=== PATIENT | male | born 1950 | race Caucasian/White ===

== ENCOUNTER 2016-09-13 14:26 | Inpatient (IN) ==
--- NOTE | 2016-09-13 18:18 | Emergency Department Note ---
Disposition Clinical Impression: Bowel obstruction, Cancer of liver, Nausea and vomiting, Abdominal pain Disposition: Admitted As Inpatient Condition: Fair [facility] - Forms: Work/School Release, ED Satisfaction Letter Time of Disposition: 21:03 Abdominal Pain HPI - General Chief Complaint: ED Abdominal Pain Stated Complaint: "flu like sx" decreased intake, abd pain Time Seen by Provider: 09/13/16 18:15 Source: patient Mode of arrival: ambulatory Limitations: physical limitation (weakness to his R side) Nursing Notes Reviewed: Yes Vital Signs Reviewed: Yes - History of Present Illness HPI Narrative: This is a 66-year-old male who presents with lower abdominal pain for several days. Patient states he did vomit once on Tuesday but no other vomiting. Patient states he was initially having diarrhea but that has also resolved. Patient denies any black or bloody stools. Patient is not having any difficulty urinating. Patient is not running a fever. Patient has no chest pain or shortness of breath. Patient has poor speech due to having speech loss and right sided weakness from her previous CVA. Patient states he has had decreased appetite. Pt Subjective Complaint: abdominal pain Onset (ago): day(s) Pain Scale: 4 - Related Data Home Medications Medication Instructions Recorded Confirmed Acetaminophen w/Cod 300-30 mg 1 tab PO TID PRN 08/04/16 08/16/16 [Tylenol w/Codeine #3] Albuterol Sulfate [Proair Hfa] 2 puff IH Q6H PRN 08/04/16 08/16/16 Amitriptyline [Elavil] 25 mg PO HS 08/04/16 08/16/16 Bupropion HCl [Zyban] 150 mg PO BID 08/04/16 08/16/16 Capsaicin 0.025% [Trixaicin] 1 appl TP QID 08/04/16 08/16/16 Fluticasone Propionate Nasal 50 mcg NS DAILY 08/04/16 08/16/16 [Flonase] Guaifenesin [Mucus Relief] 200 mg PO BID 08/04/16 08/16/16 Multivitamin [Multivitamins] 1 cap PO DAILY 08/04/16 08/16/16 Omeprazole [PriLOSEC] 40 mg PO BID 08/04/16 08/16/16 Pregabalin [Lyrica] 200 mg PO TID 08/04/16 08/16/16 Sildenafil Citrate [Viagra] 100 mg PO AD PRN 08/04/16 08/16/16 TraZODone 25 mg PO HS 08/04/16 08/16/16 Previous Rx's Medication Instructions Recorded Amoxicillin/Clavulanate [Augmentin] 1 tab PO BID #10 tablet 08/16/16 PredniSONE [Deltasone] 1 tab PO DAILY #3 tablet 08/16/16 Loperamide [Imodium] 4 mg PO QAM #10 capsule 08/24/16 Allergies Allergy/AdvReac Type Severity Reaction Status Date / Time No Known Allergies Allergy Verified 08/03/16 12:25 All systems ED: reviewed and negative except as stated. Constitutional: Reports: weakness, other (decreased appetite). Denies: fever, chills, weight change Eyes: Denies: eye pain, eye discharge, vision change ENT ED: Denies: ear pain, throat pain, dental pain, hearing loss, epistaxis, congestion, dysphagia Cardiovascular: Denies: chest pain, palpitations, dyspnea on exertion, edema, syncope Respiratory: Denies: cough, dyspnea, wheezes, hemoptysis, stridor Gastrointestinal: Reports: abdominal pain, nausea. Denies: vomiting, diarrhea, constipation, hematemesis, melena, hematochezia Genitourinary: Denies: urgency, dysuria, frequency, hematuria Musculoskeletal: Denies: back pain, neck pain, arthralgia, myalgia Integumentary: Denies: rash, abrasion, lesions Neurological: Denies: headache, numbness, paresthesias, confusion, abnormal gait , vertigo Psychiatric: Denies: anxiety, depression, suicidal thoughts, homicidal thoughts , auditory hallucinations, visual hallucinations Endocrine: Denies: fatigue Hematological/Lymphatic: Denies: easy bleeding, easy bruising Allergic/Immunologic: Denies: facial swelling, urticaria Abdominal Pain PMH - Past Medical History Medical history: Reports: cancer, CVA, hypertension Male Surgical History: Reports: orthopedic, other Psychiatric history: Reports: no psych history - Social History Smoking status: Current every day smoker Alcohol use: Reports: none Drug use: Reports: none Physical Exam - General Limitations: physical limitation (weakness chronic to R side) General appearance: alert, in no apparent distress, cachectic - Head Head exam: atraumatic, normocephalic, normal inspection - Eye Eye exam: Present: normal appearance, PERRL, EOMI - ENT ENT exam: normal exam, normal oropharynx, mucous membranes moist - Expanded ENT Exam External ear exam: Present: normal external inspection Mouth exam: Present: normal external inspection Teeth exam: Present: normal inspection Throat exam: Present: normal inspection - Neck Neck exam: Present: normal inspection, full ROM, trachea midline - Chest Chest inspection: Present: normal inspection, symmetric chest wall rise - Respiratory Respiratory exam: Present: normal lung sounds bilaterally - Cardiovascular Cardiovascular exam: Present: regular rate, normal rhythm, normal heart sounds - Abdominal Exam Abdominal exam: Present: soft, tenderness. Absent: distention, guarding, rebound, rigidity Abdominal tenderness: Present: diffuse (lower abdomen), mild - Extremities Exam Extremities exam: Present: normal inspection, full ROM. Absent: tenderness, pedal edema - Expanded Upper Extremity Exam Shoulder exam: Present: normal inspection, full ROM Arm exam: Present: normal inspection, full ROM Elbow exam: Present: normal inspection, full ROM Forearm/Wrist exam: Present: normal inspection, full ROM Hand exam: Present: normal inspection, full ROM Vascular exam: Normal: capillary refill, radial pulse - Expanded Lower Extremity Exam Hip/Pelvis exam: Present: normal inspection, full ROM Upper leg exam: Present: normal inspection, full ROM Knee exam: Present: normal inspection, full ROM Lower leg exam: Present: normal inspection, full ROM Ankle exam: Present: normal inspection, full ROM Foot/toe exam: Present: normal inspection, full ROM Neurovascular/Tendon exam: Present: motor deficit (weakness chronic to R side from previous CVA). Absent: sensory deficit, tendon deficit - Back Exam Back exam: Present: normal inspection, full ROM. Absent: tenderness - Neurological Exam Neurological exam: Present: alert, oriented X3 - Expanded Neurological Exam Patient oriented to: Present: person, place, time Speech: Absent: fluid speech (pt has speech difficulties due to previous CVA) Coma Scale Eye Opening: Spontaneous Coma Scale Motor Response: Obeys Commands Coma Scale Verbal Response: Oriented Coma Scale Total: 15 - Psychiatric Psychiatric exam: Present: normal affect, normal mood - Skin Skin exam: Present: warm, dry, intact, normal color Course - Consultations Consultation #1: I spoke with Dr. De La Cruz he is going to talk to the radiologist and call me back. Time: 20:46 Consultation #2: I spoke with Dr. Dorothy lora to admit to Hospitalist and he will consult. Wants an NG placed. Time: 21:02 Consultation #3: I spoke with Dr. Ryan lora to admit. Time: 21:24 Vital Signs Temperature 97.9 F 09/13/16 15:22 Pulse Rate 82 09/13/16 15:22 Respiratory Rate 18 09/13/16 15:22 Blood Pressure 117/82 09/13/16 15:22 O2 Sat by Pulse Oximetry 96 09/13/16 15:22 Temperature 97.9 F 09/13/16 15:22 Pulse Rate 82 09/13/16 15:22 Respiratory Rate 18 09/13/16 15:22 Blood Pressure 117/82 09/13/16 15:22 O2 Sat by Pulse Oximetry 96 09/13/16 15:22 Oxygen Delivery Oxygen Delivery Room Air Abdominal Pain - Medical Records Medical records reviewed: Yes I reviewed the patient's medical records. - Lab Data Lab results reviewed: Yes I reviewed the patient's lab results. Result diagrams: 09/13/16 18:59 09/13/16 18:59 Lab Results 09/13/16 09/13/16 09/13/16 Range/Units 18:59 18:59 18:59 WBC 10.3 (4.3-11.1) K/mcL RBC 5.27 (4.19-5.50) M/mcL Hgb 15.5 (12.9-16.9) g/dL Hct 46.3 (37.5-50.1) % MCV 87.9 (83.0-100.0) fL MCH 29.4 (28.0-33.3) pg MCHC 33.5 (31.6-35.5) g/dL RDW 14.4 (11.5-14.5) % Plt Count 226 (140-400) K/mcL MPV 9.4 (9.4-12.4) fL Immature Gran % 0.7 (0-4) % Seg Neutrophils % 63.8 % Lymphocytes % 22.6 % Monocytes % 10.8 % Eosinophils % 1.4 % Basophils % 0.7 % Neutrophils # 6.6 (1.6-8.9) K/mcL Lymphocytes # 2.3 (0.6-4.6) K/mcL Monocytes # 1.1 (0.0-1.3) K/mcL Eosinophils # 0.1 (0.0-0.6) K/mcL Basophils # 0.1 (0.0-0.2) K/mcL Sodium 134 L (136-145) mEq/L Potassium 3.4 L (3.5-4.5) mEq/L Chloride 99 (98-109) mEq/L Carbon Dioxide 25 (19-29) mEq/L BUN 9 (8-26) mg/dL Creatinine 0.87 (0.72-1.25) mg/dL Est GFR ( Amer) > 60 (> 60) Est GFR (Non-Af Amer) > 60 (> 60) BUN/Creatinine Ratio 10 (6-26) Glucose 121 H (70-99) mg/dL Calculated Osmolality 278 L (280-300) Calcium 9.2 (8.6-10.8) mg/dL Total Bilirubin 0.5 (0.2-1.2) mg/dL Direct Bilirubin 0.2 (0.0-0.5) mg/dL Indirect Bilirubin 0.3 (0.0-1.2) mg/dL AST 12 (5-34) Units/L ALT 9 (0-55) Units/L Alkaline Phosphatase 88 (38-126) Units/L Troponin I 0.00 (0-0.03) ng/mL Serum Total Protein 7.0 (6.0-8.3) g/dL Albumin 3.6 (3.5-5.0) g/dL Globulin 3.4 (2.4-3.5) g/dL Albumin/Globulin Ratio 1.1 (1.1-2.2) Amylase 62 (25-125) Units/L Lipase 12 (8-78) Units/L Urine Color (Yellow) Urine Clarity (Clear) Urine pH (5.0-8.0) pH Units Ur Specific [place] (1.010-1.025) Urine Protein (Neg-Trace) mg/dL Urine Glucose (UA) (Normal) mg/dL Urine Ketones (Negative) mg/dL Urine Blood (Negative) Urine Nitrite (Negative) Urine Bilirubin (Negative) Urine Urobilinogen (Normal) mg/dL Ur Leukocyte Esterase (Negative) Urine Microscopic RBC (0-3) per hpf Urine Microscopic WBC (0-3) per hpf Ur Squamous Epith Cells (None-Few) per lpf Urine Bacteria (None-Few) per hpf Hyaline Casts (None-Few) per lpf Urine Mucus (Few) Urine Yeast Ur Culture Indicated? (NO) 09/13/16 Range/Units 20:27 WBC (4.3-11.1) K/mcL RBC (4.19-5.50) M/mcL Hgb (12.9-16.9) g/dL Hct (37.5-50.1) % MCV (83.0-100.0) fL MCH (28.0-33.3) pg MCHC (31.6-35.5) g/dL RDW (11.5-14.5) % Plt Count (140-400) K/mcL MPV (9.4-12.4) fL Immature Gran % (0-4) % Seg Neutrophils % % Lymphocytes % % Monocytes % % Eosinophils % % Basophils % % Neutrophils # (1.6-8.9) K/mcL Lymphocytes # (0.6-4.6) K/mcL Monocytes # (0.0-1.3) K/mcL Eosinophils # (0.0-0.6) K/mcL Basophils # (0.0-0.2) K/mcL Sodium (136-145) mEq/L Potassium (3.5-4.5) mEq/L Chloride (98-109) mEq/L Carbon Dioxide (19-29) mEq/L BUN (8-26) mg/dL Creatinine (0.72-1.25) mg/dL Est GFR ( Amer) (> 60) Est GFR (Non-Af Amer) (> 60) BUN/Creatinine Ratio (6-26) Glucose (70-99) mg/dL Calculated Osmolality (280-300) Calcium (8.6-10.8) mg/dL Total Bilirubin (0.2-1.2) mg/dL Direct Bilirubin (0.0-0.5) mg/dL Indirect Bilirubin (0.0-1.2) mg/dL AST (5-34) Units/L ALT (0-55) Units/L Alkaline Phosphatase (38-126) Units/L Troponin I (0-0.03) ng/mL Serum Total Protein (6.0-8.3) g/dL Albumin (3.5-5.0) g/dL Globulin (2.4-3.5) g/dL Albumin/Globulin Ratio (1.1-2.2) Amylase (25-125) Units/L Lipase (8-78) Units/L Urine Color Dark Yellow (Yellow) Urine Clarity Turbid A (Clear) Urine pH 6.0 (5.0-8.0) pH Units Ur Specific [place] 1.029 H (1.010-1.025) Urine Protein 30 H (Neg-Trace) mg/dL Urine Glucose (UA) Normal (Normal) mg/dL Urine Ketones Trace H (Negative) mg/dL Urine Blood Negative (Negative) Urine Nitrite Negative (Negative) Urine Bilirubin Moderate H (Negative) Urine Urobilinogen Normal (Normal) mg/dL Ur Leukocyte Esterase Trace H (Negative) Urine Microscopic RBC 0-3 (0-3) per hpf Urine Microscopic WBC 5-15 H (0-3) per hpf Ur Squamous Epith Cells Many H (None-Few) per lpf Urine Bacteria Few (None-Few) per hpf Hyaline Casts Moderate H (None-Few) per lpf Urine Mucus Many H (Few) Urine Yeast Test Not Performed Ur Culture Indicated? YES A (NO) - Radiology Data Radiology results reviewed: Yes I reviewed the patient's radiology results. - EKG Data EKG attestation: Yes I reviewed and interpreted this EKG. EKG shows normal: sinus rhythm Rate: normal Rhythm: NSR [place]/QRS: normal Interpretation: no acute changes, normal EKG
[2016-09-13 19:27] LABS: Basophils # 0.1 K/mcL (0.0-0.2); Basophils % 0.7 %; Eosinophils # 0.1 K/mcL (0.0-0.6); Eosinophils % 1.4 %; Hematocrit 46.3 % (37.5-50.1); Hemoglobin 15.5 g/dL (12.9-16.9); Immature Granulocytes % 0.7 % (0-4); Lymphocytes # 2.3 K/mcL (0.6-4.6); Lymphocytes % 22.6 %; Mean Corpuscular HGB Conc 33.5 g/dL (31.6-35.5); Mean Corpuscular Hemoglobin 29.4 pg (28.0-33.3); Mean Corpuscular Volume 87.9 fL (83.0-100.0); Mean Platelet Volume 9.4 fL (9.4-12.4); Monocytes # 1.1 K/mcL (0.0-1.3); Monocytes % 10.8 %; Neutrophils # 6.6 K/mcL (1.6-8.9); Platelet Count 226 K/mcL (140-400); Red Blood Count 5.27 M/mcL (4.19-5.50); Red Cell Distribution Width 14.4 % (11.5-14.5); Segmented Neutrophils % 63.8 %
[2016-09-13 19:45] LABS: Alanine Aminotransferase 9 Units/L (0-55); Albumin 3.6 g/dL (3.5-5.0); Albumin/Globulin Ratio 1.1 (1.1-2.2); Alkaline Phosphatase 88 Units/L (38-126); Amylase 62 Units/L (25-125); Aspartate Amino Transferase 12 Units/L (5-34); BUN/Creatinine Ratio 10 (6-26); Bilirubin,Direct 0.2 mg/dL (0.0-0.5); Bilirubin,Indirect 0.3 mg/dL (0.0-1.2); Bilirubin,Total 0.5 mg/dL (0.2-1.2); Blood Urea Nitrogen 9 mg/dL (8-26); Calcium 9.2 mg/dL (8.6-10.8); Carbon Dioxide 25 mEq/L (19-29); Chloride 99 mEq/L (98-109); Globulin 3.4 g/dL (2.4-3.5); Glucose 121 mg/dL (70-99); Lipase 12 Units/L (8-78); Osmolality,Calculated 278 (280-300); Potassium 3.4 mEq/L (3.5-4.5); Sodium 134 mEq/L (136-145); eGFR For African Americans > 60 (> 60); eGFR For Non-African Americans > 60 (> 60)
[2016-09-13 20:33] LABS: Bilirubin,Urine Moderate (Negative); Blood,Urine Negative (Negative); Clarity,Urine Turbid (Clear); Color,Urine Dark Yellow (Yellow); Glucose,Urine (UA) Normal (Normal); Ketones,Urine Trace mg/dL (Negative); Leukocyte Esterase,Urine Trace (Negative); Nitrite,Urine Negative (Negative); Protein,Urine 30 mg/dL (Neg-Trace); Specific Gravity,Urine 1.029 (1.010-1.025); Urobilinogen,Urine Normal (Normal)
[2016-09-13 20:34] LABS: Hyaline Casts,Urine Moderate per lpf (None-Few); RBC,Urine 0-3 per hpf (0-3); Squamous Epithelial Cell,Urine Many per lpf (None-Few)
[2016-09-13 20:54] LABS: Mucus,Urine Many (Few)
[2016-09-13 20:55] LABS: Bacteria,Urine Few per hpf (None-Few)
[2016-09-13] MEDS ORDERED: Ondansetron 4 MG/2 ML VIAL IV ONE (21:03)
[2016-09-13] MEDS ORDERED: *HR* Morphine 2 MG/ML SYRINGE IV ONE (21:03)
[2016-09-13] MEDS ORDERED: *HR* LORazepam 2 MG/ML VIAL IVP ONE (21:57)
[2016-09-13] MEDS ORDERED: *HR* LORazepam 2 MG/ML VIAL ONE (22:00)
[2016-09-14] MEDS ORDERED: Naloxone 0.4 MG/ML INJ IVP PRN (02:40)
[2016-09-14] MEDS ORDERED: *HR* Morphine 2 MG/ML SYRINGE IVP PRN (02:40)
[2016-09-14] MEDS ORDERED: Ondansetron 4 MG/2 ML VIAL IVP PRN (02:40)
[2016-09-14] MEDS: 0.9 % Sodium Chloride 1,000 ML IVC SCH ×3 (03:08→21:56)
[2016-09-14] MEDS: Pantoprazole 40 MG VIAL IVP SCH ×2 (03:08→08:16)
[2016-09-14 05:46] LABS: Basophils # 0.1 K/mcL (0.0-0.2); Basophils % 0.6 %; Eosinophils # 0.2 K/mcL (0.0-0.6); Eosinophils % 1.5 %; Hematocrit 41.9 % (37.5-50.1); Hemoglobin 14.1 g/dL (12.9-16.9); Immature Granulocytes % 0.6 % (0-4); Lymphocytes # 2.3 K/mcL (0.6-4.6); Lymphocytes % 17.6 %; Mean Corpuscular HGB Conc 33.7 g/dL (31.6-35.5); Mean Corpuscular Hemoglobin 29.8 pg (28.0-33.3); Mean Corpuscular Volume 88.6 fL (83.0-100.0); Mean Platelet Volume 9.3 fL (9.4-12.4); Monocytes # 1.5 K/mcL (0.0-1.3); Monocytes % 11.3 %; Platelet Count 208 K/mcL (140-400); Red Blood Count 4.73 M/mcL (4.19-5.50); Red Cell Distribution Width 14.3 % (11.5-14.5); Segmented Neutrophils % 68.4 %
[2016-09-14 06:00] LABS: Alanine Aminotransferase 8 Units/L (0-55); Alkaline Phosphatase 74 Units/L (38-126); Aspartate Amino Transferase 12 Units/L (5-34); BUN/Creatinine Ratio 11 (6-26); Bilirubin,Total 0.5 mg/dL (0.2-1.2); Blood Urea Nitrogen 10 mg/dL (8-26); Calcium 8.6 mg/dL (8.6-10.8); Carbon Dioxide 28 mEq/L (19-29); Chloride 101 mEq/L (98-109); Glucose 93 mg/dL (70-99); Magnesium 1.9 mg/dL (1.6-2.6); Osmolality,Calculated 281 (280-300); Potassium 3.2 mEq/L (3.5-4.5); Sodium 136 mEq/L (136-145); eGFR For African Americans > 60 (> 60); eGFR For Non-African Americans > 60 (> 60)
--- NOTE | 2016-09-14 08:06 | Internal Med History&Physical ---
Date of Encounter: 09/14/16 Time of Encounter: 01:00 Assessment and Plan (1) Bowel obstruction Current visit: Yes Status: Acute Nothing by mouth. NG tube. General surgical consult. IV fluids. Replete electrolytes. Repeat x-ray in the morning. History he is at high risk due to IV control substances for pain control. Qualifiers: Intestinal obstruction type: volvulus Qualified Code(s): K56.2 - Volvulus (2) Nausea and vomiting Current visit: Yes Status: Acute We will treat this with IV Zofran and NG tube. Qualifiers: Vomiting type: unspecified Vomiting Intractability: intractable Qualified Code(s): R11.2 - Nausea with vomiting, unspecified (3) DVT prophylaxis Current visit: No Status: Acute We will provide prophylaxis with heparin subcutaneous. (4) Metastatic carcinoma involving liver with unknown primary site Current visit: No Status: Acute Oncology consult. Palliative care consult. (5) History of CVA with residual deficit Current visit: No Status: Chronic Internal Medicine - H&P: HPI Chief complaint: Abdominal pain Admitted From: Emergency Dept Plans for Post Hospital Care: Hospice - Home History of present illness: Mr. Jewell is a 66 year old male with history of CVA with residual deficit and aphasia, and recently diagnosed metastatic disease to the liver and bone who presented to the hospital for abdominal pain. History is limited by aphasia. He reports severe abdominal pain in epigastric area and right side, worse for the last 2 days associated with nausea vomiting and decreased appetite. He had imaging studies in the emergency department which showed signs concerning for bowel obstruction. He was referred for admission. Review of systems positive for aphasia positive for right hemiparesis otherwise negative. Family history reviewed and found to be noncontributory. Past Med Surg Social Fam HX - Past Medical History Medical history: cancer, CVA, hypertension, other Psychiatric history: no psych history - Past Surgical History Surgical History: no surgical history - Social History Smoking Status: Current every day smoker Packs per day: 1 Smokeless Tobacco Status: No Alcohol use: none Drug use: none - Family History Brother Family Member Ethnicity: Non- Living Status: Still Living Hx Family Cardiac Disorders: Yes (hypertension) Internal Medicine - H&P: Meds Acetaminophen w/Cod 300-30 mg [Tylenol w/Codeine #3] 1 tab PO TID PRN 08/04/16 [ History] Albuterol Sulfate [Proair Hfa] 2 puff IH Q6H PRN 08/04/16 [History] Amitriptyline [Elavil] 25 mg PO HS 08/04/16 [History] Bupropion HCl [Zyban] 150 mg PO BID 08/04/16 [History] Capsaicin 0.025% [Trixaicin] 1 appl TP QID 08/04/16 [History] Fluticasone Propionate Nasal [Flonase] 50 mcg NS DAILY 08/04/16 [History] Guaifenesin [Mucus Relief] 200 mg PO BID 08/04/16 [History] Multivitamin [Multivitamins] 1 cap PO DAILY 08/04/16 [History] Omeprazole [PriLOSEC] 40 mg PO BID 08/04/16 [History] Pregabalin [Lyrica] 200 mg PO TID 08/04/16 [History] Sildenafil Citrate [Viagra] 100 mg PO AD PRN 08/04/16 [History] TraZODone 25 mg PO HS 08/04/16 [History] Amoxicillin/Clavulanate [Augmentin] 1 tab PO BID #10 tablet 08/16/16 [Rx] PredniSONE [Deltasone] 1 tab PO DAILY #3 tablet 08/16/16 [Rx] Loperamide [Imodium] 4 mg PO QAM #10 capsule 08/24/16 [Rx] Allergies No Known Allergies Allergy (Verified 08/03/16 12:25) All Systems PM: A 10-system review of systems was performed and is negative for pertinent findings except as documented above in the HPI. - Constitutional Vitals: Temp Pulse Resp BP Pulse Ox 97.8 F 64 18 109/69 94 L 09/13/16 23:19 09/13/16 23:19 09/13/16 23:19 09/13/16 23:19 09/13/16 23:19 - Neck Neck exam general surgery: Present: supple, trachea midline. Absent: lymphadenopathy - Respiratory Respiratory exam: Present: CTAB. Absent: accessory muscle use, rales, rhonchi, wheezes - Cardiovascular Cardiovascular exam: Present: RRR, +S1, +S2. Absent: diastolic murmur, gallop, rubs, systolic murmur - GI/Abdominal GI/Abdominal exam: Present: hyperactive bowel sounds, normal bowel sounds, soft , tenderness, no peritoneal signs. Absent: distended - Extremities Exam Extremities exam: Present: warm, radial pulses palpable and symetrical. Absent : calf tenderness, cyanotic, pedal edema - Neurological Exam Additional comments: Aphasia and right hemiparesis. Internal Med - H&P Results - Labs CBC & Chem 7: 09/14/16 05:27 09/14/16 05:27 Labs: Short CBC 09/14/16 Range/Units 05:27 WBC 13.1 H (4.3-11.1) K/mcL Hgb 14.1 (12.9-16.9) g/dL Hct 41.9 (37.5-50.1) % Plt Count 208 (140-400) K/mcL Neutrophils # 9.0 H (1.6-8.9) K/mcL BMP 09/14/16 05:27 Sodium 136 Potassium 3.2 L Chloride 101 Carbon Dioxide 28 BUN 10 Creatinine 0.89 Glucose 93 Calcium 8.6 Liver Function 09/14/16 Range/Units 05:27 Total Bilirubin 0.5 (0.2-1.2) mg/dL AST 12 (5-34) Units/L ALT 8 (0-55) Units/L Alkaline Phosphatase 74 (38-126) Units/L Albumin 3.0 L (3.5-5.0) g/dL - Impressions CT of the abdomen and pelvis shows grossly dilated colon with large bowel obstruction with a transition point in the descending colon. Liver metastatic disease
[2016-09-14] MEDS: *HR* Heparin 5,000 UNIT/ML VIAL SQ SCH ×3 (08:16→23:57)
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
--- NOTE | 2016-09-14 13:46 | General Surgery Consult Note ---
Date of Encounter: 09/14/16 Time of Encounter: 13:29 Assessment and Plan (1) Bowel obstruction Current Visit: Yes Status: Acute NG tube, bowel rest IVF pain control barium enema Qualifiers: Intestinal obstruction type: volvulus Qualified Code(s): K56.2 - Volvulus (2) Metastatic carcinoma involving liver with unknown primary site Current Visit: No Status: Acute liver biopsy to be ordered by hospitalist management by hospitalist, oncology, palliative care teams (3) History of CVA with residual deficit Current Visit: No Status: Chronic History of Present Illness Consult date: 09/14/16 Reason for consult: other (bowel obstruction) Requesting physician: Alistair Kim History of present illness: 66 yo male with history of CVA with residual deficit and aphasia, and recently diagnosed mestatic disease to the liver and bone presented to the ER with progressive abdominal pain for 2 days with nausea, vomiting, and anorexia. His pain is severe, epigastric and right sided abdominal. CT done in the ER shows severe dilation of the transverse colon with a transition point in the descending colon that may represent a large bowel obstruction. On admission last night, an NG tube was placed to suction. Patient states that he feels better this morning with less abdominal pain. From recent admission 08/05/2016: CEA: 159.8 CA 19-9: 180 EGD - nonbleeding duodenal ulcer Patient refused colonoscopy and liver biopsy. Past Med Surg Social Fam HX - Past Medical History Medical history: cancer, CVA, hypertension, other Psychiatric history: no psych history - Past Surgical History Surgical History: no surgical history - Social History Smoking Status: Current every day smoker Packs per day: 1 Smokeless Tobacco Status: No Alcohol use: none Drug use: none - Family History Brother Family Member Ethnicity: Non- Living Status: Still Living Hx Family Cardiac Disorders: Yes (hypertension) Medications and Allergies Alendronate Sodium [Fosamax] 70 mg PO QWEEK 09/14/16 [History] Amlodipine [Norvasc] 10 mg PO DAILY 09/14/16 [History] Aspirin/Calcium Carbonate/Mag [Aspirin Buffered 325 mg Tab] 325 mg PO DAILY [History] Calcium Carbonate [Tums] 650 mg PO DAILY 09/14/16 [History] Carvedilol 1.562 mg PO BID 09/14/16 [History] Cholecalciferol (D-3) [Vitamin D] 2,000 unit PO DAILY 09/14/16 [History] Folic Acid 1 mg PO DAILY 09/14/16 [History] Lisinopril [Zestril] 10 mg PO DAILY 09/14/16 [History] Lovastatin [Altoprev] 60 mg PO DAILY 09/14/16 [History] Potassium Chloride [Klor-Con Sprinkle] 10 meq PO DAILY 09/14/16 [History] Terazosin [Hytrin] 5 mg PO DAILY 09/14/16 [History] Allergies simvastatin Adverse Reaction (Verified 09/14/16 09:58) See Comments UNABLE TO CONFIRM REACTION- [facility] AN ADVERSE REACTION WITH NO REACTION INDICATED Review of Systems All systems PM: A 10-system review of systems was performed and is negative for pertinent findings except as documented above in the HPI. - Constitutional other (aphasia) - Gastrointestinal abdominal pain, nausea, vomiting, other (anorexia) - Musculoskeletal other (right hemiparesis) General Surgery Exam Initial Vital Signs Temp Pulse Resp BP Pulse Ox 97.9 F 82 18 117/82 96 09/13/16 15:22 09/13/16 15:22 09/13/16 15:22 09/13/16 15:22 09/13/16 15:22 Exam Initial Vital Signs Temp Pulse Resp BP Pulse Ox 97.9 F 82 18 117/82 96 09/13/16 15:22 09/13/16 15:22 09/13/16 15:22 09/13/16 15:22 09/13/16 15:22 - General physical appearance well developed, well nourished, no distress - Eyes PERRL - ENT normal nares, normal mucosa - Neck trachea midline - Respiratory normal expansion, clear to auscultation - Abdomen Abdomen: soft, tender (mild, diffuse), bowel sounds Results - Labs 09/14/16 05:27 09/14/16 05:27 Abnormal lab results WBC 13.1 K/mcL (4.3-11.1) H 09/14/16 05:27 MPV 9.3 fL (9.4-12.4) L 09/14/16 05:27 Neutrophils # 9.0 K/mcL (1.6-8.9) H 09/14/16 05:27 Monocytes # 1.5 K/mcL (0.0-1.3) H 09/14/16 05:27 Potassium 3.2 mEq/L (3.5-4.5) L 09/14/16 05:27 POC Glucose 92 (58-89) H 09/14/16 11:50 Albumin 3.0 g/dL (3.5-5.0) L 09/14/16 05:27 Albumin/Globulin Ratio 1.0 (1.1-2.2) L 09/14/16 05:27 Urine Clarity Turbid (Clear) A 09/13/16 20:27 Ur Specific [place] 1.029 (1.010-1.025) H 09/13/16 20:27 Urine Protein 30 mg/dL (Neg-Trace) H 09/13/16 20:27 Urine Ketones Trace mg/dL (Negative) H 09/13/16 20:27 Urine Bilirubin Moderate (Negative) H 09/13/16 20:27 Ur Leukocyte Esterase Trace (Negative) H 09/13/16 20:27 Urine Microscopic WBC 5-15 per hpf (0-3) H 09/13/16 20:27 Ur Squamous Epith Cells Many per lpf (None-Few) H 09/13/16 20:27 Hyaline Casts Moderate per lpf (None-Few) H 09/13/16 20:27 Urine Mucus Many (Few) H 09/13/16 20:27 Ur Culture Indicated? YES (NO) A 09/13/16 20:27 All other labs normal. Consult Discharge Plan - Plan Referrals: [facility] [Outside]
--- NOTE | 2016-09-14 15:52 | Electrocardiograph Report ---
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
--- NOTE | 2016-09-14 17:15 | Internal Med Progress Note ---
Date of Encounter: 09/14/16 Time of Encounter: 12:00 - Assessment and plan (1) Bowel obstruction Current Visit: Yes Status: Acute Assessment and plan: Patient has a bowel obstruction, most likely due to malignancy. Surgical consult is on case and appreciated. 1. Keep patient nothing by mouth, NG tube with intermittent suction. 2. IV fluids, follow-up with BMP to correct electrolyte abnormality. Qualifiers: Intestinal obstruction type: volvulus Qualified Code(s): K56.2 - Volvulus (2) Nausea and vomiting Current Visit: Yes Status: Acute Assessment and plan: Due to bowel obstruction. Keep nothing by mouth and NG tube suction. Qualifiers: Vomiting type: unspecified Vomiting Intractability: non-intractable Qualified Code(s): R11.2 - Nausea with vomiting, unspecified (3) DVT prophylaxis Current Visit: No Status: Acute Assessment and plan: Heparin subcutaneously (4) Metastatic carcinoma involving liver with unknown primary site Current Visit: No Status: Acute Assessment and plan: Etiology is undetermine. Highly suspect colon cancer because patient has a high CEA. Plan for liver biopsy. Patient has seen oncologist as outpatient. (5) History of CVA with residual deficit Current Visit: No Status: Chronic Assessment and plan: with residual weakness and dysarthria. - Time Spent With Patient 25 - 35 minutes - Subjective Interval history: Patient is a 66-year-old male admitted for abdominal pain, diagnosis is bowel obstruction, possible malignancy with liver metastasis. Past medical history is significant for cancer, CVA, hypertension. Patient is seen and examined. He is on nothing by mouth with NG tube intermittent suction. His vitals are stable. 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 General surgery consult and palliative consult appreciated. Patient would like to know the diagnosis of liver lesion. Will ask interventional radiology consult and possibly liver biopsy. - Constitutional Vitals: Temp Pulse Resp BP Pulse Ox 98.1 F 64 16 112/66 93 L 09/14/16 11:46 09/14/16 11:46 09/14/16 11:46 09/14/16 11:46 09/14/16 11:46 General appearance: Present: A&O X 3, no acute distress - Head Head exam: Present: atraumatic, normocephalic - Eye Eye exam: Present: PERRL, conjuntiva pink, sclera anicteric Pupils: Present: PERRL - Neck Neck exam general surgery: Present: supple, trachea midline. Absent: lymphadenopathy - Respiratory Respiratory exam: Present: CTAB. Absent: accessory muscle use, rales, rhonchi, wheezes - Cardiovascular Cardiovascular exam: Present: RRR, +S1, +S2. Absent: diastolic murmur, gallop, rubs, systolic murmur - GI/Abdominal GI/Abdominal exam: Present: hyperactive bowel sounds, soft, no peritoneal signs. Absent: distended, tenderness - Extremities Exam Extremities exam: Present: warm, radial pulses palpable and symetrical. Absent : calf tenderness, cyanotic, pedal edema - Neurological Exam Neurological exam: Present: CN II-XII intact, oriented X3, no focal deficits. Absent: pronater drift, facial droop, speech deficit - Skin Skin exam: Present: dry, intact Internal Medicine: Result - Labs CBC & Chem 7: 09/14/16 05:27 09/14/16 05:27 Consult Discharge Plan - Plan Referrals: [facility] [Outside]
[2016-09-14] MEDS ORDERED: Potassium Chloride 40 MEQ, Lidocaine 1% 2 ML in D5% in Water 500 ML IVPB ONE (17:16)
[2016-09-15 04:54] LABS: Basophils # 0.1 K/mcL (0.0-0.2); Basophils % 0.6 %; Eosinophils # 0.2 K/mcL (0.0-0.6); Hematocrit 44.5 % (37.5-50.1); Immature Granulocytes % 0.6 % (0-4); Lymphocytes # 2.3 K/mcL (0.6-4.6); Lymphocytes % 21.4 %; Mean Corpuscular HGB Conc 33.7 g/dL (31.6-35.5); Mean Corpuscular Hemoglobin 30.1 pg (28.0-33.3); Mean Corpuscular Volume 89.2 fL (83.0-100.0); Mean Platelet Volume 9.3 fL (9.4-12.4); Monocytes # 1.2 K/mcL (0.0-1.3); Monocytes % 10.6 %; Platelet Count 238 K/mcL (140-400); Red Blood Count 4.99 M/mcL (4.19-5.50); Red Cell Distribution Width 14.5 % (11.5-14.5); Segmented Neutrophils % 64.8 %
[2016-09-15 05:04] LABS: INR 1.1; Prothrombin Time 11.5 Seconds (9.4-12.1)
[2016-09-15 05:05] LABS: BUN/Creatinine Ratio 11 (6-26); Blood Urea Nitrogen 9 mg/dL (8-26); Calcium 8.5 mg/dL (8.6-10.8); Carbon Dioxide 22 mEq/L (19-29); Chloride 106 mEq/L (98-109); Glucose 86 mg/dL (70-99); Osmolality,Calculated 280 (280-300); Potassium 3.8 mEq/L (3.5-4.5); Sodium 136 mEq/L (136-145); eGFR For African Americans > 60 (> 60); eGFR For Non-African Americans > 60 (> 60)
[2016-09-15] MEDS: 0.9 % Sodium Chloride 1,000 ML IVC SCH ×2 (06:06→21:33)
[2016-09-15] MEDS: *HR* Heparin 5,000 UNIT/ML VIAL SQ SCH ×3 (08:14→21:33)
[2016-09-15] MEDS: Pantoprazole 40 MG VIAL IVP SCH (08:14)
--- NOTE | 2016-09-15 09:22 | Palliative Progress Note ---
<Miguel Jiang - Last Filed: 09/15/16 10:19> Date of Encounter: 09/15/16 Time of Encounter: 09:19 - Assessment and plan (1) Bowel obstruction Current Visit: Yes Status: Acute Assessment and plan: -NG tube present. Patient is tolerating well. Continue to monitor -No BM, gas, denies abdominal pain, nausea, vomiting. -Scheduled for colostomy and liver biopsy today. Two separate procedures. Patient informed. Qualifiers: Intestinal obstruction type: volvulus Qualified Code(s): K56.2 - Volvulus (2) Metastatic carcinoma involving liver with unknown primary site Current Visit: Yes Status: Acute Assessment and plan: -Patient scheduled for liver biopsy today. -Denies nausea or pain. No medication changes needed at this time. Continue therapy. -Awaiting results. Will continue to follow on the case. Consider hospice care if metastatic carcinoma detected and not amendable to treatment. - Time Spent With Patient Total time spent is greater than 50% in coordination of care (as documented) at patient's floor/unit and/or counseling patient: 25 - 35 minutes - Subjective Interval history: Patient feels about the same today as yesterday. Answers questions appropriately. No family present in room. No complaints or concerns. Denies SOB , CP, BM, passing gas, N/V/abdominal pain. Unaware of surgery scheduled for today, is aware of liver biopsy. Reiterated that he wants to remain DNR-CCA. - Constitutional Vitals: Abnormal lab results MPV 9.3 fL (9.4-12.4) L 09/15/16 04:35 Calcium 8.5 mg/dL (8.6-10.8) L 09/15/16 04:35 Albumin 3.0 g/dL (3.5-5.0) L 09/14/16 05:27 Albumin/Globulin Ratio 1.0 (1.1-2.2) L 09/14/16 05:27 Urine Clarity Turbid (Clear) A 09/13/16 20:27 Ur Specific [place] 1.029 (1.010-1.025) H 09/13/16 20:27 Urine Protein 30 mg/dL (Neg-Trace) H 09/13/16 20:27 Urine Ketones Trace mg/dL (Negative) H 09/13/16 20:27 Urine Bilirubin Moderate (Negative) H 09/13/16 20:27 Ur Leukocyte Esterase Trace (Negative) H 09/13/16 20:27 Urine Microscopic WBC 5-15 per hpf (0-3) H 09/13/16 20:27 Ur Squamous Epith Cells Many per lpf (None-Few) H 09/13/16 20:27 Hyaline Casts Moderate per lpf (None-Few) H 09/13/16 20:27 Urine Mucus Many (Few) H 09/13/16 20:27 Ur Culture Indicated? YES (NO) A 09/13/16 20:27 General appearance: Present: no acute distress - Head Head exam: Present: normal inspection - Respiratory Respiratory exam: Present: CTAB - Cardiovascular Cardiovascular exam: Present: RRR - GI/Abdominal GI/Abdominal exam: Present: hyperactive bowel sounds, soft. Absent: rebound, rigid, tenderness Additional comments: NG tube present and draining. - Extremities Exam Extremities exam: Present: normal capillary refill. Absent: pedal edema, tenderness Additional comments: R side flaccid. Stroke 25 years ago. - Expanded Neurological Exam Patient oriented to: Present: person, place, time - Psychiatric Psychiatric exam: Present: normal affect, normal mood Palliative Quality Palliative Quality: Screen for Code Status: Yes, Screen for Goals of Care: Yes, Screen for Pain: Yes, If Pain Regimen Started, Initiate Bowel Regimen: NA, Screen for Nausea/Vomitting: Yes Code Status: 09/14/16 02:40 Resuscitation Status: Active [RES] Routine Comment: Resuscitation Status: DNR-Comfort Care-Arrest - Labs CBC & Chem 7: 09/15/16 04:35 09/15/16 04:35 Labs: Laboratory Results - last 24 hr 09/14/16 09/14/16 09/15/16 11:50 23:12 04:35 WBC RBC Hgb Hct MCV MCH MCHC RDW Plt Count MPV Immature Gran % Seg Neutrophils % Lymphocytes % Monocytes % Eosinophils % Basophils % Neutrophils # Lymphocytes # Monocytes # Eosinophils # Basophils # PT 11.5 INR 1.1 Sodium Potassium Chloride Carbon Dioxide BUN Creatinine Est GFR ( Amer) Est GFR (Non-Af Amer) BUN/Creatinine Ratio Glucose POC Glucose 92 H 96 H Calculated Osmolality Calcium 09/15/16 09/15/16 09/15/16 04:35 04:35 05:37 WBC 10.9 RBC 4.99 Hgb 15.0 Hct 44.5 MCV 89.2 MCH 30.1 MCHC 33.7 RDW 14.5 Plt Count 238 MPV 9.3 L Immature Gran % 0.6 Seg Neutrophils % 64.8 Lymphocytes % 21.4 Monocytes % 10.6 Eosinophils % 2.0 Basophils % 0.6 Neutrophils # 7.0 Lymphocytes # 2.3 Monocytes # 1.2 Eosinophils # 0.2 Basophils # 0.1 PT INR Sodium 136 Potassium 3.8 Chloride 106 Carbon Dioxide 22 BUN 9 Creatinine 0.79 Est GFR ( Amer) > 60 Est GFR (Non-Af Amer) > 60 BUN/Creatinine Ratio 11 Glucose 86 POC Glucose 88 Calculated Osmolality 280 Calcium 8.5 L - ABG Interpretation ABG results: PT/INR, D-dimer PT 11.5 Seconds (9.4-12.1) 09/15/16 04:35 Consult Discharge Plan - Plan Referrals: [facility] [Outside] <Arvind Crain - Last Filed: 09/15/16 11:25> Date of Encounter: 09/15/16 - Assessment and plan (1) Nausea and vomiting Current Visit: Yes Status: Acute Qualifiers: Vomiting type: unspecified Vomiting Intractability: non-intractable Qualified Code(s): R11.2 - Nausea with vomiting, unspecified (2) Abdominal pain Current Visit: Yes Status: Acute Qualifiers: Abdominal location: epigastric Qualified Code(s): R10.13 - Epigastric pain (3) Goals of care, counseling/discussion Current Visit: Yes Status: Acute (4) Bowel obstruction Current Visit: Yes Status: Acute Qualifiers: Intestinal obstruction type: volvulus Qualified Code(s): K56.2 - Volvulus (5) Metastatic carcinoma involving liver with unknown primary site Current Visit: Yes Status: Acute - Time Spent With Patient Total time spent is greater than 50% in coordination of care (as documented) at patient's floor/unit and/or counseling patient: - Constitutional Vitals: Abnormal lab results MPV 9.3 fL (9.4-12.4) L 09/15/16 04:35 Calcium 8.5 mg/dL (8.6-10.8) L 09/15/16 04:35 Albumin 3.0 g/dL (3.5-5.0) L 09/14/16 05:27 Albumin/Globulin Ratio 1.0 (1.1-2.2) L 09/14/16 05:27 Urine Clarity Turbid (Clear) A 09/13/16 20:27 Ur Specific [place] 1.029 (1.010-1.025) H 09/13/16 20:27 Urine Protein 30 mg/dL (Neg-Trace) H 09/13/16 20:27 Urine Ketones Trace mg/dL (Negative) H 09/13/16 20:27 Urine Bilirubin Moderate (Negative) H 09/13/16 20:27 Ur Leukocyte Esterase Trace (Negative) H 09/13/16 20:27 Urine Microscopic WBC 5-15 per hpf (0-3) H 09/13/16 20:27 Ur Squamous Epith Cells Many per lpf (None-Few) H 09/13/16 20:27 Hyaline Casts Moderate per lpf (None-Few) H 09/13/16 20:27 Urine Mucus Many (Few) H 09/13/16 20:27 Ur Culture Indicated? YES (NO) A 09/13/16 20:27 - Attending Attestation I examined this patient and my medical decision-making was reviewed with the FLOAT OPERATOR/PA/Advanced Practice Nurse/Resident Physician. I agree with the documented findings, disposition and treatment plan as described except to the extent set forth below. Palliative Quality Code Status: 09/14/16 02:40 Resuscitation Status: Active [RES] Routine Comment: Resuscitation Status: DNR-Comfort Care-Arrest - Labs CBC & Chem 7: 09/15/16 04:35 09/15/16 04:35 Labs: Laboratory Results - last 24 hr 09/14/16 09/14/16 09/15/16 11:50 23:12 04:35 WBC RBC Hgb Hct MCV MCH MCHC RDW Plt Count MPV Immature Gran % Seg Neutrophils % Lymphocytes % Monocytes % Eosinophils % Basophils % Neutrophils # Lymphocytes # Monocytes # Eosinophils # Basophils # PT 11.5 INR 1.1 Sodium Potassium Chloride Carbon Dioxide BUN Creatinine Est GFR ( Amer) Est GFR (Non-Af Amer) BUN/Creatinine Ratio Glucose POC Glucose 92 H 96 H Calculated Osmolality Calcium 09/15/16 09/15/16 09/15/16 04:35 04:35 05:37 WBC 10.9 RBC 4.99 Hgb 15.0 Hct 44.5 MCV 89.2 MCH 30.1 MCHC 33.7 RDW 14.5 Plt Count 238 MPV 9.3 L Immature Gran % 0.6 Seg Neutrophils % 64.8 Lymphocytes % 21.4 Monocytes % 10.6 Eosinophils % 2.0 Basophils % 0.6 Neutrophils # 7.0 Lymphocytes # 2.3 Monocytes # 1.2 Eosinophils # 0.2 Basophils # 0.1 PT INR Sodium 136 Potassium 3.8 Chloride 106 Carbon Dioxide 22 BUN 9 Creatinine 0.79 Est GFR ( Amer) > 60 Est GFR (Non-Af Amer) > 60 BUN/Creatinine Ratio 11 Glucose 86 POC Glucose 88 Calculated Osmolality 280 Calcium 8.5 L 09/15/16 10:51 WBC RBC Hgb Hct MCV MCH MCHC RDW Plt Count MPV Immature Gran % Seg Neutrophils % Lymphocytes % Monocytes % Eosinophils % Basophils % Neutrophils # Lymphocytes # Monocytes # Eosinophils # Basophils # PT INR Sodium Potassium Chloride Carbon Dioxide BUN Creatinine Est GFR ( Amer) Est GFR (Non-Af Amer) BUN/Creatinine Ratio Glucose POC Glucose 77 Calculated Osmolality Calcium - ABG Interpretation ABG results: PT/INR, D-dimer PT 11.5 Seconds (9.4-12.1) 09/15/16 04:35
[2016-09-15] MEDS ORDERED: 0.9 % Sodium Chloride 1,000 ML IVC SCH (10:37)
[2016-09-15] MEDS ORDERED: D10% in Water 500 ML IV PRN ×2 (12:00→20:52)
[2016-09-15] MEDS ORDERED: cefOXitin 2,000 MG in D5% in Water (Mini-Bag+) 100 ML IVPB ONE (12:28)
--- NOTE | 2016-09-15 12:41 | Event Note ---
Date of Encounter: 09/15/16 Time of Encounter: 10:20 Reviewed the findings from CT scan and barium enema with the patient and his Brother Fidel. Discussed the risks, benefits, alternatives and expected outcomes of procedures including: Diverting loop colostomy and liver biopsy with the patient and his brother. They are both in agreement to proceed to the operating room today for these procedures. Plan to place a PICC line and start TPN today. Mefoxin 2Gm ordered for pre-operative antibiotic. Dr. De La Cruz also at bedside and reviewed the plan of care with the patient and his brother.
[2016-09-15] MEDS ORDERED: Lidocaine -MPF 1% 5 ML AMPUL INFILT ONE (15:24)
--- NOTE | 2016-09-15 15:48 | Internal Med Progress Note ---
Date of Encounter: 09/15/16 Time of Encounter: 10:00 - Assessment and plan (1) Bowel obstruction Current Visit: Yes Status: Acute Assessment and plan: Patient has a bowel obstruction, most likely due to malignancy. Surgical consult is on case and appreciated. 1. Keep patient nothing by mouth, NG tube with intermittent suction. 2. IV fluids, follow-up with BMP to correct electrolyte abnormality. 3. Plan for surgery today per surgical consult. Qualifiers: Intestinal obstruction type: volvulus Qualified Code(s): K56.2 - Volvulus (2) Nausea and vomiting Current Visit: Yes Status: Acute Assessment and plan: Due to bowel obstruction. Keep nothing by mouth and NG tube suction. Qualifiers: Vomiting type: unspecified Vomiting Intractability: non-intractable Qualified Code(s): R11.2 - Nausea with vomiting, unspecified (3) DVT prophylaxis Current Visit: No Status: Acute Assessment and plan: Heparin subcutaneously (4) Metastatic carcinoma involving liver with unknown primary site Current Visit: Yes Status: Acute Assessment and plan: Etiology is undetermine. Highly suspect colon cancer because patient has a high CEA. Plan for liver biopsy. Patient has seen oncologist. (5) History of CVA with residual deficit Current Visit: No Status: Chronic Assessment and plan: with residual right side weakness and dysarthria. - Time Spent With Patient 25 - 35 minutes - Subjective Interval history: Patient is a 66-year-old male admitted for abdominal pain, diagnosis is bowel obstruction, possible malignancy with liver metastasis. Past medical history is significant for cancer, CVA, hypertension. Patient is seen and examined. He is on nothing by mouth with NG tube intermittent suction. Patient has no abdominal pain. His vitals are stable. General surgery consult on case and plan to bring patient to OR for surgery. Liver biopsy will perform during surgery. - Constitutional Vitals: Temp Pulse Resp BP Pulse Ox 97.4 F L 65 14 117/66 92 L 09/15/16 10:52 09/15/16 10:52 09/15/16 10:52 09/15/16 10:52 09/15/16 10:52 General appearance: Present: A&O X 3, no acute distress - Head Head exam: Present: atraumatic, normocephalic - Eye Eye exam: Present: PERRL, conjuntiva pink, sclera anicteric Pupils: Present: PERRL - Neck Neck exam general surgery: Present: supple, trachea midline. Absent: lymphadenopathy - Respiratory Respiratory exam: Present: CTAB. Absent: accessory muscle use, rales, rhonchi, wheezes - Cardiovascular Cardiovascular exam: Present: RRR, +S1, +S2. Absent: diastolic murmur, gallop, rubs, systolic murmur - GI/Abdominal GI/Abdominal exam: Present: normal bowel sounds, soft, no peritoneal signs. Absent: distended, tenderness - Extremities Exam Extremities exam: Present: warm, radial pulses palpable and symetrical. Absent : calf tenderness, cyanotic, pedal edema - Neurological Exam Neurological exam: Present: CN II-XII intact, oriented X3, speech deficit (With residual right side weakness.). Absent: pronater drift, facial droop - Skin Skin exam: Present: dry, intact Internal Medicine: Result - Labs CBC & Chem 7: 09/15/16 04:35 09/15/16 04:35 Labs: Short CBC 09/15/16 Range/Units 04:35 WBC 10.9 (4.3-11.1) K/mcL Hgb 15.0 (12.9-16.9) g/dL Hct 44.5 (37.5-50.1) % Plt Count 238 (140-400) K/mcL Neutrophils # 7.0 (1.6-8.9) K/mcL BMP 09/15/16 04:35 Sodium 136 Potassium 3.8 Chloride 106 Carbon Dioxide 22 BUN 9 Creatinine 0.79 Glucose 86 Calcium 8.5 L - ABG Interpretation ABG results: PT/INR, D-dimer PT 11.5 Seconds (9.4-12.1) 09/15/16 04:35 Consult Discharge Plan - Plan Referrals: [facility] [Outside]
[2016-09-15] MEDS ORDERED: Clinimix E 5%-20% SOLUTION 2,000 ML with MVI, adult with vitamin K 10 ML IV SCH ×2 (17:00→20:52)
--- NOTE | 2016-09-15 17:21 | Anesthesia Evaluation PreOp ---
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 History: CVA (w/residual deficits-R hemiparesis) Other Medical History: Hepatic (Liver & bone mets w/ unknown primary Ca) Anesthesia History: No Prior Anesthetic Complications, Past Anesthesia Alcohol Use: none Drug use: none Medications and Allergies Alendronate Sodium [Fosamax] 70 mg PO QWEEK 09/14/16 [History] Amlodipine [Norvasc] 10 mg PO DAILY 09/14/16 [History] Aspirin/Calcium Carbonate/Mag [Aspirin Buffered 325 mg Tab] 325 mg PO DAILY [History] Calcium Carbonate [Tums] 650 mg PO DAILY 09/14/16 [History] Carvedilol 1.562 mg PO BID 09/14/16 [History] Cholecalciferol (D-3) [Vitamin D] 2,000 unit PO DAILY 09/14/16 [History] Folic Acid 1 mg PO DAILY 09/14/16 [History] Lisinopril [Zestril] 10 mg PO DAILY 09/14/16 [History] Lovastatin [Altoprev] 60 mg PO DAILY 09/14/16 [History] Potassium Chloride [Klor-Con Sprinkle] 10 meq PO DAILY 09/14/16 [History] Terazosin [Hytrin] 5 mg PO DAILY 09/14/16 [History] Allergies simvastatin Adverse Reaction (Verified 09/14/16 09:58) See Comments UNABLE TO CONFIRM REACTION- LISTED [facility] AN ADVERSE REACTION WITH NO REACTION INDICATED - Meds/Allergy Pre-op Review Medications Reviewed: Yes Allergies Reviewed: Yes Beta Blockers on Current Med List: No Anesthesia Results - Labs 09/15/16 04:35 09/15/16 04:35 - Imaging EKG: report reviewed, image reviewed (60bpm SR) Anesthesia Exam Vital Signs Temp Pulse Resp BP Pulse Ox 09/15/16 10:52 97.4 F L 65 14 117/66 92 L 09/15/16 07:32 97.7 F 67 14 105/65 93 L 09/15/16 03:51 97.7 F 62 16 104/65 94 L 09/14/16 23:29 98.1 F 73 16 95/59 95 09/14/16 21:47 95 09/14/16 20:10 97.7 F 67 16 112/61 95 Intake and Output 09/15/16 09/15/16 09/15/16 07:59 15:59 23:59 Intake Total 1000 / 1000 Output Total 1050 / 1050 0 / 0 725 / 725 Balance -50 / -50 0 / 0 -725 / -725 Intake: IV Fluids 1000 / 1000 0.9 % Sodium Chloride 1, 1000 / 1000 000 ML @ 125 mls/hr IVC . Q8H ALEX[facility]ER Rx#:[id number] Oral 0 / 0 Output: Urine 0 / 0 0 / 0 275 / 275 Urine/Stool Mix 300 / 300 Gastric Tube Lavage 350 / 350 0 / 0 Amount Left Nare 350 / 350 0 / 0 Gastric Drainage 400 / 400 450 / 450 Other: Meal NPO Stool Color Brown Blood Glucose* 88 77 NPO (# of Hours): MNoc - HEENT Pupil (Motor): Pupils equal, EOMI Mallampati: III Teeth: Poor dentition Oral Opening: Greater than 3 - EXTRACORPOREAL CIRCULATION SPECIALIST LOC: Oriented, Confused EXTRACORPOREAL CIRCULATION SPECIALIST Motor: Normal LUE, Normal LLE, Normal Face, Deficit RUE, Deficit RLE EXTRACORPOREAL CIRCULATION SPECIALIST Sensory: Normal: LUE, LLE, Face, Deficit: RUE, RLE - Cardiac Rhythm: Regular Murmur: None - Pulmonary Breath Sounds: bilateral Clear Respiratory Effort: Symmetrical Anesthesia Assess/Plan ASA Score: 4 (Cancer, Liver/Bone Mets, smoker) Modified [place] Scale for Level of Consciousness: Cooperative, oriented, and tranquil Anesthetic Plan: General Monitoring Plan: Standard Monitors Recovery Plan: PACU Anes Supervising Prov Stmt: Pt seen/evaluated, R&B discussed, questions answered and consent obtained. Katherin Patrick MD
[2016-09-15] MEDS ORDERED: Water for inj. (sterile) 0 ML IV ONE (18:09)
[2016-09-15] MEDS ORDERED: CefOXitin 1,000 MG VIAL ONE (18:09)
[2016-09-15] MEDS ORDERED: *HR* Succinylcholine 200 MG/10 ML VIAL IVP ONE (18:11)
[2016-09-15] MEDS ORDERED: *HR* Rocuronium Bromide 50 MG/5 ML VIAL ONE (18:11)
[2016-09-15] MEDS ORDERED: *HR* Propofol 200 MG/20 ML VIAL IVP ONE (18:11)
[2016-09-15] MEDS ORDERED: *HR* FentaNYL (PF) 100 MCG/2 ML VIAL ONE (18:18)
[2016-09-15] MEDS ORDERED: CefOXitin 2,000 MG VIAL IVPB ONE (18:36)
[2016-09-15] MEDS ORDERED: Ondansetron 4 MG/2 ML VIAL ONE (19:17)
[2016-09-15] MEDS ORDERED: Dexamethasone 4 MG/ML VIAL ONE (19:17)
[2016-09-15] MEDS ORDERED: Neostigmine Methylsulfate 3 MG/3 ML SYRINGE ONE ×2 (19:20→19:32)
[2016-09-15] MEDS ORDERED: *HR* HYDROmorphone 2 MG/ML SYRINGE ONE ×2 (19:36→19:57)
--- NOTE | 2016-09-15 19:47 | Oncology Inp Consult Note ---
Date of Encounter: 09/15/16 Time of Encounter: 19:43 - Data of Consult Patient: known to practice within the last 3 years Consult date: 09/15/16 Requesting Physician: Michelle Davis MD Primary Care Provider[facility] - Consult Narrative Reason for consult: Suspected metastatic cancer unknown primary site. History of present illness: Mr. Jewell is a 66 year old male patient of the cancer Center who has established oncologic care for suspected liver metastasis from an unknown primary site. He is followed by my partner Dr. Jeannie Ragsdale and was last seen in the office 08/16/16. I have summarized patient's heme/onc background below based on Dr. Ragsdale's most recent office report: Initially presented with right lower quadrant abdominal pain. 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 Poor historian CT abdomen and pelvis without contrast 08/03/2016 showed inhomogenous liver with multiple hypodensities. Largest 2.2 cm in the dome. Lack of contrast limits the evaluation Bone showed multiple sclerosis prominent 1 L5 pedicle. Small lesions in T12 and L1. Significance not known Gastroenterology Dr. Joe was consulted an EGD on 08/05/2016 showed nonbleeding duodenal ulcer. Grade B reflux and mild hilar hernia. No specimens collected. He declined colonoscopy because of his stroke and inability to go through bowel prep He also refused CT-guided biopsy of the liver lesion CEA elevated at 160 and CA-[id number] 180 on 08/06/2016 He does have Medicare type plan and he is going to [place] [facility] tomorrow 2015. Gave my cell phone number so I can discuss with the [place] doctor about CT- guided liver biopsy. He understands its important to get the diagnosis of week and offered treatment. 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 He has limited mobility because of right upper and lower extremity weakness and requires a motorized wheelchair. Also speech slurred. He is able to answer questions but thought processes slightly slow. CVA, hypertension - Past Surgical History Surgical History: no surgical history - Social History Smoking Status: Current every day smoker Packs per day: 1 Per day for 38 years Smokeless Tobacco Status: No Alcohol use: none Drug use: none - Family History Brother Race: Living Status: Still Living Hx Family Cardiac Disorders: Yes (hypertension) Mother History Unknown: Yes Father History Unknown: Yes At his last visit with Dr. Ragsdale, he agreed for a CT-guided liver biopsy which was ordered with plan for 2 week follow-up for further recommendation based on results. He ultimately canceled follow-up appointment for 08/30/16. Patient is currently hospitalized with acute bowel obstruction after presenting with progressive, epigastric, right-sided abdominal pain associated with nausea vomiting and anorexia. Abdomen CT done in the emergency room showed severe dilatation of the transverse colon with a transition point in the descending colon cells to be compatible with large bowel obstruction. He was seen by Dr. De La Cruz last evening who taken to the OR for exploratory laparotomy with palliative end colostomy and creation of mucus fistula. He also kindly for biopsy for definitive diagnosis. Palliative care care team is helping with goals of care discussion. Patient is contemplating his options in the event that we're unable to confirm malignancy including antineoplastic therapy versus less aggressive management such as palliative care/hospice. Oncology is consulted re: suspected metastatic cancer with liver involvement, presenting with what appears to be malignant bowel obstruction. Patient seen and examined at bedside. Chart reviewed for details of ongoing care by Hospital team which is much appreciated. He is making good recovery from last evening surgery. He is not in any obvious painful distress. He somewhat lethargic and has difficulty following our conversation likely due to residual from anesthesia. In spite of above, he to understanding details of ongoing diagnostic evaluation and considerations. Rest of past medical, surgical, family, social history detailed below and verified with patient today. Review of systems: 12 point review of systems performed with patient and positive findings noted in history of present illness. All other systems are negative: Physical exam: Vital Signs Temp 97.4 F L 09/15/16 10:52 Pulse 65 09/15/16 10:52 Resp 14 09/15/16 10:52 BP 117/66 09/15/16 10:52 Pulse Ox 92 L 09/15/16 10:52 GENERAL: * Alert and oriented, lethargic appearing. * Mental Status: Affect appropriate for circumstances HEENT: * Sclerae anicteric. No mucositis or thrush. * No other oral or pharyngeal lesions or erythema. Skin: * No rashes or petechiae. * No evidence of skin malignancy Lymph nodes: * No cervical, supraclavicular, axillary, or inguinal adenopathy. Lungs: * Clear to auscultation bilaterally. * Clear to percussion bilaterally. Cardiovascular: * Regular rate and rhythm. * No gallops, murmurs, or rubs. Abdomen: * Postoperative changes of anterior abdominal wall. * Surgical dressing and colostomy intact Extremities: * No edema. No calf swelling or tenderness. * No joint deformity. Neurologic: * Alert, * Residual focal neurologic deficit with right-sided hemiplegia from previous stroke Results: Laboratory Last Values WBC 10.9 K/mcL (4.3-11.1) 09/15/16 04:35 RBC 4.99 M/mcL (4.19-5.50) 09/15/16 04:35 Hgb 15.0 g/dL (12.9-16.9) 09/15/16 04:35 Hct 44.5 % (37.5-50.1) 09/15/16 04:35 MCV 89.2 fL (83.0-100.0) 09/15/16 04:35 MCH 30.1 pg (28.0-33.3) 09/15/16 04:35 MCHC 33.7 g/dL (31.6-35.5) 09/15/16 04:35 RDW 14.5 % (11.5-14.5) 09/15/16 04:35 Plt Count 238 K/mcL (140-400) 09/15/16 04:35 MPV 9.3 fL (9.4-12.4) L 09/15/16 04:35 Immature Gran % 0.6 % (0-4) 09/15/16 04:35 Seg Neutrophils % 64.8 % 09/15/16 04:35 Lymphocytes % 21.4 % 09/15/16 04:35 Monocytes % 10.6 % 09/15/16 04:35 Eosinophils % 2.0 % 09/15/16 04:35 Basophils % 0.6 % 09/15/16 04:35 Neutrophils # 7.0 K/mcL (1.6-8.9) 09/15/16 04:35 Lymphocytes # 2.3 K/mcL (0.6-4.6) 09/15/16 04:35 Monocytes # 1.2 K/mcL (0.0-1.3) 09/15/16 04:35 Eosinophils # 0.2 K/mcL (0.0-0.6) 09/15/16 04:35 Basophils # 0.1 K/mcL (0.0-0.2) 09/15/16 04:35 PT 11.5 Seconds (9.4-12.1) 09/15/16 04:35 INR 1.1 09/15/16 04:35 Sodium 136 mEq/L (136-145) 09/15/16 04:35 Potassium 3.8 mEq/L (3.5-4.5) 09/15/16 04:35 Chloride 106 mEq/L (98-109) 09/15/16 04:35 Carbon Dioxide 22 mEq/L (19-29) 09/15/16 04:35 BUN 9 mg/dL (8-26) 09/15/16 04:35 Creatinine 0.79 mg/dL (0.72-1.25) 09/15/16 04:35 Est GFR ( Amer) > 60 (> 60) 09/15/16 04:35 Est GFR (Non-Af Amer) > 60 (> 60) 09/15/16 04:35 BUN/Creatinine Ratio 11 (6-26) 09/15/16 04:35 Glucose 86 mg/dL (70-99) 09/15/16 04:35 POC Glucose 77 (58-89) 09/15/16 10:51 Calculated Osmolality 280 (280-300) 09/15/16 04:35 Calcium 8.5 mg/dL (8.6-10.8) L 09/15/16 04:35 Phosphorus 2.7 mg/dL (2.3-4.7) 09/15/16 11:27 Magnesium 2.0 mg/dL (1.6-2.6) 09/15/16 11:27 Total Bilirubin 0.5 mg/dL (0.2-1.2) 09/14/16 05:27 Direct Bilirubin 0.2 mg/dL (0.0-0.5) 09/13/16 18:59 Indirect Bilirubin 0.3 mg/dL (0.0-1.2) 09/13/16 18:59 AST 12 Units/L (5-34) 09/14/16 05:27 ALT 8 Units/L (0-55) 09/14/16 05:27 Alkaline Phosphatase 74 Units/L (38-126) 09/14/16 05:27 Troponin I 0.00 ng/mL (0-0.03) 09/13/16 18:59 Serum Total Protein 6.0 g/dL (6.0-8.3) 09/14/16 05:27 Albumin 3.0 g/dL (3.5-5.0) L 09/14/16 05:27 Globulin 3.0 g/dL (2.4-3.5) 09/14/16 05:27 Albumin/Globulin Ratio 1.0 (1.1-2.2) L 09/14/16 05:27 Prealbumin 11.0 mg/dL (18.0-45.0) L 09/15/16 11:27 Triglycerides 106 mg/dL (< 150) 09/15/16 11:27 Amylase 62 Units/L (25-125) 09/13/16 18:59 Lipase 12 Units/L (8-78) 09/13/16 18:59 Urine Color Dark Yellow (Yellow) 09/13/16 20: Urine Clarity Turbid (Clear) A 09/13/16 20: Urine pH 6.0 pH Units (5.0-8.0) 09/13/16 20: Ur Specific [place] 1.029 (1.010-1.025) H 09/13/16 20: Urine Protein 30 mg/dL (Neg-Trace) H 09/13/16 20:27 Urine Glucose (UA) Normal mg/dL (Normal) 09/13/16 20: Urine Ketones Trace mg/dL (Negative) H 09/13/16 20: Urine Blood Negative (Negative) 09/13/16 20: Urine Nitrite Negative (Negative) 09/13/16 20: Urine Bilirubin Moderate (Negative) H 09/13/16 20: Urine Urobilinogen Normal mg/dL (Normal) 09/13/16 20: Ur Leukocyte Esterase Trace (Negative) H 09/13/16 20:27 Urine Microscopic RBC 0-3 per hpf (0-3) 09/13/16 20:27 Urine Microscopic WBC 5-15 per hpf (0-3) H 09/13/16 20:27 Ur Squamous Epith Cells Many per lpf (None-Few) H 09/13/16 20:27 Urine Bacteria Few per hpf (None-Few) 09/13/16 20:27 Hyaline Casts Moderate per lpf (None-Few) H 09/13/16 20:27 Urine Mucus Many (Few) H 09/13/16 20:27 Urine Yeast Test Not Performed 09/13/16 20:27 Ur Culture Indicated? YES (NO) A 09/13/16 20:27 Radiographic studies: I personally reviewed and interpreted patient's most recent imaging studies dated 08/13-09/13/16. I discussed the findings with the patient today. Abdomen/Pelvis CT 09/13/16 18:15 IMPRESSION: 1. Significant worsening of metastatic liver disease. 2. Stable osseous metastases. 3. Severe dilation of the transverse colon which measures up to 9.7 cm. A transition point can be seen in the descending colon which appears twisted and this may represent large bowel obstruction at the level of the transverse colon due to a form of volvulus. 4. Cholelithiasis but no acute cholecystitis. D/ / 09/13/2016 19:03:19 Stephanie Hi MD / vale Interpreting Provider: Stephanie Hi MD Barium Enema 09/14/16 00:00 IMPRESSION: Findings suspicious for colonic mass in the mid descending colon with transition point to dilated proximal large bowel. Findings were discussed with Kimberly Moran on 09/14/2016 at 3 p.m. D/ / Arvind Dejesus MD / Arvind Dejesus MD Interpreting Provider: Arvind Dejesus MD X-Ray 09/14/16 02:43 IMPRESSION: Increased gaseous distension of the transverse colon. Transition point described in prior imaging cannot be identified on the current exam. No significant proximal small bowel dilatation. D/ / Bay Baum MD / Bay Baum MD Interpreting Provider: Bay Baum MD Impression/recommendations: Suspected metastatic cancer unknown primary site. I reviewed with the patient diagnostic considerations for his presentation including the basis for concern about bowel malignancy with liver metastases. Recommend that we await pathology from recent lymph node biopsies to guide recommendations regarding options for management. Confirmation of metastatic liver malignancy would indicate that he has an incurable malignancy and treatment intent becomes palliative. In spite of above, he may be an appropriate candidate for lower intensity, palliative systemic therapy with possibility of good disease control and possible survival prolongation. Carcinoid tumor is in the differential and will send chromogranin level further evaluation. If carcinoid tumors confirmed, he will benefit from a low intensity therapy with monthly Sandostatin injections with the expectation of good disease control. Malignant bowel obstruction: Status post palliative diverting colostomy. I appreciate ongoing management by Dr. De La Cruz. We'll follow the patient along side you during this hospitalization but please do not hesitate to call regarding interval oncologic questions that may arise. Thank you for your excellent ongoing care for allowing us to see him while in- house. This report was created using voice recognition software and may contain errors. It was signed but not edited to expedite communication. Past Med Surg Social Fam HX - Past Medical History Medical history: cancer, CVA, hypertension, other Psychiatric history: no psych history - Past Surgical History Surgical History: no surgical history - Social History Smoking Status: Current every day smoker Packs per day: 1 Smokeless Tobacco Status: No Alcohol use: none Drug use: none - Family History Brother Family Member Ethnicity: Non- Living Status: Still Living Hx Family Cardiac Disorders: Yes (hypertension) Medications and Allergies Alendronate Sodium [Fosamax] 70 mg PO QWEEK 09/14/16 [History] Amlodipine [Norvasc] 10 mg PO DAILY 09/14/16 [History] Aspirin/Calcium Carbonate/Mag [Aspirin Buffered 325 mg Tab] 325 mg PO DAILY [History] Calcium Carbonate [Tums] 650 mg PO DAILY 09/14/16 [History] Carvedilol 1.562 mg PO BID 09/14/16 [History] Cholecalciferol (D-3) [Vitamin D] 2,000 unit PO DAILY 09/14/16 [History] Folic Acid 1 mg PO DAILY 09/14/16 [History] Lisinopril [Zestril] 10 mg PO DAILY 09/14/16 [History] Lovastatin [Altoprev] 60 mg PO DAILY 09/14/16 [History] Potassium Chloride [Klor-Con Sprinkle] 10 meq PO DAILY 09/14/16 [History] Terazosin [Hytrin] 5 mg PO DAILY 09/14/16 [History] Allergies simvastatin Adverse Reaction (Verified 09/14/16 09:58) See Comments UNABLE TO CONFIRM REACTION- LISTED ON [place] MED LIST AN ADVERSE REACTION WITH NO REACTION INDICATED Oncology - Exam - Constitutional Vitals: Temp Pulse Resp BP Pulse Ox 97.4 F L 65 14 117/66 92 L 09/15/16 10:52 09/15/16 10:52 09/15/16 10:52 09/15/16 10:52 09/15/16 10:52 Oncology - Results - Labs Labs: Short CBC 09/15/16 Range/Units 04:35 WBC 10.9 (4.3-11.1) K/mcL Hgb 15.0 (12.9-16.9) g/dL Hct 44.5 (37.5-50.1) % Plt Count 238 (140-400) K/mcL Neutrophils # 7.0 (1.6-8.9) K/mcL BMP 09/15/16 04:35 Sodium 136 Potassium 3.8 Chloride 106 Carbon Dioxide 22 BUN 9 Creatinine 0.79 Glucose 86 Calcium 8.5 L Consult Discharge Plan - Plan Referrals: [facility] [Outside]
--- NOTE | 2016-09-15 19:49 | Operative Note ---
Date of procedure: 09/15/16 Pre-op diagnosis: Descending colon obstruction with metastatic liver disease Post-op diagnosis: same Procedure: Exploratory laparotomy with end colostomy and creation of mucous fistula Liver biopsy Anesthesia: MALLY Surgeon: Jag De La Cruz Estimated blood loss (cc): 50 Condition: stable Disposition: floor Procedure in Detail: After informed consent, the patient was taken to the operating room placed in the supine position. After adequate sedation anesthesia the abdomen was prepped and draped. Midline incision was made and dissection was carried down through subcutaneous tissues to the linea alba. Midline was opened. Transverse mesocolon was identified as well as the greater omentum. The transverse colon was brought up through the midline incision. He was transected with the TEO 75 mm stapler. The liver was identified and found to have a superficial metastatic deposit. His was biopsied with core needle biopsy 3. Next an opening was created on the right upper quadrant as well as a left upper quadrant with electrocautery. The fascia was incised to the anterior rectus sheath and an opening was created in the rectus muscle. A [place] was used to grasp the staple line in the proximal colon. One situated was left in place same was performed for the mucous fistula in the left upper quadrant. The midline was then closed with a looped PDS suture in running fashion. Ramos were placed in the skin. The proximal and distal colon was matured with an end colostomy and mucous fistula. When drainage bags were placed. Patient tolerated the procedure well.
[2016-09-15] MEDS ORDERED: *HR* HYDROmorphone (PF) 1 MG/ML SYRINGE IVP PRN (19:57)
[2016-09-15] MEDS ORDERED: *HR* Promethazine 25 MG/ML VIAL IVP PRN (19:57)
[2016-09-15] MEDS ORDERED: Ringers Solution, Lactated 1,000 ML IVC SCH (20:00)
--- NOTE | 2016-09-15 20:45 | Anesthesia Evaluation Post Op ---
Date of Encounter: 09/15/16 Time of Encounter: 20:45 - Vital Signs Vital Signs: Last Vital Signs Temp 99.1 F 09/15/16 20:21 Pulse 63 09/15/16 20:41 Resp 16 09/15/16 20:41 BP 116/76 09/15/16 20:41 Pulse Ox 96 09/15/16 20:41 - Lungs Lungs: Clear Ascult./Percussion - Airway Airway: Non-obstructed - Cardiovascular Regular Rate - Mental Status Mental Status: Alert & Oriented, Answers Appropriately - Pain Pain Scale: 3 - Nausea Vomiting Nausea Vomiting: Not Present - Hydration Hydration: NPO - Discharge PostOp Status: Transfer Patient to floor
[2016-09-15] MEDS ORDERED: Naloxone 0.4 MG/ML INJ IVP PRN (20:52)
[2016-09-15] MEDS ORDERED: Lidocaine 1% 20 ML MDV INFILT ONE (20:52)
[2016-09-15] MEDS ORDERED: Ondansetron 4 MG/2 ML VIAL IVP PRN (20:52)
[2016-09-16 00:13] LABS: ABG Base Excess 0.6 mEq/L (-2.0 to 3.0); ABG HCO3 26.6 mEQ/L (21-27); ABG Oxygen Saturation 96 % (95-98); ABG PCO2 47 mmHg (35-45); ABG PH 7.36 pH Units (7.32-7.45); ABG PO2 89 mmHg (85-104)
[2016-09-16 00:14] LABS: Blood Gas FiO2 28 %
[2016-09-16 03:37] LABS: Basophils % 0.2 %; Hematocrit 40.2 % (37.5-50.1); Hemoglobin 13.5 g/dL (12.9-16.9); Immature Granulocytes % 0.6 % (0-4); Lymphocytes # 0.6 K/mcL (0.6-4.6); Lymphocytes % 3.4 %; Mean Corpuscular HGB Conc 33.6 g/dL (31.6-35.5); Mean Corpuscular Hemoglobin 30.2 pg (28.0-33.3); Mean Corpuscular Volume 89.9 fL (83.0-100.0); Mean Platelet Volume 9.2 fL (9.4-12.4); Monocytes # 1.1 K/mcL (0.0-1.3); Monocytes % 5.8 %; Neutrophils # 16.7 K/mcL (1.6-8.9); Platelet Count 188 K/mcL (140-400); Red Blood Count 4.47 M/mcL (4.19-5.50); Red Cell Distribution Width 14.6 % (11.5-14.5)
[2016-09-16 03:52] LABS: BUN/Creatinine Ratio 14 (6-26); Blood Urea Nitrogen 11 mg/dL (8-26); Calcium 8.2 mg/dL (8.6-10.8); Carbon Dioxide 29 mEq/L (19-29); Chloride 104 mEq/L (98-109); Glucose 188 mg/dL (70-99); Magnesium 1.8 mg/dL (1.6-2.6); Osmolality,Calculated 284 (280-300); Phosphorous 3.1 mg/dL (2.3-4.7); Potassium 4.3 mEq/L (3.5-4.5); Sodium 135 mEq/L (136-145); eGFR For African Americans > 60 (> 60); eGFR For Non-African Americans > 60 (> 60)
[2016-09-16] MEDS: *HR* Morphine 2 MG/ML SYRINGE IVP PRN ×5 (05:53→21:19)
[2016-09-16] MEDS: *HR* Heparin 5,000 UNIT/ML VIAL SQ SCH ×3 (05:53→21:20)
[2016-09-16] MEDS: Pantoprazole 40 MG VIAL IVP SCH (08:00)
--- NOTE | 2016-09-16 09:01 | Palliative Progress Note ---
<ApolinarMiguel - Last Filed: 09/16/16 08:57> Date of Encounter: 09/16/16 Time of Encounter: 08:58 - Assessment and plan (1) Bowel obstruction Current Visit: Yes Status: Acute Assessment and plan: -NG tube present. Patient is tolerating well. Continue to monitor -Double colostomy on 09/15/16. Pain controlled with pain medicine. No nausea or vomiting. Qualifiers: Intestinal obstruction type: other intestinal obstruction Qualified Code(s) : K56.69 - Other intestinal obstruction (2) Metastatic carcinoma involving liver with unknown primary site Current Visit: Yes Status: Acute Assessment and plan: -Patient had liver biopsy during bowel surgery. -Awaiting pathology results to see if patient is candidate for treatment. -Denies nausea or pain. No medication changes needed at this time. Continue therapy. -Awaiting results. Will continue to follow on the case. Consider hospice care if metastatic carcinoma detected and not amendable to treatment. - Time Spent With Patient Total time spent is greater than 50% in coordination of care (as documented) at patient's floor/unit and/or counseling patient: less than 15 minutes - Subjective Interval history: POD 0, double colostomy. Patient feels a worse today compared to yesterday. Increase abdominal pain. Pain medicine ordered helps relieve symptoms. No nausea or vomiting Answers questions appropriately. No family present in room. Does not know when brother will be back. No other questions or concerns. - Constitutional Vitals: Abnormal lab results WBC 18.5 K/mcL (4.3-11.1) H D 09/16/16 03:20 RDW 14.6 % (11.5-14.5) H 09/16/16 03:20 MPV 9.2 fL (9.4-12.4) L 09/16/16 03:20 Neutrophils # 16.7 K/mcL (1.6-8.9) H 09/16/16 03:20 ABG pCO2 47 mmHg (35-45) H 09/16/16 00:01 ABG Total CO2 28.0 mEq/L (20-26) H 09/16/16 00:01 Sodium 135 mEq/L (136-145) L 09/16/16 03:20 Glucose 188 mg/dL (70-99) H 09/16/16 03:20 POC Glucose 193 (58-89) H 09/16/16 07:39 Calcium 8.2 mg/dL (8.6-10.8) L 09/16/16 03:20 Albumin 3.0 g/dL (3.5-5.0) L 09/14/16 05:27 Albumin/Globulin Ratio 1.0 (1.1-2.2) L 09/14/16 05:27 Prealbumin 11.0 mg/dL (18.0-45.0) L 09/15/16 11:27 Urine Clarity Turbid (Clear) A 09/13/16 20:27 Ur Specific Shields 1.029 (1.010-1.025) H 09/13/16 20:27 Urine Protein 30 mg/dL (Neg-Trace) H 09/13/16 20:27 Urine Ketones Trace mg/dL (Negative) H 09/13/16 20:27 Urine Bilirubin Moderate (Negative) H 09/13/16 20:27 Ur Leukocyte Esterase Trace (Negative) H 09/13/16 20:27 Urine Microscopic WBC 5-15 per hpf (0-3) H 09/13/16 20:27 Ur Squamous Epith Cells Many per lpf (None-Few) H 09/13/16 20:27 Hyaline Casts Moderate per lpf (None-Few) H 09/13/16 20:27 Urine Mucus Many (Few) H 09/13/16 20:27 Ur Culture Indicated? YES (NO) A 09/13/16 20:27 General appearance: Present: mild distress (Uncomfortable from surgery. Request pain medicine. Nurse made aware) - Additional findings Additional findings: -Heart RRR, no murmurs -lungs CTA bl -Double colosotomy. very mild amount of blood in bag. Secure. Tender throughout abdomen. Absent bowel sounds. No pus, or erythema noted. -Neuro: R sided weakness, stroke. Mental status intact. A&O x 3 Palliative Quality Palliative Quality: Screen for Code Status: Yes, Screen for Goals of Care: Yes, Screen for Pain: Yes, If Pain Regimen Started, Initiate Bowel Regimen: NA, Screen for Nausea/Vomitting: Yes Code Status: 09/14/16 02:40 Resuscitation Status: Active [RES] Routine Comment: Resuscitation Status: DNR-Comfort Care-Arrest - Labs CBC & Chem 7: 09/16/16 03:20 09/16/16 03:20 Labs: Laboratory Results - last 24 hr 09/15/16 09/15/16 09/15/16 10:51 11:27 11:27 WBC RBC Hgb Hct MCV MCH MCHC RDW Plt Count MPV Immature Gran % Seg Neutrophils % Lymphocytes % Monocytes % Eosinophils % Basophils % Neutrophils # Lymphocytes # Monocytes # Eosinophils # Basophils # ABG pH ABG pCO2 ABG pO2 ABG HCO3 ABG Total CO2 ABG O2 Saturation ABG Base Excess Blood Gas Modality Inspired O2 Sodium Potassium Chloride Carbon Dioxide BUN Creatinine Est GFR ( Amer) Est GFR (Non-Af Amer) BUN/Creatinine Ratio Glucose POC Glucose 77 Calculated Osmolality Calcium Phosphorus 2.7 Magnesium 2.0 Prealbumin Triglycerides 09/15/16 09/15/16 09/16/16 11:27 11:27 00:01 WBC RBC Hgb Hct MCV MCH MCHC RDW Plt Count MPV Immature Gran % Seg Neutrophils % Lymphocytes % Monocytes % Eosinophils % Basophils % Neutrophils # Lymphocytes # Monocytes # Eosinophils # Basophils # ABG pH 7.36 ABG pCO2 47 H ABG pO2 89 ABG HCO3 26.6 ABG Total CO2 28.0 H ABG O2 Saturation 96 ABG Base Excess 0.6 Blood Gas Modality nc Inspired O2 28 Sodium Potassium Chloride Carbon Dioxide BUN Creatinine Est GFR ( Amer) Est GFR (Non-Af Amer) BUN/Creatinine Ratio Glucose POC Glucose Calculated Osmolality Calcium Phosphorus Magnesium Prealbumin 11.0 L Triglycerides 106 09/16/16 09/16/16 09/16/16 00:06 03:20 03:20 WBC 18.5 H D RBC 4.47 Hgb 13.5 D Hct 40.2 MCV 89.9 MCH 30.2 MCHC 33.6 RDW 14.6 H Plt Count 188 MPV 9.2 L Immature Gran % 0.6 Seg Neutrophils % 90.0 Lymphocytes % 3.4 Monocytes % 5.8 Eosinophils % 0.0 Basophils % 0.2 Neutrophils # 16.7 H Lymphocytes # 0.6 Monocytes # 1.1 Eosinophils # 0.0 Basophils # 0.0 ABG pH ABG pCO2 ABG pO2 ABG HCO3 ABG Total CO2 ABG O2 Saturation ABG Base Excess Blood Gas Modality Inspired O2 Sodium 135 L Potassium 4.3 Chloride 104 Carbon Dioxide 29 BUN 11 Creatinine 0.80 Est GFR ( Amer) > 60 Est GFR (Non-Af Amer) > 60 BUN/Creatinine Ratio 14 Glucose 188 H POC Glucose 132 H Calculated Osmolality 284 Calcium 8.2 L Phosphorus 3.1 Magnesium 1.8 Prealbumin Triglycerides 09/16/16 07:39 WBC RBC Hgb Hct MCV MCH MCHC RDW Plt Count MPV Immature Gran % Seg Neutrophils % Lymphocytes % Monocytes % Eosinophils % Basophils % Neutrophils # Lymphocytes # Monocytes # Eosinophils # Basophils # ABG pH ABG pCO2 ABG pO2 ABG HCO3 ABG Total CO2 ABG O2 Saturation ABG Base Excess Blood Gas Modality Inspired O2 Sodium Potassium Chloride Carbon Dioxide BUN Creatinine Est GFR ( Amer) Est GFR (Non-Af Amer) BUN/Creatinine Ratio Glucose POC Glucose 193 H Calculated Osmolality Calcium Phosphorus Magnesium Prealbumin Triglycerides - ABG Interpretation ABG results: ABG ABG pH 7.36 pH Units (7.32-7.45) 09/16/16 00:01 ABG pCO2 47 mmHg (35-45) H 09/16/16 00:01 ABG pO2 89 mmHg (85-104) 09/16/16 00:01 ABG O2 Saturation 96 % (95-98) 09/16/16 00:01 PT/INR, D-dimer PT 11.5 Seconds (9.4-12.1) 09/15/16 04:35 Consult Discharge Plan - Plan Referrals: [facility] [Outside] <Arvind Crain - Last Filed: 09/16/16 10:46> - Assessment and plan (1) Nausea and vomiting Current Visit: Yes Status: Acute Qualifiers: Vomiting type: unspecified Vomiting Intractability: non-intractable Qualified Code(s): R11.2 - Nausea with vomiting, unspecified (2) Abdominal pain Current Visit: Yes Status: Acute Qualifiers: Abdominal location: epigastric Qualified Code(s): R10.13 - Epigastric pain (3) Goals of care, counseling/discussion Current Visit: Yes Status: Acute (4) Bowel obstruction Current Visit: Yes Status: Acute Qualifiers: Intestinal obstruction type: other intestinal obstruction Qualified Code(s) : K56.69 - Other intestinal obstruction (5) Metastatic carcinoma involving liver with unknown primary site Current Visit: Yes Status: Acute - Time Spent With Patient Total time spent is greater than 50% in coordination of care (as documented) at patient's floor/unit and/or counseling patient: - Constitutional Vitals: Abnormal lab results WBC 18.5 K/mcL (4.3-11.1) H D 09/16/16 03:20 RDW 14.6 % (11.5-14.5) H 09/16/16 03:20 MPV 9.2 fL (9.4-12.4) L 09/16/16 03:20 Neutrophils # 16.7 K/mcL (1.6-8.9) H 09/16/16 03:20 ABG pCO2 47 mmHg (35-45) H 09/16/16 00:01 ABG Total CO2 28.0 mEq/L (20-26) H 09/16/16 00:01 Sodium 135 mEq/L (136-145) L 09/16/16 03:20 Glucose 188 mg/dL (70-99) H 09/16/16 03:20 POC Glucose 193 (58-89) H 09/16/16 07:39 Calcium 8.2 mg/dL (8.6-10.8) L 09/16/16 03:20 Albumin 3.0 g/dL (3.5-5.0) L 09/14/16 05:27 Albumin/Globulin Ratio 1.0 (1.1-2.2) L 09/14/16 05:27 Prealbumin 11.0 mg/dL (18.0-45.0) L 09/15/16 11:27 Urine Clarity Turbid (Clear) A 09/13/16 20:27 Ur Specific Shields 1.029 (1.010-1.025) H 09/13/16 20:27 Urine Protein 30 mg/dL (Neg-Trace) H 09/13/16 20:27 Urine Ketones Trace mg/dL (Negative) H 09/13/16 20:27 Urine Bilirubin Moderate (Negative) H 09/13/16 20:27 Ur Leukocyte Esterase Trace (Negative) H 09/13/16 20:27 Urine Microscopic WBC 5-15 per hpf (0-3) H 09/13/16 20:27 Ur Squamous Epith Cells Many per lpf (None-Few) H 09/13/16 20:27 Hyaline Casts Moderate per lpf (None-Few) H 09/13/16 20:27 Urine Mucus Many (Few) H 09/13/16 20:27 Ur Culture Indicated? YES (NO) A 09/13/16 20:27 - Attending Attestation I examined this patient and my medical decision-making was reviewed with the CONTRACT NEGOTIATION MANAGER/PA/Advanced Practice Nurse/Resident Physician. I agree with the documented findings, disposition and treatment plan as described except to the extent set forth below. Palliative Quality Code Status: 09/14/16 02:40 Resuscitation Status: Active [RES] Routine Comment: Resuscitation Status: DNR-Comfort Care-Arrest - Labs CBC & Chem 7: 09/16/16 03:20 09/16/16 03:20 Labs: Laboratory Results - last 24 hr 09/15/16 09/15/16 09/15/16 10:51 11:27 11:27 WBC RBC Hgb Hct MCV MCH MCHC RDW Plt Count MPV Immature Gran % Seg Neutrophils % Lymphocytes % Monocytes % Eosinophils % Basophils % Neutrophils # Lymphocytes # Monocytes # Eosinophils # Basophils # ABG pH ABG pCO2 ABG pO2 ABG HCO3 ABG Total CO2 ABG O2 Saturation ABG Base Excess Blood Gas Modality Inspired O2 Sodium Potassium Chloride Carbon Dioxide BUN Creatinine Est GFR ( Amer) Est GFR (Non-Af Amer) BUN/Creatinine Ratio Glucose POC Glucose 77 Calculated Osmolality Calcium Phosphorus 2.7 Magnesium 2.0 Prealbumin Triglycerides 09/15/16 09/15/16 09/16/16 11:27 11:27 00:01 WBC RBC Hgb Hct MCV MCH MCHC RDW Plt Count MPV Immature Gran % Seg Neutrophils % Lymphocytes % Monocytes % Eosinophils % Basophils % Neutrophils # Lymphocytes # Monocytes # Eosinophils # Basophils # ABG pH 7.36 ABG pCO2 47 H ABG pO2 89 ABG HCO3 26.6 ABG Total CO2 28.0 H ABG O2 Saturation 96 ABG Base Excess 0.6 Blood Gas Modality nc Inspired O2 28 Sodium Potassium Chloride Carbon Dioxide BUN Creatinine Est GFR ( Amer) Est GFR (Non-Af Amer) BUN/Creatinine Ratio Glucose POC Glucose Calculated Osmolality Calcium Phosphorus Magnesium Prealbumin 11.0 L Triglycerides 106 09/16/16 09/16/16 09/16/16 00:06 03:20 03:20 WBC 18.5 H D RBC 4.47 Hgb 13.5 D Hct 40.2 MCV 89.9 MCH 30.2 MCHC 33.6 RDW 14.6 H Plt Count 188 MPV 9.2 L Immature Gran % 0.6 Seg Neutrophils % 90.0 Lymphocytes % 3.4 Monocytes % 5.8 Eosinophils % 0.0 Basophils % 0.2 Neutrophils # 16.7 H Lymphocytes # 0.6 Monocytes # 1.1 Eosinophils # 0.0 Basophils # 0.0 ABG pH ABG pCO2 ABG pO2 ABG HCO3 ABG Total CO2 ABG O2 Saturation ABG Base Excess Blood Gas Modality Inspired O2 Sodium 135 L Potassium 4.3 Chloride 104 Carbon Dioxide 29 BUN 11 Creatinine 0.80 Est GFR ( Amer) > 60 Est GFR (Non-Af Amer) > 60 BUN/Creatinine Ratio 14 Glucose 188 H POC Glucose 132 H Calculated Osmolality 284 Calcium 8.2 L Phosphorus 3.1 Magnesium 1.8 Prealbumin Triglycerides 09/16/16 07:39 WBC RBC Hgb Hct MCV MCH MCHC RDW Plt Count MPV Immature Gran % Seg Neutrophils % Lymphocytes % Monocytes % Eosinophils % Basophils % Neutrophils # Lymphocytes # Monocytes # Eosinophils # Basophils # ABG pH ABG pCO2 ABG pO2 ABG HCO3 ABG Total CO2 ABG O2 Saturation ABG Base Excess Blood Gas Modality Inspired O2 Sodium Potassium Chloride Carbon Dioxide BUN Creatinine Est GFR ( Amer) Est GFR (Non-Af Amer) BUN/Creatinine Ratio Glucose POC Glucose 193 H Calculated Osmolality Calcium Phosphorus Magnesium Prealbumin Triglycerides - ABG Interpretation ABG results: ABG ABG pH 7.36 pH Units (7.32-7.45) 09/16/16 00:01 ABG pCO2 47 mmHg (35-45) H 09/16/16 00:01 ABG pO2 89 mmHg (85-104) 09/16/16 00:01 ABG O2 Saturation 96 % (95-98) 09/16/16 00:01 PT/INR, D-dimer PT 11.5 Seconds (9.4-12.1) 09/15/16 04:35
[2016-09-16] MEDS ORDERED: *HR* Dextrose 50 % in Water (Syg) 50 ML SYRINGE IVP PRN (10:17)
[2016-09-16] MEDS ORDERED: D5% in Water 1,000 ML IV PRN (10:17)
[2016-09-16] MEDS ORDERED: Dextrose Gel 15 GM PO PRN ×2 (10:17)
[2016-09-16] MEDS: Insulin LISPRO 300 UNITS/3 ML VIAL SQ SCH ×2 (11:56→17:40)
--- NOTE | 2016-09-16 12:41 | General Surgery Progress Note ---
Date of Encounter: 09/16/16 Time of Encounter: 12:40 - Assessment and Plan (1) Metastatic carcinoma involving liver with unknown primary site Current Visit: Yes Status: Acute The patient is now diverted proximally with a mucous fistula to avoid a closed loop obstruction. A liver biopsy is pending for the known pathology. This is likely a colon cancer. His NG is been removed and we will start him on ice chips. If he tolerates ice chips only may advance his diet in the next 24 hours . Subjective Patient reports: feels better, still having pain Objective Vital Signs - Last 8 Hours Temp Pulse Resp BP Pulse Ox 09/16/16 11:54 97.6 F 80 15 143/83 94 L 09/16/16 07:43 97.5 F L 56 15 137/83 99 Intake and Output 09/15/16 09/16/16 09/16/16 23:59 07:59 15:59 Intake Total 500 / 500 1005 / 1005 379 / 379 Output Total 775 / 775 0 / 0 200 / 200 Balance -275 / -275 1005 / 1005 179 / 179 Intake: IV Fluids 500 / 500 1005 / 1005 379 / 379 Clinimix E 5%-20% 391 / 391 152 / 152 SOLUTION 2,000 ML @ 40 mls/hr IV .Q24H ALEXSANDER with M.v.i. Adult 10 ml Rx#: [id number] 0.9 % Sodium Chloride 1, 0 / 0 614 / 614 227 / 227 000 ML @ 100 mls/hr IVC . Q10H ALEX[facility]ER Rx#:[id number] Lactated Ringers 1,000 ML 500 / 500 @ 25 mls/hr IVC .Q24H A[facility]ER Rx#:[id number] Oral 0 / 0 0 / 0 Output: Urine 275 / 275 0 / 0 Gastric Tube Lavage 0 / 0 0 / 0 0 / 0 Amount Left Nare 0 / 0 0 / 0 0 / 0 Estimated Blood Loss 50 / 50 Gastric Drainage 450 / 450 200 / 200 Other: Meal npo Stool Color Brown Blood Glucose* 193 159 - General physical appearance chronically ill - Eyes PERRL, normal ocular movement - Respiratory normal respiratory effort - Abdomen Abdomen: Present: soft Additional Comments: End ostomy and mucous fistula appears viable. No current flatus and either bag - Labs 09/16/16 03:20 09/16/16 03:20 Diabetes panel 09/16/16 Range/Units 03:20 Sodium 135 L (136-145) mEq/L Potassium 4.3 (3.5-4.5) mEq/L Chloride 104 (98-109) mEq/L Carbon Dioxide 29 (19-29) mEq/L BUN 11 (8-26) mg/dL Creatinine 0.80 (0.72-1.25) mg/dL Glucose 188 H (70-99) mg/dL Calcium 8.2 L (8.6-10.8) mg/dL Calcium panel 09/16/16 Range/Units 03:20 Calcium 8.2 L (8.6-10.8) mg/dL Phosphorus 3.1 (2.3-4.7) mg/dL Pituitary panel 09/16/16 Range/Units 03:20 Sodium 135 L (136-145) mEq/L Potassium 4.3 (3.5-4.5) mEq/L Chloride 104 (98-109) mEq/L Carbon Dioxide 29 (19-29) mEq/L BUN 11 (8-26) mg/dL Creatinine 0.80 (0.72-1.25) mg/dL Glucose 188 H (70-99) mg/dL Calcium 8.2 L (8.6-10.8) mg/dL Adrenal panel 09/16/16 Range/Units 03:20 Sodium 135 L (136-145) mEq/L Potassium 4.3 (3.5-4.5) mEq/L Chloride 104 (98-109) mEq/L Carbon Dioxide 29 (19-29) mEq/L BUN 11 (8-26) mg/dL Creatinine 0.80 (0.72-1.25) mg/dL Glucose 188 H (70-99) mg/dL Calcium 8.2 L (8.6-10.8) mg/dL - VTE Documentation of Mechanical Device: Intermittent pneumatic compression device Consult Discharge Plan - Plan Referrals: [facility] [Outside]
[2016-09-16] MEDS: 0.9 % Sodium Chloride 1,000 ML IVC SCH ×2 (13:15→21:22)
--- NOTE | 2016-09-16 16:55 | Internal Med Progress Note ---
Date of Encounter: 09/16/16 Time of Encounter: 10:00 - Assessment and plan (1) Bowel obstruction Current Visit: Yes Status: Acute Assessment and plan: Patient has a bowel obstruction, most likely due to malignancy. Surgical consult is on case and appreciated. 1. Pt had surgery. Will advance diet as tolerate.. 2. IV fluids, follow-up with BMP to correct electrolyte abnormality. Patient is at high risk because he has a bowel obstruction need a surgical intervention. Qualifiers: Intestinal obstruction type: other intestinal obstruction Qualified Code(s) : K56.69 - Other intestinal obstruction (2) Nausea and vomiting Current Visit: Yes Status: Acute Assessment and plan: Due to bowel obstruction. Had surgery now. No N/V now. Qualifiers: Vomiting type: unspecified Vomiting Intractability: non-intractable Qualified Code(s): R11.2 - Nausea with vomiting, unspecified (3) DVT prophylaxis Current Visit: No Status: Acute Assessment and plan: Heparin subcutaneously (4) Metastatic carcinoma involving liver with unknown primary site Current Visit: Yes Status: Acute Assessment and plan: Etiology is undetermine. Highly suspect colon cancer because patient has a high CEA. Liver biopsy done during surgery. Patient has seen oncologist. (5) History of CVA with residual deficit Current Visit: No Status: Chronic Assessment and plan: with residual right side weakness and dysarthria. - Time Spent With Patient Greater than 35 minutes - Subjective Interval history: Patient is a 66-year-old male admitted for abdominal pain, diagnosis is bowel obstruction, possible malignancy with liver metastasis. Past medical history is significant for cancer, CVA, hypertension. Patient is seen and examined. He had surgery yesterday. Patient has no abdominal pain. His vitals are stable. General surgery consult on case and plan to advance diet as tolerate. Liver biopsy done during surgery. - Constitutional Vitals: Temp Pulse Resp BP Pulse Ox 98.3 F 66 14 132/66 96 09/16/16 15:51 09/16/16 15:51 09/16/16 15:51 09/16/16 15:51 09/16/16 15:51 General appearance: Present: A&O X 3, no acute distress - Head Head exam: Present: atraumatic, normocephalic - Eye Eye exam: Present: PERRL, conjuntiva pink, sclera anicteric Pupils: Present: PERRL - Neck Neck exam general surgery: Present: supple, trachea midline. Absent: lymphadenopathy - Respiratory Respiratory exam: Present: CTAB. Absent: accessory muscle use, rales, rhonchi, wheezes - Cardiovascular Cardiovascular exam: Present: RRR, +S1, +S2. Absent: diastolic murmur, gallop, rubs, systolic murmur - GI/Abdominal GI/Abdominal exam: Present: normal bowel sounds, soft, no peritoneal signs. Absent: distended, tenderness Additional comments: Colostomy bags in place. - Extremities Exam Extremities exam: Present: warm, radial pulses palpable and symetrical. Absent : calf tenderness, cyanotic, pedal edema - Neurological Exam Neurological exam: Present: CN II-XII intact, oriented X3, no focal deficits. Absent: pronater drift, facial droop, speech deficit - Skin Skin exam: Present: dry, intact Internal Medicine: Result - Labs CBC & Chem 7: 09/16/16 03:20 09/16/16 03:20 Labs: Short CBC 09/16/16 Range/Units 03:20 WBC 18.5 H D (4.3-11.1) K/mcL Hgb 13.5 D (12.9-16.9) g/dL Hct 40.2 (37.5-50.1) % Plt Count 188 (140-400) K/mcL Neutrophils # 16.7 H (1.6-8.9) K/mcL BMP 09/16/16 03:20 Sodium 135 L Potassium 4.3 Chloride 104 Carbon Dioxide 29 BUN 11 Creatinine 0.80 Glucose 188 H Calcium 8.2 L - ABG Interpretation ABG results: ABG ABG pH 7.36 pH Units (7.32-7.45) 09/16/16 00:01 ABG pCO2 47 mmHg (35-45) H 09/16/16 00:01 ABG pO2 89 mmHg (85-104) 09/16/16 00:01 ABG O2 Saturation 96 % (95-98) 09/16/16 00:01 PT/INR, D-dimer PT 11.5 Seconds (9.4-12.1) 09/15/16 04:35 - VTE Documentation of Mechanical Device: Intermittent pneumatic compression device Consult Discharge Plan - Plan Referrals: [facility] [Outside]
[2016-09-16] MEDS ORDERED: Clinimix E 5%-20% SOLUTION 2,000 ML with MVI, adult with vitamin K 10 ML IV SCH (17:00)
[2016-09-16] MEDS ORDERED: Clinimix E 5%-15% SOLUTION 2,000 ML with MVI, adult with vitamin K 10 ML IV SCH (17:00)
[2016-09-17] MEDS: Insulin LISPRO 300 UNITS/3 ML VIAL SQ SCH ×5 (00:23→20:27)
[2016-09-17 03:24] LABS: Basophils % 0.3 %; Eosinophils # 0.2 K/mcL (0.0-0.6); Eosinophils % 1.6 %; Hematocrit 37.1 % (37.5-50.1); Hemoglobin 12.4 g/dL (12.9-16.9); Immature Granulocytes % 0.8 % (0-4); Lymphocytes # 1.9 K/mcL (0.6-4.6); Lymphocytes % 16.3 %; Mean Corpuscular HGB Conc 33.4 g/dL (31.6-35.5); Mean Corpuscular Hemoglobin 30.1 pg (28.0-33.3); Mean Platelet Volume 9.4 fL (9.4-12.4); Monocytes # 1.4 K/mcL (0.0-1.3); Monocytes % 11.8 %; Neutrophils # 7.9 K/mcL (1.6-8.9); Platelet Count 184 K/mcL (140-400); Red Blood Count 4.12 M/mcL (4.19-5.50); Red Cell Distribution Width 14.8 % (11.5-14.5); Segmented Neutrophils % 69.2 %
[2016-09-17] MEDS: 0.9 % Sodium Chloride 1,000 ML IVC SCH ×2 (03:24→15:56)
[2016-09-17 03:29] LABS: BUN/Creatinine Ratio 20 (6-26); Blood Urea Nitrogen 13 mg/dL (8-26); Calcium 7.9 mg/dL (8.6-10.8); Carbon Dioxide 29 mEq/L (19-29); Chloride 104 mEq/L (98-109); Glucose 111 mg/dL (70-99); Magnesium 1.8 mg/dL (1.6-2.6); Osmolality,Calculated 285 (280-300); Phosphorous 2.8 mg/dL (2.3-4.7); Potassium 3.7 mEq/L (3.5-4.5); Sodium 137 mEq/L (136-145); eGFR For African Americans > 60 (> 60); eGFR For Non-African Americans > 60 (> 60)
[2016-09-17] MEDS: *HR* Morphine 2 MG/ML SYRINGE IVP PRN ×3 (05:27→20:24)
[2016-09-17] MEDS: *HR* Heparin 5,000 UNIT/ML VIAL SQ SCH ×3 (05:28→21:21)
--- NOTE | 2016-09-17 08:50 | Palliative Progress Note ---
Date of Encounter: 09/17/16 Time of Encounter: 08:40 - Assessment and plan (1) Nausea and vomiting Current Visit: Yes Status: Acute Assessment and plan: None at this time I believe this problem has resolved now that surgery has been accomplished. Qualifiers: Vomiting type: unspecified Vomiting Intractability: non-intractable Qualified Code(s): R11.2 - Nausea with vomiting, unspecified (2) Abdominal pain Current Visit: Yes Status: Acute Assessment and plan: Well-controlled on current pain regimen no changes anticipated Qualifiers: Abdominal location: epigastric Qualified Code(s): R10.13 - Epigastric pain (3) Goals of care, counseling/discussion Current Visit: Yes Status: Acute Assessment and plan: DNRCCA, patient and oncology are awaiting results of pathology to decide on what the further treatment plan is going to be. At this time patient is again waiting for the pathology to come back so that oncology can recommend treatment plan. It is DNRCCA and is recovering well from surgery. Palliative care will follow at a distance pathology results come back in all likelihood the patient will probably make his decisions as an outpatient. Patient does understand that hospice is available to him if the treatment plan does not work for him for whatever reason. (4) Bowel obstruction Current Visit: Yes Status: Acute Assessment and plan: Issues now resolved secondary to surgery Qualifiers: Intestinal obstruction type: other intestinal obstruction Qualified Code(s) : K56.69 - Other intestinal obstruction (5) Metastatic carcinoma involving liver with unknown primary site Current Visit: Yes Status: Acute Assessment and plan: Waiting pathology to decide on further treatment. - Time Spent With Patient Total time spent is greater than 50% in coordination of care (as documented) at patient's floor/unit and/or counseling patient: - Subjective Interval history: Technically postop day 2 of the surgery was not done until late Tuesday afternoon. He reports that he is feeling gargles in his belly, no nausea medications are effective for the pain. Patient is looking forward to eating when he can. - Constitutional Vitals: Abnormal lab results WBC 11.5 K/mcL (4.3-11.1) H 09/17/16 03:02 RBC 4.12 M/mcL (4.19-5.50) L 09/17/16 03:02 Hgb 12.4 g/dL (12.9-16.9) L 09/17/16 03:02 Hct 37.1 % (37.5-50.1) L 09/17/16 03:02 RDW 14.8 % (11.5-14.5) H 09/17/16 03:02 Monocytes # 1.4 K/mcL (0.0-1.3) H 09/17/16 03:02 ABG pCO2 47 mmHg (35-45) H 09/16/16 00:01 ABG Total CO2 28.0 mEq/L (20-26) H 09/16/16 00:01 Creatinine 0.65 mg/dL (0.72-1.25) L 09/17/16 03:02 Glucose 111 mg/dL (70-99) H 09/17/16 03:02 POC Glucose 97 (58-89) H 09/17/16 05:44 Calcium 7.9 mg/dL (8.6-10.8) L 09/17/16 03:02 Albumin 3.0 g/dL (3.5-5.0) L 09/14/16 05:27 Albumin/Globulin Ratio 1.0 (1.1-2.2) L 09/14/16 05:27 Prealbumin 11.0 mg/dL (18.0-45.0) L 09/15/16 11:27 Urine Clarity Turbid (Clear) A 09/13/16 20:27 Ur Specific Pioneer 1.029 (1.010-1.025) H 09/13/16 20:27 Urine Protein 30 mg/dL (Neg-Trace) H 09/13/16 20:27 Urine Ketones Trace mg/dL (Negative) H 09/13/16 20:27 Urine Bilirubin Moderate (Negative) H 09/13/16 20:27 Ur Leukocyte Esterase Trace (Negative) H 09/13/16 20:27 Urine Microscopic WBC 5-15 per hpf (0-3) H 09/13/16 20:27 Ur Squamous Epith Cells Many per lpf (None-Few) H 09/13/16 20:27 Hyaline Casts Moderate per lpf (None-Few) H 09/13/16 20:27 Urine Mucus Many (Few) H 09/13/16 20:27 Ur Culture Indicated? YES (NO) A 09/13/16 20:27 General appearance: Present: no acute distress - Head Head exam: Present: atraumatic, normal inspection - Eye Eye exam: Present: normal appearance - ENT ENT exam: Present: mucous membranes moist - Respiratory Respiratory exam: Present: CTAB - Cardiovascular Cardiovascular exam: Present: RRR - GI/Abdominal GI/Abdominal exam: Present: hypoactive bowel sounds (But they are present), soft , tenderness - Extremities Exam Extremities exam: Present: normal inspection. Absent: pedal edema, tenderness - Neurological Exam Neurological exam: Present: alert - Psychiatric Psychiatric exam: Absent: agitated, anxious - Skin Skin exam: Present: dry, warm Palliative Quality Palliative Quality: Screen for Code Status: Yes, Screen for Goals of Care: Yes, Screen for Pain: Yes, If Pain Regimen Started, Initiate Bowel Regimen: NA, Screen for Nausea/Vomitting: Yes Code Status: 09/14/16 02:40 Resuscitation Status: Active [RES] Routine Comment: Resuscitation Status: DNR-Comfort Care-Arrest - Labs CBC & Chem 7: 09/17/16 03:02 09/17/16 03:02 Labs: Laboratory Results - last 24 hr 09/16/16 09/16/16 09/16/16 11:53 16:53 20:57 WBC RBC Hgb Hct MCV MCH MCHC RDW Plt Count MPV Immature Gran % Seg Neutrophils % Lymphocytes % Monocytes % Eosinophils % Basophils % Neutrophils # Lymphocytes # Monocytes # Eosinophils # Basophils # Sodium Potassium Chloride Carbon Dioxide BUN Creatinine Est GFR ( Amer) Est GFR (Non-Af Amer) BUN/Creatinine Ratio Glucose POC Glucose 159 H 116 H 114 H Calculated Osmolality Calcium Phosphorus Magnesium 09/17/16 09/17/16 09/17/16 00:02 03:02 03:02 WBC 11.5 H RBC 4.12 L Hgb 12.4 L Hct 37.1 L MCV 90.0 MCH 30.1 MCHC 33.4 RDW 14.8 H Plt Count 184 MPV 9.4 Immature Gran % 0.8 Seg Neutrophils % 69.2 Lymphocytes % 16.3 Monocytes % 11.8 Eosinophils % 1.6 Basophils % 0.3 Neutrophils # 7.9 Lymphocytes # 1.9 Monocytes # 1.4 H Eosinophils # 0.2 Basophils # 0.0 Sodium 137 Potassium 3.7 Chloride 104 Carbon Dioxide 29 BUN 13 Creatinine 0.65 L Est GFR ( Amer) > 60 Est GFR (Non-Af Amer) > 60 BUN/Creatinine Ratio 20 Glucose 111 H POC Glucose 108 H Calculated Osmolality 285 Calcium 7.9 L Phosphorus 2.8 Magnesium 1.8 09/17/16 05:44 WBC RBC Hgb Hct MCV MCH MCHC RDW Plt Count MPV Immature Gran % Seg Neutrophils % Lymphocytes % Monocytes % Eosinophils % Basophils % Neutrophils # Lymphocytes # Monocytes # Eosinophils # Basophils # Sodium Potassium Chloride Carbon Dioxide BUN Creatinine Est GFR ( Amer) Est GFR (Non-Af Amer) BUN/Creatinine Ratio Glucose POC Glucose 97 H Calculated Osmolality Calcium Phosphorus Magnesium - ABG Interpretation ABG results: ABG ABG pH 7.36 pH Units (7.32-7.45) 09/16/16 00:01 ABG pCO2 47 mmHg (35-45) H 09/16/16 00:01 ABG pO2 89 mmHg (85-104) 09/16/16 00:01 ABG O2 Saturation 96 % (95-98) 09/16/16 00:01 PT/INR, D-dimer PT 11.5 Seconds (9.4-12.1) 09/15/16 04:35 Consult Discharge Plan - Plan [facility]errals: [facility] [Primary Care Provider] -
[2016-09-17] MEDS: Pantoprazole 40 MG VIAL IVP SCH (09:13)
--- NOTE | 2016-09-17 13:05 | General Surgery Progress Note ---
Date of Encounter: 09/17/16 Time of Encounter: 13:02 - Assessment and Plan (1) Metastatic carcinoma involving liver with unknown primary site Current Visit: Yes Status: Acute POD #2 from Exploratory laparotomy with end colostomy and creation of mucous fistula Liver biopsy with Dr. De La Cruz Pathology pending Continue bowel rest while awaiting return of bowel function- may have ice chips Continue TPN therapy Appliances changed today to ostomy and mucous fistula Supportive care and pain control Repeat labs in the am (2) Urinary retention Current Visit: Yes Status: Acute Junior catheter to SD inserted 09/16/16 (3) History of CVA with residual deficit Current Visit: No Status: Chronic (4) DVT prophylaxis Current Visit: No Status: Acute Continue heparin 5,000 units SQ twice daily for DVT prophylaxis Subjective Patient reports: still having pain (surgical), no flatus, no bowel movement, afebrile, other (Patient unable to void yesterday and junior catheter was placed) Objective Vital Signs - Last 8 Hours Temp Pulse Resp BP Pulse Ox 09/17/16 11:46 98 F 55 14 125/75 96 09/17/16 07:46 97.9 F 60 14 127/73 94 L 09/17/16 05:46 97.6 F 61 18 114/67 90 L Intake and Output 09/16/16 09/17/16 09/17/16 23:59 07:59 15:59 Intake Total 447 / 447 936 / 936 0 / 0 Output Total 1925 / 1925 750 / 750 300 / 300 Balance -1478 / -1478 186 / 186 -300 / -300 Intake: IV Fluids 447 / 447 936 / 936 Clinimix E 5%-15% 611 / 611 SOLUTION 2,000 ML @ 65 mls/hr IV .Q24H [facility] with M.v.i. Adult 10 ml Rx#: [id number] Clinimix E 5%-20% 215 / 215 SOLUTION 2,000 ML @ 40 mls/hr IV .Q24H [facility] with M.v.i. Adult 10 ml Rx#: [id number] 0.9 % Sodium Chloride 1, 232 / 232 325 / 325 000 ML @ 100 mls/hr IVC . Q10H [facility] Rx#:[id number] Oral 0 / 0 0 / 0 0 / 0 Output: Urine 925 / 925 450 / 450 250 / 250 Urethral (Junior) 900 / 900 Stool 100 / 100 0 / 0 50 / 50 Catheter 900 / 900 300 / 300 Other: Stool Consistency liquid Stool Color Dark Red Blood # Bowel Movements 1 Weight 67.5 kg Blood Glucose* 114 97 116 Patient Weight 09/17/16 23:59 Weight 67.5 kg - General physical appearance well developed, no distress, moderate pain, chronically ill - Eyes normal ocular movement - ENT normal mucosa, atraumatic, normocephalic - Neck Neck exam: trachea midline - Respiratory normal respiratory effort, clear to auscultation, other (moist, productive cough ; diminished bibasilar bases) - Cardiovascular Cardiovascular exam: Present: RRR - Abdomen Abdomen: Present: soft, tender (expected post-operative tenderness), wound ( Colostomy pink and moist with minimal amount of serousang. drainage noted; Mucous fistula pink and moist with small amount of serousang. drainage noted ( bleeding noted around MF with old clot)) - Incision Incision: Present: clean and dry (midline) - Genitourinary other (junior catheter to SD with clear, yellow urin) - Integumentary no rash, no growths - Musculoskeletal other (moderate deconditioning) - Psychiatric oriented to person, oriented to place, speech is normal (at baseline for patient ), memory intact - Labs 09/17/16 03:02 09/17/16 03:02 Diabetes panel 09/17/16 Range/Units 03:02 Sodium 137 (136-145) mEq/L Potassium 3.7 (3.5-4.5) mEq/L Chloride 104 (98-109) mEq/L Carbon Dioxide 29 (19-29) mEq/L BUN 13 (8-26) mg/dL Creatinine 0.65 L (0.72-1.25) mg/dL Glucose 111 H (70-99) mg/dL Calcium 7.9 L (8.6-10.8) mg/dL Calcium panel 09/17/16 Range/Units 03:02 Calcium 7.9 L (8.6-10.8) mg/dL Phosphorus 2.8 (2.3-4.7) mg/dL Pituitary panel 09/17/16 Range/Units 03:02 Sodium 137 (136-145) mEq/L Potassium 3.7 (3.5-4.5) mEq/L Chloride 104 (98-109) mEq/L Carbon Dioxide 29 (19-29) mEq/L BUN 13 (8-26) mg/dL Creatinine 0.65 L (0.72-1.25) mg/dL Glucose 111 H (70-99) mg/dL Calcium 7.9 L (8.6-10.8) mg/dL Adrenal panel 09/17/16 Range/Units 03:02 Sodium 137 (136-145) mEq/L Potassium 3.7 (3.5-4.5) mEq/L Chloride 104 (98-109) mEq/L Carbon Dioxide 29 (19-29) mEq/L BUN 13 (8-26) mg/dL Creatinine 0.65 L (0.72-1.25) mg/dL Glucose 111 H (70-99) mg/dL Calcium 7.9 L (8.6-10.8) mg/dL - VTE Documentation of Mechanical Device: Intermittent pneumatic compression device Consult Discharge Plan - Plan Referrals: [facility] [Primary Care Provider] - - Attending Attestation I examined this patient and my medical decision-making was reviewed with the [facility]ER/PA/Advanced Practice Nurse/Resident Physician. I agree with the documented findings, disposition and treatment plan as described except to the extent set forth below.
[2016-09-17] MEDS: Clinimix E 5%-15% SOLUTION 2,000 ML with MVI, adult with vitamin K 10 ML IV SCH (15:54)
--- NOTE | 2016-09-17 15:58 | Internal Med Progress Note ---
Date of Encounter: 09/17/16 Time of Encounter: 10:00 - Assessment and plan (1) Bowel obstruction Current Visit: Yes Status: Acute Assessment and plan: Patient has a bowel obstruction, most likely due to malignancy. Surgical consult is on case and appreciated. 1. Pt had surgery. Will advance diet as tolerate per surgical recommendation.. 2. IV fluids, follow-up with BMP to correct electrolyte abnormality. Patient is at high risk because he has a bowel obstruction need a surgical intervention. Qualifiers: Intestinal obstruction type: other intestinal obstruction Qualified Code(s) : K56.69 - Other intestinal obstruction (2) Nausea and vomiting Current Visit: Yes Status: Acute Assessment and plan: Due to bowel obstruction. Had surgery now. No N/V now. Qualifiers: Vomiting type: unspecified Vomiting Intractability: non-intractable Qualified Code(s): R11.2 - Nausea with vomiting, unspecified (3) DVT prophylaxis Current Visit: No Status: Acute Assessment and plan: Heparin subcutaneously (4) Metastatic carcinoma involving liver with unknown primary site Current Visit: Yes Status: Acute Assessment and plan: Etiology is undetermine. Highly suspect colon cancer because patient has a high CEA. Liver biopsy done during surgery. Patient has seen oncologist. (5) History of CVA with residual deficit Current Visit: No Status: Chronic Assessment and plan: with residual right side weakness and dysarthria. - Time Spent With Patient Greater than 35 minutes - Subjective Interval history: Patient is a 66-year-old male admitted for abdominal pain, diagnosis is bowel obstruction, possible malignancy with liver metastasis. Past medical history is significant for cancer, CVA, hypertension. Patient is seen and examined. He had surgery. Post surgery day 2. Patient has mild abdominal pain, on pain med. His vitals are stable. General surgery consult on case and diet will follow surgical recommendation. Right now pt is still on TPN. Liver biopsy done during surgery, result pending. - Constitutional Vitals: Temp Pulse Resp BP Pulse Ox 98 F 55 14 125/75 96 09/17/16 11:46 09/17/16 11:46 09/17/16 11:46 09/17/16 11:46 09/17/16 11:46 General appearance: Present: A&O X 3, no acute distress - Head Head exam: Present: atraumatic, normocephalic - Eye Eye exam: Present: PERRL, conjuntiva pink, sclera anicteric Pupils: Present: PERRL - Neck Neck exam general surgery: Present: supple, trachea midline. Absent: lymphadenopathy - Respiratory Respiratory exam: Present: CTAB. Absent: accessory muscle use, rales, rhonchi, wheezes - Cardiovascular Cardiovascular exam: Present: RRR, +S1, +S2. Absent: diastolic murmur, gallop, rubs, systolic murmur - GI/Abdominal GI/Abdominal exam: Present: normal bowel sounds, soft, no peritoneal signs. Absent: distended, tenderness Additional comments: Colostomy bags in place with small amount of bloody content - Extremities Exam Extremities exam: Present: warm, radial pulses palpable and symetrical. Absent : calf tenderness, cyanotic, pedal edema - Neurological Exam Neurological exam: Present: CN II-XII intact, oriented X3, no focal deficits. Absent: pronater drift, facial droop, speech deficit - Skin Skin exam: Present: dry, intact Internal Medicine: Result - Labs CBC & Chem 7: 09/17/16 03:02 09/17/16 03:02 Labs: Short CBC 09/17/16 Range/Units 03:02 WBC 11.5 H (4.3-11.1) K/mcL Hgb 12.4 L (12.9-16.9) g/dL Hct 37.1 L (37.5-50.1) % Plt Count 184 (140-400) K/mcL Neutrophils # 7.9 (1.6-8.9) K/mcL BMP 09/17/16 03:02 Sodium 137 Potassium 3.7 Chloride 104 Carbon Dioxide 29 BUN 13 Creatinine 0.65 L Glucose 111 H Calcium 7.9 L - ABG Interpretation ABG results: ABG ABG pH 7.36 pH Units (7.32-7.45) 09/16/16 00:01 ABG pCO2 47 mmHg (35-45) H 09/16/16 00:01 ABG pO2 89 mmHg (85-104) 09/16/16 00:01 ABG O2 Saturation 96 % (95-98) 09/16/16 00:01 PT/INR, D-dimer PT 11.5 Seconds (9.4-12.1) 09/15/16 04:35 - VTE Documentation of Mechanical Device: Intermittent pneumatic compression device Consult Discharge Plan - Plan Referrals: [facility] [Primary Care Provider] -
[2016-09-18] MEDS: *HR* Morphine 2 MG/ML SYRINGE IVP PRN ×3 (00:24→13:07)
[2016-09-18] MEDS: Insulin LISPRO 300 UNITS/3 ML VIAL SQ SCH ×6 (00:26→20:44)
[2016-09-18 03:24] LABS: Basophils # 0.1 K/mcL (0.0-0.2); Basophils % 0.3 %; Eosinophils # 0.6 K/mcL (0.0-0.6); Eosinophils % 3.3 %; Hematocrit 35.1 % (37.5-50.1); Hemoglobin 11.9 g/dL (12.9-16.9); Immature Granulocytes % 0.7 % (0-4); Lymphocytes # 1.7 K/mcL (0.6-4.6); Lymphocytes % 10.3 %; Mean Corpuscular HGB Conc 33.9 g/dL (31.6-35.5); Mean Corpuscular Hemoglobin 30.4 pg (28.0-33.3); Mean Corpuscular Volume 89.8 fL (83.0-100.0); Mean Platelet Volume 9.6 fL (9.4-12.4); Monocytes # 1.1 K/mcL (0.0-1.3); Monocytes % 6.5 %; Neutrophils # 13.3 K/mcL (1.6-8.9); Platelet Count 158 K/mcL (140-400); Red Blood Count 3.91 M/mcL (4.19-5.50); Red Cell Distribution Width 14.8 % (11.5-14.5); Segmented Neutrophils % 78.9 %
[2016-09-18 03:37] LABS: BUN/Creatinine Ratio 21 (6-26); Blood Urea Nitrogen 13 mg/dL (8-26); Carbon Dioxide 26 mEq/L (19-29); Chloride 102 mEq/L (98-109); Glucose 100 mg/dL (70-99); Magnesium 1.7 mg/dL (1.6-2.6); Osmolality,Calculated 276 (280-300); Phosphorous 3.5 mg/dL (2.3-4.7); Potassium 3.8 mEq/L (3.5-4.5); Sodium 133 mEq/L (136-145); eGFR For African Americans > 60 (> 60); eGFR For Non-African Americans > 60 (> 60)
[2016-09-18] MEDS: *HR* Heparin 5,000 UNIT/ML VIAL SQ SCH ×3 (05:10→21:28)
[2016-09-18] MEDS: Pantoprazole 40 MG VIAL IVP SCH (08:29)
[2016-09-18] MEDS ORDERED: Vancomycin 1,000 MG in D5% in Water 250 ML IVPB SCH (10:00)
--- NOTE | 2016-09-18 10:56 | General Surgery Progress Note ---
<Mercedez Carroll - Last Filed: 09/18/16 10:54> Date of Encounter: 09/18/16 Time of Encounter: 10:54 - Assessment and Plan (1) Metastatic carcinoma involving liver with unknown primary site Current Visit: Yes Status: Acute POD #3 from Exploratory laparotomy with end colostomy and creation of mucous fistula Liver biopsy with Dr. De La Cruz Pathology pending Continue bowel rest while awaiting return of bowel function- may have ice chips Continue TPN therapy Appliances changed 09/16 to ostomy and mucous fistula Supportive care and pain control Repeat labs in the am (2) Urinary retention Current Visit: Yes Status: Acute Junior catheter to SD inserted 09/16/16 (3) History of CVA with residual deficit Current Visit: No Status: Chronic (4) DVT prophylaxis Current Visit: No Status: Acute Continue heparin 5,000 units SQ twice daily for DVT prophylaxis Subjective Patient reports: still having pain (surgical), flatus, no bowel movement, afebrile Objective Vital Signs - Last 8 Hours Temp Pulse Resp BP Pulse Ox 09/18/16 07:01 98.6 F 60 16 119/72 95 09/18/16 04:30 98.2 F 61 18 125/70 95 Intake and Output 09/17/16 09/18/16 09/18/16 23:59 07:59 15:59 Intake Total 441 / 441 1953 / 1953 Output Total 675 / 675 1100 / 1100 Balance -234 / -234 854 / 854 Intake: IV Fluids 441 / 441 1953 / 1953 Clinimix E 5%-15% 1704 / 1704 SOLUTION 2,000 ML @ 83.3 mls/hr IV .Q24H [facility] with M.v.i. Adult 10 ml Rx#: [id number] 0.9 % Sodium Chloride 1, 441 / 441 000 ML @ 100 mls/hr IVC . Q10H [facility] Rx#:[id number] Intralipid 20% 250 ML @ 250 / 250 21 mls/hr IVPB MoWeFr@ 1700 [facility] Rx#:[id number] Oral 0 / 0 0 / 0 Output: Stool 0 / 0 Catheter 675 / 675 1100 / 1100 Other: Meal NPO # Bowel Movements 0 Weight 67.5 kg 70.7 kg Blood Glucose* 104 128 Patient Weight 09/18/16 23:59 Weight 70.7 kg - General physical appearance well developed, no distress, moderate pain, chronically ill - Eyes PERRL, normal ocular movement - ENT normal mucosa, atraumatic, normocephalic - Neck Neck exam: trachea midline - Respiratory normal respiratory effort, clear to auscultation, other (moist, productive cough ; diminished bibasilar bases) - Cardiovascular Cardiovascular exam: Present: RRR - Abdomen Abdomen: Present: soft, tender, wound (Colostomy pink and moist with minimal amount of serousang. drainage noted; Mucous fistula pink and moist with small amount of serousang. drainage noted (bleeding noted around MF with old clot)). Absent: bowel sounds present - Incision Incision: Present: clean and dry (midline) - Genitourinary other (junior catheter to SD with clear, yellow urine) - Integumentary no rash - Musculoskeletal other (moderate deconditioning) - Psychiatric oriented to person, oriented to place, speech is normal (at baseline for patient ) - Labs 09/18/16 03:05 09/18/16 03:05 Diabetes panel 09/18/16 Range/Units 03:05 Sodium 133 L (136-145) mEq/L Potassium 3.8 (3.5-4.5) mEq/L Chloride 102 (98-109) mEq/L Carbon Dioxide 26 (19-29) mEq/L BUN 13 (8-26) mg/dL Creatinine 0.62 L (0.72-1.25) mg/dL Glucose 100 H (70-99) mg/dL Calcium 8.0 L (8.6-10.8) mg/dL Calcium panel 09/18/16 Range/Units 03:05 Calcium 8.0 L (8.6-10.8) mg/dL Phosphorus 3.5 (2.3-4.7) mg/dL Pituitary panel 09/18/16 Range/Units 03:05 Sodium 133 L (136-145) mEq/L Potassium 3.8 (3.5-4.5) mEq/L Chloride 102 (98-109) mEq/L Carbon Dioxide 26 (19-29) mEq/L BUN 13 (8-26) mg/dL Creatinine 0.62 L (0.72-1.25) mg/dL Glucose 100 H (70-99) mg/dL Calcium 8.0 L (8.6-10.8) mg/dL Adrenal panel 09/18/16 Range/Units 03:05 Sodium 133 L (136-145) mEq/L Potassium 3.8 (3.5-4.5) mEq/L Chloride 102 (98-109) mEq/L Carbon Dioxide 26 (19-29) mEq/L BUN 13 (8-26) mg/dL Creatinine 0.62 L (0.72-1.25) mg/dL Glucose 100 H (70-99) mg/dL Calcium 8.0 L (8.6-10.8) mg/dL - VTE Documentation of Mechanical Device: Intermittent pneumatic compression device Consult Discharge Plan - Plan [facility]errals: [facility]Primary Care Provider[facility] - <Wandy Johnston - Last Filed: 09/18/16 14:04> - Assessment and Plan (1) Colostomy care Current Visit: Yes Status: Acute conitnue ostomy care (2) Surgically created abdominal mucous fistula Current Visit: Yes Status: Acute continue ostomy care (3) Pneumonia Current Visit: Yes Status: Acute cxr this am shows LLL infiltrate abx per hospitalists scheduled aerosols aggressive pulmonary toilet monitor wbc Qualifiers: Pneumonia type: due to unspecified organism Laterality: left Lung location: lower lobe of lung Qualified Code(s): J18.9 - Pneumonia, unspecified organism (4) Metastatic colon cancer to liver Current Visit: Yes Status: Acute pathology pending (5) Leukocytosis Current Visit: Yes Status: Acute likely due to surgery and LLL pneumonia, follow Qualifiers: Leukocytosis type: unspecified Qualified Code(s): D72.829 - Elevated white blood cell count, unspecified Subjective Narrative: complaining of abdominal pain some nausea and distention with ice chips denies flatus in ostomy appliance complains that left ostomy appliance is leaking Objective Vital Signs - Last 8 Hours Temp Pulse Resp BP Pulse Ox 09/18/16 11:23 97.5 F L 64 16 121/69 94 L 09/18/16 07:01 98.6 F 60 16 119/72 95 Intake and Output 09/17/16 09/18/16 09/18/16 23:59 07:59 15:59 Intake Total 441 / 441 1954 / 1954 Output Total 675 / 675 1100 / 1100 200 / 200 Balance -234 / -234 854 / 854 -200 / -200 Intake: IV Fluids 441 / 441 1953 / 1953 Clinimix E 5%-15% 1703 / 1703 SOLUTION 2,000 ML @ 83.3 mls/hr IV .Q24H [facility] with M.v.i. Adult 10 ml Rx#: [id number] 0.9 % Sodium Chloride 1, 441 / 441 000 ML @ 100 mls/hr IVC . Q10H [facility] Rx#:[id number] Intralipid 20% 250 ML @ 250 / 250 21 mls/hr IVPB MoWeFr@ 1700 [facility] Rx#:[id number] Oral 0 / 0 0 / 0 Output: Stool 0 / 0 Catheter 675 / 675 1100 / 1100 200 / 200 Other: Meal NPO # Bowel Movements 0 Weight 67.5 kg 70.7 kg Blood Glucose* 104 128 118 Patient Weight 09/18/16 23:59 Weight 70.7 kg - General physical appearance no distress, moderate pain - Eyes PERRL, normal ocular movement - ENT dry mucosa, atraumatic, normocephalic - Neck Neck exam: trachea midline - Respiratory normal expansion, clear to auscultation - Cardiovascular Cardiovascular exam: Present: RRR - Abdomen Abdomen: Present: soft, tender (expected postop tenderness). Absent: bowel sounds present - Incision Incision: Present: clean and dry - Genitourinary other - Integumentary no rash - Neurologic CN 2-12 grossly intact - Musculoskeletal normal posture - Psychiatric oriented to time, oriented to person - Additional Exam colostomy and mucus fistula both beefy red with minute necrotic areas which would be expected to slough small amount of drainage from left abdomen mucus fistula - Labs 09/18/16 03:05 09/18/16 03:05 All Lab Results (24 Hours) 09/17/16 09/17/16 09/18/16 Range/Units 16:26 20:28 00:01 WBC (4.3-11.1) K/mcL RBC (4.19-5.50) M/mcL Hgb (12.9-16.9) g/dL Hct (37.5-50.1) % MCV (83.0-100.0) fL MCH (28.0-33.3) pg MCHC (31.6-35.5) g/dL RDW (11.5-14.5) % Plt Count (140-400) K/mcL MPV (9.4-12.4) fL Immature Gran % (0-4) % Seg Neutrophils % % Lymphocytes % % Monocytes % % Eosinophils % % Basophils % % Neutrophils # (1.6-8.9) K/mcL Lymphocytes # (0.6-4.6) K/mcL Monocytes # (0.0-1.3) K/mcL Eosinophils # (0.0-0.6) K/mcL Basophils # (0.0-0.2) K/mcL Sodium (136-145) mEq/L Potassium (3.5-4.5) mEq/L Chloride (98-109) mEq/L Carbon Dioxide (19-29) mEq/L BUN (8-26) mg/dL Creatinine (0.72-1.25) mg/dL Est GFR ( Amer) (> 60) Est GFR (Non-Af Amer) (> 60) BUN/Creatinine Ratio (6-26) Glucose (70-99) mg/dL POC Glucose 108 H 104 H 110 H (58-89) Calculated Osmolality (280-300) Calcium (8.6-10.8) mg/dL Phosphorus (2.3-4.7) mg/dL Magnesium (1.6-2.6) mg/dL 09/18/16 09/18/16 09/18/16 Range/Units 03:05 03:05 04:13 WBC 16.8 H (4.3-11.1) K/mcL RBC 3.91 L (4.19-5.50) M/mcL Hgb 11.9 L (12.9-16.9) g/dL Hct 35.1 L (37.5-50.1) % MCV 89.8 (83.0-100.0) fL MCH 30.4 (28.0-33.3) pg MCHC 33.9 (31.6-35.5) g/dL RDW 14.8 H (11.5-14.5) % Plt Count 158 (140-400) K/mcL MPV 9.6 (9.4-12.4) fL Immature Gran % 0.7 (0-4) % Seg Neutrophils % 78.9 % Lymphocytes % 10.3 % Monocytes % 6.5 % Eosinophils % 3.3 % Basophils % 0.3 % Neutrophils # 13.3 H (1.6-8.9) K/mcL Lymphocytes # 1.7 (0.6-4.6) K/mcL Monocytes # 1.1 (0.0-1.3) K/mcL Eosinophils # 0.6 (0.0-0.6) K/mcL Basophils # 0.1 (0.0-0.2) K/mcL Sodium 133 L (136-145) mEq/L Potassium 3.8 (3.5-4.5) mEq/L Chloride 102 (98-109) mEq/L Carbon Dioxide 26 (19-29) mEq/L BUN 13 (8-26) mg/dL Creatinine 0.62 L (0.72-1.25) mg/dL Est GFR ( Amer) > 60 (> 60) Est GFR (Non-Af Amer) > 60 (> 60) BUN/Creatinine Ratio 21 (6-26) Glucose 100 H (70-99) mg/dL POC Glucose 124 H (58-89) Calculated Osmolality 276 L (280-300) Calcium 8.0 L (8.6-10.8) mg/dL Phosphorus 3.5 (2.3-4.7) mg/dL Magnesium 1.7 (1.6-2.6) mg/dL 09/18/16 09/18/16 Range/Units 07:05 11:20 WBC (4.3-11.1) K/mcL RBC (4.19-5.50) M/mcL Hgb (12.9-16.9) g/dL Hct (37.5-50.1) % MCV (83.0-100.0) fL MCH (28.0-33.3) pg MCHC (31.6-35.5) g/dL RDW (11.5-14.5) % Plt Count (140-400) K/mcL MPV (9.4-12.4) fL Immature Gran % (0-4) % Seg Neutrophils % % Lymphocytes % % Monocytes % % Eosinophils % % Basophils % % Neutrophils # (1.6-8.9) K/mcL Lymphocytes # (0.6-4.6) K/mcL Monocytes # (0.0-1.3) K/mcL Eosinophils # (0.0-0.6) K/mcL Basophils # (0.0-0.2) K/mcL Sodium (136-145) mEq/L Potassium (3.5-4.5) mEq/L Chloride (98-109) mEq/L Carbon Dioxide (19-29) mEq/L BUN (8-26) mg/dL Creatinine (0.72-1.25) mg/dL Est GFR ( Amer) (> 60) Est GFR (Non-Af Amer) (> 60) BUN/Creatinine Ratio (6-26) Glucose (70-99) mg/dL POC Glucose 125 H 118 H (58-89) Calculated Osmolality (280-300) Calcium (8.6-10.8) mg/dL Phosphorus (2.3-4.7) mg/dL Magnesium (1.6-2.6) mg/dL Vital Signs Temp Pulse Resp BP Pulse Ox 09/18/16 11:23 97.5 F L 64 16 121/69 94 L 09/18/16 07:01 98.6 F 60 16 119/72 95 09/18/16 04:30 98.2 F 61 18 125/70 95 09/18/16 00:57 98.3 F 70 18 125/67 92 L 09/17/16 20:31 97.9 F 81 18 132/72 97 09/17/16 16:33 97.4 F L 65 14 136/70 95 Intake and Output 09/17/16 09/18/16 09/18/16 23:59 07:59 15:59 Intake Total 441 / 441 1953 Output Total 675 / 675 1100 / 1100 200 / 200 Balance -234 / -234 854 / 854 -200 / -200 Intake: IV Fluids 441 / 441 1953 Clinimix E 5%-15% 1703 SOLUTION 2,000 ML @ 83.3 mls/hr IV .Q24H [facility] with M.v.i. Adult 10 ml Rx#: [id number] 0.9 % Sodium Chloride 1, 441 / 441 000 ML @ 100 mls/hr IVC . Q10H [facility] Rx#:[id number] Intralipid 20% 250 ML @ 250 / 250 21 mls/hr IVPB MoWeFr@ 1700 [facility] Rx#:[id number] Oral 0 / 0 0 / 0 Output: Stool 0 / 0 Catheter 675 / 675 1100 / 1100 200 / 200 Other: Meal NPO # Bowel Movements 0 Weight 67.5 kg 70.7 kg Blood Glucose* 104 128 118 Patient Weight 09/18/16 23:59 Weight 70.7 kg - Imaging Chest x-ray: report reviewed, image reviewed - Attending Attestation I examined this patient and my medical decision-making was reviewed with the [employer]ACHINE/PA/Advanced Practice Nurse/Resident Physician. I agree with the documented findings, disposition and treatment plan as described except to the extent set forth below.
[2016-09-18] MEDS: Vancomycin 1,000 MG in D5% in Water 250 ML IVPB SCH (13:07)
--- NOTE | 2016-09-18 15:53 | Internal Med Progress Note ---
Date of Encounter: 09/18/16 Time of Encounter: 10:00 - Assessment and plan (1) Bowel obstruction Current Visit: Yes Status: Acute Assessment and plan: Patient has a bowel obstruction, most likely due to malignancy. Surgical consult is on case and appreciated. 1. Pt had surgery. Still NPO and on TPN, diet advance per surgical recommendation.. 2. IV fluids, follow-up with BMP to correct electrolyte abnormality. Patient is at high risk because he has a bowel obstruction need a surgical intervention. Qualifiers: Intestinal obstruction type: other intestinal obstruction Qualified Code(s) : K56.69 - Other intestinal obstruction (2) Nausea and vomiting Current Visit: Yes Status: Acute Assessment and plan: Due to bowel obstruction. Had surgery now. No N/V now. Qualifiers: Vomiting type: unspecified Vomiting Intractability: non-intractable Qualified Code(s): R11.2 - Nausea with vomiting, unspecified (3) DVT prophylaxis Current Visit: No Status: Acute Assessment and plan: Heparin subcutaneously (4) Metastatic carcinoma involving liver with unknown primary site Current Visit: Yes Status: Acute Assessment and plan: Etiology is undetermine. Highly suspect colon cancer because patient has a high CEA. Liver biopsy done during surgery. Patient has seen oncologist. (5) History of CVA with residual deficit Current Visit: No Status: Chronic Assessment and plan: with residual right side weakness and dysarthria. (6) Hospital acquired PNA Current Visit: Yes Status: Acute Assessment and plan: patient has an elevated white count. No cough, no SOB. CXR shows LLL infiltrate. consider hospital-acquired pneumonia. We will treat patient with Vanco and zosyn. - Time Spent With Patient Greater than 35 minutes - Subjective Interval history: Patient is a 66-year-old male admitted for abdominal pain, diagnosis is bowel obstruction, possible malignancy with liver metastasis. Past medical history is significant for cancer, CVA, hypertension. Patient is seen and examined. He had surgery. Post surgery day 3. Patient has abdominal pain, on pain med. His vitals are stable. General surgery consult on case and diet will follow surgical recommendation. Right now pt is still on TPN. Liver biopsy done during surgery, result pending. patient denies cough or shortness of breath. He has an elevated white count. Chest x-ray done shows there is a new infiltrate. Treat patient as a hospital-acquired pneumonia with vancomycin and Zosyn. - Constitutional Vitals: Temp Pulse Resp BP Pulse Ox 97.5 F L 64 16 121/69 94 L 09/18/16 11:23 09/18/16 11:23 09/18/16 11:23 09/18/16 11:23 09/18/16 11:23 General appearance: Present: A&O X 3, no acute distress - Head Head exam: Present: atraumatic, normocephalic - Eye Eye exam: Present: PERRL, conjuntiva pink, sclera anicteric Pupils: Present: PERRL - Neck Neck exam general surgery: Present: supple, trachea midline. Absent: lymphadenopathy - Respiratory Respiratory exam: Present: CTAB. Absent: accessory muscle use, rales, rhonchi, wheezes - Cardiovascular Cardiovascular exam: Present: RRR, +S1, +S2. Absent: diastolic murmur, gallop, rubs, systolic murmur - GI/Abdominal GI/Abdominal exam: Present: normal bowel sounds, soft, tenderness, no peritoneal signs. Absent: distended Additional comments: colostomy bag in place with left side one leakage - Extremities Exam Extremities exam: Present: warm, radial pulses palpable and symetrical. Absent : calf tenderness, cyanotic, pedal edema - Neurological Exam Neurological exam: Present: CN II-XII intact, oriented X3, no focal deficits. Absent: pronater drift, facial droop, speech deficit - Skin Skin exam: Present: dry, intact Internal Medicine: Result - Labs CBC & Chem 7: 09/18/16 03:05 09/18/16 03:05 Labs: Short CBC 09/18/16 Range/Units 03:05 WBC 16.8 H (4.3-11.1) K/mcL Hgb 11.9 L (12.9-16.9) g/dL Hct 35.1 L (37.5-50.1) % Plt Count 158 (140-400) K/mcL Neutrophils # 13.3 H (1.6-8.9) K/mcL BMP 09/18/16 03:05 Sodium 133 L Potassium 3.8 Chloride 102 Carbon Dioxide 26 BUN 13 Creatinine 0.62 L Glucose 100 H Calcium 8.0 L - ABG Interpretation ABG results: ABG ABG pH 7.36 pH Units (7.32-7.45) 09/16/16 00:01 ABG pCO2 47 mmHg (35-45) H 09/16/16 00:01 ABG pO2 89 mmHg (85-104) 09/16/16 00:01 ABG O2 Saturation 96 % (95-98) 09/16/16 00:01 PT/INR, D-dimer PT 11.5 Seconds (9.4-12.1) 09/15/16 04:35 - Impressions Impressions Chest X-Ray 09/18/16 08:19 IMPRESSION: Left lower lobe infiltrate. D/ / 09/18/2016 09:04:23 Jus Rendon MD / vale Interpreting Provider: Jus Rendon MD - VTE Documentation of Mechanical Device: Intermittent pneumatic compression device Consult Discharge Plan - Plan Referrals: [facility] [Primary Care Provider] -
[2016-09-18] MEDS ORDERED: Piperacillin/Tazobactam 3.375 GM in D5% in Water (Mini-Bag+) 100 ML IVPB SCH (16:00)
[2016-09-18 17:01] LABS: Bilirubin,Urine Negative (Negative); Blood,Urine Small (Negative); Clarity,Urine Clear (Clear); Color,Urine Yellow (Yellow); Glucose,Urine (UA) Normal (Normal); Ketones,Urine Negative (Negative); Leukocyte Esterase,Urine Negative (Negative); Nitrite,Urine Negative (Negative); Protein,Urine Negative (Neg-Trace); Urobilinogen,Urine Normal (Normal)
[2016-09-18 17:10] LABS: Bacteria,Urine Few per hpf (None-Few); RBC,Urine 0-3 per hpf (0-3); WBC,Urine 0-3 per hpf (0-3)
[2016-09-18] MEDS: Ipratropium/Albuterol Neb 3 ML IH SCH ×2 (17:43→22:25)
[2016-09-18] MEDS: Clinimix E 5%-15% SOLUTION 2,000 ML with MVI, adult with vitamin K 10 ML IV SCH (17:47)
[2016-09-18] MEDS: 0.9 % Sodium Chloride 1,000 ML IVC SCH ×3 (20:44→21:31)
[2016-09-19] MEDS: *HR* Morphine 2 MG/ML SYRINGE IVP PRN ×3 (00:37→21:00)
[2016-09-19] MEDS: Insulin LISPRO 300 UNITS/3 ML VIAL SQ SCH ×7 (00:46→23:39)
[2016-09-19] MEDS: Piperacillin/Tazobactam 3.375 GM in D5% in Water (Mini-Bag+) 100 ML IVPB SCH ×3 (01:38→18:12)
[2016-09-19 03:46] LABS: Basophils # 0.1 K/mcL (0.0-0.2); Basophils % 0.3 %; Eosinophils # 0.5 K/mcL (0.0-0.6); Eosinophils % 2.6 %; Hematocrit 35.8 % (37.5-50.1); Hemoglobin 12.2 g/dL (12.9-16.9); Immature Granulocytes % 0.6 % (0-4); Immature Platelets 3.5 % (1.1-6.1); Lymphocytes # 1.4 K/mcL (0.6-4.6); Lymphocytes % 6.7 %; Mean Corpuscular HGB Conc 34.1 g/dL (31.6-35.5); Mean Corpuscular Volume 88.2 fL (83.0-100.0); Mean Platelet Volume 9.8 fL (9.4-12.4); Monocytes # 1.5 K/mcL (0.0-1.3); Monocytes % 7.4 %; Neutrophils # 16.7 K/mcL (1.6-8.9); Platelet Count 180 K/mcL (140-400); Red Blood Count 4.06 M/mcL (4.19-5.50); Red Cell Distribution Width 14.7 % (11.5-14.5); Segmented Neutrophils % 82.4 %
[2016-09-19 04:11] LABS: BUN/Creatinine Ratio 21 (6-26); Blood Urea Nitrogen 14 mg/dL (8-26); Calcium 8.4 mg/dL (8.6-10.8); Carbon Dioxide 27 mEq/L (19-29); Chloride 101 mEq/L (98-109); Glucose 102 mg/dL (70-99); Magnesium 2.1 mg/dL (1.6-2.6); Osmolality,Calculated 277 (280-300); Sodium 133 mEq/L (136-145); eGFR For African Americans > 60 (> 60); eGFR For Non-African Americans > 60 (> 60)
[2016-09-19] MEDS: Ipratropium/Albuterol Neb 3 ML IH SCH ×4 (05:24→21:48)
[2016-09-19] MEDS: *HR* Heparin 5,000 UNIT/ML VIAL SQ SCH ×3 (05:34→21:01)
[2016-09-19] MEDS: Vancomycin 1,000 MG in D5% in Water 250 ML IVPB SCH ×2 (05:37→16:12)
[2016-09-19] MEDS: Pantoprazole 40 MG VIAL IVP SCH (08:45)
--- NOTE | 2016-09-19 10:08 | General Surgery Progress Note ---
<Mercedez Carroll - Last Filed: 09/19/16 10:06> Date of Encounter: 09/19/16 Time of Encounter: 10:06 - Assessment and Plan (1) Metastatic carcinoma involving liver with unknown primary site Current Visit: Yes Status: Acute POD #4 from exploratory laparotomy with end colostomy and creation of mucous fistula, liver biopsy with Dr. De La Cruz Pathology pending Continue bowel rest while awaiting return of bowel function- may have ice chips Continue TPN therapy Appliances changed 09/16 to mucous fistula, ostomy changed 09/17 Supportive care and pain control Repeat labs in the am (2) Hospital acquired PNA Current Visit: Yes Status: Acute suspected leukocytosis 09/18, chest x-ray showed LLB infiltrate no cough, sputum production, or shortness of breath started on Vancomycin and Zosyn 09/18 leukocytosis worse today 16.8>20.3, no bands (3) Urinary retention Current Visit: Yes Status: Acute Junior catheter to SD inserted 09/16/16 (4) History of CVA with residual deficit Current Visit: No Status: Chronic (5) DVT prophylaxis Current Visit: No Status: Acute Continue heparin 5,000 units SQ twice daily for DVT prophylaxis Subjective Patient reports: still having pain (post-surgical) Objective Vital Signs - Last 8 Hours Temp Pulse Resp BP Pulse Ox 09/19/16 07:21 99.3 F 93 18 110/66 95 09/19/16 03:41 97.7 F 62 16 106/61 94 L Intake and Output 09/18/16 09/19/16 09/19/16 23:59 07:59 15:59 Intake Total 915 / 915 100 / 100 0 / 0 Output Total 1075 / 1075 1200 / 1200 Balance -160 / -160 -1100 / -1100 0 / 0 Intake: IV Fluids 915 / 915 100 / 100 Clinimix E 5%-15% 306 / 306 SOLUTION 2,000 ML @ 83.3 mls/hr IV .Q24H [facility] with M.v.i. Adult 10 ml Rx#: [id number] 0.9 % Sodium Chloride 1, 259 / 259 000 ML @ 100 mls/hr IVC . Q10H [facility] Rx#:[id number] Zosyn 3.375 GM In 100 / 100 100 / 100 Dextrose 5% (Minibag+) 100 ML 100 ML @ 25 mls/hr IVPB Q8H [facility] Rx#: [id number] Vancocin 1,000 MG In 250 / 250 Dextrose 5% 250 ML @ 166. 667 mls/hr IVPB Q12H [facility] Rx#:[id number] Oral 0 / 0 0 / 0 0 / 0 Output: Stool 325 / 325 Catheter 1075 / 1075 875 / 875 Other: Meal npo NPO Percent of Meal Consumed 0% Stool Size Small Stool Consistency loose Stool Color Brown Blood Glucose* 121 137 - General physical appearance well developed, well nourished - Eyes normal ocular movement - ENT atraumatic, normocephalic - Neck Neck exam: trachea midline - Respiratory normal respiratory effort, clear to auscultation - Cardiovascular Cardiovascular exam: Present: RRR - Abdomen Abdomen: Present: soft, tender, wound (Colostomy pink and moist with brown output; Mucous fistula pink and moist with light brown output). Absent: bowel sounds present Abdominal Tenderness: diffusely - Incision Incision: Present: clean and dry (midline), intact - Genitourinary other (junior catheter to SD with clear, yellow urine) - Musculoskeletal other (moderate deconditioning) - Psychiatric oriented to person, oriented to place, speech is normal (at baseline for patient ) - Labs 09/19/16 03:20 09/19/16 03:20 Diabetes panel 09/19/16 Range/Units 03:20 Sodium 133 L (136-145) mEq/L Potassium 4.0 (3.5-4.5) mEq/L Chloride 101 (98-109) mEq/L Carbon Dioxide 27 (19-29) mEq/L BUN 14 (8-26) mg/dL Creatinine 0.66 L (0.72-1.25) mg/dL Glucose 102 H (70-99) mg/dL Calcium 8.4 L (8.6-10.8) mg/dL Calcium panel 09/19/16 Range/Units 03:20 Calcium 8.4 L (8.6-10.8) mg/dL Phosphorus 4.0 (2.3-4.7) mg/dL Pituitary panel 09/19/16 Range/Units 03:20 Sodium 133 L (136-145) mEq/L Potassium 4.0 (3.5-4.5) mEq/L Chloride 101 (98-109) mEq/L Carbon Dioxide 27 (19-29) mEq/L BUN 14 (8-26) mg/dL Creatinine 0.66 L (0.72-1.25) mg/dL Glucose 102 H (70-99) mg/dL Calcium 8.4 L (8.6-10.8) mg/dL Adrenal panel 09/19/16 Range/Units 03:20 Sodium 133 L (136-145) mEq/L Potassium 4.0 (3.5-4.5) mEq/L Chloride 101 (98-109) mEq/L Carbon Dioxide 27 (19-29) mEq/L BUN 14 (8-26) mg/dL Creatinine 0.66 L (0.72-1.25) mg/dL Glucose 102 H (70-99) mg/dL Calcium 8.4 L (8.6-10.8) mg/dL - VTE Documentation of Mechanical Device: Intermittent pneumatic compression device Consult Discharge Plan - Plan [facility]errals: [facility]Primary Care Provider[facility] - <Wandy Johnston - Last Filed: 09/19/16 11:37> - Assessment and Plan (1) Colostomy care Current Visit: Yes Status: Acute (2) Surgically created abdominal mucous fistula Current Visit: Yes Status: Acute mucus fistula draining liquid stool, some necrosis, will monitor ok to start sips clears/popcicles today continue colostomy care prn pain control wouldnt remove junior today with patients confusion OOB to chair BID (3) Pneumonia Current Visit: Yes Status: Acute on abx per hospitalist, scheduled aerosols, IS Qualifiers: Pneumonia type: due to unspecified organism Laterality: left Lung location: lower lobe of lung Qualified Code(s): J18.9 - Pneumonia, unspecified organism (4) Metastatic colon cancer to liver Current Visit: Yes Status: Acute pathology pending less abdominal distention today both ostomies functioning and draining (5) Leukocytosis Current Visit: Yes Status: Acute continued and increased leukocytosis. on abx - continue do not feel is abdominal source, HR wnl, abdomen soft and no signicant discomfort when rock abdomen incision C/D/I w/o erythema both ostomies beefy red, some necrosis but would expect it to slough and both functioning and patient less distended today pt is a little confused today no fevers continue to monitor Qualifiers: Leukocytosis type: unspecified Qualified Code(s): D72.829 - Elevated white blood cell count, unspecified Subjective Narrative: patient seems confused today denies any significant abdominal pain no nausea Objective Vital Signs - Last 8 Hours Temp Pulse Resp BP Pulse Ox 09/19/16 11:06 97.7 F 68 16 112/68 96 09/19/16 07:21 99.3 F 93 18 110/66 95 09/19/16 03:41 97.7 F 62 16 106/61 94 L Intake and Output 09/18/16 09/19/16 09/19/16 23:59 07:59 15:59 Intake Total 915 / 915 100 / 100 0 / 0 Output Total 1075 / 1075 950 / 950 450 / 450 Balance -160 / -160 -850 / -850 -450 / -450 Intake: IV Fluids 915 / 915 100 / 100 Clinimix E 5%-15% 306 / 306 SOLUTION 2,000 ML @ 83.3 mls/hr IV .Q24H [facility] with M.v.i. Adult 10 ml Rx#: [id number] 0.9 % Sodium Chloride 1, 259 / 259 000 ML @ 100 mls/hr IVC . Q10H [facility] Rx#:[id number] Zosyn 3.375 GM In 100 / 100 100 / 100 Dextrose 5% (Minibag+) 100 ML 100 ML @ 25 mls/hr IVPB Q8H [facility] Rx#: [id number] Vancocin 1,000 MG In 250 / 250 Dextrose 5% 250 ML @ 166. 667 mls/hr IVPB Q12H [facility] Rx#:[id number] Oral 0 / 0 0 / 0 0 / 0 Output: Stool 75 / 75 50 / 50 Catheter 1075 / 1075 875 / 875 400 / 400 Other: Meal npo NPO Percent of Meal Consumed 0% Stool Size Small Stool Consistency loose Stool Color Brown Blood Glucose* 121 137 129 - General physical appearance well developed, no distress, no pain - Eyes PERRL, normal ocular movement - ENT dry mucosa, atraumatic, normocephalic - Neck Neck exam: trachea midline - Respiratory normal expansion, clear to auscultation - Cardiovascular Cardiovascular exam: Present: RRR - Abdomen Abdomen: Present: bowel sounds present, soft, tender (minimal, less distended compared to yesterday) Additional Comments: both ostomy sites are draining liquid stool both ostomies are beefy red, the LUQ ostomy has some necrosis superiorly but the majority appears viable - Genitourinary other - Integumentary no rash, no growths, other (no diaphoresis) - Musculoskeletal normal posture - Psychiatric oriented to time, oriented to person, memory intact - Labs 09/19/16 03:20 09/19/16 03:20 Vital Signs Temp Pulse Resp BP Pulse Ox 09/19/16 11:06 97.7 F 68 16 112/68 96 09/19/16 07:21 99.3 F 93 18 110/66 95 09/19/16 03:41 97.7 F 62 16 106/61 94 L 09/19/16 00:36 97.7 F 70 16 119/70 96 09/18/16 22:23 96 09/18/16 20:04 97.8 F 65 16 104/57 95 09/18/16 16:38 98.5 F 60 16 123/77 97 Intake and Output 09/18/16 09/19/16 09/19/16 23:59 07:59 15:59 Intake Total 915 / 915 100 / 100 0 / 0 Output Total 1075 / 1075 950 / 950 450 / 450 Balance -160 / -160 -850 / -850 -450 / -450 Intake: IV Fluids 915 / 915 100 / 100 Clinimix E 5%-15% 306 / 306 SOLUTION 2,000 ML @ 83.3 mls/hr IV .Q24H [facility] with M.v.i. Adult 10 ml Rx#: [id number] 0.9 % Sodium Chloride 1, 259 / 259 000 ML @ 100 mls/hr IVC . Q10H [facility] Rx#:[id number] Zosyn 3.375 GM In 100 / 100 100 / 100 Dextrose 5% (Minibag+) 100 ML 100 ML @ 25 mls/hr IVPB Q8H [facility] Rx#: [id number] Vancocin 1,000 MG In 250 / 250 Dextrose 5% 250 ML @ 166. 667 mls/hr IVPB Q12H [facility] Rx#:[id number] Oral 0 / 0 0 / 0 0 / 0 Output: Stool 75 / 75 50 / 50 Catheter 1075 / 1075 875 / 875 400 / 400 Other: Meal npo NPO Percent of Meal Consumed 0% Stool Size Small Stool Consistency loose Stool Color Brown Blood Glucose* 121 137 129 Short CBC 09/19/16 Range/Units 03:20 WBC 20.3 H (4.3-11.1) K/mcL Hgb 12.2 L (12.9-16.9) g/dL Hct 35.8 L (37.5-50.1) % Plt Count 180 (140-400) K/mcL Neutrophils # 16.7 H (1.6-8.9) K/mcL BMP 09/19/16 Range/Units 03:20 Sodium 133 L (136-145) mEq/L Potassium 4.0 (3.5-4.5) mEq/L Chloride 101 (98-109) mEq/L Carbon Dioxide 27 (19-29) mEq/L BUN 14 (8-26) mg/dL Creatinine 0.66 L (0.72-1.25) mg/dL Glucose 102 H (70-99) mg/dL Calcium 8.4 L (8.6-10.8) mg/dL Urine 09/18/16 Range/Units 16:00 Urine Color Yellow (Yellow) Urine Clarity Clear (Clear) Urine pH 7.0 (5.0-8.0) pH Units Ur Specific [place] 1.010 (1.010-1.025) Urine Protein Negative (Neg-Trace) mg/dL Urine Glucose (UA) Normal (Normal) mg/dL
[2016-09-19] MEDS: Clinimix E 5%-15% SOLUTION 2,000 ML with MVI, adult with vitamin K 10 ML IV SCH (16:01)
--- NOTE | 2016-09-19 16:33 | Internal Med Progress Note ---
Date of Encounter: 09/19/16 Time of Encounter: 09:00 - Assessment and plan (1) Bowel obstruction Current Visit: Yes Status: Acute Assessment and plan: Patient has a bowel obstruction, most likely due to malignancy. Surgical consult is on case and appreciated. 1. Pt had surgery. Still NPO and on TPN, diet advance per surgical recommendation.. 2. IV fluids, follow-up with BMP to correct electrolyte abnormality. Patient is at high risk because he has a bowel obstruction need a surgical intervention. Qualifiers: Intestinal obstruction type: other intestinal obstruction Qualified Code(s) : K56.69 - Other intestinal obstruction (2) Nausea and vomiting Current Visit: Yes Status: Acute Assessment and plan: Due to bowel obstruction. Had surgery now. No N/V now. Qualifiers: Vomiting type: unspecified Vomiting Intractability: non-intractable Qualified Code(s): R11.2 - Nausea with vomiting, unspecified (3) DVT prophylaxis Current Visit: No Status: Acute Assessment and plan: Heparin subcutaneously (4) Metastatic carcinoma involving liver with unknown primary site Current Visit: Yes Status: Acute Assessment and plan: Etiology is undetermine. Highly suspect colon cancer because patient has a high CEA. Liver biopsy done during surgery. Patient has seen oncologist. (5) History of CVA with residual deficit Current Visit: No Status: Chronic Assessment and plan: with residual right side weakness and dysarthria. (6) Hospital acquired PNA Current Visit: Yes Status: Acute Assessment and plan: patient has an elevated white count. No cough, no SOB. CXR shows LLL infiltrate. consider hospital-acquired pneumonia. We will treat patient with Vanco, levaquin, and zosyn. - Time Spent With Patient Greater than 35 minutes - Subjective Interval history: Patient is a 66-year-old male admitted for abdominal pain, diagnosis is bowel obstruction, possible malignancy with liver metastasis. Past medical history is significant for cancer, CVA, hypertension. Patient is seen and examined. He had surgery. Post surgery day 4. Patient has abdominal pain, on pain med. His vitals are stable. General surgery consult on case and diet will follow surgical recommendation. Right now pt is still on TPN. Liver biopsy done during surgery, result pending. patient denies cough or shortness of breath. He has an elevated white count. Chest x-ray done shows there is a new infiltrate. Treat patient as a hospital-acquired pneumonia with vancomycin and Zosyn, add levaquin. - Constitutional Vitals: Temp Pulse Resp BP Pulse Ox 97.5 F L 72 18 112/69 95 09/19/16 14:27 09/19/16 14:27 09/19/16 14:27 09/19/16 14:27 09/19/16 14:27 General appearance: Present: A&O X 3, no acute distress - Head Head exam: Present: atraumatic, normocephalic - Eye Eye exam: Present: PERRL, conjuntiva pink, sclera anicteric Pupils: Present: PERRL - Neck Neck exam general surgery: Present: supple, trachea midline. Absent: lymphadenopathy - Respiratory Respiratory exam: Present: CTAB. Absent: accessory muscle use, rales, rhonchi, wheezes - Cardiovascular Cardiovascular exam: Present: RRR, +S1, +S2. Absent: diastolic murmur, gallop, rubs, systolic murmur - GI/Abdominal GI/Abdominal exam: Present: normal bowel sounds, soft, tenderness (Patient has abdominal tenderness. colostomy bags in place.), no peritoneal signs. Absent: distended - Extremities Exam Extremities exam: Present: warm, radial pulses palpable and symetrical. Absent : calf tenderness, cyanotic, pedal edema - Neurological Exam Neurological exam: Present: CN II-XII intact, oriented X3, no focal deficits. Absent: pronater drift, facial droop, speech deficit - Skin Skin exam: Present: dry, intact Internal Medicine: Result - Labs CBC & Chem 7: 09/19/16 03:20 09/19/16 03:20 Labs: Short CBC 09/19/16 Range/Units 03:20 WBC 20.3 H (4.3-11.1) K/mcL Hgb 12.2 L (12.9-16.9) g/dL Hct 35.8 L (37.5-50.1) % Plt Count 180 (140-400) K/mcL Neutrophils # 16.7 H (1.6-8.9) K/mcL BMP 09/19/16 03:20 Sodium 133 L Potassium 4.0 Chloride 101 Carbon Dioxide 27 BUN 14 Creatinine 0.66 L Glucose 102 H Calcium 8.4 L Urine 09/18/16 Range/Units 16:00 Urine Color Yellow (Yellow) Urine Clarity Clear (Clear) Urine pH 7.0 (5.0-8.0) pH Units Ur Specific [place] 1.010 (1.010-1.025) Urine Protein Negative (Neg-Trace) mg/dL Urine Glucose (UA) Normal (Normal) mg/dL - ABG Interpretation ABG results: ABG ABG pH 7.36 pH Units (7.32-7.45) 09/16/16 00:01 ABG pCO2 47 mmHg (35-45) H 09/16/16 00:01 ABG pO2 89 mmHg (85-104) 09/16/16 00:01 ABG O2 Saturation 96 % (95-98) 09/16/16 00:01 PT/INR, D-dimer PT 11.5 Seconds (9.4-12.1) 09/15/16 04:35 - VTE Documentation of Mechanical Device: Intermittent pneumatic compression device Consult Discharge Plan - Plan [facility]errals: [facility] [Primary Care Provider] -
[2016-09-19] MEDS: 0.9 % Sodium Chloride 1,000 ML IVC SCH ×2 (18:10→23:33)
[2016-09-19] MEDS: Levofloxacin 750 MG/150 ML 750 MG/150 ML BAG IVPB SCH (18:12)
[2016-09-20] MEDS: *HR* Morphine 2 MG/ML SYRINGE IVP PRN ×5 (03:52→22:00)
[2016-09-20] MEDS: Ipratropium/Albuterol Neb 3 ML IH SCH ×4 (04:16→23:00)
[2016-09-20] MEDS: Insulin LISPRO 300 UNITS/3 ML VIAL SQ SCH ×5 (04:31→21:27)
[2016-09-20 04:53] LABS: BUN/Creatinine Ratio 24 (6-26); Blood Urea Nitrogen 14 mg/dL (8-26); Carbon Dioxide 22 mEq/L (19-29); Chloride 107 mEq/L (98-109); Glucose 93 mg/dL (70-99); Magnesium 1.7 mg/dL (1.6-2.6); Osmolality,Calculated 280 (280-300); Potassium 3.7 mEq/L (3.5-4.5); Sodium 135 mEq/L (136-145); eGFR For African Americans > 60 (> 60); eGFR For Non-African Americans > 60 (> 60)
[2016-09-20 04:54] LABS: Calcium 7.5 mg/dL (8.6-10.8); Phosphorous 3.6 mg/dL (2.3-4.7)
[2016-09-20] MEDS: Vancomycin 1,000 MG in D5% in Water 250 ML IVPB SCH (05:11)
[2016-09-20 05:12] LABS: Hematocrit 35.6 % (37.5-50.1); Hemoglobin 11.9 g/dL (12.9-16.9); Red Blood Count 4.03 M/mcL (4.19-5.50)
[2016-09-20 05:13] LABS: Basophils # 0.1 K/mcL (0.0-0.2); Basophils % 0.5 %; Eosinophils # 0.8 K/mcL (0.0-0.6); Eosinophils % 4.9 %; Immature Granulocytes % 0.6 % (0-4); Lymphocytes # 1.2 K/mcL (0.6-4.6); Lymphocytes % 7.6 %; Mean Corpuscular HGB Conc 33.4 g/dL (31.6-35.5); Mean Corpuscular Hemoglobin 29.5 pg (28.0-33.3); Mean Corpuscular Volume 88.3 fL (83.0-100.0); Mean Platelet Volume 10.1 fL (9.4-12.4); Monocytes # 1.4 K/mcL (0.0-1.3); Monocytes % 8.5 %; Neutrophils # 12.6 K/mcL (1.6-8.9); Platelet Count 182 K/mcL (140-400); Red Cell Distribution Width 14.8 % (11.5-14.5); Segmented Neutrophils % 77.9 %
[2016-09-20] MEDS: Piperacillin/Tazobactam 3.375 GM in D5% in Water (Mini-Bag+) 100 ML IVPB SCH ×3 (05:14→21:58)
[2016-09-20] MEDS: *HR* Heparin 5,000 UNIT/ML VIAL SQ SCH ×3 (05:18→21:59)
--- NOTE | 2016-09-20 07:39 | Palliative Progress Note ---
Date of Encounter: 09/20/16 Time of Encounter: 07:30 - Assessment and plan (1) Nausea and vomiting Current Visit: Yes Status: Acute Assessment and plan: None at this time I believe this problem has resolved now that surgery has been accomplished. Qualifiers: Vomiting type: unspecified Vomiting Intractability: non-intractable Qualified Code(s): R11.2 - Nausea with vomiting, unspecified (2) Abdominal pain Current Visit: Yes Status: Acute Assessment and plan: Well-controlled on current pain regimen no changes anticipated Qualifiers: Abdominal location: epigastric Qualified Code(s): R10.13 - Epigastric pain (3) Goals of care, counseling/discussion Current Visit: Yes Status: Acute Assessment and plan: DNRCCA, patient and oncology are awaiting results of pathology to decide on what the further treatment plan is going to be. At this time patient is again waiting for the pathology to come back so that oncology can recommend treatment plan. He is DNRCCA and is recovering well from surgery. Palliative care will follow at a distance (4) Bowel obstruction Current Visit: Yes Status: Acute Assessment and plan: Issues now resolved secondary to surgery Qualifiers: Intestinal obstruction type: other intestinal obstruction Qualified Code(s) : K56.69 - Other intestinal obstruction (5) Metastatic carcinoma involving liver with unknown primary site Current Visit: Yes Status: Acute Assessment and plan: Waiting pathology to decide on further treatment. - Time Spent With Patient Total time spent is greater than 50% in coordination of care (as documented) at patient's floor/unit and/or counseling patient: - Subjective Interval history: pod 5 pain all post surgical under control with meds no nausea can feel some rumbling in abd - Constitutional Vitals: Abnormal lab results WBC 16.2 K/mcL (4.3-11.1) H 09/20/16 03:20 RBC 4.03 M/mcL (4.19-5.50) L 09/20/16 03:20 Hgb 11.9 g/dL (12.9-16.9) L 09/20/16 03:20 Hct 35.6 % (37.5-50.1) L 09/20/16 03:20 RDW 14.8 % (11.5-14.5) H 09/20/16 03:20 Neutrophils # 12.6 K/mcL (1.6-8.9) H 09/20/16 03:20 Monocytes # 1.4 K/mcL (0.0-1.3) H 09/20/16 03:20 Eosinophils # 0.8 K/mcL (0.0-0.6) H 09/20/16 03:20 ABG pCO2 47 mmHg (35-45) H 09/16/16 00:01 ABG Total CO2 28.0 mEq/L (20-26) H 09/16/16 00:01 Sodium 135 mEq/L (136-145) L 09/20/16 03:20 Creatinine 0.58 mg/dL (0.72-1.25) L 09/20/16 03:20 POC Glucose 96 (58-89) H 09/20/16 03:46 Calcium 7.5 mg/dL (8.6-10.8) L 09/20/16 03:20 Albumin 3.0 g/dL (3.5-5.0) L 09/14/16 05:27 Albumin/Globulin Ratio 1.0 (1.1-2.2) L 09/14/16 05:27 Prealbumin 5.0 mg/dL (18.0-45.0) L 09/20/16 03:20 Urine Blood Small (Negative) H 09/18/16 16:00 Ur Squamous Epith Cells Many per lpf (None-Few) H 09/13/16 20:27 Hyaline Casts Moderate per lpf (None-Few) H 09/13/16 20:27 Urine Mucus Many (Few) H 09/13/16 20:27 Vancomycin Trough 7.2 mcg/mL (10-20) L 09/20/16 03:20 General appearance: Present: no acute distress - Head Head exam: Present: atraumatic, normal inspection - Eye Eye exam: Present: normal appearance - ENT ENT exam: Present: mucous membranes moist - Respiratory Respiratory exam: Present: CTAB - Cardiovascular Cardiovascular exam: Present: RRR - GI/Abdominal GI/Abdominal exam: Present: hypoactive bowel sounds, soft, tenderness (only fluid noted in colostomy bags) - Extremities Exam Extremities exam: Present: normal inspection. Absent: pedal edema, tenderness - Neurological Exam Neurological exam: Present: alert - Psychiatric Psychiatric exam: Present: normal affect, normal mood. Absent: agitated, anxious - Skin Skin exam: Present: dry, warm Palliative Quality Palliative Quality: Screen for Code Status: Yes, Screen for Goals of Care: Yes, Screen for Pain: Yes, If Pain Regimen Started, Initiate Bowel Regimen: NA, Screen for Nausea/Vomitting: Yes Code Status: 09/14/16 02:40 Resuscitation Status: Active [RES] Routine Comment: Resuscitation Status: DNR-Comfort Care-Arrest - Labs CBC & Chem 7: 09/20/16 03:20 09/20/16 03:20 Labs: Laboratory Results - last 24 hr 09/19/16 09/19/16 09/19/16 07:25 11:08 16:20 WBC RBC Hgb Hct MCV MCH MCHC RDW Plt Count MPV Immature Gran % Seg Neutrophils % Lymphocytes % Monocytes % Eosinophils % Basophils % Neutrophils # Lymphocytes # Monocytes # Eosinophils # Basophils # Sodium Potassium Chloride Carbon Dioxide BUN Creatinine Est GFR ( Amer) Est GFR (Non-Af Amer) BUN/Creatinine Ratio Glucose POC Glucose 137 H 129 H 112 H Calculated Osmolality Calcium Phosphorus Magnesium Prealbumin Vancomycin Trough 09/19/16 09/19/16 09/20/16 19:52 23:38 03:20 WBC RBC Hgb Hct MCV MCH MCHC RDW Plt Count MPV Immature Gran % Seg Neutrophils % Lymphocytes % Monocytes % Eosinophils % Basophils % Neutrophils # Lymphocytes # Monocytes # Eosinophils # Basophils # Sodium 135 L Potassium 3.7 Chloride 107 Carbon Dioxide 22 BUN 14 Creatinine 0.58 L Est GFR ( Amer) > 60 Est GFR (Non-Af Amer) > 60 BUN/Creatinine Ratio 24 Glucose 93 POC Glucose 99 H 99 H Calculated Osmolality 280 Calcium 7.5 L Phosphorus 3.6 Magnesium 1.7 Prealbumin Vancomycin Trough 09/20/16 09/20/16 09/20/16 03:20 03:20 03:20 WBC 16.2 H RBC 4.03 L Hgb 11.9 L Hct 35.6 L MCV 88.3 MCH 29.5 MCHC 33.4 RDW 14.8 H Plt Count 182 MPV 10.1 Immature Gran % 0.6 Seg Neutrophils % 77.9 Lymphocytes % 7.6 Monocytes % 8.5 Eosinophils % 4.9 Basophils % 0.5 Neutrophils # 12.6 H Lymphocytes # 1.2 Monocytes # 1.4 H Eosinophils # 0.8 H Basophils # 0.1 Sodium Potassium Chloride Carbon Dioxide BUN Creatinine Est GFR ( Amer) Est GFR (Non-Af Amer) BUN/Creatinine Ratio Glucose POC Glucose Calculated Osmolality Calcium Phosphorus Magnesium Prealbumin 5.0 L Vancomycin Trough 7.2 L 09/20/16 03:46 WBC RBC Hgb Hct MCV MCH MCHC RDW Plt Count MPV Immature Gran % Seg Neutrophils % Lymphocytes % Monocytes % Eosinophils % Basophils % Neutrophils # Lymphocytes # Monocytes # Eosinophils # Basophils # Sodium Potassium Chloride Carbon Dioxide BUN Creatinine Est GFR ( Amer) Est GFR (Non-Af Amer) BUN/Creatinine Ratio Glucose POC Glucose 96 H Calculated Osmolality Calcium Phosphorus Magnesium Prealbumin Vancomycin Trough - ABG Interpretation ABG results: ABG ABG pH 7.36 pH Units (7.32-7.45) 09/16/16 00:01 ABG pCO2 47 mmHg (35-45) H 09/16/16 00:01 ABG pO2 89 mmHg (85-104) 09/16/16 00:01 ABG O2 Saturation 96 % (95-98) 09/16/16 00:01 PT/INR, D-dimer PT 11.5 Seconds (9.4-12.1) 09/15/16 04:35 Consult Discharge Plan - Plan Referrals: [facility] [Primary Care Provider] -
[2016-09-20] MEDS: Pantoprazole 40 MG VIAL IVP SCH (08:13)
[2016-09-20] MEDS: Levofloxacin 750 MG/150 ML 750 MG/150 ML BAG IVPB SCH (08:21)
--- NOTE | 2016-09-20 08:53 | General Surgery Progress Note ---
Date of Encounter: 09/20/16 Time of Encounter: 08:51 - Assessment and Plan (1) Metastatic carcinoma involving liver with unknown primary site Current Visit: Yes Status: Acute POD #5 from exploratory laparotomy with end colostomy and creation of mucous fistula, liver biopsy with Dr. De La Cruz Pathology pending sips of clear liquids and popsicles Continue TPN therapy Appliances changed 09/19/2016 Supportive care and pain control Repeat labs in the am (2) Hospital acquired PNA Current Visit: Yes Status: Acute Vancomycin ,Zosyn, and Levaquin (3) Urinary retention Current Visit: Yes Status: Acute Junior catheter to SD inserted 09/16/16 (4) History of CVA with residual deficit Current Visit: No Status: Chronic (5) DVT prophylaxis Current Visit: No Status: Acute Continue heparin 5,000 units SQ twice daily for DVT prophylaxis Subjective Patient reports: bowel movement, other (patient having coughing fit during exam , states he just wants to be left alone to sleep) Objective Vital Signs - Last 8 Hours Temp Pulse Resp BP Pulse Ox 09/20/16 05:53 97.7 F 58 16 106/66 95 Intake and Output 09/19/16 09/20/16 09/20/16 23:59 07:59 15:59 Intake Total 4420 / 4420 100 / 100 700 / 700 Output Total 2200 / 2200 350 / 350 Balance 2220 / 2220 -250 / -250 700 / 700 Intake: IV Fluids 4420 / 4420 100 / 100 700 / 700 Clinimix E 5%-15% 3670 / 3670 350 / 350 SOLUTION 2,000 ML @ 83.3 mls/hr IV .Q24H [facility] with M.v.i. Adult 10 ml Rx#: [id number] 0.9 % Sodium Chloride 1, 250 / 250 100 / 100 000 ML @ 60 mls/hr IVC . [id number] [facility] Rx#: [id number] Levaquin 750mg/150 mL 750 150 / 150 mg In 150 ml @ 100 mls/ hr IVPB DAILY [facility] Rx#: [id number] Zosyn 3.375 GM In 100 / 100 100 / 100 Dextrose 5% (Minibag+) 100 ML 100 ML @ 25 mls/hr IVPB Q8H [facility] Rx#: [id number] Vancocin 1,000 MG In 250 / 250 250 / 250 Dextrose 5% 250 ML @ 166. 667 mls/hr IVPB Q12H [facility] Rx#:[id number] Oral 0 / 0 0 / 0 Output: Urine 350 / 350 Stool 0 / 0 Other 650 / 650 Catheter 1550 / 1550 0 / 0 Other: Meal NPO Percent of Meal Consumed 0% Blood Glucose* 99 122 - General physical appearance well developed, well nourished - Eyes normal ocular movement - ENT atraumatic, normocephalic - Neck Neck exam: trachea midline - Respiratory clear to auscultation, other (coughing fit) - Cardiovascular Cardiovascular exam: Present: RRR - Abdomen Abdomen: Present: soft, tender (less than previous), wound (both ostomies beefy red and draining liquid stool) - Genitourinary other (junior catheter in place (350 uop since midnight)) - Labs 09/20/16 03:20 09/20/16 03:20 Diabetes panel 09/20/16 Range/Units 03:20 Sodium 135 L (136-145) mEq/L Potassium 3.7 (3.5-4.5) mEq/L Chloride 107 (98-109) mEq/L Carbon Dioxide 22 (19-29) mEq/L BUN 14 (8-26) mg/dL Creatinine 0.58 L (0.72-1.25) mg/dL Glucose 93 (70-99) mg/dL Calcium 7.5 L (8.6-10.8) mg/dL Calcium panel 09/20/16 Range/Units 03:20 Calcium 7.5 L (8.6-10.8) mg/dL Phosphorus 3.6 (2.3-4.7) mg/dL Pituitary panel 09/20/16 Range/Units 03:20 Sodium 135 L (136-145) mEq/L Potassium 3.7 (3.5-4.5) mEq/L Chloride 107 (98-109) mEq/L Carbon Dioxide 22 (19-29) mEq/L BUN 14 (8-26) mg/dL Creatinine 0.58 L (0.72-1.25) mg/dL Glucose 93 (70-99) mg/dL Calcium 7.5 L (8.6-10.8) mg/dL Adrenal panel 09/20/16 Range/Units 03:20 Sodium 135 L (136-145) mEq/L Potassium 3.7 (3.5-4.5) mEq/L Chloride 107 (98-109) mEq/L Carbon Dioxide 22 (19-29) mEq/L BUN 14 (8-26) mg/dL Creatinine 0.58 L (0.72-1.25) mg/dL Glucose 93 (70-99) mg/dL Calcium 7.5 L (8.6-10.8) mg/dL - VTE Documentation of Mechanical Device: Intermittent pneumatic compression device Consult Discharge Plan - Plan [facility]errals: [facility] [Primary Care Provider[facility] -
[2016-09-20] MEDS: GuaiFENesin/Codeine Oral Soln 5 ML UDC PO PRN (11:57)
[2016-09-20] MEDS: Vancomycin 1,250 MG in D5% in Water 250 ML IVPB SCH (16:14)
[2016-09-20] MEDS ORDERED: Clinimix E 5%-15% SOLUTION 2,000 ML, Amino Acids 10% 200 ML with MVI, adult with vita... IV SCH (17:00)
--- NOTE | 2016-09-20 17:46 | Internal Med Progress Note ---
Date of Encounter: 09/20/16 Time of Encounter: 10:00 - Assessment and plan (1) Bowel obstruction Current Visit: Yes Status: Acute Assessment and plan: Patient has a bowel obstruction, most likely due to malignancy. Surgical consult is on case and appreciated. 1. Pt had surgery. On clear liquid diet and on TPN, diet advance per surgical recommendation.. 2. IV fluids, follow-up with BMP to correct electrolyte abnormality. Patient is at high risk because he has a bowel obstruction need a surgical intervention. Qualifiers: Intestinal obstruction type: other intestinal obstruction Qualified Code(s) : K56.69 - Other intestinal obstruction (2) Nausea and vomiting Current Visit: Yes Status: Acute Assessment and plan: Due to bowel obstruction. Had surgery now. No N/V now. Qualifiers: Vomiting type: unspecified Vomiting Intractability: non-intractable Qualified Code(s): R11.2 - Nausea with vomiting, unspecified (3) DVT prophylaxis Current Visit: No Status: Acute Assessment and plan: Heparin subcutaneously (4) Metastatic carcinoma involving liver with unknown primary site Current Visit: Yes Status: Acute Assessment and plan: Liver biopsy done during surgery, shows metastatic carcinoma from GI origin. Patient has seen oncologist. (5) History of CVA with residual deficit Current Visit: No Status: Chronic Assessment and plan: with residual right side weakness and dysarthria. (6) Hospital acquired PNA Current Visit: Yes Status: Acute Assessment and plan: patient has an elevated white count. mild cough, no SOB. CXR shows LLL infiltrate. consider hospital-acquired pneumonia. We will treat patient with Vanco, levaquin, and zosyn. - Time Spent With Patient Greater than 35 minutes - Subjective Interval history: Patient is a 66-year-old male admitted for abdominal pain, diagnosis is bowel obstruction, possible malignancy with liver metastasis. Past medical history is significant for cancer, CVA, hypertension. Patient is seen and examined. He had surgery. Post surgery day 5. Patient has abdominal pain, on pain med. C/O cough today, nonproductive. His vitals are stable. General surgery consult on case and diet started with clear liwuid per surgical consult. Right now pt is still on TPN. Liver biopsy done during surgery, result shows metastatic carcinoma originate from GI. Pt's wbc is getting down. Continue treat patient as a hospital-acquired pneumonia with vancomycin and Zosyn, and levaquin. - Constitutional Vitals: Temp Pulse Resp BP Pulse Ox 98.7 F 80 14 100/65 96 09/20/16 15:48 09/20/16 15:48 09/20/16 15:48 09/20/16 15:48 09/20/16 15:48 General appearance: Present: A&O X 3, no acute distress - Head Head exam: Present: atraumatic, normocephalic - Eye Eye exam: Present: PERRL, conjuntiva pink, sclera anicteric Pupils: Present: PERRL - Neck Neck exam general surgery: Present: supple, trachea midline. Absent: lymphadenopathy - Respiratory Respiratory exam: Present: CTAB. Absent: accessory muscle use, rales, rhonchi, wheezes - Cardiovascular Cardiovascular exam: Present: RRR, +S1, +S2. Absent: diastolic murmur, gallop, rubs, systolic murmur - GI/Abdominal GI/Abdominal exam: Present: hypoactive bowel sounds, soft, tenderness (Abd tenderness.), no peritoneal signs. Absent: distended - Extremities Exam Extremities exam: Present: warm, radial pulses palpable and symetrical. Absent : calf tenderness, cyanotic, pedal edema - Neurological Exam Neurological exam: Present: CN II-XII intact, oriented X3, no focal deficits. Absent: pronater drift, facial droop, speech deficit - Skin Skin exam: Present: dry, intact Internal Medicine: Result - Labs CBC & Chem 7: 09/20/16 03:20 09/20/16 03:20 Labs: Short CBC 09/20/16 Range/Units 03:20 WBC 16.2 H (4.3-11.1) K/mcL Hgb 11.9 L (12.9-16.9) g/dL Hct 35.6 L (37.5-50.1) % Plt Count 182 (140-400) K/mcL Neutrophils # 12.6 H (1.6-8.9) K/mcL BMP 09/20/16 03:20 Sodium 135 L Potassium 3.7 Chloride 107 Carbon Dioxide 22 BUN 14 Creatinine 0.58 L Glucose 93 Calcium 7.5 L - ABG Interpretation ABG results: ABG ABG pH 7.36 pH Units (7.32-7.45) 09/16/16 00:01 ABG pCO2 47 mmHg (35-45) H 09/16/16 00:01 ABG pO2 89 mmHg (85-104) 09/16/16 00:01 ABG O2 Saturation 96 % (95-98) 09/16/16 00:01 PT/INR, D-dimer PT 11.5 Seconds (9.4-12.1) 09/15/16 04:35 - VTE Documentation of Mechanical Device: Intermittent pneumatic compression device Consult Discharge Plan - Plan [facility]errals: [facility] [Primary Care Provider] -
[2016-09-21] MEDS: 0.9 % Sodium Chloride 1,000 ML IVC SCH ×2 (00:09→13:24)
[2016-09-21] MEDS: Insulin LISPRO 300 UNITS/3 ML VIAL SQ SCH ×7 (02:06→23:29)
[2016-09-21] MEDS: Ipratropium/Albuterol Neb 3 ML IH SCH ×4 (03:08→21:39)
[2016-09-21] MEDS: Vancomycin 1,250 MG in D5% in Water 250 ML IVPB SCH ×2 (04:09→18:04)
[2016-09-21] MEDS: *HR* Morphine 2 MG/ML SYRINGE IVP PRN (04:17)
[2016-09-21 04:32] LABS: Basophils # 0.1 K/mcL (0.0-0.2); Basophils % 0.6 %; Eosinophils # 0.9 K/mcL (0.0-0.6); Eosinophils % 5.6 %; Hematocrit 36.4 % (37.5-50.1); Hemoglobin 12.3 g/dL (12.9-16.9); Immature Granulocytes % 0.6 % (0-4); Lymphocytes # 0.9 K/mcL (0.6-4.6); Lymphocytes % 5.6 %; Mean Corpuscular HGB Conc 33.8 g/dL (31.6-35.5); Mean Corpuscular Hemoglobin 29.7 pg (28.0-33.3); Mean Corpuscular Volume 87.9 fL (83.0-100.0); Mean Platelet Volume 9.6 fL (9.4-12.4); Monocytes # 1.7 K/mcL (0.0-1.3); Monocytes % 11.3 %; Neutrophils # 11.8 K/mcL (1.6-8.9); Platelet Count 163 K/mcL (140-400); Red Blood Count 4.14 M/mcL (4.19-5.50); Red Cell Distribution Width 14.6 % (11.5-14.5); Segmented Neutrophils % 76.3 %
[2016-09-21 04:48] LABS: BUN/Creatinine Ratio 22 (6-26); Blood Urea Nitrogen 15 mg/dL (8-26); Calcium 8.5 mg/dL (8.6-10.8); Carbon Dioxide 25 mEq/L (19-29); Chloride 99 mEq/L (98-109); Glucose 100 mg/dL (70-99); Osmolality,Calculated 273 (280-300); Potassium 4.2 mEq/L (3.5-4.5); Sodium 131 mEq/L (136-145); eGFR For African Americans > 60 (> 60); eGFR For Non-African Americans > 60 (> 60)
[2016-09-21] MEDS: Piperacillin/Tazobactam 3.375 GM in D5% in Water (Mini-Bag+) 100 ML IVPB SCH ×3 (06:27→21:01)
[2016-09-21] MEDS: *HR* Heparin 5,000 UNIT/ML VIAL SQ SCH ×3 (06:27→21:02)
[2016-09-21] MEDS: Pantoprazole 40 MG VIAL IVP SCH (08:40)
[2016-09-21] MEDS: Levofloxacin 750 MG/150 ML 750 MG/150 ML BAG IVPB SCH (08:40)
--- NOTE | 2016-09-21 14:07 | General Surgery Progress Note ---
Date of Encounter: 09/21/16 Time of Encounter: 13:00 - Assessment and Plan (1) Metastatic carcinoma involving liver with unknown primary site Current Visit: Yes Status: Acute POD #6 from Exploratory laparotomy with end colostomy and creation of mucous fistula Liver biopsy with Dr. De La Cruz Pathology reviewed Clear liquid diet- poor appetite Continue TPN therapy Colostomy and mucous fistula care daily Consult ostomy nurse Supportive care and pain control Repeat labs in the am (2) Urinary retention Current Visit: Yes Status: Acute Junior catheter to SD inserted 09/16/16 Flomax started 09/21/16 (3) History of CVA with residual deficit Current Visit: No Status: Chronic (4) DVT prophylaxis Current Visit: No Status: Acute Continue heparin 5,000 units SQ twice daily for DVT prophylaxis Subjective Patient reports: still having pain, pain is less, tolerating liquids well (poor appetite), no flatus, no bowel movement, afebrile Objective Vital Signs - Last 8 Hours Temp Pulse Resp BP Pulse Ox 09/21/16 12:00 97.8 F 86 16 118/58 98 Intake and Output 09/20/16 09/21/16 09/21/16 23:59 07:59 15:59 Intake Total 422 / 422 2105 / 2105 450 / 450 Output Total 450 / 450 625 / 625 1150 / 1150 Balance -28 / -28 1480 / 1480 -700 / -700 Intake: IV Fluids 422 / 422 2004 450 / 450 Clinimix E 5%-15% 1049 / 1049 SOLUTION 2,000 ML Trophamine 200 ML @ 91.6 mls/hr IV .Q24H [facility] with M.v.i. Adult 10 ml Rx#: [id number] 0.9 % Sodium Chloride 1, 72 / 72 356 / 356 200 / 200 000 ML @ 60 mls/hr IVC . [id number] [facility] Rx#: [id number] Intralipid 20% 250 ML @ 250 / 250 21 mls/hr IVPB DAILY@1700 [facility] Rx#:[id number] Levaquin 750mg/150 mL 750 150 / 150 mg In 150 ml @ 100 mls/ hr IVPB DAILY [facility] Rx#: [id number] Zosyn 3.375 GM In 100 / 100 100 / 100 100 / 100 Dextrose 5% (Minibag+) 100 ML 100 ML @ 25 mls/hr IVPB Q8H [facility] Rx#: [id number] Vancocin 1,250 MG In 250 / 250 250 / 250 Dextrose 5% 250 ML @ 166. 667 mls/hr IVPB Q12H [facility] Rx#:[id number] Oral 0 / 0 100 / 100 Output: Urine 200 / 200 Other 50 / 50 25 / 25 Catheter 400 / 400 400 / 400 1150 / 1150 Other: Meal Dinner Percent of Meal Consumed 0% Stool Size Moderate Moderate Stool Consistency formed soft Stool Color Brown Brown # Bowel Movements 1 Weight 82.917 kg 76.2 kg Blood Glucose* 104 116 149 Patient Weight 09/21/16 23:59 Weight 76.2 kg - General physical appearance well developed, well nourished, no distress, moderate pain - Eyes normal ocular movement - ENT normal mucosa, atraumatic, normocephalic - Neck Neck exam: trachea midline - Respiratory normal respiratory effort, clear to auscultation, other (diminished bibasilar bases) - Cardiovascular Cardiovascular exam: Present: RRR - Abdomen Abdomen: Present: bowel sounds present, soft, tender (expected post-operative tenderness), wound (Colostomy pink and moist with minimal drainage noted, no flatus; mucuous fistula pink and moist with liquid/brown stool noted) - Incision Incision: Present: clean and dry, intact - Genitourinary other (junior catheter to SD with clear, yellow urine noted) - Integumentary no rash - Neurologic CN 2-12 grossly intact - Musculoskeletal other (moderate deconditioning) - Psychiatric oriented to person, oriented to place - Labs 09/21/16 04:00 09/21/16 04:00 Diabetes panel 09/21/16 Range/Units 04:00 Sodium 131 L (136-145) mEq/L Potassium 4.2 (3.5-4.5) mEq/L Chloride 99 (98-109) mEq/L Carbon Dioxide 25 (19-29) mEq/L BUN 15 (8-26) mg/dL Creatinine 0.68 L (0.72-1.25) mg/dL Glucose 100 H (70-99) mg/dL Calcium 8.5 L (8.6-10.8) mg/dL Calcium panel 09/21/16 Range/Units 04:00 Calcium 8.5 L (8.6-10.8) mg/dL Pituitary panel 09/21/16 Range/Units 04:00 Sodium 131 L (136-145) mEq/L Potassium 4.2 (3.5-4.5) mEq/L Chloride 99 (98-109) mEq/L Carbon Dioxide 25 (19-29) mEq/L BUN 15 (8-26) mg/dL Creatinine 0.68 L (0.72-1.25) mg/dL Glucose 100 H (70-99) mg/dL Calcium 8.5 L (8.6-10.8) mg/dL Adrenal panel 09/21/16 Range/Units 04:00 Sodium 131 L (136-145) mEq/L Potassium 4.2 (3.5-4.5) mEq/L Chloride 99 (98-109) mEq/L Carbon Dioxide 25 (19-29) mEq/L BUN 15 (8-26) mg/dL Creatinine 0.68 L (0.72-1.25) mg/dL Glucose 100 H (70-99) mg/dL Calcium 8.5 L (8.6-10.8) mg/dL - VTE Documentation of Mechanical Device: Intermittent pneumatic compression device Consult Discharge Plan - Plan Referrals: Jeannie Ragsdale MD [Partnered Physician] - 10/01/16 8:10 am [facility]Primary Care Provider[facility] -
[2016-09-21] MEDS ORDERED: Clinimix E 5%-15% SOLUTION 2,000 ML, Amino Acids 10% 200 ML with MVI, adult with vita... IV SCH (17:00)
--- NOTE | 2016-09-21 17:11 | Internal Med Progress Note ---
Date of Encounter: 09/21/16 Time of Encounter: 13:15 - Assessment and plan (1) Hospital acquired PNA Current Visit: Yes Status: Acute Assessment and plan: Continue IV antibiotics. We will de-escalate antibiotics as patient's condition continues to improve tomorrow. (2) Metastatic carcinoma involving liver with unknown primary site Current Visit: Yes Status: Acute Assessment and plan: Pathology pending. Follow up outpatient with surgery and oncology. (3) Bowel obstruction Current Visit: Yes Status: Resolved Assessment and plan: Status post exploratory laparotomy, colostomy. On TPN. Poor nutrition. On clear liquid diet. Qualifiers: Intestinal obstruction type: other intestinal obstruction Qualified Code(s) : K56.69 - Other intestinal obstruction (4) History of CVA with residual deficit Current Visit: No Status: Chronic Assessment and plan: With residual right-sided weakness. Also has dysarthria. (5) DVT prophylaxis Current Visit: No Status: Acute Assessment and plan: On subcutaneous heparin - Subjective Interval history: Continues to have abdominal pain. Pain controlled with intravenous narcotic medications. Poor appetite. Receiving TPN. Tolerating clears. - Constitutional Vitals: Temp Pulse Resp BP Pulse Ox 98.4 F 85 18 122/73 98 09/21/16 15:00 09/21/16 15:00 09/21/16 15:00 09/21/16 15:00 09/21/16 15:00 General appearance: Present: cooperative, A&O X 3, no acute distress, underweight - Respiratory Respiratory exam: Present: CTAB. Absent: accessory muscle use, rales, rhonchi, wheezes - Cardiovascular Cardiovascular exam: Present: RRR, +S1, +S2. Absent: diastolic murmur, gallop, rubs, systolic murmur - GI/Abdominal GI/Abdominal exam: Present: normal bowel sounds, soft, tenderness (At surgical site), no peritoneal signs - Extremities Exam Extremities exam: Present: warm, radial pulses palpable and symetrical. Absent : calf tenderness, cyanotic, pedal edema - Neurological Exam Neurological exam: Present: speech deficit. Absent: facial droop Additional comments: Decreased strength in right upper and lower extremities. - Psychiatric Psychiatric exam: Present: flat affect - Skin Skin exam: Present: dry, intact Internal Medicine: Result - Labs CBC & Chem 7: 09/21/16 04:00 09/21/16 04:00 Labs: Short CBC 09/21/16 Range/Units 04:00 WBC 15.4 H (4.3-11.1) K/mcL Hgb 12.3 L (12.9-16.9) g/dL Hct 36.4 L (37.5-50.1) % Plt Count 163 (140-400) K/mcL Neutrophils # 11.8 H (1.6-8.9) K/mcL BMP 09/21/16 04:00 Sodium 131 L Potassium 4.2 Chloride 99 Carbon Dioxide 25 BUN 15 Creatinine 0.68 L Glucose 100 H Calcium 8.5 L - ABG Interpretation ABG results: ABG ABG pH 7.36 pH Units (7.32-7.45) 09/16/16 00:01 ABG pCO2 47 mmHg (35-45) H 09/16/16 00:01 ABG pO2 89 mmHg (85-104) 09/16/16 00:01 ABG O2 Saturation 96 % (95-98) 09/16/16 00:01 PT/INR, D-dimer PT 11.5 Seconds (9.4-12.1) 09/15/16 04:35 - VTE Documentation of Mechanical Device: Intermittent pneumatic compression device Consult Discharge Plan - Plan Referrals: Jeannie Ragsdale MD [Partnered Physician] - 10/01/16 8:10 am [place],PCP [Primary Care Provider] - - Attending Attestation This document has been at least partially created by [employer] recognition technology by Dr. Mak. Errors in grammar, wording or other phrases may exist. If errors are found after the documentation is signed, they will be addressed individually in the addendum section of this document when appropriate. Medical Decision Making - MDM Narrative Medical decision making narrative: High risk for complication - Lab Data Lab results reviewed: Yes I reviewed the patient's lab results. Result diagrams: 09/21/16 04:00 09/21/16 04:00 Lab Results 09/14/16 09/14/16 09/15/16 Range/Units 11:50 23:12 04:35 WBC (4.3-11.1) K/mcL RBC (4.19-5.50) M/mcL Hgb (12.9-16.9) g/dL Hct (37.5-50.1) % MCV (83.0-100.0) fL MCH (28.0-33.3) pg MCHC (31.6-35.5) g/dL RDW (11.5-14.5) % Plt Count (140-400) K/mcL MPV (9.4-12.4) fL Immature Gran % (0-4) % Seg Neutrophils % % Lymphocytes % % Monocytes % % Eosinophils % % Basophils % % Neutrophils # (1.6-8.9) K/mcL Lymphocytes # (0.6-4.6) K/mcL Monocytes # (0.0-1.3) K/mcL Eosinophils # (0.0-0.6) K/mcL Basophils # (0.0-0.2) K/mcL Immature Plt Fraction (1.1-6.1) % PT 11.5 (9.4-12.1) Seconds INR 1.1 ABG pH (7.32-7.45) pH Units ABG pCO2 (35-45) mmHg ABG pO2 (85-104) mmHg ABG HCO3 (21-27) mEQ/L ABG Total CO2 (20-26) mEq/L ABG O2 Saturation (95-98) % ABG Base Excess (-2.0 to 3.0) mEq/L Blood Gas Modality Inspired O2 % Sodium (136-145) mEq/L Potassium (3.5-4.5) mEq/L Chloride (98-109) mEq/L Carbon Dioxide (19-29) mEq/L BUN (8-26) mg/dL Creatinine (0.72-1.25) mg/dL Est GFR ( Amer) (> 60) Est GFR (Non-Af Amer) (> 60) BUN/Creatinine Ratio (6-26) Glucose (70-99) mg/dL POC Glucose 92 H 96 H (58-89) Calculated Osmolality (280-300) Calcium (8.6-10.8) mg/dL Phosphorus (2.3-4.7) mg/dL Magnesium (1.6-2.6) mg/dL Prealbumin (18.0-45.0) mg/dL Triglycerides (< 150) mg/dL Urine Color (Yellow) Urine Clarity (Clear) Urine pH (5.0-8.0) pH Units Ur Specific [place] (1.010-1.025) Urine Protein (Neg-Trace) mg/dL Urine Glucose (UA) (Normal) mg/dL Urine Ketones (Negative) mg/dL Urine Blood (Negative) Urine Nitrite (Negative) Urine Bilirubin (Negative) Urine Urobilinogen (Normal) mg/dL Ur Leukocyte Esterase (Negative) Urine Microscopic RBC (0-3) per hpf Urine Microscopic WBC (0-3) per hpf Urine Bacteria (None-Few) per hpf Ur Culture Indicated? (NO) Vancomycin Trough (10-20) mcg/mL 09/15/16 09/15/16 09/15/16 Range/Units 04:35 04:35 05:37 WBC 10.9 (4.3-11.1) K/mcL RBC 4.99 (4.19-5.50) M/mcL Hgb 15.0 (12.9-16.9) g/dL Hct 44.5 (37.5-50.1) % MCV 89.2 (83.0-100.0) fL MCH 30.1 (28.0-33.3) pg MCHC 33.7 (31.6-35.5) g/dL RDW 14.5 (11.5-14.5) % Plt Count 238 (140-400) K/mcL MPV 9.3 L (9.4-12.4) fL Immature Gran % 0.6 (0-4) % Seg Neutrophils % 64.8 % Lymphocytes % 21.4 % Monocytes % 10.6 % Eosinophils % 2.0 % Basophils % 0.6 % Neutrophils # 7.0 (1.6-8.9) K/mcL Lymphocytes # 2.3 (0.6-4.6) K/mcL Monocytes # 1.2 (0.0-1.3) K/mcL Eosinophils # 0.2 (0.0-0.6) K/mcL Basophils # 0.1 (0.0-0.2) K/mcL Immature Plt Fraction (1.1-6.1) % PT (9.4-12.1) Seconds INR ABG pH (7.32-7.45) pH Units ABG pCO2 (35-45) mmHg ABG pO2 (85-104) mmHg ABG HCO3 (21-27) mEQ/L ABG Total CO2 (20-26) mEq/L ABG O2 Saturation (95-98) % ABG Base Excess (-2.0 to 3.0) mEq/L Blood Gas Modality Inspired O2 % Sodium 136 (136-145) mEq/L Potassium 3.8 (3.5-4.5) mEq/L Chloride 106 (98-109) mEq/L Carbon Dioxide 22 (19-29) mEq/L BUN 9 (8-26) mg/dL Creatinine 0.79 (0.72-1.25) mg/dL Est GFR ( Amer) > 60 (> 60) Est GFR (Non-Af Amer) > 60 (> 60) BUN/Creatinine Ratio 11 (6-26) Glucose 86 (70-99) mg/dL POC Glucose 88 (58-89) Calculated Osmolality 280 (280-300) Calcium 8.5 L (8.6-10.8) mg/dL Phosphorus (2.3-4.7) mg/dL Magnesium (1.6-2.6) mg/dL Prealbumin (18.0-45.0) mg/dL Triglycerides (< 150) mg/dL Urine Color (Yellow) Urine Clarity (Clear) Urine pH (5.0-8.0) pH Units Ur Specific [place] (1.010-1.025) Urine Protein (Neg-Trace) mg/dL Urine Glucose (UA) (Normal) mg/dL Urine Ketones (Negative) mg/dL Urine Blood (Negative) Urine Nitrite (Negative) Urine Bilirubin (Negative) Urine Urobilinogen (Normal) mg/dL Ur Leukocyte Esterase (Negative) Urine Microscopic RBC (0-3) per hpf Urine Microscopic WBC (0-3) per hpf Urine Bacteria (None-Few) per hpf Ur Culture Indicated? (NO) Vancomycin Trough (10-20) mcg/mL 09/15/16 09/15/16 09/15/16 Range/Units 10:51 11:27 11:27 WBC (4.3-11.1) K/mcL RBC (4.19-5.50) M/mcL Hgb (12.9-16.9) g/dL Hct (37.5-50.1) % MCV (83.0-100.0) fL MCH (28.0-33.3) pg MCHC (31.6-35.5) g/dL RDW (11.5-14.5) % Plt Count (140-400) K/mcL MPV (9.4-12.4) fL Immature Gran % (0-4) % Seg Neutrophils % % Lymphocytes % % Monocytes % % Eosinophils % % Basophils % % Neutrophils # (1.6-8.9) K/mcL Lymphocytes # (0.6-4.6) K/mcL Monocytes # (0.0-1.3) K/mcL Eosinophils # (0.0-0.6) K/mcL Basophils # (0.0-0.2) K/mcL Immature Plt Fraction (1.1-6.1) % PT (9.4-12.1) Seconds INR ABG pH (7.32-7.45) pH Units ABG pCO2 (35-45) mmHg ABG pO2 (85-104) mmHg ABG HCO3 (21-27) mEQ/L ABG Total CO2 (20-26) mEq/L ABG O2 Saturation (95-98) % ABG Base Excess (-2.0 to 3.0) mEq/L Blood Gas Modality Inspired O2 % Sodium (136-145) mEq/L Potassium (3.5-4.5) mEq/L Chloride (98-109) mEq/L Carbon Dioxide (19-29) mEq/L BUN (8-26) mg/dL Creatinine (0.72-1.25) mg/dL Est GFR ( Amer) (> 60) Est GFR (Non-Af Amer) (> 60) BUN/Creatinine Ratio (6-26) Glucose (70-99) mg/dL POC Glucose 77 (58-89) Calculated Osmolality (280-300) Calcium (8.6-10.8) mg/dL Phosphorus 2.7 (2.3-4.7) mg/dL Magnesium 2.0 (1.6-2.6) mg/dL Prealbumin (18.0-45.0) mg/dL Triglycerides (< 150) mg/dL Urine Color (Yellow) Urine Clarity (Clear) Urine pH (5.0-8.0) pH Units Ur Specific [place] (1.010-1.025) Urine Protein (Neg-Trace) mg/dL Urine Glucose (UA) (Normal) mg/dL Urine Ketones (Negative) mg/dL Urine Blood (Negative) Urine Nitrite (Negative) Urine Bilirubin (Negative) Urine Urobilinogen (Normal) mg/dL Ur Leukocyte Esterase (Negative) Urine Microscopic RBC (0-3) per hpf Urine Microscopic WBC (0-3) per hpf Urine Bacteria (None-Few) per hpf Ur Culture Indicated? (NO) Vancomycin Trough (10-20) mcg/mL 09/15/16 09/15/16 09/16/16 Range/Units 11:27 11:27 00:01 WBC (4.3-11.1) K/mcL RBC (4.19-5.50) M/mcL Hgb (12.9-16.9) g/dL Hct (37.5-50.1) % MCV (83.0-100.0) fL MCH (28.0-33.3) pg MCHC (31.6-35.5) g/dL RDW (11.5-14.5) % Plt Count (140-400) K/mcL MPV (9.4-12.4) fL Immature Gran % (0-4) % Seg Neutrophils % % Lymphocytes % % Monocytes % % Eosinophils % % Basophils % % Neutrophils # (1.6-8.9) K/mcL Lymphocytes # (0.6-4.6) K/mcL Monocytes # (0.0-1.3) K/mcL Eosinophils # (0.0-0.6) K/mcL Basophils # (0.0-0.2) K/mcL Immature Plt Fraction (1.1-6.1) % PT (9.4-12.1) Seconds INR ABG pH 7.36 (7.32-7.45) pH Units ABG pCO2 47 H (35-45) mmHg ABG pO2 89 (85-104) mmHg ABG HCO3 26.6 (21-27) mEQ/L ABG Total CO2 28.0 H (20-26) mEq/L ABG O2 Saturation 96 (95-98) % ABG Base Excess 0.6 (-2.0 to 3.0) mEq/L Blood Gas Modality nc Inspired O2 28 % Sodium (136-145) mEq/L Potassium (3.5-4.5) mEq/L Chloride (98-109) mEq/L Carbon Dioxide (19-29) mEq/L BUN (8-26) mg/dL Creatinine (0.72-1.25) mg/dL Est GFR ( Amer) (> 60) Est GFR (Non-Af Amer) (> 60) BUN/Creatinine Ratio (6-26) Glucose (70-99) mg/dL POC Glucose (58-89) Calculated Osmolality (280-300) Calcium (8.6-10.8) mg/dL Phosphorus (2.3-4.7) mg/dL Magnesium (1.6-2.6) mg/dL Prealbumin 11.0 L (18.0-45.0) mg/dL Triglycerides 106 (< 150) mg/dL Urine Color (Yellow) Urine Clarity (Clear) Urine pH (5.0-8.0) pH Units Ur Specific [place] (1.010-1.025) Urine Protein (Neg-Trace) mg/dL Urine Glucose (UA) (Normal) mg/dL Urine Ketones (Negative) mg/dL Urine Blood (Negative) Urine Nitrite (Negative) Urine Bilirubin (Negative) Urine Urobilinogen (Normal) mg/dL Ur Leukocyte Esterase (Negative) Urine Microscopic RBC (0-3) per hpf Urine Microscopic WBC (0-3) per hpf Urine Bacteria (None-Few) per hpf Ur Culture Indicated? (NO) Vancomycin Trough (10-20) mcg/mL 09/16/16 09/16/16 09/16/16 Range/Units 00:06 03:20 03:20 WBC 18.5 H D (4.3-11.1) K/mcL RBC 4.47 (4.19-5.50) M/mcL Hgb 13.5 D (12.9-16.9) g/dL Hct 40.2 (37.5-50.1) % MCV 89.9 (83.0-100.0) fL MCH 30.2 (28.0-33.3) pg MCHC 33.6 (31.6-35.5) g/dL RDW 14.6 H (11.5-14.5) % Plt Count 188 (140-400) K/mcL MPV 9.2 L (9.4-12.4) fL Immature Gran % 0.6 (0-4) % Seg Neutrophils % 90.0 % Lymphocytes % 3.4 % Monocytes % 5.8 % Eosinophils % 0.0 % Basophils % 0.2 % Neutrophils # 16.7 H (1.6-8.9) K/mcL Lymphocytes # 0.6 (0.6-4.6) K/mcL Monocytes # 1.1 (0.0-1.3) K/mcL Eosinophils # 0.0 (0.0-0.6) K/mcL Basophils # 0.0 (0.0-0.2) K/mcL Immature Plt Fraction (1.1-6.1) % PT (9.4-12.1) Seconds INR ABG pH (7.32-7.45) pH Units ABG pCO2 (35-45) mmHg ABG pO2 (85-104) mmHg ABG HCO3 (21-27) mEQ/L ABG Total CO2 (20-26) mEq/L ABG O2 Saturation (95-98) % ABG Base Excess (-2.0 to 3.0) mEq/L Blood Gas Modality Inspired O2 % Sodium 135 L (136-145) mEq/L Potassium 4.3 (3.5-4.5) mEq/L Chloride 104 (98-109) mEq/L Carbon Dioxide 29 (19-29) mEq/L BUN 11 (8-26) mg/dL Creatinine 0.80 (0.72-1.25) mg/dL Est GFR ( Amer) > 60 (> 60) Est GFR (Non-Af Amer) > 60 (> 60) BUN/Creatinine Ratio 14 (6-26) Glucose 188 H (70-99) mg/dL POC Glucose 132 H (58-89) Calculated Osmolality 284 (280-300) Calcium 8.2 L (8.6-10.8) mg/dL Phosphorus 3.1 (2.3-4.7) mg/dL Magnesium 1.8 (1.6-2.6) mg/dL Prealbumin (18.0-45.0) mg/dL Triglycerides (< 150) mg/dL Urine Color (Yellow) Urine Clarity (Clear) Urine pH (5.0-8.0) pH Units Ur Specific [place] (1.010-1.025) Urine Protein (Neg-Trace) mg/dL Urine Glucose (UA) (Normal) mg/dL Urine Ketones (Negative) mg/dL Urine Blood (Negative) Urine Nitrite (Negative) Urine Bilirubin (Negative) Urine Urobilinogen (Normal) mg/dL Ur Leukocyte Esterase (Negative) Urine Microscopic RBC (0-3) per hpf Urine Microscopic WBC (0-3) per hpf Urine Bacteria (None-Few) per hpf Ur Culture Indicated? (NO) Vancomycin Trough (10-20) mcg/mL 09/16/16 09/16/16 09/16/16 Range/Units 07:39 11:53 16:53 WBC (4.3-11.1) K/mcL RBC (4.19-5.50) M/mcL Hgb (12.9-16.9) g/dL Hct (37.5-50.1) % MCV (83.0-100.0) fL MCH (28.0-33.3) pg MCHC (31.6-35.5) g/dL RDW (11.5-14.5) % Plt Count (140-400) K/mcL MPV (9.4-12.4) fL Immature Gran % (0-4) % Seg Neutrophils % % Lymphocytes % % Monocytes % % Eosinophils % % Basophils % % Neutrophils # (1.6-8.9) K/mcL Lymphocytes # (0.6-4.6) K/mcL Monocytes # (0.0-1.3) K/mcL Eosinophils # (0.0-0.6) K/mcL Basophils # (0.0-0.2) K/mcL Immature Plt Fraction (1.1-6.1) % PT (9.4-12.1) Seconds INR ABG pH (7.32-7.45) pH Units ABG pCO2 (35-45) mmHg ABG pO2 (85-104) mmHg ABG HCO3 (21-27) mEQ/L ABG Total CO2 (20-26) mEq/L ABG O2 Saturation (95-98) % ABG Base Excess (-2.0 to 3.0) mEq/L Blood Gas Modality Inspired O2 % Sodium (136-145) mEq/L Potassium (3.5-4.5) mEq/L Chloride (98-109) mEq/L Carbon Dioxide (19-29) mEq/L BUN (8-26) mg/dL Creatinine (0.72-1.25) mg/dL Est GFR ( Amer) (> 60) Est GFR (Non-Af Amer) (> 60) BUN/Creatinine Ratio (6-26) Glucose (70-99) mg/dL POC Glucose 193 H 159 H 116 H (58-89) Calculated Osmolality (280-300) Calcium (8.6-10.8) mg/dL Phosphorus (2.3-4.7) mg/dL Magnesium (1.6-2.6) mg/dL Prealbumin (18.0-45.0) mg/dL Triglycerides (< 150) mg/dL Urine Color (Yellow) Urine Clarity (Clear) Urine pH (5.0-8.0) pH Units Ur Specific [place] (1.010-1.025) Urine Protein (Neg-Trace) mg/dL Urine Glucose (UA) (Normal) mg/dL Urine Ketones (Negative) mg/dL Urine Blood (Negative) Urine Nitrite (Negative) Urine Bilirubin (Negative) Urine Urobilinogen (Normal) mg/dL Ur Leukocyte Esterase (Negative) Urine Microscopic RBC (0-3) per hpf Urine Microscopic WBC (0-3) per hpf Urine Bacteria (None-Few) per hpf Ur Culture Indicated? (NO) Vancomycin Trough (10-20) mcg/mL 09/16/16 09/17/16 09/17/16 Range/Units 20:57 00:02 03:02 WBC (4.3-11.1) K/mcL RBC (4.19-5.50) M/mcL Hgb (12.9-16.9) g/dL Hct (37.5-50.1) % MCV (83.0-100.0) fL MCH (28.0-33.3) pg MCHC (31.6-35.5) g/dL RDW (11.5-14.5) % Plt Count (140-400) K/mcL MPV (9.4-12.4) fL Immature Gran % (0-4) % Seg Neutrophils % % Lymphocytes % % Monocytes % % Eosinophils % % Basophils % % Neutrophils # (1.6-8.9) K/mcL Lymphocytes # (0.6-4.6) K/mcL Monocytes # (0.0-1.3) K/mcL Eosinophils # (0.0-0.6) K/mcL Basophils # (0.0-0.2) K/mcL Immature Plt Fraction (1.1-6.1) % PT (9.4-12.1) Seconds INR ABG pH (7.32-7.45) pH Units ABG pCO2 (35-45) mmHg ABG pO2 (85-104) mmHg ABG HCO3 (21-27) mEQ/L ABG Total CO2 (20-26) mEq/L ABG O2 Saturation (95-98) % ABG Base Excess (-2.0 to 3.0) mEq/L Blood Gas Modality Inspired O2 % Sodium 137 (136-145) mEq/L Potassium 3.7 (3.5-4.5) mEq/L Chloride 104 (98-109) mEq/L Carbon Dioxide 29 (19-29) mEq/L BUN 13 (8-26) mg/dL Creatinine 0.65 L (0.72-1.25) mg/dL Est GFR ( Amer) > 60 (> 60) Est GFR (Non-Af Amer) > 60 (> 60) BUN/Creatinine Ratio 20 (6-26) Glucose 111 H (70-99) mg/dL POC Glucose 114 H 108 H (58-89) Calculated Osmolality 285 (280-300) Calcium 7.9 L (8.6-10.8) mg/dL Phosphorus 2.8 (2.3-4.7) mg/dL Magnesium 1.8 (1.6-2.6) mg/dL Prealbumin (18.0-45.0) mg/dL Triglycerides (< 150) mg/dL Urine Color (Yellow) Urine Clarity (Clear) Urine pH (5.0-8.0) pH Units Ur Specific [place] (1.010-1.025) Urine Protein (Neg-Trace) mg/dL Urine Glucose (UA) (Normal) mg/dL Urine Ketones (Negative) mg/dL Urine Blood (Negative) Urine Nitrite (Negative) Urine Bilirubin (Negative) Urine Urobilinogen (Normal) mg/dL Ur Leukocyte Esterase (Negative) Urine Microscopic RBC (0-3) per hpf Urine Microscopic WBC (0-3) per hpf Urine Bacteria (None-Few) per hpf Ur Culture Indicated? (NO) Vancomycin Trough (10-20) mcg/mL 09/17/16 09/17/16 09/17/16 Range/Units 03:02 05:44 11:43 WBC 11.5 H (4.3-11.1) K/mcL RBC 4.12 L (4.19-5.50) M/mcL Hgb 12.4 L (12.9-16.9) g/dL Hct 37.1 L (37.5-50.1) % MCV 90.0 (83.0-100.0) fL MCH 30.1 (28.0-33.3) pg MCHC 33.4 (31.6-35.5) g/dL RDW 14.8 H (11.5-14.5) % Plt Count 184 (140-400) K/mcL MPV 9.4 (9.4-12.4) fL Immature Gran % 0.8 (0-4) % Seg Neutrophils % 69.2 % Lymphocytes % 16.3 % Monocytes % 11.8 % Eosinophils % 1.6 % Basophils % 0.3 % Neutrophils # 7.9 (1.6-8.9) K/mcL Lymphocytes # 1.9 (0.6-4.6) K/mcL Monocytes # 1.4 H (0.0-1.3) K/mcL Eosinophils # 0.2 (0.0-0.6) K/mcL Basophils # 0.0 (0.0-0.2) K/mcL Immature Plt Fraction (1.1-6.1) % PT (9.4-12.1) Seconds INR ABG pH (7.32-7.45) pH Units ABG pCO2 (35-45) mmHg ABG pO2 (85-104) mmHg ABG HCO3 (21-27) mEQ/L ABG Total CO2 (20-26) mEq/L ABG O2 Saturation (95-98) % ABG Base Excess (-2.0 to 3.0) mEq/L Blood Gas Modality Inspired O2 % Sodium (136-145) mEq/L Potassium (3.5-4.5) mEq/L Chloride (98-109) mEq/L Carbon Dioxide (19-29) mEq/L BUN (8-26) mg/dL Creatinine (0.72-1.25) mg/dL Est GFR ( Amer) (> 60) Est GFR (Non-Af Amer) (> 60) BUN/Creatinine Ratio (6-26) Glucose (70-99) mg/dL POC Glucose 97 H 116 H (58-89) Calculated Osmolality (280-300) Calcium (8.6-10.8) mg/dL Phosphorus (2.3-4.7) mg/dL Magnesium (1.6-2.6) mg/dL Prealbumin (18.0-45.0) mg/dL Triglycerides (< 150) mg/dL Urine Color (Yellow) Urine Clarity (Clear) Urine pH (5.0-8.0) pH Units Ur Specific [place] (1.010-1.025) Urine Protein (Neg-Trace) mg/dL Urine Glucose (UA) (Normal) mg/dL Urine Ketones (Negative) mg/dL Urine Blood (Negative) Urine Nitrite (Negative) Urine Bilirubin (Negative) Urine Urobilinogen (Normal) mg/dL Ur Leukocyte Esterase (Negative) Urine Microscopic RBC (0-3) per hpf Urine Microscopic WBC (0-3) per hpf Urine Bacteria (None-Few) per hpf Ur Culture Indicated? (NO) Vancomycin Trough (10-20) mcg/mL 09/17/16 09/17/16 09/18/16 Range/Units 16:26 20:28 00:01 WBC (4.3-11.1) K/mcL RBC (4.19-5.50) M/mcL Hgb (12.9-16.9) g/dL Hct (37.5-50.1) % MCV (83.0-100.0) fL MCH (28.0-33.3) pg MCHC (31.6-35.5) g/dL RDW (11.5-14.5) % Plt Count (140-400) K/mcL MPV (9.4-12.4) fL Immature Gran % (0-4) % Seg Neutrophils % % Lymphocytes % % Monocytes % % Eosinophils % % Basophils % % Neutrophils # (1.6-8.9) K/mcL Lymphocytes # (0.6-4.6) K/mcL Monocytes # (0.0-1.3) K/mcL Eosinophils # (0.0-0.6) K/mcL Basophils # (0.0-0.2) K/mcL Immature Plt Fraction (1.1-6.1) % PT (9.4-12.1) Seconds INR ABG pH (7.32-7.45) pH Units ABG pCO2 (35-45) mmHg ABG pO2 (85-104) mmHg ABG HCO3 (21-27) mEQ/L ABG Total CO2 (20-26) mEq/L ABG O2 Saturation (95-98) % ABG Base Excess (-2.0 to 3.0) mEq/L Blood Gas Modality Inspired O2 % Sodium (136-145) mEq/L Potassium (3.5-4.5) mEq/L Chloride (98-109) mEq/L Carbon Dioxide (19-29) mEq/L BUN (8-26) mg/dL Creatinine (0.72-1.25) mg/dL Est GFR ( Amer) (> 60) Est GFR (Non-Af Amer) (> 60) BUN/Creatinine Ratio (6-26) Glucose (70-99) mg/dL POC Glucose 108 H 104 H 110 H (58-89) Calculated Osmolality (280-300) Calcium (8.6-10.8) mg/dL Phosphorus (2.3-4.7) mg/dL Magnesium (1.6-2.6) mg/dL Prealbumin (18.0-45.0) mg/dL Triglycerides (< 150) mg/dL Urine Color (Yellow) Urine Clarity (Clear) Urine pH (5.0-8.0) pH Units Ur Specific [place] (1.010-1.025) Urine Protein (Neg-Trace) mg/dL Urine Glucose (UA) (Normal) mg/dL Urine Ketones (Negative) mg/dL Urine Blood (Negative) Urine Nitrite (Negative) Urine Bilirubin (Negative) Urine Urobilinogen (Normal) mg/dL Ur Leukocyte Esterase (Negative) Urine Microscopic RBC (0-3) per hpf Urine Microscopic WBC (0-3) per hpf Urine Bacteria (None-Few) per hpf Ur Culture Indicated? (NO) Vancomycin Trough (10-20) mcg/mL 09/18/16 09/18/16 09/18/16 Range/Units 03:05 03:05 04:13 WBC 16.8 H (4.3-11.1) K/mcL RBC 3.91 L (4.19-5.50) M/mcL Hgb 11.9 L (12.9-16.9) g/dL Hct 35.1 L (37.5-50.1) % MCV 89.8 (83.0-100.0) fL MCH 30.4 (28.0-33.3) pg MCHC 33.9 (31.6-35.5) g/dL RDW 14.8 H (11.5-14.5) % Plt Count 158 (140-400) K/mcL MPV 9.6 (9.4-12.4) fL Immature Gran % 0.7 (0-4) % Seg Neutrophils % 78.9 % Lymphocytes % 10.3 % Monocytes % 6.5 % Eosinophils % 3.3 % Basophils % 0.3 % Neutrophils # 13.3 H (1.6-8.9) K/mcL Lymphocytes # 1.7 (0.6-4.6) K/mcL Monocytes # 1.1 (0.0-1.3) K/mcL Eosinophils # 0.6 (0.0-0.6) K/mcL Basophils # 0.1 (0.0-0.2) K/mcL Immature Plt Fraction (1.1-6.1) % PT (9.4-12.1) Seconds INR ABG pH (7.32-7.45) pH Units ABG pCO2 (35-45) mmHg ABG pO2 (85-104) mmHg ABG HCO3 (21-27) mEQ/L ABG Total CO2 (20-26) mEq/L ABG O2 Saturation (95-98) % ABG Base Excess (-2.0 to 3.0) mEq/L Blood Gas Modality Inspired O2 % Sodium 133 L (136-145) mEq/L Potassium 3.8 (3.5-4.5) mEq/L Chloride 102 (98-109) mEq/L Carbon Dioxide 26 (19-29) mEq/L BUN 13 (8-26) mg/dL Creatinine 0.62 L (0.72-1.25) mg/dL Est GFR ( Amer) > 60 (> 60) Est GFR (Non-Af Amer) > 60 (> 60) BUN/Creatinine Ratio 21 (6-26) Glucose 100 H (70-99) mg/dL POC Glucose 124 H (58-89) Calculated Osmolality 276 L (280-300) Calcium 8.0 L (8.6-10.8) mg/dL Phosphorus 3.5 (2.3-4.7) mg/dL Magnesium 1.7 (1.6-2.6) mg/dL Prealbumin (18.0-45.0) mg/dL Triglycerides (< 150) mg/dL Urine Color (Yellow) Urine Clarity (Clear) Urine pH (5.0-8.0) pH Units Ur Specific [place] (1.010-1.025) Urine Protein (Neg-Trace) mg/dL Urine Glucose (UA) (Normal) mg/dL Urine Ketones (Negative) mg/dL Urine Blood (Negative) Urine Nitrite (Negative) Urine Bilirubin (Negative) Urine Urobilinogen (Normal) mg/dL Ur Leukocyte Esterase (Negative) Urine Microscopic RBC (0-3) per hpf Urine Microscopic WBC (0-3) per hpf Urine Bacteria (None-Few) per hpf Ur Culture Indicated? (NO) Vancomycin Trough (10-20) mcg/mL 09/18/16 09/18/16 09/18/16 Range/Units 07:05 11:20 15:57 WBC (4.3-11.1) K/mcL RBC (4.19-5.50) M/mcL Hgb (12.9-16.9) g/dL Hct (37.5-50.1) % MCV (83.0-100.0) fL MCH (28.0-33.3) pg MCHC (31.6-35.5) g/dL RDW (11.5-14.5) % Plt Count (140-400) K/mcL MPV (9.4-12.4) fL Immature Gran % (0-4) % Seg Neutrophils % % Lymphocytes % % Monocytes % % Eosinophils % % Basophils % % Neutrophils # (1.6-8.9) K/mcL Lymphocytes # (0.6-4.6) K/mcL Monocytes # (0.0-1.3) K/mcL Eosinophils # (0.0-0.6) K/mcL Basophils # (0.0-0.2) K/mcL Immature Plt Fraction (1.1-6.1) % PT (9.4-12.1) Seconds INR ABG pH (7.32-7.45) pH Units ABG pCO2 (35-45) mmHg ABG pO2 (85-104) mmHg ABG HCO3 (21-27) mEQ/L ABG Total CO2 (20-26) mEq/L ABG O2 Saturation (95-98) % ABG Base Excess (-2.0 to 3.0) mEq/L Blood Gas Modality Inspired O2 % Sodium (136-145) mEq/L Potassium (3.5-4.5) mEq/L Chloride (98-109) mEq/L Carbon Dioxide (19-29) mEq/L BUN (8-26) mg/dL Creatinine (0.72-1.25) mg/dL Est GFR ( Amer) (> 60) Est GFR (Non-Af Amer) (> 60) BUN/Creatinine Ratio (6-26) Glucose (70-99) mg/dL POC Glucose 125 H 118 H 106 H (58-89) Calculated Osmolality (280-300) Calcium (8.6-10.8) mg/dL Phosphorus (2.3-4.7) mg/dL Magnesium (1.6-2.6) mg/dL Prealbumin (18.0-45.0) mg/dL Triglycerides (< 150) mg/dL Urine Color (Yellow) Urine Clarity (Clear) Urine pH (5.0-8.0) pH Units Ur Specific [place] (1.010-1.025) Urine Protein (Neg-Trace) mg/dL Urine Glucose (UA) (Normal) mg/dL Urine Ketones (Negative) mg/dL Urine Blood (Negative) Urine Nitrite (Negative) Urine Bilirubin (Negative) Urine Urobilinogen (Normal) mg/dL Ur Leukocyte Esterase (Negative) Urine Microscopic RBC (0-3) per hpf Urine Microscopic WBC (0-3) per hpf Urine Bacteria (None-Few) per hpf Ur Culture Indicated? (NO) Vancomycin Trough (10-20) mcg/mL 09/18/16 09/18/16 09/19/16 Range/Units 16:00 20:32 00:21 WBC (4.3-11.1) K/mcL RBC (4.19-5.50) M/mcL Hgb (12.9-16.9) g/dL Hct (37.5-50.1) % MCV (83.0-100.0) fL MCH (28.0-33.3) pg MCHC (31.6-35.5) g/dL RDW (11.5-14.5) % Plt Count (140-400) K/mcL MPV (9.4-12.4) fL Immature Gran % (0-4) % Seg Neutrophils % % Lymphocytes % % Monocytes % % Eosinophils % % Basophils % % Neutrophils # (1.6-8.9) K/mcL Lymphocytes # (0.6-4.6) K/mcL Monocytes # (0.0-1.3) K/mcL Eosinophils # (0.0-0.6) K/mcL Basophils # (0.0-0.2) K/mcL Immature Plt Fraction (1.1-6.1) % PT (9.4-12.1) Seconds INR ABG pH (7.32-7.45) pH Units ABG pCO2 (35-45) mmHg ABG pO2 (85-104) mmHg ABG HCO3 (21-27) mEQ/L ABG Total CO2 (20-26) mEq/L ABG O2 Saturation (95-98) % ABG Base Excess (-2.0 to 3.0) mEq/L Blood Gas Modality Inspired O2 % Sodium (136-145) mEq/L Potassium (3.5-4.5) mEq/L Chloride (98-109) mEq/L Carbon Dioxide (19-29) mEq/L BUN (8-26) mg/dL Creatinine (0.72-1.25) mg/dL Est GFR ( Amer) (> 60) Est GFR (Non-Af Amer) (> 60) BUN/Creatinine Ratio (6-26) Glucose (70-99) mg/dL POC Glucose 121 H 127 H (58-89) Calculated Osmolality (280-300) Calcium (8.6-10.8) mg/dL Phosphorus (2.3-4.7) mg/dL Magnesium (1.6-2.6) mg/dL Prealbumin (18.0-45.0) mg/dL Triglycerides (< 150) mg/dL Urine Color Yellow (Yellow) Urine Clarity Clear (Clear) Urine pH 7.0 (5.0-8.0) pH Units Ur Specific [place] 1.010 (1.010-1.025) Urine Protein Negative (Neg-Trace) mg/dL Urine Glucose (UA) Normal (Normal) mg/dL Urine Ketones Negative (Negative) mg/dL Urine Blood Small H (Negative) Urine Nitrite Negative (Negative) Urine Bilirubin Negative (Negative) Urine Urobilinogen Normal (Normal) mg/dL Ur Leukocyte Esterase Negative (Negative) Urine Microscopic RBC 0-3 (0-3) per hpf Urine Microscopic WBC 0-3 (0-3) per hpf Urine Bacteria Few (None-Few) per hpf Ur Culture Indicated? NO (NO) Vancomycin Trough (10-20) mcg/mL 09/19/16 09/19/16 09/19/16 Range/Units 03:20 03:20 03:51 WBC 20.3 H (4.3-11.1) K/mcL RBC 4.06 L (4.19-5.50) M/mcL Hgb 12.2 L (12.9-16.9) g/dL Hct 35.8 L (37.5-50.1) % MCV 88.2 (83.0-100.0) fL MCH 30.0 (28.0-33.3) pg MCHC 34.1 (31.6-35.5) g/dL RDW 14.7 H (11.5-14.5) % Plt Count 180 (140-400) K/mcL MPV 9.8 (9.4-12.4) fL Immature Gran % 0.6 (0-4) % Seg Neutrophils % 82.4 % Lymphocytes % 6.7 % Monocytes % 7.4 % Eosinophils % 2.6 % Basophils % 0.3 % Neutrophils # 16.7 H (1.6-8.9) K/mcL Lymphocytes # 1.4 (0.6-4.6) K/mcL Monocytes # 1.5 H (0.0-1.3) K/mcL Eosinophils # 0.5 (0.0-0.6) K/mcL Basophils # 0.1 (0.0-0.2) K/mcL Immature Plt Fraction 3.5 (1.1-6.1) % PT (9.4-12.1) Seconds INR ABG pH (7.32-7.45) pH Units ABG pCO2 (35-45) mmHg ABG pO2 (85-104) mmHg ABG HCO3 (21-27) mEQ/L ABG Total CO2 (20-26) mEq/L ABG O2 Saturation (95-98) % ABG Base Excess (-2.0 to 3.0) mEq/L Blood Gas Modality Inspired O2 % Sodium 133 L (136-145) mEq/L Potassium 4.0 (3.5-4.5) mEq/L Chloride 101 (98-109) mEq/L Carbon Dioxide 27 (19-29) mEq/L BUN 14 (8-26) mg/dL Creatinine 0.66 L (0.72-1.25) mg/dL Est GFR ( Amer) > 60 (> 60) Est GFR (Non-Af Amer) > 60 (> 60) BUN/Creatinine Ratio 21 (6-26) Glucose 102 H (70-99) mg/dL POC Glucose 121 H (58-89) Calculated Osmolality 277 L (280-300) Calcium 8.4 L (8.6-10.8) mg/dL Phosphorus 4.0 (2.3-4.7) mg/dL Magnesium 2.1 (1.6-2.6) mg/dL Prealbumin (18.0-45.0) mg/dL Triglycerides (< 150) mg/dL Urine Color (Yellow) Urine Clarity (Clear) Urine pH (5.0-8.0) pH Units Ur Specific [place] (1.010-1.025) Urine Protein (Neg-Trace) mg/dL Urine Glucose (UA) (Normal) mg/dL Urine Ketones (Negative) mg/dL Urine Blood (Negative) Urine Nitrite (Negative) Urine Bilirubin (Negative) Urine Urobilinogen (Normal) mg/dL Ur Leukocyte Esterase (Negative) Urine Microscopic RBC (0-3) per hpf Urine Microscopic WBC (0-3) per hpf Urine Bacteria (None-Few) per hpf Ur Culture Indicated? (NO) Vancomycin Trough (10-20) mcg/mL 09/19/16 09/19/16 09/19/16 Range/Units 07:25 11:08 16:20 WBC (4.3-11.1) K/mcL RBC (4.19-5.50) M/mcL Hgb (12.9-16.9) g/dL Hct (37.5-50.1) % MCV (83.0-100.0) fL MCH (28.0-33.3) pg MCHC (31.6-35.5) g/dL RDW (11.5-14.5) % Plt Count (140-400) K/mcL MPV (9.4-12.4) fL Immature Gran % (0-4) % Seg Neutrophils % % Lymphocytes % % Monocytes % % Eosinophils % % Basophils % % Neutrophils # (1.6-8.9) K/mcL Lymphocytes # (0.6-4.6) K/mcL Monocytes # (0.0-1.3) K/mcL Eosinophils # (0.0-0.6) K/mcL Basophils # (0.0-0.2) K/mcL Immature Plt Fraction (1.1-6.1) % PT (9.4-12.1) Seconds INR ABG pH (7.32-7.45) pH Units ABG pCO2 (35-45) mmHg ABG pO2 (85-104) mmHg ABG HCO3 (21-27) mEQ/L ABG Total CO2 (20-26) mEq/L ABG O2 Saturation (95-98) % ABG Base Excess (-2.0 to 3.0) mEq/L Blood Gas Modality Inspired O2 % Sodium (136-145) mEq/L Potassium (3.5-4.5) mEq/L Chloride (98-109) mEq/L Carbon Dioxide (19-29) mEq/L BUN (8-26) mg/dL Creatinine (0.72-1.25) mg/dL Est GFR ( Amer) (> 60) Est GFR (Non-Af Amer) (> 60) BUN/Creatinine Ratio (6-26) Glucose (70-99) mg/dL POC Glucose 137 H 129 H 112 H (58-89) Calculated Osmolality (280-300) Calcium (8.6-10.8) mg/dL Phosphorus (2.3-4.7) mg/dL Magnesium (1.6-2.6) mg/dL Prealbumin (18.0-45.0) mg/dL Triglycerides (< 150) mg/dL Urine Color (Yellow) Urine Clarity (Clear) Urine pH (5.0-8.0) pH Units Ur Specific [place] (1.010-1.025) Urine Protein (Neg-Trace) mg/dL Urine Glucose (UA) (Normal) mg/dL Urine Ketones (Negative) mg/dL Urine Blood (Negative) Urine Nitrite (Negative) Urine Bilirubin (Negative) Urine Urobilinogen (Normal) mg/dL Ur Leukocyte Esterase (Negative) Urine Microscopic RBC (0-3) per hpf Urine Microscopic WBC (0-3) per hpf Urine Bacteria (None-Few) per hpf Ur Culture Indicated? (NO) Vancomycin Trough (10-20) mcg/mL 09/19/16 09/19/16 09/20/16 Range/Units 19:52 23:38 03:20 WBC (4.3-11.1) K/mcL RBC (4.19-5.50) M/mcL Hgb (12.9-16.9) g/dL Hct (37.5-50.1) % MCV (83.0-100.0) fL MCH (28.0-33.3) pg MCHC (31.6-35.5) g/dL RDW (11.5-14.5) % Plt Count (140-400) K/mcL MPV (9.4-12.4) fL Immature Gran % (0-4) % Seg Neutrophils % % Lymphocytes % % Monocytes % % Eosinophils % % Basophils % % Neutrophils # (1.6-8.9) K/mcL Lymphocytes # (0.6-4.6) K/mcL Monocytes # (0.0-1.3) K/mcL Eosinophils # (0.0-0.6) K/mcL Basophils # (0.0-0.2) K/mcL Immature Plt Fraction (1.1-6.1) % PT (9.4-12.1) Seconds INR ABG pH (7.32-7.45) pH Units ABG pCO2 (35-45) mmHg ABG pO2 (85-104) mmHg ABG HCO3 (21-27) mEQ/L ABG Total CO2 (20-26) mEq/L ABG O2 Saturation (95-98) % ABG Base Excess (-2.0 to 3.0) mEq/L Blood Gas Modality Inspired O2 % Sodium 135 L (136-145) mEq/L Potassium 3.7 (3.5-4.5) mEq/L Chloride 107 (98-109) mEq/L Carbon Dioxide 22 (19-29) mEq/L BUN 14 (8-26) mg/dL Creatinine 0.58 L (0.72-1.25) mg/dL Est GFR ( Amer) > 60 (> 60) Est GFR (Non-Af Amer) > 60 (> 60) BUN/Creatinine Ratio 24 (6-26) Glucose 93 (70-99) mg/dL POC Glucose 99 H 99 H (58-89) Calculated Osmolality 280 (280-300) Calcium 7.5 L (8.6-10.8) mg/dL Phosphorus 3.6 (2.3-4.7) mg/dL Magnesium 1.7 (1.6-2.6) mg/dL Prealbumin (18.0-45.0) mg/dL Triglycerides (< 150) mg/dL Urine Color (Yellow) Urine Clarity (Clear) Urine pH (5.0-8.0) pH Units Ur Specific [place] (1.010-1.025) Urine Protein (Neg-Trace) mg/dL Urine Glucose (UA) (Normal) mg/dL Urine Ketones (Negative) mg/dL Urine Blood (Negative) Urine Nitrite (Negative) Urine Bilirubin (Negative) Urine Urobilinogen (Normal) mg/dL Ur Leukocyte Esterase (Negative) Urine Microscopic RBC (0-3) per hpf Urine Microscopic WBC (0-3) per hpf Urine Bacteria (None-Few) per hpf Ur Culture Indicated? (NO) Vancomycin Trough (10-20) mcg/mL 09/20/16 09/20/16 09/20/16 Range/Units 03:20 03:20 03:20 WBC 16.2 H (4.3-11.1) K/mcL RBC 4.03 L (4.19-5.50) M/mcL Hgb 11.9 L (12.9-16.9) g/dL Hct 35.6 L (37.5-50.1) % MCV 88.3 (83.0-100.0) fL MCH 29.5 (28.0-33.3) pg MCHC 33.4 (31.6-35.5) g/dL RDW 14.8 H (11.5-14.5) % Plt Count 182 (140-400) K/mcL MPV 10.1 (9.4-12.4) fL Immature Gran % 0.6 (0-4) % Seg Neutrophils % 77.9 % Lymphocytes % 7.6 % Monocytes % 8.5 % Eosinophils % 4.9 % Basophils % 0.5 % Neutrophils # 12.6 H (1.6-8.9) K/mcL Lymphocytes # 1.2 (0.6-4.6) K/mcL Monocytes # 1.4 H (0.0-1.3) K/mcL Eosinophils # 0.8 H (0.0-0.6) K/mcL Basophils # 0.1 (0.0-0.2) K/mcL Immature Plt Fraction (1.1-6.1) % PT (9.4-12.1) Seconds INR ABG pH (7.32-7.45) pH Units ABG pCO2 (35-45) mmHg ABG pO2 (85-104) mmHg ABG HCO3 (21-27) mEQ/L ABG Total CO2 (20-26) mEq/L ABG O2 Saturation (95-98) % ABG Base Excess (-2.0 to 3.0) mEq/L Blood Gas Modality Inspired O2 % Sodium (136-145) mEq/L Potassium (3.5-4.5) mEq/L Chloride (98-109) mEq/L Carbon Dioxide (19-29) mEq/L BUN (8-26) mg/dL Creatinine (0.72-1.25) mg/dL Est GFR ( Amer) (> 60) Est GFR (Non-Af Amer) (> 60) BUN/Creatinine Ratio (6-26) Glucose (70-99) mg/dL POC Glucose (58-89) Calculated Osmolality (280-300) Calcium (8.6-10.8) mg/dL Phosphorus (2.3-4.7) mg/dL Magnesium (1.6-2.6) mg/dL Prealbumin 5.0 L (18.0-45.0) mg/dL Triglycerides (< 150) mg/dL Urine Color (Yellow) Urine Clarity (Clear) Urine pH (5.0-8.0) pH Units Ur Specific [place] (1.010-1.025) Urine Protein (Neg-Trace) mg/dL Urine Glucose (UA) (Normal) mg/dL Urine Ketones (Negative) mg/dL Urine Blood (Negative) Urine Nitrite (Negative) Urine Bilirubin (Negative) Urine Urobilinogen (Normal) mg/dL Ur Leukocyte Esterase (Negative) Urine Microscopic RBC (0-3) per hpf Urine Microscopic WBC (0-3) per hpf Urine Bacteria (None-Few) per hpf Ur Culture Indicated? (NO) Vancomycin Trough 7.2 L (10-20) mcg/mL 09/20/16 09/20/16 09/20/16 Range/Units 03:46 07:32 11:09 WBC (4.3-11.1) K/mcL RBC (4.19-5.50) M/mcL Hgb (12.9-16.9) g/dL Hct (37.5-50.1) % MCV (83.0-100.0) fL MCH (28.0-33.3) pg MCHC (31.6-35.5) g/dL RDW (11.5-14.5) % Plt Count (140-400) K/mcL MPV (9.4-12.4) fL Immature Gran % (0-4) % Seg Neutrophils % % Lymphocytes % % Monocytes % % Eosinophils % % Basophils % % Neutrophils # (1.6-8.9) K/mcL Lymphocytes # (0.6-4.6) K/mcL Monocytes # (0.0-1.3) K/mcL Eosinophils # (0.0-0.6) K/mcL Basophils # (0.0-0.2) K/mcL Immature Plt Fraction (1.1-6.1) % PT (9.4-12.1) Seconds INR ABG pH (7.32-7.45) pH Units ABG pCO2 (35-45) mmHg ABG pO2 (85-104) mmHg ABG HCO3 (21-27) mEQ/L ABG Total CO2 (20-26) mEq/L ABG O2 Saturation (95-98) % ABG Base Excess (-2.0 to 3.0) mEq/L Blood Gas Modality Inspired O2 % Sodium (136-145) mEq/L Potassium (3.5-4.5) mEq/L Chloride (98-109) mEq/L Carbon Dioxide (19-29) mEq/L BUN (8-26) mg/dL Creatinine (0.72-1.25) mg/dL Est GFR ( Amer) (> 60) Est GFR (Non-Af Amer) (> 60) BUN/Creatinine Ratio (6-26) Glucose (70-99) mg/dL POC Glucose 96 H 122 H 121 H (58-89) Calculated Osmolality (280-300) Calcium (8.6-10.8) mg/dL Phosphorus (2.3-4.7) mg/dL Magnesium (1.6-2.6) mg/dL Prealbumin (18.0-45.0) mg/dL Triglycerides (< 150) mg/dL Urine Color (Yellow) Urine Clarity (Clear) Urine pH (5.0-8.0) pH Units Ur Specific [place] (1.010-1.025) Urine Protein (Neg-Trace) mg/dL Urine Glucose (UA) (Normal) mg/dL Urine Ketones (Negative) mg/dL Urine Blood (Negative) Urine Nitrite (Negative) Urine Bilirubin (Negative) Urine Urobilinogen (Normal) mg/dL Ur Leukocyte Esterase (Negative) Urine Microscopic RBC (0-3) per hpf Urine Microscopic WBC (0-3) per hpf Urine Bacteria (None-Few) per hpf Ur Culture Indicated? (NO) Vancomycin Trough (10-20) mcg/mL 09/20/16 09/20/16 09/20/16 Range/Units 15:43 19:18 23:58 WBC (4.3-11.1) K/mcL RBC (4.19-5.50) M/mcL Hgb (12.9-16.9) g/dL Hct (37.5-50.1) % MCV (83.0-100.0) fL MCH (28.0-33.3) pg MCHC (31.6-35.5) g/dL RDW (11.5-14.5) % Plt Count (140-400) K/mcL MPV (9.4-12.4) fL Immature Gran % (0-4) % Seg Neutrophils % % Lymphocytes % % Monocytes % % Eosinophils % % Basophils % % Neutrophils # (1.6-8.9) K/mcL Lymphocytes # (0.6-4.6) K/mcL Monocytes # (0.0-1.3) K/mcL Eosinophils # (0.0-0.6) K/mcL Basophils # (0.0-0.2) K/mcL Immature Plt Fraction (1.1-6.1) % PT (9.4-12.1) Seconds INR ABG pH (7.32-7.45) pH Units ABG pCO2 (35-45) mmHg ABG pO2 (85-104) mmHg ABG HCO3 (21-27) mEQ/L ABG Total CO2 (20-26) mEq/L ABG O2 Saturation (95-98) % ABG Base Excess (-2.0 to 3.0) mEq/L Blood Gas Modality Inspired O2 % Sodium (136-145) mEq/L Potassium (3.5-4.5) mEq/L Chloride (98-109) mEq/L Carbon Dioxide (19-29) mEq/L BUN (8-26) mg/dL Creatinine (0.72-1.25) mg/dL Est GFR ( Amer) (> 60) Est GFR (Non-Af Amer) (> 60) BUN/Creatinine Ratio (6-26) Glucose (70-99) mg/dL POC Glucose 115 H 104 H 116 H (58-89) Calculated Osmolality (280-300) Calcium (8.6-10.8) mg/dL Phosphorus (2.3-4.7) mg/dL Magnesium (1.6-2.6) mg/dL Prealbumin (18.0-45.0) mg/dL Triglycerides (< 150) mg/dL Urine Color (Yellow) Urine Clarity (Clear) Urine pH (5.0-8.0) pH Units Ur Specific [place] (1.010-1.025) Urine Protein (Neg-Trace) mg/dL Urine Glucose (UA) (Normal) mg/dL Urine Ketones (Negative) mg/dL Urine Blood (Negative) Urine Nitrite (Negative) Urine Bilirubin (Negative) Urine Urobilinogen (Normal) mg/dL Ur Leukocyte Esterase (Negative) Urine Microscopic RBC (0-3) per hpf Urine Microscopic WBC (0-3) per hpf Urine Bacteria (None-Few) per hpf Ur Culture Indicated? (NO) Vancomycin Trough (10-20) mcg/mL 09/21/16 09/21/16 09/21/16 Range/Units 03:45 04:00 04:00 WBC 15.4 H (4.3-11.1) K/mcL RBC 4.14 L (4.19-5.50) M/mcL Hgb 12.3 L (12.9-16.9) g/dL Hct 36.4 L (37.5-50.1) % MCV 87.9 (83.0-100.0) fL MCH 29.7 (28.0-33.3) pg MCHC 33.8 (31.6-35.5) g/dL RDW 14.6 H (11.5-14.5) % Plt Count 163 (140-400) K/mcL MPV 9.6 (9.4-12.4) fL Immature Gran % 0.6 (0-4) % Seg Neutrophils % 76.3 % Lymphocytes % 5.6 % Monocytes % 11.3 % Eosinophils % 5.6 % Basophils % 0.6 % Neutrophils # 11.8 H (1.6-8.9) K/mcL Lymphocytes # 0.9 (0.6-4.6) K/mcL Monocytes # 1.7 H (0.0-1.3) K/mcL Eosinophils # 0.9 H (0.0-0.6) K/mcL Basophils # 0.1 (0.0-0.2) K/mcL Immature Plt Fraction (1.1-6.1) % PT (9.4-12.1) Seconds INR ABG pH (7.32-7.45) pH Units ABG pCO2 (35-45) mmHg ABG pO2 (85-104) mmHg ABG HCO3 (21-27) mEQ/L ABG Total CO2 (20-26) mEq/L ABG O2 Saturation (95-98) % ABG Base Excess (-2.0 to 3.0) mEq/L Blood Gas Modality Inspired O2 % Sodium 131 L (136-145) mEq/L Potassium 4.2 (3.5-4.5) mEq/L Chloride 99 (98-109) mEq/L Carbon Dioxide 25 (19-29) mEq/L BUN 15 (8-26) mg/dL Creatinine 0.68 L (0.72-1.25) mg/dL Est GFR ( Amer) > 60 (> 60) Est GFR (Non-Af Amer) > 60 (> 60) BUN/Creatinine Ratio 22 (6-26) Glucose 100 H (70-99) mg/dL POC Glucose 116 H (58-89) Calculated Osmolality 273 L (280-300) Calcium 8.5 L (8.6-10.8) mg/dL Phosphorus (2.3-4.7) mg/dL Magnesium (1.6-2.6) mg/dL Prealbumin (18.0-45.0) mg/dL Triglycerides (< 150) mg/dL Urine Color (Yellow) Urine Clarity (Clear) Urine pH (5.0-8.0) pH Units Ur Specific [place] (1.010-1.025) Urine Protein (Neg-Trace) mg/dL Urine Glucose (UA) (Normal) mg/dL Urine Ketones (Negative) mg/dL Urine Blood (Negative) Urine Nitrite (Negative) Urine Bilirubin (Negative) Urine Urobilinogen (Normal) mg/dL Ur Leukocyte Esterase (Negative) Urine Microscopic RBC (0-3) per hpf Urine Microscopic WBC (0-3) per hpf Urine Bacteria (None-Few) per hpf Ur Culture Indicated? (NO) Vancomycin Trough (10-20) mcg/mL 09/21/16 09/21/16 09/21/16 Range/Units 08:27 12:25 15:42 WBC (4.3-11.1) K/mcL RBC (4.19-5.50) M/mcL Hgb (12.9-16.9) g/dL Hct (37.5-50.1) % MCV (83.0-100.0) fL MCH (28.0-33.3) pg MCHC (31.6-35.5) g/dL RDW (11.5-14.5) % Plt Count (140-400) K/mcL MPV (9.4-12.4) fL Immature Gran % (0-4) % Seg Neutrophils % % Lymphocytes % % Monocytes % % Eosinophils % % Basophils % % Neutrophils # (1.6-8.9) K/mcL Lymphocytes # (0.6-4.6) K/mcL Monocytes # (0.0-1.3) K/mcL Eosinophils # (0.0-0.6) K/mcL Basophils # (0.0-0.2) K/mcL Immature Plt Fraction (1.1-6.1) % PT (9.4-12.1) Seconds INR ABG pH (7.32-7.45) pH Units ABG pCO2 (35-45) mmHg ABG pO2 (85-104) mmHg ABG HCO3 (21-27) mEQ/L ABG Total CO2 (20-26) mEq/L ABG O2 Saturation (95-98) % ABG Base Excess (-2.0 to 3.0) mEq/L Blood Gas Modality Inspired O2 % Sodium (136-145) mEq/L Potassium (3.5-4.5) mEq/L Chloride (98-109) mEq/L Carbon Dioxide (19-29) mEq/L BUN (8-26) mg/dL Creatinine (0.72-1.25) mg/dL Est GFR ( Amer) (> 60) Est GFR (Non-Af Amer) (> 60) BUN/Creatinine Ratio (6-26) Glucose (70-99) mg/dL POC Glucose 120 H 149 H 114 H (58-89) Calculated Osmolality (280-300) Calcium (8.6-10.8) mg/dL Phosphorus (2.3-4.7) mg/dL Magnesium (1.6-2.6) mg/dL Prealbumin (18.0-45.0) mg/dL Triglycerides (< 150) mg/dL Urine Color (Yellow) Urine Clarity (Clear) Urine pH (5.0-8.0) pH Units Ur Specific [place] (1.010-1.025) Urine Protein (Neg-Trace) mg/dL Urine Glucose (UA) (Normal) mg/dL Urine Ketones (Negative) mg/dL Urine Blood (Negative) Urine Nitrite (Negative) Urine Bilirubin (Negative) Urine Urobilinogen (Normal) mg/dL Ur Leukocyte Esterase (Negative) Urine Microscopic RBC (0-3) per hpf Urine Microscopic WBC (0-3) per hpf Urine Bacteria (None-Few) per hpf Ur Culture Indicated? (NO) Vancomycin Trough (10-20) mcg/mL
[2016-09-21] MEDS ORDERED: *HR* Morphine 2 MG/ML SYRINGE IVP PRN (17:18)
--- NOTE | 2016-09-21 17:19 | Oncology Inp Progress Note ---
Date of Encounter: 09/21/16 Time of Encounter: 17:00 Oncology: Subj Interval history: Patient appears comfortable in bed, not very communicative. Not in pain I/P Metastatic colon ca, path findings adenoca CK20 positive, CDX2 positive with multiple mets in liver imaging, bowel obstruction s/p colostomy. Discussed results with patient--who was not very interested in communicating with me today. He had his eyes closed throughout conversation. Not clear if secondary to medication/pain management. Will re-address biopsy result/his diagnosis treatment plan with patient at later date. - Constitutional Vitals: Vital Signs Temp Pulse Resp BP Pulse Ox 09/21/16 15:00 98.4 F 85 18 122/73 98 09/21/16 12:00 97.8 F 86 16 118/58 98 09/21/16 03:50 97.6 F 66 22 121/74 96 09/21/16 00:08 98.2 F 65 24 119/72 93 L 09/20/16 19:33 98.3 F 69 16 120/70 96 Intake and Output 09/21/16 09/21/16 09/21/16 07:59 15:59 23:59 Intake Total 2105 / 2105 450 / 450 Output Total 625 / 625 1650 / 1650 Balance 1480 / 1480 -1200 / -1200 Intake: IV Fluids 2004 450 / 450 Clinimix E 5%-15% 1049 / 1049 SOLUTION 2,000 ML Trophamine 200 ML @ 91.6 mls/hr IV .Q24H [facility] with M.v.i. Adult 10 ml Rx#: [id number] 0.9 % Sodium Chloride 1, 356 / 356 200 / 200 000 ML @ 60 mls/hr IVC . [id number] [facility] Rx#: [id number] Intralipid 20% 250 ML @ 250 / 250 21 mls/hr IVPB DAILY@1700 [facility] Rx#:[id number] Levaquin 750mg/150 mL 750 150 / 150 mg In 150 ml @ 100 mls/ hr IVPB DAILY [facility] Rx#: [id number] Zosyn 3.375 GM In 100 / 100 100 / 100 Dextrose 5% (Minibag+) 100 ML 100 ML @ 25 mls/hr IVPB Q8H [facility] Rx#: [id number] Vancocin 1,250 MG In 250 / 250 Dextrose 5% 250 ML @ 166. 667 mls/hr IVPB Q12H [facility] Rx#:[id number] Oral 100 / 100 Output: Urine 200 / 200 Stool 0 / 0 Other 25 / 25 Catheter 400 / 400 1650 / 1650 Other: Stool Size Moderate Moderate Stool Consistency formed soft Stool Color Brown Brown # Bowel Movements 1 Weight 82.917 kg 76.2 kg Blood Glucose* 116 149 Patient Weight 09/21/16 23:59 Weight 76.2 kg General appearance: thin - Head Head exam: Present: atraumatic, normal inspection - Eye Additional comments: Sleepy, not opening his eyes - Neck Neck exam: Present: full ROM, normal inspection - Respiratory Respiratory exam: Present: CTAB - Cardiovascular Cardiovascular exam: Present: +S1, +S2 - GI/Abdominal GI/Abdominal exam: Present: soft Additional comments: rt ostomy - Extremities Exam Additional comments: no edema.no tenderness Oncology: Obj Data - Labs CBC & Chem 7: 09/21/16 04:00 09/21/16 04:00 Labs: Laboratory Results - last 24 hr 09/20/16 09/20/16 09/21/16 19:18 23:58 03:45 WBC RBC Hgb Hct MCV MCH MCHC RDW Plt Count MPV Immature Gran % Seg Neutrophils % Lymphocytes % Monocytes % Eosinophils % Basophils % Neutrophils # Lymphocytes # Monocytes # Eosinophils # Basophils # Sodium Potassium Chloride Carbon Dioxide BUN Creatinine Est GFR ( Amer) Est GFR (Non-Af Amer) BUN/Creatinine Ratio Glucose POC Glucose 104 H 116 H 116 H Calculated Osmolality Calcium 09/21/16 09/21/16 09/21/16 04:00 04:00 08:27 WBC 15.4 H RBC 4.14 L Hgb 12.3 L Hct 36.4 L MCV 87.9 MCH 29.7 MCHC 33.8 RDW 14.6 H Plt Count 163 MPV 9.6 Immature Gran % 0.6 Seg Neutrophils % 76.3 Lymphocytes % 5.6 Monocytes % 11.3 Eosinophils % 5.6 Basophils % 0.6 Neutrophils # 11.8 H Lymphocytes # 0.9 Monocytes # 1.7 H Eosinophils # 0.9 H Basophils # 0.1 Sodium 131 L Potassium 4.2 Chloride 99 Carbon Dioxide 25 BUN 15 Creatinine 0.68 L Est GFR ( Amer) > 60 Est GFR (Non-Af Amer) > 60 BUN/Creatinine Ratio 22 Glucose 100 H POC Glucose 120 H Calculated Osmolality 273 L Calcium 8.5 L 09/21/16 09/21/16 12:25 15:42 WBC RBC Hgb Hct MCV MCH MCHC RDW Plt Count MPV Immature Gran % Seg Neutrophils % Lymphocytes % Monocytes % Eosinophils % Basophils % Neutrophils # Lymphocytes # Monocytes # Eosinophils # Basophils # Sodium Potassium Chloride Carbon Dioxide BUN Creatinine Est GFR ( Amer) Est GFR (Non-Af Amer) BUN/Creatinine Ratio Glucose POC Glucose 149 H 114 H Calculated Osmolality Calcium - Imaging and cardiology CT scan - abdomen Status: image reviewed by me - ABG Interpretation ABG results: ABG ABG pH 7.36 pH Units (7.32-7.45) 09/16/16 00:01 ABG pCO2 47 mmHg (35-45) H 09/16/16 00:01 ABG pO2 89 mmHg (85-104) 09/16/16 00:01 ABG O2 Saturation 96 % (95-98) 09/16/16 00:01 PT/INR, D-dimer PT 11.5 Seconds (9.4-12.1) 09/15/16 04:35 Consult Discharge Plan - Plan Referrals: Jeannie Ragsdale MD [Partnered Physician] - 10/01/16 8:10 am [facility]Primary Care Provider[facility] -
[2016-09-22] MEDS: Ipratropium/Albuterol Neb 3 ML IH SCH ×4 (03:20→20:30)
[2016-09-22 03:30] LABS: Basophils # 0.1 K/mcL (0.0-0.2); Basophils % 0.6 %; Eosinophils # 0.9 K/mcL (0.0-0.6); Eosinophils % 7.3 %; Hematocrit 34.2 % (37.5-50.1); Hemoglobin 11.6 g/dL (12.9-16.9); Immature Granulocytes % 0.8 % (0-4); Lymphocytes # 1.2 K/mcL (0.6-4.6); Lymphocytes % 9.7 %; Mean Corpuscular HGB Conc 33.9 g/dL (31.6-35.5); Mean Corpuscular Hemoglobin 29.7 pg (28.0-33.3); Mean Corpuscular Volume 87.7 fL (83.0-100.0); Mean Platelet Volume 9.5 fL (9.4-12.4); Monocytes # 1.6 K/mcL (0.0-1.3); Monocytes % 12.8 %; Neutrophils # 8.5 K/mcL (1.6-8.9); Platelet Count 175 K/mcL (140-400); Red Cell Distribution Width 14.7 % (11.5-14.5); Segmented Neutrophils % 68.8 %
[2016-09-22 03:47] LABS: BUN/Creatinine Ratio 21 (6-26); Blood Urea Nitrogen 14 mg/dL (8-26); Calcium 8.2 mg/dL (8.6-10.8); Carbon Dioxide 26 mEq/L (19-29); Chloride 100 mEq/L (98-109); Glucose 103 mg/dL (70-99); Osmolality,Calculated 275 (280-300); Sodium 132 mEq/L (136-145); eGFR For African Americans > 60 (> 60); eGFR For Non-African Americans > 60 (> 60)
[2016-09-22] MEDS: Insulin LISPRO 300 UNITS/3 ML VIAL SQ SCH ×5 (04:13→20:41)
[2016-09-22] MEDS: Piperacillin/Tazobactam 3.375 GM in D5% in Water (Mini-Bag+) 100 ML IVPB SCH ×2 (05:22→14:29)
[2016-09-22] MEDS: *HR* Heparin 5,000 UNIT/ML VIAL SQ SCH ×3 (05:23→21:50)
[2016-09-22] MEDS ORDERED: Vancomycin 1,500 MG in D5% in Water 250 ML IVPB SCH (06:00)
[2016-09-22] MEDS: Vancomycin 1,250 MG in D5% in Water 250 ML IVPB SCH (07:00)
[2016-09-22] MEDS ORDERED: Aminoglycoside Consult 1 EACH MC ONE (08:42)
--- NOTE | 2016-09-22 09:22 | Palliative Progress Note ---
<RollyjeffMiguel jerome - Last Filed: 09/22/16 09:22> Date of Encounter: 09/22/16 Time of Encounter: 09:00 - Assessment and plan (1) Goals of care, counseling/discussion Current Visit: Yes Status: Acute Assessment and plan: -Patient aware of diagnosis, told on 06/21/16. BrotherNick, was told over the phone by myself on 09/22/15. -Patient not wanting to talk. unclear on what he would like to do for treatment. Oncology is on board. -Brother is coming to the hospital to discuss with patient treatment options vs hospice. Is open for swing bed option. (2) Metastatic colon cancer to liver Current Visit: Yes Status: Acute Assessment and plan: -Patient aware of diagnosis, told 06/21/16. BrotherNick, was told over the phone by myself on 09/22/15. -Patient not wanting to talk. unclear on what he would like to do for treatment. Oncology is on board. Denies N/V. Indicates that he does not need to have an increase in pain medicine. -Brother is coming to the hospital to discuss with patient treatment options vs hospice. Is open for swing bed option. - Time Spent With Patient Total time spent is greater than 50% in coordination of care (as documented) at patient's floor/unit and/or counseling patient: 10 min with patient, spent 8 min on phone with patients brother. - Subjective Interval history: Yesterday, patient was told that he has metastatic colon cancer. Today, patient did not want to talk about diagnosis. Very somnolent/depressive attitude. Did indicate that he was informed. Most of my questions were replied with "I don't know" even when asked if he was in pain/if he would like to undergo treatment or have hospice care. Denies nausea, vomiting. There is stool in the left colostomy. No fluid in the right colostomy. Did have abdominal pain with palpation. Did speak with brotherNick, on phone. He was not aware of patients diagnosis. He was not overly emotional on the phone. Retired. He is coming down from [place], [place] to talk with patient and discuss treatment options and direction of care. He is still open to the idea of a swing bed. - Constitutional Vitals: Abnormal lab results WBC 12.3 K/mcL (4.3-11.1) H 09/22/16 03:20 RBC 3.90 M/mcL (4.19-5.50) L 09/22/16 03:20 Hgb 11.6 g/dL (12.9-16.9) L 09/22/16 03:20 Hct 34.2 % (37.5-50.1) L 09/22/16 03:20 RDW 14.7 % (11.5-14.5) H 09/22/16 03:20 Monocytes # 1.6 K/mcL (0.0-1.3) H 09/22/16 03:20 Eosinophils # 0.9 K/mcL (0.0-0.6) H 09/22/16 03:20 ABG pCO2 47 mmHg (35-45) H 09/16/16 00:01 ABG Total CO2 28.0 mEq/L (20-26) H 09/16/16 00:01 Sodium 132 mEq/L (136-145) L 09/22/16 03:20 Creatinine 0.66 mg/dL (0.72-1.25) L 09/22/16 03:20 Glucose 103 mg/dL (70-99) H 09/22/16 03:20 POC Glucose 125 (58-89) H 09/22/16 07:47 Calculated Osmolality 275 (280-300) L 09/22/16 03:20 Calcium 8.2 mg/dL (8.6-10.8) L 09/22/16 03:20 Albumin 3.0 g/dL (3.5-5.0) L 09/14/16 05:27 Albumin/Globulin Ratio 1.0 (1.1-2.2) L 09/14/16 05:27 Prealbumin 5.0 mg/dL (18.0-45.0) L 09/20/16 03:20 Urine Blood Small (Negative) H 09/18/16 16:00 Ur Squamous Epith Cells Many per lpf (None-Few) H 09/13/16 20:27 Hyaline Casts Moderate per lpf (None-Few) H 09/13/16 20:27 Urine Mucus Many (Few) H 09/13/16 20:27 - Head Head exam: Present: atraumatic, normal inspection - Respiratory Respiratory exam: Absent: accessory muscle use, respiratory distress - GI/Abdominal GI/Abdominal exam: Present: guarding, normal bowel sounds, soft, tenderness Additional comments: Double colostomy bag. Secure. L has stool present. R has no drainage, may have been recently emptied. No erythema, abscess or infection noted. - Psychiatric Psychiatric exam: Present: depressed, flat affect Palliative Quality Palliative Quality: Screen for Code Status: Yes, Screen for Goals of Care: Yes, Screen for Pain: Yes, If Pain Regimen Started, Initiate Bowel Regimen: NA, Screen for Nausea/Vomitting: Yes Code Status: 09/14/16 02:40 Resuscitation Status: Active [RES] Routine Comment: Resuscitation Status: DNR-Comfort Care-Arrest - Labs CBC & Chem 7: 09/22/16 03:20 09/22/16 03:20 Labs: Laboratory Results - last 24 hr 09/21/16 09/21/16 09/21/16 12:25 15:42 19:33 WBC RBC Hgb Hct MCV MCH MCHC RDW Plt Count MPV Immature Gran % Seg Neutrophils % Lymphocytes % Monocytes % Eosinophils % Basophils % Neutrophils # Lymphocytes # Monocytes # Eosinophils # Basophils # Sodium Potassium Chloride Carbon Dioxide BUN Creatinine Est GFR ( Amer) Est GFR (Non-Af Amer) BUN/Creatinine Ratio Glucose POC Glucose 149 H 114 H 137 H Calculated Osmolality Calcium Vancomycin Trough 09/21/16 09/22/16 09/22/16 23:17 03:20 03:20 WBC 12.3 H RBC 3.90 L Hgb 11.6 L Hct 34.2 L MCV 87.7 MCH 29.7 MCHC 33.9 RDW 14.7 H Plt Count 175 MPV 9.5 Immature Gran % 0.8 Seg Neutrophils % 68.8 Lymphocytes % 9.7 Monocytes % 12.8 Eosinophils % 7.3 Basophils % 0.6 Neutrophils # 8.5 Lymphocytes # 1.2 Monocytes # 1.6 H Eosinophils # 0.9 H Basophils # 0.1 Sodium Potassium Chloride Carbon Dioxide BUN Creatinine Est GFR ( Amer) Est GFR (Non-Af Amer) BUN/Creatinine Ratio Glucose POC Glucose 120 H Calculated Osmolality Calcium Vancomycin Trough 11.7 09/22/16 09/22/16 09/22/16 03:20 03:40 07:47 WBC RBC Hgb Hct MCV MCH MCHC RDW Plt Count MPV Immature Gran % Seg Neutrophils % Lymphocytes % Monocytes % Eosinophils % Basophils % Neutrophils # Lymphocytes # Monocytes # Eosinophils # Basophils # Sodium 132 L Potassium 4.0 Chloride 100 Carbon Dioxide 26 BUN 14 Creatinine 0.66 L Est GFR ( Amer) > 60 Est GFR (Non-Af Amer) > 60 BUN/Creatinine Ratio 21 Glucose 103 H POC Glucose 110 H 125 H Calculated Osmolality 275 L Calcium 8.2 L Vancomycin Trough - ABG Interpretation ABG results: ABG ABG pH 7.36 pH Units (7.32-7.45) 09/16/16 00:01 ABG pCO2 47 mmHg (35-45) H 09/16/16 00:01 ABG pO2 89 mmHg (85-104) 09/16/16 00:01 ABG O2 Saturation 96 % (95-98) 09/16/16 00:01 PT/INR, D-dimer PT 11.5 Seconds (9.4-12.1) 09/15/16 04:35 Consult Discharge Plan - Plan Referrals: Jeannie Ragsdale MD [Partnered Physician] - 10/01/16 8:10 am [place],PCP [Primary Care Provider] - <Arvind Crain - Last Filed: 09/22/16 09:54> - Assessment and plan (1) Nausea and vomiting Current Visit: Yes Status: Acute Qualifiers: Vomiting type: unspecified Vomiting Intractability: non-intractable Qualified Code(s): R11.2 - Nausea with vomiting, unspecified (2) Abdominal pain Current Visit: Yes Status: Acute Qualifiers: Abdominal location: epigastric Qualified Code(s): R10.13 - Epigastric pain (3) Goals of care, counseling/discussion Current Visit: Yes Status: Acute (4) Bowel obstruction Current Visit: Yes Status: Resolved Qualifiers: Intestinal obstruction type: other intestinal obstruction Qualified Code(s) : K56.69 - Other intestinal obstruction (5) Metastatic carcinoma involving liver with unknown primary site Current Visit: Yes Status: Acute - Time Spent With Patient Total time spent is greater than 50% in coordination of care (as documented) at patient's floor/unit and/or counseling patient: - Constitutional Vitals: Abnormal lab results WBC 12.3 K/mcL (4.3-11.1) H 09/22/16 03:20 RBC 3.90 M/mcL (4.19-5.50) L 09/22/16 03:20 Hgb 11.6 g/dL (12.9-16.9) L 09/22/16 03:20 Hct 34.2 % (37.5-50.1) L 09/22/16 03:20 RDW 14.7 % (11.5-14.5) H 09/22/16 03:20 Monocytes # 1.6 K/mcL (0.0-1.3) H 09/22/16 03:20 Eosinophils # 0.9 K/mcL (0.0-0.6) H 09/22/16 03:20 ABG pCO2 47 mmHg (35-45) H 09/16/16 00:01 ABG Total CO2 28.0 mEq/L (20-26) H 09/16/16 00:01 Sodium 132 mEq/L (136-145) L 09/22/16 03:20 Creatinine 0.66 mg/dL (0.72-1.25) L 09/22/16 03:20 Glucose 103 mg/dL (70-99) H 09/22/16 03:20 POC Glucose 125 (58-89) H 09/22/16 07:47 Calculated Osmolality 275 (280-300) L 09/22/16 03:20 Calcium 8.2 mg/dL (8.6-10.8) L 09/22/16 03:20 Albumin 3.0 g/dL (3.5-5.0) L 09/14/16 05:27 Albumin/Globulin Ratio 1.0 (1.1-2.2) L 09/14/16 05:27 Prealbumin 5.0 mg/dL (18.0-45.0) L 09/20/16 03:20 Urine Blood Small (Negative) H 09/18/16 16:00 Ur Squamous Epith Cells Many per lpf (None-Few) H 09/13/16 20:27 Hyaline Casts Moderate per lpf (None-Few) H 09/13/16 20:27 Urine Mucus Many (Few) H 09/13/16 20:27 - Attending Attestation I examined this patient and my medical decision-making was reviewed with the [facility] SPECIALIST/PA/Advanced Practice Nurse/Resident Physician. I agree with the documented findings, disposition and treatment plan as described except to the extent set forth below. Palliative Quality Code Status: 09/14/16 02:40 Resuscitation Status: Active [RES] Routine Comment: Resuscitation Status: DNR-Comfort Care-Arrest - Labs CBC & Chem 7: 09/22/16 03:20 09/22/16 03:20 Labs: Laboratory Results - last 24 hr 09/21/16 09/21/16 09/21/16 12:25 15:42 19:33 WBC RBC Hgb Hct MCV MCH MCHC RDW Plt Count MPV Immature Gran % Seg Neutrophils % Lymphocytes % Monocytes % Eosinophils % Basophils % Neutrophils # Lymphocytes # Monocytes # Eosinophils # Basophils # Sodium Potassium Chloride Carbon Dioxide BUN Creatinine Est GFR ( Amer) Est GFR (Non-Af Amer) BUN/Creatinine Ratio Glucose POC Glucose 149 H 114 H 137 H Calculated Osmolality Calcium Vancomycin Trough 09/21/16 09/22/16 09/22/16 23:17 03:20 03:20 WBC 12.3 H RBC 3.90 L Hgb 11.6 L Hct 34.2 L MCV 87.7 MCH 29.7 MCHC 33.9 RDW 14.7 H Plt Count 175 MPV 9.5 Immature Gran % 0.8 Seg Neutrophils % 68.8 Lymphocytes % 9.7 Monocytes % 12.8 Eosinophils % 7.3 Basophils % 0.6 Neutrophils # 8.5 Lymphocytes # 1.2 Monocytes # 1.6 H Eosinophils # 0.9 H Basophils # 0.1 Sodium Potassium Chloride Carbon Dioxide BUN Creatinine Est GFR ( Amer) Est GFR (Non-Af Amer) BUN/Creatinine Ratio Glucose POC Glucose 120 H Calculated Osmolality Calcium Vancomycin Trough 11.7 09/22/16 09/22/16 09/22/16 03:20 03:40 07:47 WBC RBC Hgb Hct MCV MCH MCHC RDW Plt Count MPV Immature Gran % Seg Neutrophils % Lymphocytes % Monocytes % Eosinophils % Basophils % Neutrophils # Lymphocytes # Monocytes # Eosinophils # Basophils # Sodium 132 L Potassium 4.0 Chloride 100 Carbon Dioxide 26 BUN 14 Creatinine 0.66 L Est GFR ( Amer) > 60 Est GFR (Non-Af Amer) > 60 BUN/Creatinine Ratio 21 Glucose 103 H POC Glucose 110 H 125 H Calculated Osmolality 275 L Calcium 8.2 L Vancomycin Trough - ABG Interpretation ABG results: ABG ABG pH 7.36 pH Units (7.32-7.45) 09/16/16 00:01 ABG pCO2 47 mmHg (35-45) H 09/16/16 00:01 ABG pO2 89 mmHg (85-104) 09/16/16 00:01 ABG O2 Saturation 96 % (95-98) 09/16/16 00:01 PT/INR, D-dimer PT 11.5 Seconds (9.4-12.1) 09/15/16 04:35
[2016-09-22] MEDS: Levofloxacin 750 MG/150 ML 750 MG/150 ML BAG IVPB SCH (09:41)
[2016-09-22] MEDS: Pantoprazole 40 MG VIAL IVP SCH (09:41)
--- NOTE | 2016-09-22 13:46 | General Surgery Progress Note ---
Date of Encounter: 09/22/16 Time of Encounter: 13:41 - Assessment and Plan (1) Metastatic carcinoma involving liver with unknown primary site Current Visit: Yes Status: Acute POD #7 from Exploratory laparotomy with end colostomy and creation of mucous fistula Liver biopsy with Dr. De La Cruz Pathology reviewed Advance to soft diet- poor appetite May consider peg tube if patient refuses to eat Continue TPN therapy Colostomy and mucous fistula care daily Consult ostomy nurse Supportive care and pain control Repeat labs in the am (2) Urinary retention Current Visit: Yes Status: Acute Junior catheter to SD inserted 09/16/16 Remove junior 09/23/16 at 0700 Flomax started 09/21/16 (3) History of CVA with residual deficit Current Visit: No Status: Chronic (4) DVT prophylaxis Current Visit: No Status: Acute Continue heparin 5,000 units SQ twice daily for DVT prophylaxis Subjective Patient reports: no new complaints, still having pain (surgical), pain is less, bowel movement, afebrile, other (No appetite and patient is refusing liquids; Denies nausea/vomiting) Objective Vital Signs - Last 8 Hours Temp Pulse Resp BP Pulse Ox 09/22/16 11:00 97.4 F L 76 16 177/74 95 09/22/16 07:00 98.2 F 72 16 114/64 95 Intake and Output 09/21/16 09/22/16 09/22/16 23:59 07:59 15:59 Intake Total 2486 / 2486 350 / 350 Output Total 1050 / 1050 1101 / 1101 550 / 550 Balance 1436 / 1436 -751 / -751 -550 / -550 Intake: IV Fluids 2486 / 2486 350 / 350 Clinimix E 5%-15% 1636 / 1636 SOLUTION 2,000 ML Trophamine 200 ML @ 91.6 mls/hr IV .Q24H [facility] with M.v.i. Adult 10 ml Rx#: [id number] 0.9 % Sodium Chloride 1, 500 / 500 000 ML @ 60 mls/hr IVC . [id number] [facility] Rx#: [id number] Intralipid 20% 250 ML @ 250 / 250 21 mls/hr IVPB DAILY@1700 [facility] Rx#:[id number] Zosyn 3.375 GM In 100 / 100 100 / 100 Dextrose 5% (Minibag+) 100 ML 100 ML @ 25 mls/hr IVPB Q8H [facility] Rx#: [id number] Vancocin 1,250 MG In 250 / 250 Dextrose 5% 250 ML @ 166. 667 mls/hr IVPB Q12H [facility] Rx#:[id number] Oral 0 / 0 0 / 0 Output: Stool 0 / 0 1 / 1 Other 0 / 0 Catheter 1050 / 1050 1100 / 1100 550 / 550 Other: Meal Dinner Refuse Percent of Meal Consumed 0% Stool Size Smear Stool Color Brown Blood Glucose* 120 125 105 - General physical appearance no distress - Eyes normal ocular movement - ENT normal mucosa, atraumatic, normocephalic - Neck Neck exam: trachea midline - Respiratory normal respiratory effort, clear to auscultation, other (diminished bibasilar bases) - Cardiovascular Cardiovascular exam: Present: RRR - Abdomen Abdomen: Present: bowel sounds present, soft, tender (expected post-operative tenderness), wound (Colostomy pink/moist; Mucous fistula pink and moist with liquid/brown stool noted) - Incision Incision: Present: clean and dry, intact - Genitourinary other (junior catheter to SD with clear/yellow urine) - Integumentary no rash, no growths - Neurologic CN 2-12 grossly intact - Musculoskeletal other (moderate deconditioning; hx of CVA) - Psychiatric oriented to time, oriented to person, oriented to place, memory intact - Labs 09/22/16 03:20 09/22/16 03:20 Diabetes panel 09/22/16 Range/Units 03:20 Sodium 132 L (136-145) mEq/L Potassium 4.0 (3.5-4.5) mEq/L Chloride 100 (98-109) mEq/L Carbon Dioxide 26 (19-29) mEq/L BUN 14 (8-26) mg/dL Creatinine 0.66 L (0.72-1.25) mg/dL Glucose 103 H (70-99) mg/dL Calcium 8.2 L (8.6-10.8) mg/dL Calcium panel 09/22/16 Range/Units 03:20 Calcium 8.2 L (8.6-10.8) mg/dL Pituitary panel 09/22/16 Range/Units 03:20 Sodium 132 L (136-145) mEq/L Potassium 4.0 (3.5-4.5) mEq/L Chloride 100 (98-109) mEq/L Carbon Dioxide 26 (19-29) mEq/L BUN 14 (8-26) mg/dL Creatinine 0.66 L (0.72-1.25) mg/dL Glucose 103 H (70-99) mg/dL Calcium 8.2 L (8.6-10.8) mg/dL Adrenal panel 09/22/16 Range/Units 03:20 Sodium 132 L (136-145) mEq/L Potassium 4.0 (3.5-4.5) mEq/L Chloride 100 (98-109) mEq/L Carbon Dioxide 26 (19-29) mEq/L BUN 14 (8-26) mg/dL Creatinine 0.66 L (0.72-1.25) mg/dL Glucose 103 H (70-99) mg/dL Calcium 8.2 L (8.6-10.8) mg/dL - VTE Documentation of Mechanical Device: Intermittent pneumatic compression device Consult Discharge Plan - Plan Referrals: Jeannie Ragsdale MD [Partnered Physician] - 10/01/16 8:10 am [place],PCP [Primary Care Provider] -
[2016-09-22] MEDS: *HR* HYDROcodone/Acet 10/325 mg TABLET PO PRN (14:17)
[2016-09-22] MEDS: GuaiFENesin/Codeine Oral Soln 5 ML UDC PO PRN (14:20)
--- NOTE | 2016-09-22 16:40 | Internal Med Progress Note ---
Date of Encounter: 09/22/16 Time of Encounter: 16:20 - Assessment and plan (1) Hospital acquired PNA Current Visit: Yes Status: Acute Assessment and plan: WBC count continues to improve. Stop Zosyn and vancomycin. Continue Levaquin (2) Metastatic carcinoma involving liver with unknown primary site Current Visit: Yes Status: Acute Assessment and plan: Patient now diagnosed with metastatic colon cancer. Oncology has been consulted. Palliative care is also on board. (3) DVT prophylaxis Current Visit: No Status: Acute Assessment and plan: On subcutaneous heparin (4) Bowel obstruction Current Visit: Yes Status: Resolved Assessment and plan: Treated with surgery. Status post exploratory laparotomy and colostomy. Continue TPN. Poor oral nutrition. Qualifiers: Intestinal obstruction type: other intestinal obstruction Qualified Code(s) : K56.69 - Other intestinal obstruction (5) History of CVA with residual deficit Current Visit: No Status: Chronic - Subjective Interval history: Patient lying in bed. Appears comfortable. Denies any pain today. He was informed of diagnosis of metastatic carcinoma of the colon yesterday. There does not seem to want to talk about it today. Denies any nausea or vomiting. - Constitutional Vitals: Temp Pulse Resp BP Pulse Ox 97.5 F L 74 16 143/71 96 09/22/16 16:00 09/22/16 16:00 09/22/16 16:00 09/22/16 16:00 09/22/16 16:00 General appearance: Present: cooperative, A&O X 3, no acute distress, underweight - Head Head exam: Present: atraumatic - Neck Neck exam general surgery: Present: supple, trachea midline. Absent: lymphadenopathy - Respiratory Respiratory exam: Present: CTAB. Absent: accessory muscle use, rales, rhonchi, wheezes - Cardiovascular Cardiovascular exam: Present: RRR, +S1, +S2. Absent: diastolic murmur, gallop, rubs, systolic murmur - GI/Abdominal GI/Abdominal exam: Present: soft, tenderness (Mild tenderness mid abdomen), no peritoneal signs. Absent: distended Additional comments: Colostomy bags in place. - Extremities Exam Extremities exam: Present: warm, radial pulses palpable and symetrical. Absent : calf tenderness, cyanotic, pedal edema - Neurological Exam Neurological exam: Present: CN II-XII intact, oriented X3. Absent: facial droop Additional comments: Right-sided upper and lower extremity weakness present - Skin Skin exam: Present: dry, intact Internal Medicine: Result - Labs CBC & Chem 7: 09/22/16 03:20 09/22/16 03:20 Labs: Short CBC 09/22/16 Range/Units 03:20 WBC 12.3 H (4.3-11.1) K/mcL Hgb 11.6 L (12.9-16.9) g/dL Hct 34.2 L (37.5-50.1) % Plt Count 175 (140-400) K/mcL Neutrophils # 8.5 (1.6-8.9) K/mcL BMP 09/22/16 03:20 Sodium 132 L Potassium 4.0 Chloride 100 Carbon Dioxide 26 BUN 14 Creatinine 0.66 L Glucose 103 H Calcium 8.2 L - ABG Interpretation ABG results: ABG ABG pH 7.36 pH Units (7.32-7.45) 09/16/16 00:01 ABG pCO2 47 mmHg (35-45) H 09/16/16 00:01 ABG pO2 89 mmHg (85-104) 09/16/16 00:01 ABG O2 Saturation 96 % (95-98) 09/16/16 00:01 PT/INR, D-dimer PT 11.5 Seconds (9.4-12.1) 09/15/16 04:35 - VTE Documentation of Mechanical Device: Intermittent pneumatic compression device Consult Discharge Plan - Plan Referrals: Jeannie Ragsdale MD [Partnered Physician] - 10/01/16 8:10 am [place],PCP [Primary Care Provider] - - Attending Attestation This document has been at least partially created by [employer] recognition technology by Dr. Mak. Errors in grammar, wording or other phrases may exist. If errors are found after the documentation is signed, they will be addressed individually in the addendum section of this document when appropriate. Medical Decision Making - MDM Narrative Medical decision making narrative: Moderate risk for complications - Lab Data Result diagrams: 09/22/16 03:20 09/22/16 03:20 Lab Results 09/14/16 09/14/16 09/15/16 Range/Units 11:50 23:12 04:35 WBC (4.3-11.1) K/mcL RBC (4.19-5.50) M/mcL Hgb (12.9-16.9) g/dL Hct (37.5-50.1) % MCV (83.0-100.0) fL MCH (28.0-33.3) pg MCHC (31.6-35.5) g/dL RDW (11.5-14.5) % Plt Count (140-400) K/mcL MPV (9.4-12.4) fL Immature Gran % (0-4) % Seg Neutrophils % % Lymphocytes % % Monocytes % % Eosinophils % % Basophils % % Neutrophils # (1.6-8.9) K/mcL Lymphocytes # (0.6-4.6) K/mcL Monocytes # (0.0-1.3) K/mcL Eosinophils # (0.0-0.6) K/mcL Basophils # (0.0-0.2) K/mcL Immature Plt Fraction (1.1-6.1) % PT 11.5 (9.4-12.1) Seconds INR 1.1 ABG pH (7.32-7.45) pH Units ABG pCO2 (35-45) mmHg ABG pO2 (85-104) mmHg ABG HCO3 (21-27) mEQ/L ABG Total CO2 (20-26) mEq/L ABG O2 Saturation (95-98) % ABG Base Excess (-2.0 to 3.0) mEq/L Blood Gas Modality Inspired O2 % Sodium (136-145) mEq/L Potassium (3.5-4.5) mEq/L Chloride (98-109) mEq/L Carbon Dioxide (19-29) mEq/L BUN (8-26) mg/dL Creatinine (0.72-1.25) mg/dL Est GFR ( Amer) (> 60) Est GFR (Non-Af Amer) (> 60) BUN/Creatinine Ratio (6-26) Glucose (70-99) mg/dL POC Glucose 92 H 96 H (58-89) Calculated Osmolality (280-300) Calcium (8.6-10.8) mg/dL Phosphorus (2.3-4.7) mg/dL Magnesium (1.6-2.6) mg/dL Prealbumin (18.0-45.0) mg/dL Triglycerides (< 150) mg/dL Urine Color (Yellow) Urine Clarity (Clear) Urine pH (5.0-8.0) pH Units Ur Specific [place] (1.010-1.025) Urine Protein (Neg-Trace) mg/dL Urine Glucose (UA) (Normal) mg/dL Urine Ketones (Negative) mg/dL Urine Blood (Negative) Urine Nitrite (Negative) Urine Bilirubin (Negative) Urine Urobilinogen (Normal) mg/dL Ur Leukocyte Esterase (Negative) Urine Microscopic RBC (0-3) per hpf Urine Microscopic WBC (0-3) per hpf Urine Bacteria (None-Few) per hpf Ur Culture Indicated? (NO) Vancomycin Trough (10-20) mcg/mL 09/15/16 09/15/16 09/15/16 Range/Units 04:35 04:35 05:37 WBC 10.9 (4.3-11.1) K/mcL RBC 4.99 (4.19-5.50) M/mcL Hgb 15.0 (12.9-16.9) g/dL Hct 44.5 (37.5-50.1) % MCV 89.2 (83.0-100.0) fL MCH 30.1 (28.0-33.3) pg MCHC 33.7 (31.6-35.5) g/dL RDW 14.5 (11.5-14.5) % Plt Count 238 (140-400) K/mcL MPV 9.3 L (9.4-12.4) fL Immature Gran % 0.6 (0-4) % Seg Neutrophils % 64.8 % Lymphocytes % 21.4 % Monocytes % 10.6 % Eosinophils % 2.0 % Basophils % 0.6 % Neutrophils # 7.0 (1.6-8.9) K/mcL Lymphocytes # 2.3 (0.6-4.6) K/mcL Monocytes # 1.2 (0.0-1.3) K/mcL Eosinophils # 0.2 (0.0-0.6) K/mcL Basophils # 0.1 (0.0-0.2) K/mcL Immature Plt Fraction (1.1-6.1) % PT (9.4-12.1) Seconds INR ABG pH (7.32-7.45) pH Units ABG pCO2 (35-45) mmHg ABG pO2 (85-104) mmHg ABG HCO3 (21-27) mEQ/L ABG Total CO2 (20-26) mEq/L ABG O2 Saturation (95-98) % ABG Base Excess (-2.0 to 3.0) mEq/L Blood Gas Modality Inspired O2 % Sodium 136 (136-145) mEq/L Potassium 3.8 (3.5-4.5) mEq/L Chloride 106 (98-109) mEq/L Carbon Dioxide 22 (19-29) mEq/L BUN 9 (8-26) mg/dL Creatinine 0.79 (0.72-1.25) mg/dL Est GFR ( Amer) > 60 (> 60) Est GFR (Non-Af Amer) > 60 (> 60) BUN/Creatinine Ratio 11 (6-26) Glucose 86 (70-99) mg/dL POC Glucose 88 (58-89) Calculated Osmolality 280 (280-300) Calcium 8.5 L (8.6-10.8) mg/dL Phosphorus (2.3-4.7) mg/dL Magnesium (1.6-2.6) mg/dL Prealbumin (18.0-45.0) mg/dL Triglycerides (< 150) mg/dL Urine Color (Yellow) Urine Clarity (Clear) Urine pH (5.0-8.0) pH Units Ur Specific [place] (1.010-1.025) Urine Protein (Neg-Trace) mg/dL Urine Glucose (UA) (Normal) mg/dL Urine Ketones (Negative) mg/dL Urine Blood (Negative) Urine Nitrite (Negative) Urine Bilirubin (Negative) Urine Urobilinogen (Normal) mg/dL Ur Leukocyte Esterase (Negative) Urine Microscopic RBC (0-3) per hpf Urine Microscopic WBC (0-3) per hpf Urine Bacteria (None-Few) per hpf Ur Culture Indicated? (NO) Vancomycin Trough (10-20) mcg/mL 09/15/16 09/15/16 09/15/16 Range/Units 10:51 11:27 11:27 WBC (4.3-11.1) K/mcL RBC (4.19-5.50) M/mcL Hgb (12.9-16.9) g/dL Hct (37.5-50.1) % MCV (83.0-100.0) fL MCH (28.0-33.3) pg MCHC (31.6-35.5) g/dL RDW (11.5-14.5) % Plt Count (140-400) K/mcL MPV (9.4-12.4) fL Immature Gran % (0-4) % Seg Neutrophils % % Lymphocytes % % Monocytes % % Eosinophils % % Basophils % % Neutrophils # (1.6-8.9) K/mcL Lymphocytes # (0.6-4.6) K/mcL Monocytes # (0.0-1.3) K/mcL Eosinophils # (0.0-0.6) K/mcL Basophils # (0.0-0.2) K/mcL Immature Plt Fraction (1.1-6.1) % PT (9.4-12.1) Seconds INR ABG pH (7.32-7.45) pH Units ABG pCO2 (35-45) mmHg ABG pO2 (85-104) mmHg ABG HCO3 (21-27) mEQ/L ABG Total CO2 (20-26) mEq/L ABG O2 Saturation (95-98) % ABG Base Excess (-2.0 to 3.0) mEq/L Blood Gas Modality Inspired O2 % Sodium (136-145) mEq/L Potassium (3.5-4.5) mEq/L Chloride (98-109) mEq/L Carbon Dioxide (19-29) mEq/L BUN (8-26) mg/dL Creatinine (0.72-1.25) mg/dL Est GFR ( Amer) (> 60) Est GFR (Non-Af Amer) (> 60) BUN/Creatinine Ratio (6-26) Glucose (70-99) mg/dL POC Glucose 77 (58-89) Calculated Osmolality (280-300) Calcium (8.6-10.8) mg/dL Phosphorus 2.7 (2.3-4.7) mg/dL Magnesium 2.0 (1.6-2.6) mg/dL Prealbumin (18.0-45.0) mg/dL Triglycerides (< 150) mg/dL Urine Color (Yellow) Urine Clarity (Clear) Urine pH (5.0-8.0) pH Units Ur Specific [place] (1.010-1.025) Urine Protein (Neg-Trace) mg/dL Urine Glucose (UA) (Normal) mg/dL Urine Ketones (Negative) mg/dL Urine Blood (Negative) Urine Nitrite (Negative) Urine Bilirubin (Negative) Urine Urobilinogen (Normal) mg/dL Ur Leukocyte Esterase (Negative) Urine Microscopic RBC (0-3) per hpf Urine Microscopic WBC (0-3) per hpf Urine Bacteria (None-Few) per hpf Ur Culture Indicated? (NO) Vancomycin Trough (10-20) mcg/mL 09/15/16 09/15/16 09/16/16 Range/Units 11:27 11:27 00:01 WBC (4.3-11.1) K/mcL RBC (4.19-5.50) M/mcL Hgb (12.9-16.9) g/dL Hct (37.5-50.1) % MCV (83.0-100.0) fL MCH (28.0-33.3) pg MCHC (31.6-35.5) g/dL RDW (11.5-14.5) % Plt Count (140-400) K/mcL MPV (9.4-12.4) fL Immature Gran % (0-4) % Seg Neutrophils % % Lymphocytes % % Monocytes % % Eosinophils % % Basophils % % Neutrophils # (1.6-8.9) K/mcL Lymphocytes # (0.6-4.6) K/mcL Monocytes # (0.0-1.3) K/mcL Eosinophils # (0.0-0.6) K/mcL Basophils # (0.0-0.2) K/mcL Immature Plt Fraction (1.1-6.1) % PT (9.4-12.1) Seconds INR ABG pH 7.36 (7.32-7.45) pH Units ABG pCO2 47 H (35-45) mmHg ABG pO2 89 (85-104) mmHg ABG HCO3 26.6 (21-27) mEQ/L ABG Total CO2 28.0 H (20-26) mEq/L ABG O2 Saturation 96 (95-98) % ABG Base Excess 0.6 (-2.0 to 3.0) mEq/L Blood Gas Modality nc Inspired O2 28 % Sodium (136-145) mEq/L Potassium (3.5-4.5) mEq/L Chloride (98-109) mEq/L Carbon Dioxide (19-29) mEq/L BUN (8-26) mg/dL Creatinine (0.72-1.25) mg/dL Est GFR ( Amer) (> 60) Est GFR (Non-Af Amer) (> 60) BUN/Creatinine Ratio (6-26) Glucose (70-99) mg/dL POC Glucose (58-89) Calculated Osmolality (280-300) Calcium (8.6-10.8) mg/dL Phosphorus (2.3-4.7) mg/dL Magnesium (1.6-2.6) mg/dL Prealbumin 11.0 L (18.0-45.0) mg/dL Triglycerides 106 (< 150) mg/dL Urine Color (Yellow) Urine Clarity (Clear) Urine pH (5.0-8.0) pH Units Ur Specific [place] (1.010-1.025) Urine Protein (Neg-Trace) mg/dL Urine Glucose (UA) (Normal) mg/dL Urine Ketones (Negative) mg/dL Urine Blood (Negative) Urine Nitrite (Negative) Urine Bilirubin (Negative) Urine Urobilinogen (Normal) mg/dL Ur Leukocyte Esterase (Negative) Urine Microscopic RBC (0-3) per hpf Urine Microscopic WBC (0-3) per hpf Urine Bacteria (None-Few) per hpf Ur Culture Indicated? (NO) Vancomycin Trough (10-20) mcg/mL 09/16/16 09/16/16 09/16/16 Range/Units 00:06 03:20 03:20 WBC 18.5 H D (4.3-11.1) K/mcL RBC 4.47 (4.19-5.50) M/mcL Hgb 13.5 D (12.9-16.9) g/dL Hct 40.2 (37.5-50.1) % MCV 89.9 (83.0-100.0) fL MCH 30.2 (28.0-33.3) pg MCHC 33.6 (31.6-35.5) g/dL RDW 14.6 H (11.5-14.5) % Plt Count 188 (140-400) K/mcL MPV 9.2 L (9.4-12.4) fL Immature Gran % 0.6 (0-4) % Seg Neutrophils % 90.0 % Lymphocytes % 3.4 % Monocytes % 5.8 % Eosinophils % 0.0 % Basophils % 0.2 % Neutrophils # 16.7 H (1.6-8.9) K/mcL Lymphocytes # 0.6 (0.6-4.6) K/mcL Monocytes # 1.1 (0.0-1.3) K/mcL Eosinophils # 0.0 (0.0-0.6) K/mcL Basophils # 0.0 (0.0-0.2) K/mcL Immature Plt Fraction (1.1-6.1) % PT (9.4-12.1) Seconds INR ABG pH (7.32-7.45) pH Units ABG pCO2 (35-45) mmHg ABG pO2 (85-104) mmHg ABG HCO3 (21-27) mEQ/L ABG Total CO2 (20-26) mEq/L ABG O2 Saturation (95-98) % ABG Base Excess (-2.0 to 3.0) mEq/L Blood Gas Modality Inspired O2 % Sodium 135 L (136-145) mEq/L Potassium 4.3 (3.5-4.5) mEq/L Chloride 104 (98-109) mEq/L Carbon Dioxide 29 (19-29) mEq/L BUN 11 (8-26) mg/dL Creatinine 0.80 (0.72-1.25) mg/dL Est GFR ( Amer) > 60 (> 60) Est GFR (Non-Af Amer) > 60 (> 60) BUN/Creatinine Ratio 14 (6-26) Glucose 188 H (70-99) mg/dL POC Glucose 132 H (58-89) Calculated Osmolality 284 (280-300) Calcium 8.2 L (8.6-10.8) mg/dL Phosphorus 3.1 (2.3-4.7) mg/dL Magnesium 1.8 (1.6-2.6) mg/dL Prealbumin (18.0-45.0) mg/dL Triglycerides (< 150) mg/dL Urine Color (Yellow) Urine Clarity (Clear) Urine pH (5.0-8.0) pH Units Ur Specific [place] (1.010-1.025) Urine Protein (Neg-Trace) mg/dL Urine Glucose (UA) (Normal) mg/dL Urine Ketones (Negative) mg/dL Urine Blood (Negative) Urine Nitrite (Negative) Urine Bilirubin (Negative) Urine Urobilinogen (Normal) mg/dL Ur Leukocyte Esterase (Negative) Urine Microscopic RBC (0-3) per hpf Urine Microscopic WBC (0-3) per hpf Urine Bacteria (None-Few) per hpf Ur Culture Indicated? (NO) Vancomycin Trough (10-20) mcg/mL 09/16/16 09/16/16 09/16/16 Range/Units 07:39 11:53 16:53 WBC (4.3-11.1) K/mcL RBC (4.19-5.50) M/mcL Hgb (12.9-16.9) g/dL Hct (37.5-50.1) % MCV (83.0-100.0) fL MCH (28.0-33.3) pg MCHC (31.6-35.5) g/dL RDW (11.5-14.5) % Plt Count (140-400) K/mcL MPV (9.4-12.4) fL Immature Gran % (0-4) % Seg Neutrophils % % Lymphocytes % % Monocytes % % Eosinophils % % Basophils % % Neutrophils # (1.6-8.9) K/mcL Lymphocytes # (0.6-4.6) K/mcL Monocytes # (0.0-1.3) K/mcL Eosinophils # (0.0-0.6) K/mcL Basophils # (0.0-0.2) K/mcL Immature Plt Fraction (1.1-6.1) % PT (9.4-12.1) Seconds INR ABG pH (7.32-7.45) pH Units ABG pCO2 (35-45) mmHg ABG pO2 (85-104) mmHg ABG HCO3 (21-27) mEQ/L ABG Total CO2 (20-26) mEq/L ABG O2 Saturation (95-98) % ABG Base Excess (-2.0 to 3.0) mEq/L Blood Gas Modality Inspired O2 % Sodium (136-145) mEq/L Potassium (3.5-4.5) mEq/L Chloride (98-109) mEq/L Carbon Dioxide (19-29) mEq/L BUN (8-26) mg/dL Creatinine (0.72-1.25) mg/dL Est GFR ( Amer) (> 60) Est GFR (Non-Af Amer) (> 60) BUN/Creatinine Ratio (6-26) Glucose (70-99) mg/dL POC Glucose 193 H 159 H 116 H (58-89) Calculated Osmolality (280-300) Calcium (8.6-10.8) mg/dL Phosphorus (2.3-4.7) mg/dL Magnesium (1.6-2.6) mg/dL Prealbumin (18.0-45.0) mg/dL Triglycerides (< 150) mg/dL Urine Color (Yellow) Urine Clarity (Clear) Urine pH (5.0-8.0) pH Units Ur Specific [place] (1.010-1.025) Urine Protein (Neg-Trace) mg/dL Urine Glucose (UA) (Normal) mg/dL Urine Ketones (Negative) mg/dL Urine Blood (Negative) Urine Nitrite (Negative) Urine Bilirubin (Negative) Urine Urobilinogen (Normal) mg/dL Ur Leukocyte Esterase (Negative) Urine Microscopic RBC (0-3) per hpf Urine Microscopic WBC (0-3) per hpf Urine Bacteria (None-Few) per hpf Ur Culture Indicated? (NO) Vancomycin Trough (10-20) mcg/mL 09/16/16 09/17/16 09/17/16 Range/Units 20:57 00:02 03:02 WBC (4.3-11.1) K/mcL RBC (4.19-5.50) M/mcL Hgb (12.9-16.9) g/dL Hct (37.5-50.1) % MCV (83.0-100.0) fL MCH (28.0-33.3) pg MCHC (31.6-35.5) g/dL RDW (11.5-14.5) % Plt Count (140-400) K/mcL MPV (9.4-12.4) fL Immature Gran % (0-4) % Seg Neutrophils % % Lymphocytes % % Monocytes % % Eosinophils % % Basophils % % Neutrophils # (1.6-8.9) K/mcL Lymphocytes # (0.6-4.6) K/mcL Monocytes # (0.0-1.3) K/mcL Eosinophils # (0.0-0.6) K/mcL Basophils # (0.0-0.2) K/mcL Immature Plt Fraction (1.1-6.1) % PT (9.4-12.1) Seconds INR ABG pH (7.32-7.45) pH Units ABG pCO2 (35-45) mmHg ABG pO2 (85-104) mmHg ABG HCO3 (21-27) mEQ/L ABG Total CO2 (20-26) mEq/L ABG O2 Saturation (95-98) % ABG Base Excess (-2.0 to 3.0) mEq/L Blood Gas Modality Inspired O2 % Sodium 137 (136-145) mEq/L Potassium 3.7 (3.5-4.5) mEq/L Chloride 104 (98-109) mEq/L Carbon Dioxide 29 (19-29) mEq/L BUN 13 (8-26) mg/dL Creatinine 0.65 L (0.72-1.25) mg/dL Est GFR ( Amer) > 60 (> 60) Est GFR (Non-Af Amer) > 60 (> 60) BUN/Creatinine Ratio 20 (6-26) Glucose 111 H (70-99) mg/dL POC Glucose 114 H 108 H (58-89) Calculated Osmolality 285 (280-300) Calcium 7.9 L (8.6-10.8) mg/dL Phosphorus 2.8 (2.3-4.7) mg/dL Magnesium 1.8 (1.6-2.6) mg/dL Prealbumin (18.0-45.0) mg/dL Triglycerides (< 150) mg/dL Urine Color (Yellow) Urine Clarity (Clear) Urine pH (5.0-8.0) pH Units Ur Specific [place] (1.010-1.025) Urine Protein (Neg-Trace) mg/dL Urine Glucose (UA) (Normal) mg/dL Urine Ketones (Negative) mg/dL Urine Blood (Negative) Urine Nitrite (Negative) Urine Bilirubin (Negative) Urine Urobilinogen (Normal) mg/dL Ur Leukocyte Esterase (Negative) Urine Microscopic RBC (0-3) per hpf Urine Microscopic WBC (0-3) per hpf Urine Bacteria (None-Few) per hpf Ur Culture Indicated? (NO) Vancomycin Trough (10-20) mcg/mL 09/17/16 09/17/16 09/17/16 Range/Units 03:02 05:44 11:43 WBC 11.5 H (4.3-11.1) K/mcL RBC 4.12 L (4.19-5.50) M/mcL Hgb 12.4 L (12.9-16.9) g/dL Hct 37.1 L (37.5-50.1) % MCV 90.0 (83.0-100.0) fL MCH 30.1 (28.0-33.3) pg MCHC 33.4 (31.6-35.5) g/dL RDW 14.8 H (11.5-14.5) % Plt Count 184 (140-400) K/mcL MPV 9.4 (9.4-12.4) fL Immature Gran % 0.8 (0-4) % Seg Neutrophils % 69.2 % Lymphocytes % 16.3 % Monocytes % 11.8 % Eosinophils % 1.6 % Basophils % 0.3 % Neutrophils # 7.9 (1.6-8.9) K/mcL Lymphocytes # 1.9 (0.6-4.6) K/mcL Monocytes # 1.4 H (0.0-1.3) K/mcL Eosinophils # 0.2 (0.0-0.6) K/mcL Basophils # 0.0 (0.0-0.2) K/mcL Immature Plt Fraction (1.1-6.1) % PT (9.4-12.1) Seconds INR ABG pH (7.32-7.45) pH Units ABG pCO2 (35-45) mmHg ABG pO2 (85-104) mmHg ABG HCO3 (21-27) mEQ/L ABG Total CO2 (20-26) mEq/L ABG O2 Saturation (95-98) % ABG Base Excess (-2.0 to 3.0) mEq/L Blood Gas Modality Inspired O2 % Sodium (136-145) mEq/L Potassium (3.5-4.5) mEq/L Chloride (98-109) mEq/L Carbon Dioxide (19-29) mEq/L BUN (8-26) mg/dL Creatinine (0.72-1.25) mg/dL Est GFR ( Amer) (> 60) Est GFR (Non-Af Amer) (> 60) BUN/Creatinine Ratio (6-26) Glucose (70-99) mg/dL POC Glucose 97 H 116 H (58-89) Calculated Osmolality (280-300) Calcium (8.6-10.8) mg/dL Phosphorus (2.3-4.7) mg/dL Magnesium (1.6-2.6) mg/dL Prealbumin (18.0-45.0) mg/dL Triglycerides (< 150) mg/dL Urine Color (Yellow) Urine Clarity (Clear) Urine pH (5.0-8.0) pH Units Ur Specific [place] (1.010-1.025) Urine Protein (Neg-Trace) mg/dL Urine Glucose (UA) (Normal) mg/dL Urine Ketones (Negative) mg/dL Urine Blood (Negative) Urine Nitrite (Negative) Urine Bilirubin (Negative) Urine Urobilinogen (Normal) mg/dL Ur Leukocyte Esterase (Negative) Urine Microscopic RBC (0-3) per hpf Urine Microscopic WBC (0-3) per hpf Urine Bacteria (None-Few) per hpf Ur Culture Indicated? (NO) Vancomycin Trough (10-20) mcg/mL 09/17/16 09/17/16 09/18/16 Range/Units 16:26 20:28 00:01 WBC (4.3-11.1) K/mcL RBC (4.19-5.50) M/mcL Hgb (12.9-16.9) g/dL Hct (37.5-50.1) % MCV (83.0-100.0) fL MCH (28.0-33.3) pg MCHC (31.6-35.5) g/dL RDW (11.5-14.5) % Plt Count (140-400) K/mcL MPV (9.4-12.4) fL Immature Gran % (0-4) % Seg Neutrophils % % Lymphocytes % % Monocytes % % Eosinophils % % Basophils % % Neutrophils # (1.6-8.9) K/mcL Lymphocytes # (0.6-4.6) K/mcL Monocytes # (0.0-1.3) K/mcL Eosinophils # (0.0-0.6) K/mcL Basophils # (0.0-0.2) K/mcL Immature Plt Fraction (1.1-6.1) % PT (9.4-12.1) Seconds INR ABG pH (7.32-7.45) pH Units ABG pCO2 (35-45) mmHg ABG pO2 (85-104) mmHg ABG HCO3 (21-27) mEQ/L ABG Total CO2 (20-26) mEq/L ABG O2 Saturation (95-98) % ABG Base Excess (-2.0 to 3.0) mEq/L Blood Gas Modality Inspired O2 % Sodium (136-145) mEq/L Potassium (3.5-4.5) mEq/L Chloride (98-109) mEq/L Carbon Dioxide (19-29) mEq/L BUN (8-26) mg/dL Creatinine (0.72-1.25) mg/dL Est GFR ( Amer) (> 60) Est GFR (Non-Af Amer) (> 60) BUN/Creatinine Ratio (6-26) Glucose (70-99) mg/dL POC Glucose 108 H 104 H 110 H (58-89) Calculated Osmolality (280-300) Calcium (8.6-10.8) mg/dL Phosphorus (2.3-4.7) mg/dL Magnesium (1.6-2.6) mg/dL Prealbumin (18.0-45.0) mg/dL Triglycerides (< 150) mg/dL Urine Color (Yellow) Urine Clarity (Clear) Urine pH (5.0-8.0) pH Units Ur Specific [place] (1.010-1.025) Urine Protein (Neg-Trace) mg/dL Urine Glucose (UA) (Normal) mg/dL Urine Ketones (Negative) mg/dL Urine Blood (Negative) Urine Nitrite (Negative) Urine Bilirubin (Negative) Urine Urobilinogen (Normal) mg/dL Ur Leukocyte Esterase (Negative) Urine Microscopic RBC (0-3) per hpf Urine Microscopic WBC (0-3) per hpf Urine Bacteria (None-Few) per hpf Ur Culture Indicated? (NO) Vancomycin Trough (10-20) mcg/mL 09/18/16 09/18/16 09/18/16 Range/Units 03:05 03:05 04:13 WBC 16.8 H (4.3-11.1) K/mcL RBC 3.91 L (4.19-5.50) M/mcL Hgb 11.9 L (12.9-16.9) g/dL Hct 35.1 L (37.5-50.1) % MCV 89.8 (83.0-100.0) fL MCH 30.4 (28.0-33.3) pg MCHC 33.9 (31.6-35.5) g/dL RDW 14.8 H (11.5-14.5) % Plt Count 158 (140-400) K/mcL MPV 9.6 (9.4-12.4) fL Immature Gran % 0.7 (0-4) % Seg Neutrophils % 78.9 % Lymphocytes % 10.3 % Monocytes % 6.5 % Eosinophils % 3.3 % Basophils % 0.3 % Neutrophils # 13.3 H (1.6-8.9) K/mcL Lymphocytes # 1.7 (0.6-4.6) K/mcL Monocytes # 1.1 (0.0-1.3) K/mcL Eosinophils # 0.6 (0.0-0.6) K/mcL Basophils # 0.1 (0.0-0.2) K/mcL Immature Plt Fraction (1.1-6.1) % PT (9.4-12.1) Seconds INR ABG pH (7.32-7.45) pH Units ABG pCO2 (35-45) mmHg ABG pO2 (85-104) mmHg ABG HCO3 (21-27) mEQ/L ABG Total CO2 (20-26) mEq/L ABG O2 Saturation (95-98) % ABG Base Excess (-2.0 to 3.0) mEq/L Blood Gas Modality Inspired O2 % Sodium 133 L (136-145) mEq/L Potassium 3.8 (3.5-4.5) mEq/L Chloride 102 (98-109) mEq/L Carbon Dioxide 26 (19-29) mEq/L BUN 13 (8-26) mg/dL Creatinine 0.62 L (0.72-1.25) mg/dL Est GFR ( Amer) > 60 (> 60) Est GFR (Non-Af Amer) > 60 (> 60) BUN/Creatinine Ratio 21 (6-26) Glucose 100 H (70-99) mg/dL POC Glucose 124 H (58-89) Calculated Osmolality 276 L (280-300) Calcium 8.0 L (8.6-10.8) mg/dL Phosphorus 3.5 (2.3-4.7) mg/dL Magnesium 1.7 (1.6-2.6) mg/dL Prealbumin (18.0-45.0) mg/dL Triglycerides (< 150) mg/dL Urine Color (Yellow) Urine Clarity (Clear) Urine pH (5.0-8.0) pH Units Ur Specific [place] (1.010-1.025) Urine Protein (Neg-Trace) mg/dL Urine Glucose (UA) (Normal) mg/dL Urine Ketones (Negative) mg/dL Urine Blood (Negative) Urine Nitrite (Negative) Urine Bilirubin (Negative) Urine Urobilinogen (Normal) mg/dL Ur Leukocyte Esterase (Negative) Urine Microscopic RBC (0-3) per hpf Urine Microscopic WBC (0-3) per hpf Urine Bacteria (None-Few) per hpf Ur Culture Indicated? (NO) Vancomycin Trough (10-20) mcg/mL 09/18/16 09/18/16 09/18/16 Range/Units 07:05 11:20 15:57 WBC (4.3-11.1) K/mcL RBC (4.19-5.50) M/mcL Hgb (12.9-16.9) g/dL Hct (37.5-50.1) % MCV (83.0-100.0) fL MCH (28.0-33.3) pg MCHC (31.6-35.5) g/dL RDW (11.5-14.5) % Plt Count (140-400) K/mcL MPV (9.4-12.4) fL Immature Gran % (0-4) % Seg Neutrophils % % Lymphocytes % % Monocytes % % Eosinophils % % Basophils % % Neutrophils # (1.6-8.9) K/mcL Lymphocytes # (0.6-4.6) K/mcL Monocytes # (0.0-1.3) K/mcL Eosinophils # (0.0-0.6) K/mcL Basophils # (0.0-0.2) K/mcL Immature Plt Fraction (1.1-6.1) % PT (9.4-12.1) Seconds INR ABG pH (7.32-7.45) pH Units ABG pCO2 (35-45) mmHg ABG pO2 (85-104) mmHg ABG HCO3 (21-27) mEQ/L ABG Total CO2 (20-26) mEq/L ABG O2 Saturation (95-98) % ABG Base Excess (-2.0 to 3.0) mEq/L Blood Gas Modality Inspired O2 % Sodium (136-145) mEq/L Potassium (3.5-4.5) mEq/L Chloride (98-109) mEq/L Carbon Dioxide (19-29) mEq/L BUN (8-26) mg/dL Creatinine (0.72-1.25) mg/dL Est GFR ( Amer) (> 60) Est GFR (Non-Af Amer) (> 60) BUN/Creatinine Ratio (6-26) Glucose (70-99) mg/dL POC Glucose 125 H 118 H 106 H (58-89) Calculated Osmolality (280-300) Calcium (8.6-10.8) mg/dL Phosphorus (2.3-4.7) mg/dL Magnesium (1.6-2.6) mg/dL Prealbumin (18.0-45.0) mg/dL Triglycerides (< 150) mg/dL Urine Color (Yellow) Urine Clarity (Clear) Urine pH (5.0-8.0) pH Units Ur Specific [place] (1.010-1.025) Urine Protein (Neg-Trace) mg/dL Urine Glucose (UA) (Normal) mg/dL Urine Ketones (Negative) mg/dL Urine Blood (Negative) Urine Nitrite (Negative) Urine Bilirubin (Negative) Urine Urobilinogen (Normal) mg/dL Ur Leukocyte Esterase (Negative) Urine Microscopic RBC (0-3) per hpf Urine Microscopic WBC (0-3) per hpf Urine Bacteria (None-Few) per hpf Ur Culture Indicated? (NO) Vancomycin Trough (10-20) mcg/mL 09/18/16 09/18/16 09/19/16 Range/Units 16:00 20:32 00:21 WBC (4.3-11.1) K/mcL RBC (4.19-5.50) M/mcL Hgb (12.9-16.9) g/dL Hct (37.5-50.1) % MCV (83.0-100.0) fL MCH (28.0-33.3) pg MCHC (31.6-35.5) g/dL RDW (11.5-14.5) % Plt Count (140-400) K/mcL MPV (9.4-12.4) fL Immature Gran % (0-4) % Seg Neutrophils % % Lymphocytes % % Monocytes % % Eosinophils % % Basophils % % Neutrophils # (1.6-8.9) K/mcL Lymphocytes # (0.6-4.6) K/mcL Monocytes # (0.0-1.3) K/mcL Eosinophils # (0.0-0.6) K/mcL Basophils # (0.0-0.2) K/mcL Immature Plt Fraction (1.1-6.1) % PT (9.4-12.1) Seconds INR ABG pH (7.32-7.45) pH Units ABG pCO2 (35-45) mmHg ABG pO2 (85-104) mmHg ABG HCO3 (21-27) mEQ/L ABG Total CO2 (20-26) mEq/L ABG O2 Saturation (95-98) % ABG Base Excess (-2.0 to 3.0) mEq/L Blood Gas Modality Inspired O2 % Sodium (136-145) mEq/L Potassium (3.5-4.5) mEq/L Chloride (98-109) mEq/L Carbon Dioxide (19-29) mEq/L BUN (8-26) mg/dL Creatinine (0.72-1.25) mg/dL Est GFR ( Amer) (> 60) Est GFR (Non-Af Amer) (> 60) BUN/Creatinine Ratio (6-26) Glucose (70-99) mg/dL POC Glucose 121 H 127 H (58-89) Calculated Osmolality (280-300) Calcium (8.6-10.8) mg/dL Phosphorus (2.3-4.7) mg/dL Magnesium (1.6-2.6) mg/dL Prealbumin (18.0-45.0) mg/dL Triglycerides (< 150) mg/dL Urine Color Yellow (Yellow) Urine Clarity Clear (Clear) Urine pH 7.0 (5.0-8.0) pH Units Ur Specific [place] 1.010 (1.010-1.025) Urine Protein Negative (Neg-Trace) mg/dL Urine Glucose (UA) Normal (Normal) mg/dL Urine Ketones Negative (Negative) mg/dL Urine Blood Small H (Negative) Urine Nitrite Negative (Negative) Urine Bilirubin Negative (Negative) Urine Urobilinogen Normal (Normal) mg/dL Ur Leukocyte Esterase Negative (Negative) Urine Microscopic RBC 0-3 (0-3) per hpf Urine Microscopic WBC 0-3 (0-3) per hpf Urine Bacteria Few (None-Few) per hpf Ur Culture Indicated? NO (NO) Vancomycin Trough (10-20) mcg/mL 09/19/16 09/19/16 09/19/16 Range/Units 03:20 03:20 03:51 WBC 20.3 H (4.3-11.1) K/mcL RBC 4.06 L (4.19-5.50) M/mcL Hgb 12.2 L (12.9-16.9) g/dL Hct 35.8 L (37.5-50.1) % MCV 88.2 (83.0-100.0) fL MCH 30.0 (28.0-33.3) pg MCHC 34.1 (31.6-35.5) g/dL RDW 14.7 H (11.5-14.5) % Plt Count 180 (140-400) K/mcL MPV 9.8 (9.4-12.4) fL Immature Gran % 0.6 (0-4) % Seg Neutrophils % 82.4 % Lymphocytes % 6.7 % Monocytes % 7.4 % Eosinophils % 2.6 % Basophils % 0.3 % Neutrophils # 16.7 H (1.6-8.9) K/mcL Lymphocytes # 1.4 (0.6-4.6) K/mcL Monocytes # 1.5 H (0.0-1.3) K/mcL Eosinophils # 0.5 (0.0-0.6) K/mcL Basophils # 0.1 (0.0-0.2) K/mcL Immature Plt Fraction 3.5 (1.1-6.1) % PT (9.4-12.1) Seconds INR ABG pH (7.32-7.45) pH Units ABG pCO2 (35-45) mmHg ABG pO2 (85-104) mmHg ABG HCO3 (21-27) mEQ/L ABG Total CO2 (20-26) mEq/L ABG O2 Saturation (95-98) % ABG Base Excess (-2.0 to 3.0) mEq/L Blood Gas Modality Inspired O2 % Sodium 133 L (136-145) mEq/L Potassium 4.0 (3.5-4.5) mEq/L Chloride 101 (98-109) mEq/L Carbon Dioxide 27 (19-29) mEq/L BUN 14 (8-26) mg/dL Creatinine 0.66 L (0.72-1.25) mg/dL Est GFR ( Amer) > 60 (> 60) Est GFR (Non-Af Amer) > 60 (> 60) BUN/Creatinine Ratio 21 (6-26) Glucose 102 H (70-99) mg/dL POC Glucose 121 H (58-89) Calculated Osmolality 277 L (280-300) Calcium 8.4 L (8.6-10.8) mg/dL Phosphorus 4.0 (2.3-4.7) mg/dL Magnesium 2.1 (1.6-2.6) mg/dL Prealbumin (18.0-45.0) mg/dL Triglycerides (< 150) mg/dL Urine Color (Yellow) Urine Clarity (Clear) Urine pH (5.0-8.0) pH Units Ur Specific [place] (1.010-1.025) Urine Protein (Neg-Trace) mg/dL Urine Glucose (UA) (Normal) mg/dL Urine Ketones (Negative) mg/dL Urine Blood (Negative) Urine Nitrite (Negative) Urine Bilirubin (Negative) Urine Urobilinogen (Normal) mg/dL Ur Leukocyte Esterase (Negative) Urine Microscopic RBC (0-3) per hpf Urine Microscopic WBC (0-3) per hpf Urine Bacteria (None-Few) per hpf Ur Culture Indicated? (NO) Vancomycin Trough (10-20) mcg/mL 09/19/16 09/19/16 09/19/16 Range/Units 07:25 11:08 16:20 WBC (4.3-11.1) K/mcL RBC (4.19-5.50) M/mcL Hgb (12.9-16.9) g/dL Hct (37.5-50.1) % MCV (83.0-100.0) fL MCH (28.0-33.3) pg MCHC (31.6-35.5) g/dL RDW (11.5-14.5) % Plt Count (140-400) K/mcL MPV (9.4-12.4) fL Immature Gran % (0-4) % Seg Neutrophils % % Lymphocytes % % Monocytes % % Eosinophils % % Basophils % % Neutrophils # (1.6-8.9) K/mcL Lymphocytes # (0.6-4.6) K/mcL Monocytes # (0.0-1.3) K/mcL Eosinophils # (0.0-0.6) K/mcL Basophils # (0.0-0.2) K/mcL Immature Plt Fraction (1.1-6.1) % PT (9.4-12.1) Seconds INR ABG pH (7.32-7.45) pH Units ABG pCO2 (35-45) mmHg ABG pO2 (85-104) mmHg ABG HCO3 (21-27) mEQ/L ABG Total CO2 (20-26) mEq/L ABG O2 Saturation (95-98) % ABG Base Excess (-2.0 to 3.0) mEq/L Blood Gas Modality Inspired O2 % Sodium (136-145) mEq/L Potassium (3.5-4.5) mEq/L Chloride (98-109) mEq/L Carbon Dioxide (19-29) mEq/L BUN (8-26) mg/dL Creatinine (0.72-1.25) mg/dL Est GFR ( Amer) (> 60) Est GFR (Non-Af Amer) (> 60) BUN/Creatinine Ratio (6-26) Glucose (70-99) mg/dL POC Glucose 137 H 129 H 112 H (58-89) Calculated Osmolality (280-300) Calcium (8.6-10.8) mg/dL Phosphorus (2.3-4.7) mg/dL Magnesium (1.6-2.6) mg/dL Prealbumin (18.0-45.0) mg/dL Triglycerides (< 150) mg/dL Urine Color (Yellow) Urine Clarity (Clear) Urine pH (5.0-8.0) pH Units Ur Specific [place] (1.010-1.025) Urine Protein (Neg-Trace) mg/dL Urine Glucose (UA) (Normal) mg/dL Urine Ketones (Negative) mg/dL Urine Blood (Negative) Urine Nitrite (Negative) Urine Bilirubin (Negative) Urine Urobilinogen (Normal) mg/dL Ur Leukocyte Esterase (Negative) Urine Microscopic RBC (0-3) per hpf Urine Microscopic WBC (0-3) per hpf Urine Bacteria (None-Few) per hpf Ur Culture Indicated? (NO) Vancomycin Trough (10-20) mcg/mL 09/19/16 09/19/16 09/20/16 Range/Units 19:52 23:38 03:20 WBC (4.3-11.1) K/mcL RBC (4.19-5.50) M/mcL Hgb (12.9-16.9) g/dL Hct (37.5-50.1) % MCV (83.0-100.0) fL MCH (28.0-33.3) pg MCHC (31.6-35.5) g/dL RDW (11.5-14.5) % Plt Count (140-400) K/mcL MPV (9.4-12.4) fL Immature Gran % (0-4) % Seg Neutrophils % % Lymphocytes % % Monocytes % % Eosinophils % % Basophils % % Neutrophils # (1.6-8.9) K/mcL Lymphocytes # (0.6-4.6) K/mcL Monocytes # (0.0-1.3) K/mcL Eosinophils # (0.0-0.6) K/mcL Basophils # (0.0-0.2) K/mcL Immature Plt Fraction (1.1-6.1) % PT (9.4-12.1) Seconds INR ABG pH (7.32-7.45) pH Units ABG pCO2 (35-45) mmHg ABG pO2 (85-104) mmHg ABG HCO3 (21-27) mEQ/L ABG Total CO2 (20-26) mEq/L ABG O2 Saturation (95-98) % ABG Base Excess (-2.0 to 3.0) mEq/L Blood Gas Modality Inspired O2 % Sodium 135 L (136-145) mEq/L Potassium 3.7 (3.5-4.5) mEq/L Chloride 107 (98-109) mEq/L Carbon Dioxide 22 (19-29) mEq/L BUN 14 (8-26) mg/dL Creatinine 0.58 L (0.72-1.25) mg/dL Est GFR ( Amer) > 60 (> 60) Est GFR (Non-Af Amer) > 60 (> 60) BUN/Creatinine Ratio 24 (6-26) Glucose 93 (70-99) mg/dL POC Glucose 99 H 99 H (58-89) Calculated Osmolality 280 (280-300) Calcium 7.5 L (8.6-10.8) mg/dL Phosphorus 3.6 (2.3-4.7) mg/dL Magnesium 1.7 (1.6-2.6) mg/dL Prealbumin (18.0-45.0) mg/dL Triglycerides (< 150) mg/dL Urine Color (Yellow) Urine Clarity (Clear) Urine pH (5.0-8.0) pH Units Ur Specific [place] (1.010-1.025) Urine Protein (Neg-Trace) mg/dL Urine Glucose (UA) (Normal) mg/dL Urine Ketones (Negative) mg/dL Urine Blood (Negative) Urine Nitrite (Negative) Urine Bilirubin (Negative) Urine Urobilinogen (Normal) mg/dL Ur Leukocyte Esterase (Negative) Urine Microscopic RBC (0-3) per hpf Urine Microscopic WBC (0-3) per hpf Urine Bacteria (None-Few) per hpf Ur Culture Indicated? (NO) Vancomycin Trough (10-20) mcg/mL 09/20/16 09/20/16 09/20/16 Range/Units 03:20 03:20 03:20 WBC 16.2 H (4.3-11.1) K/mcL RBC 4.03 L (4.19-5.50) M/mcL Hgb 11.9 L (12.9-16.9) g/dL Hct 35.6 L (37.5-50.1) % MCV 88.3 (83.0-100.0) fL MCH 29.5 (28.0-33.3) pg MCHC 33.4 (31.6-35.5) g/dL RDW 14.8 H (11.5-14.5) % Plt Count 182 (140-400) K/mcL MPV 10.1 (9.4-12.4) fL Immature Gran % 0.6 (0-4) % Seg Neutrophils % 77.9 % Lymphocytes % 7.6 % Monocytes % 8.5 % Eosinophils % 4.9 % Basophils % 0.5 % Neutrophils # 12.6 H (1.6-8.9) K/mcL Lymphocytes # 1.2 (0.6-4.6) K/mcL Monocytes # 1.4 H (0.0-1.3) K/mcL Eosinophils # 0.8 H (0.0-0.6) K/mcL Basophils # 0.1 (0.0-0.2) K/mcL Immature Plt Fraction (1.1-6.1) % PT (9.4-12.1) Seconds INR ABG pH (7.32-7.45) pH Units ABG pCO2 (35-45) mmHg ABG pO2 (85-104) mmHg ABG HCO3 (21-27) mEQ/L ABG Total CO2 (20-26) mEq/L ABG O2 Saturation (95-98) % ABG Base Excess (-2.0 to 3.0) mEq/L Blood Gas Modality Inspired O2 % Sodium (136-145) mEq/L Potassium (3.5-4.5) mEq/L Chloride (98-109) mEq/L Carbon Dioxide (19-29) mEq/L BUN (8-26) mg/dL Creatinine (0.72-1.25) mg/dL Est GFR ( Amer) (> 60) Est GFR (Non-Af Amer) (> 60) BUN/Creatinine Ratio (6-26) Glucose (70-99) mg/dL POC Glucose (58-89) Calculated Osmolality (280-300) Calcium (8.6-10.8) mg/dL Phosphorus (2.3-4.7) mg/dL Magnesium (1.6-2.6) mg/dL Prealbumin 5.0 L (18.0-45.0) mg/dL Triglycerides (< 150) mg/dL Urine Color (Yellow) Urine Clarity (Clear) Urine pH (5.0-8.0) pH Units Ur Specific [place] (1.010-1.025) Urine Protein (Neg-Trace) mg/dL Urine Glucose (UA) (Normal) mg/dL Urine Ketones (Negative) mg/dL Urine Blood (Negative) Urine Nitrite (Negative) Urine Bilirubin (Negative) Urine Urobilinogen (Normal) mg/dL Ur Leukocyte Esterase (Negative) Urine Microscopic RBC (0-3) per hpf Urine Microscopic WBC (0-3) per hpf Urine Bacteria (None-Few) per hpf Ur Culture Indicated? (NO) Vancomycin Trough 7.2 L (10-20) mcg/mL 09/20/16 09/20/16 09/20/16 Range/Units 03:46 07:32 11:09 WBC (4.3-11.1) K/mcL RBC (4.19-5.50) M/mcL Hgb (12.9-16.9) g/dL Hct (37.5-50.1) % MCV (83.0-100.0) fL MCH (28.0-33.3) pg MCHC (31.6-35.5) g/dL RDW (11.5-14.5) % Plt Count (140-400) K/mcL MPV (9.4-12.4) fL Immature Gran % (0-4) % Seg Neutrophils % % Lymphocytes % % Monocytes % % Eosinophils % % Basophils % % Neutrophils # (1.6-8.9) K/mcL Lymphocytes # (0.6-4.6) K/mcL Monocytes # (0.0-1.3) K/mcL Eosinophils # (0.0-0.6) K/mcL Basophils # (0.0-0.2) K/mcL Immature Plt Fraction (1.1-6.1) % PT (9.4-12.1) Seconds INR ABG pH (7.32-7.45) pH Units ABG pCO2 (35-45) mmHg ABG pO2 (85-104) mmHg ABG HCO3 (21-27) mEQ/L ABG Total CO2 (20-26) mEq/L ABG O2 Saturation (95-98) % ABG Base Excess (-2.0 to 3.0) mEq/L Blood Gas Modality Inspired O2 % Sodium (136-145) mEq/L Potassium (3.5-4.5) mEq/L Chloride (98-109) mEq/L Carbon Dioxide (19-29) mEq/L BUN (8-26) mg/dL Creatinine (0.72-1.25) mg/dL Est GFR ( Amer) (> 60) Est GFR (Non-Af Amer) (> 60) BUN/Creatinine Ratio (6-26) Glucose (70-99) mg/dL POC Glucose 96 H 122 H 121 H (58-89) Calculated Osmolality (280-300) Calcium (8.6-10.8) mg/dL Phosphorus (2.3-4.7) mg/dL Magnesium (1.6-2.6) mg/dL Prealbumin (18.0-45.0) mg/dL Triglycerides (< 150) mg/dL Urine Color (Yellow) Urine Clarity (Clear) Urine pH (5.0-8.0) pH Units Ur Specific [place] (1.010-1.025) Urine Protein (Neg-Trace) mg/dL Urine Glucose (UA) (Normal) mg/dL Urine Ketones (Negative) mg/dL Urine Blood (Negative) Urine Nitrite (Negative) Urine Bilirubin (Negative) Urine Urobilinogen (Normal) mg/dL Ur Leukocyte Esterase (Negative) Urine Microscopic RBC (0-3) per hpf Urine Microscopic WBC (0-3) per hpf Urine Bacteria (None-Few) per hpf Ur Culture Indicated? (NO) Vancomycin Trough (10-20) mcg/mL 09/20/16 09/20/16 09/20/16 Range/Units 15:43 19:18 23:58 WBC (4.3-11.1) K/mcL RBC (4.19-5.50) M/mcL Hgb (12.9-16.9) g/dL Hct (37.5-50.1) % MCV (83.0-100.0) fL MCH (28.0-33.3) pg MCHC (31.6-35.5) g/dL RDW (11.5-14.5) % Plt Count (140-400) K/mcL MPV (9.4-12.4) fL Immature Gran % (0-4) % Seg Neutrophils % % Lymphocytes % % Monocytes % % Eosinophils % % Basophils % % Neutrophils # (1.6-8.9) K/mcL Lymphocytes # (0.6-4.6) K/mcL Monocytes # (0.0-1.3) K/mcL Eosinophils # (0.0-0.6) K/mcL Basophils # (0.0-0.2) K/mcL Immature Plt Fraction (1.1-6.1) % PT (9.4-12.1) Seconds INR ABG pH (7.32-7.45) pH Units ABG pCO2 (35-45) mmHg ABG pO2 (85-104) mmHg ABG HCO3 (21-27) mEQ/L ABG Total CO2 (20-26) mEq/L ABG O2 Saturation (95-98) % ABG Base Excess (-2.0 to 3.0) mEq/L Blood Gas Modality Inspired O2 % Sodium (136-145) mEq/L Potassium (3.5-4.5) mEq/L Chloride (98-109) mEq/L Carbon Dioxide (19-29) mEq/L BUN (8-26) mg/dL Creatinine (0.72-1.25) mg/dL Est GFR ( Amer) (> 60) Est GFR (Non-Af Amer) (> 60) BUN/Creatinine Ratio (6-26) Glucose (70-99) mg/dL POC Glucose 115 H 104 H 116 H (58-89) Calculated Osmolality (280-300) Calcium (8.6-10.8) mg/dL Phosphorus (2.3-4.7) mg/dL Magnesium (1.6-2.6) mg/dL Prealbumin (18.0-45.0) mg/dL Triglycerides (< 150) mg/dL Urine Color (Yellow) Urine Clarity (Clear) Urine pH (5.0-8.0) pH Units Ur Specific [place] (1.010-1.025) Urine Protein (Neg-Trace) mg/dL Urine Glucose (UA) (Normal) mg/dL Urine Ketones (Negative) mg/dL Urine Blood (Negative) Urine Nitrite (Negative) Urine Bilirubin (Negative) Urine Urobilinogen (Normal) mg/dL Ur Leukocyte Esterase (Negative) Urine Microscopic RBC (0-3) per hpf Urine Microscopic WBC (0-3) per hpf Urine Bacteria (None-Few) per hpf Ur Culture Indicated? (NO) Vancomycin Trough (10-20) mcg/mL 09/21/16 09/21/16 09/21/16 Range/Units 03:45 04:00 04:00 WBC 15.4 H (4.3-11.1) K/mcL RBC 4.14 L (4.19-5.50) M/mcL Hgb 12.3 L (12.9-16.9) g/dL Hct 36.4 L (37.5-50.1) % MCV 87.9 (83.0-100.0) fL MCH 29.7 (28.0-33.3) pg MCHC 33.8 (31.6-35.5) g/dL RDW 14.6 H (11.5-14.5) % Plt Count 163 (140-400) K/mcL MPV 9.6 (9.4-12.4) fL Immature Gran % 0.6 (0-4) % Seg Neutrophils % 76.3 % Lymphocytes % 5.6 % Monocytes % 11.3 % Eosinophils % 5.6 % Basophils % 0.6 % Neutrophils # 11.8 H (1.6-8.9) K/mcL Lymphocytes # 0.9 (0.6-4.6) K/mcL Monocytes # 1.7 H (0.0-1.3) K/mcL Eosinophils # 0.9 H (0.0-0.6) K/mcL Basophils # 0.1 (0.0-0.2) K/mcL Immature Plt Fraction (1.1-6.1) % PT (9.4-12.1) Seconds INR ABG pH (7.32-7.45) pH Units ABG pCO2 (35-45) mmHg ABG pO2 (85-104) mmHg ABG HCO3 (21-27) mEQ/L ABG Total CO2 (20-26) mEq/L ABG O2 Saturation (95-98) % ABG Base Excess (-2.0 to 3.0) mEq/L Blood Gas Modality Inspired O2 % Sodium 131 L (136-145) mEq/L Potassium 4.2 (3.5-4.5) mEq/L Chloride 99 (98-109) mEq/L Carbon Dioxide 25 (19-29) mEq/L BUN 15 (8-26) mg/dL Creatinine 0.68 L (0.72-1.25) mg/dL Est GFR ( Amer) > 60 (> 60) Est GFR (Non-Af Amer) > 60 (> 60) BUN/Creatinine Ratio 22 (6-26) Glucose 100 H (70-99) mg/dL POC Glucose 116 H (58-89) Calculated Osmolality 273 L (280-300) Calcium 8.5 L (8.6-10.8) mg/dL Phosphorus (2.3-4.7) mg/dL Magnesium (1.6-2.6) mg/dL Prealbumin (18.0-45.0) mg/dL Triglycerides (< 150) mg/dL Urine Color (Yellow) Urine Clarity (Clear) Urine pH (5.0-8.0) pH Units Ur Specific [place] (1.010-1.025) Urine Protein (Neg-Trace) mg/dL Urine Glucose (UA) (Normal) mg/dL Urine Ketones (Negative) mg/dL Urine Blood (Negative) Urine Nitrite (Negative) Urine Bilirubin (Negative) Urine Urobilinogen (Normal) mg/dL Ur Leukocyte Esterase (Negative) Urine Microscopic RBC (0-3) per hpf Urine Microscopic WBC (0-3) per hpf Urine Bacteria (None-Few) per hpf Ur Culture Indicated? (NO) Vancomycin Trough (10-20) mcg/mL 09/21/16 09/21/16 09/21/16 Range/Units 08:27 12:25 15:42 WBC (4.3-11.1) K/mcL RBC (4.19-5.50) M/mcL Hgb (12.9-16.9) g/dL Hct (37.5-50.1) % MCV (83.0-100.0) fL MCH (28.0-33.3) pg MCHC (31.6-35.5) g/dL RDW (11.5-14.5) % Plt Count (140-400) K/mcL MPV (9.4-12.4) fL Immature Gran % (0-4) % Seg Neutrophils % % Lymphocytes % % Monocytes % % Eosinophils % % Basophils % % Neutrophils # (1.6-8.9) K/mcL Lymphocytes # (0.6-4.6) K/mcL Monocytes # (0.0-1.3) K/mcL Eosinophils # (0.0-0.6) K/mcL Basophils # (0.0-0.2) K/mcL Immature Plt Fraction (1.1-6.1) % PT (9.4-12.1) Seconds INR ABG pH (7.32-7.45) pH Units ABG pCO2 (35-45) mmHg ABG pO2 (85-104) mmHg ABG HCO3 (21-27) mEQ/L ABG Total CO2 (20-26) mEq/L ABG O2 Saturation (95-98) % ABG Base Excess (-2.0 to 3.0) mEq/L Blood Gas Modality Inspired O2 % Sodium (136-145) mEq/L Potassium (3.5-4.5) mEq/L Chloride (98-109) mEq/L Carbon Dioxide (19-29) mEq/L BUN (8-26) mg/dL Creatinine (0.72-1.25) mg/dL Est GFR ( Amer) (> 60) Est GFR (Non-Af Amer) (> 60) BUN/Creatinine Ratio (6-26) Glucose (70-99) mg/dL POC Glucose 120 H 149 H 114 H (58-89) Calculated Osmolality (280-300) Calcium (8.6-10.8) mg/dL Phosphorus (2.3-4.7) mg/dL Magnesium (1.6-2.6) mg/dL Prealbumin (18.0-45.0) mg/dL Triglycerides (< 150) mg/dL Urine Color (Yellow) Urine Clarity (Clear) Urine pH (5.0-8.0) pH Units Ur Specific [place] (1.010-1.025) Urine Protein (Neg-Trace) mg/dL Urine Glucose (UA) (Normal) mg/dL Urine Ketones (Negative) mg/dL Urine Blood (Negative) Urine Nitrite (Negative) Urine Bilirubin (Negative) Urine Urobilinogen (Normal) mg/dL Ur Leukocyte Esterase (Negative) Urine Microscopic RBC (0-3) per hpf Urine Microscopic WBC (0-3) per hpf Urine Bacteria (None-Few) per hpf Ur Culture Indicated? (NO) Vancomycin Trough (10-20) mcg/mL 09/21/16 09/21/16 09/22/16 Range/Units 19:33 23:17 03:20 WBC (4.3-11.1) K/mcL RBC (4.19-5.50) M/mcL Hgb (12.9-16.9) g/dL Hct (37.5-50.1) % MCV (83.0-100.0) fL MCH (28.0-33.3) pg MCHC (31.6-35.5) g/dL RDW (11.5-14.5) % Plt Count (140-400) K/mcL MPV (9.4-12.4) fL Immature Gran % (0-4) % Seg Neutrophils % % Lymphocytes % % Monocytes % % Eosinophils % % Basophils % % Neutrophils # (1.6-8.9) K/mcL Lymphocytes # (0.6-4.6) K/mcL Monocytes # (0.0-1.3) K/mcL Eosinophils # (0.0-0.6) K/mcL Basophils # (0.0-0.2) K/mcL Immature Plt Fraction (1.1-6.1) % PT (9.4-12.1) Seconds INR ABG pH (7.32-7.45) pH Units ABG pCO2 (35-45) mmHg ABG pO2 (85-104) mmHg ABG HCO3 (21-27) mEQ/L ABG Total CO2 (20-26) mEq/L ABG O2 Saturation (95-98) % ABG Base Excess (-2.0 to 3.0) mEq/L Blood Gas Modality Inspired O2 % Sodium (136-145) mEq/L Potassium (3.5-4.5) mEq/L Chloride (98-109) mEq/L Carbon Dioxide (19-29) mEq/L BUN (8-26) mg/dL Creatinine (0.72-1.25) mg/dL Est GFR ( Amer) (> 60) Est GFR (Non-Af Amer) (> 60) BUN/Creatinine Ratio (6-26) Glucose (70-99) mg/dL POC Glucose 137 H 120 H (58-89) Calculated Osmolality (280-300) Calcium (8.6-10.8) mg/dL Phosphorus (2.3-4.7) mg/dL Magnesium (1.6-2.6) mg/dL Prealbumin (18.0-45.0) mg/dL Triglycerides (< 150) mg/dL Urine Color (Yellow) Urine Clarity (Clear) Urine pH (5.0-8.0) pH Units Ur Specific [place] (1.010-1.025) Urine Protein (Neg-Trace) mg/dL Urine Glucose (UA) (Normal) mg/dL Urine Ketones (Negative) mg/dL Urine Blood (Negative) Urine Nitrite (Negative) Urine Bilirubin (Negative) Urine Urobilinogen (Normal) mg/dL Ur Leukocyte Esterase (Negative) Urine Microscopic RBC (0-3) per hpf Urine Microscopic WBC (0-3) per hpf Urine Bacteria (None-Few) per hpf Ur Culture Indicated? (NO) Vancomycin Trough 11.7 (10-20) mcg/mL 09/22/16 09/22/16 09/22/16 Range/Units 03:20 03:20 03:40 WBC 12.3 H (4.3-11.1) K/mcL RBC 3.90 L (4.19-5.50) M/mcL Hgb 11.6 L (12.9-16.9) g/dL Hct 34.2 L (37.5-50.1) % MCV 87.7 (83.0-100.0) fL MCH 29.7 (28.0-33.3) pg MCHC 33.9 (31.6-35.5) g/dL RDW 14.7 H (11.5-14.5) % Plt Count 175 (140-400) K/mcL MPV 9.5 (9.4-12.4) fL Immature Gran % 0.8 (0-4) % Seg Neutrophils % 68.8 % Lymphocytes % 9.7 % Monocytes % 12.8 % Eosinophils % 7.3 % Basophils % 0.6 % Neutrophils # 8.5 (1.6-8.9) K/mcL Lymphocytes # 1.2 (0.6-4.6) K/mcL Monocytes # 1.6 H (0.0-1.3) K/mcL Eosinophils # 0.9 H (0.0-0.6) K/mcL Basophils # 0.1 (0.0-0.2) K/mcL Immature Plt Fraction (1.1-6.1) % PT (9.4-12.1) Seconds INR ABG pH (7.32-7.45) pH Units ABG pCO2 (35-45) mmHg ABG pO2 (85-104) mmHg ABG HCO3 (21-27) mEQ/L ABG Total CO2 (20-26) mEq/L ABG O2 Saturation (95-98) % ABG Base Excess (-2.0 to 3.0) mEq/L Blood Gas Modality Inspired O2 % Sodium 132 L (136-145) mEq/L Potassium 4.0 (3.5-4.5) mEq/L Chloride 100 (98-109) mEq/L Carbon Dioxide 26 (19-29) mEq/L BUN 14 (8-26) mg/dL Creatinine 0.66 L (0.72-1.25) mg/dL Est GFR ( Amer) > 60 (> 60) Est GFR (Non-Af Amer) > 60 (> 60) BUN/Creatinine Ratio 21 (6-26) Glucose 103 H (70-99) mg/dL POC Glucose 110 H (58-89) Calculated Osmolality 275 L (280-300) Calcium 8.2 L (8.6-10.8) mg/dL Phosphorus (2.3-4.7) mg/dL Magnesium (1.6-2.6) mg/dL Prealbumin (18.0-45.0) mg/dL Triglycerides (< 150) mg/dL Urine Color (Yellow) Urine Clarity (Clear) Urine pH (5.0-8.0) pH Units Ur Specific [place] (1.010-1.025) Urine Protein (Neg-Trace) mg/dL Urine Glucose (UA) (Normal) mg/dL Urine Ketones (Negative) mg/dL Urine Blood (Negative) Urine Nitrite (Negative) Urine Bilirubin (Negative) Urine Urobilinogen (Normal) mg/dL Ur Leukocyte Esterase (Negative) Urine Microscopic RBC (0-3) per hpf Urine Microscopic WBC (0-3) per hpf Urine Bacteria (None-Few) per hpf Ur Culture Indicated? (NO) Vancomycin Trough (10-20) mcg/mL 09/22/16 09/22/16 09/22/16 Range/Units 07:47 12:02 16:33 WBC (4.3-11.1) K/mcL RBC (4.19-5.50) M/mcL Hgb (12.9-16.9) g/dL Hct (37.5-50.1) % MCV (83.0-100.0) fL MCH (28.0-33.3) pg MCHC (31.6-35.5) g/dL RDW (11.5-14.5) % Plt Count (140-400) K/mcL MPV (9.4-12.4) fL Immature Gran % (0-4) % Seg Neutrophils % % Lymphocytes % % Monocytes % % Eosinophils % % Basophils % % Neutrophils # (1.6-8.9) K/mcL Lymphocytes # (0.6-4.6) K/mcL Monocytes # (0.0-1.3) K/mcL Eosinophils # (0.0-0.6) K/mcL Basophils # (0.0-0.2) K/mcL Immature Plt Fraction (1.1-6.1) % PT (9.4-12.1) Seconds INR ABG pH (7.32-7.45) pH Units ABG pCO2 (35-45) mmHg ABG pO2 (85-104) mmHg ABG HCO3 (21-27) mEQ/L ABG Total CO2 (20-26) mEq/L ABG O2 Saturation (95-98) % ABG Base Excess (-2.0 to 3.0) mEq/L Blood Gas Modality Inspired O2 % Sodium (136-145) mEq/L Potassium (3.5-4.5) mEq/L Chloride (98-109) mEq/L Carbon Dioxide (19-29) mEq/L BUN (8-26) mg/dL Creatinine (0.72-1.25) mg/dL Est GFR ( Amer) (> 60) Est GFR (Non-Af Amer) (> 60) BUN/Creatinine Ratio (6-26) Glucose (70-99) mg/dL POC Glucose 125 H 105 H 121 H (58-89) Calculated Osmolality (280-300) Calcium (8.6-10.8) mg/dL Phosphorus (2.3-4.7) mg/dL Magnesium (1.6-2.6) mg/dL Prealbumin (18.0-45.0) mg/dL Triglycerides (< 150) mg/dL Urine Color (Yellow) Urine Clarity (Clear) Urine pH (5.0-8.0) pH Units Ur Specific [place] (1.010-1.025) Urine Protein (Neg-Trace) mg/dL Urine Glucose (UA) (Normal) mg/dL Urine Ketones (Negative) mg/dL Urine Blood (Negative) Urine Nitrite (Negative) Urine Bilirubin (Negative) Urine Urobilinogen (Normal) mg/dL Ur Leukocyte Esterase (Negative) Urine Microscopic RBC (0-3) per hpf Urine Microscopic WBC (0-3) per hpf Urine Bacteria (None-Few) per hpf Ur Culture Indicated? (NO) Vancomycin Trough (10-20) mcg/mL
[2016-09-22] MEDS ORDERED: Clinimix E 5%-15% SOLUTION 2,000 ML, Amino Acids 10% 200 ML with MVI, adult with vita... IV SCH (17:00)
[2016-09-23] MEDS: Insulin LISPRO 300 UNITS/3 ML VIAL SQ SCH ×6 (00:32→21:12)
[2016-09-23] MEDS: Ipratropium/Albuterol Neb 3 ML IH SCH ×4 (04:12→21:15)
[2016-09-23 05:41] LABS: Basophils # 0.1 K/mcL (0.0-0.2); Basophils % 0.9 %; Eosinophils # 0.7 K/mcL (0.0-0.6); Eosinophils % 6.6 %; Hematocrit 36.8 % (37.5-50.1); Immature Granulocytes % 0.9 % (0-4); Lymphocytes # 1.5 K/mcL (0.6-4.6); Lymphocytes % 13.6 %; Mean Corpuscular HGB Conc 32.6 g/dL (31.6-35.5); Mean Corpuscular Hemoglobin 28.8 pg (28.0-33.3); Mean Corpuscular Volume 88.2 fL (83.0-100.0); Mean Platelet Volume 9.9 fL (9.4-12.4); Monocytes # 1.7 K/mcL (0.0-1.3); Monocytes % 15.7 %; Neutrophils # 6.7 K/mcL (1.6-8.9); Platelet Count 175 K/mcL (140-400); Red Blood Count 4.17 M/mcL (4.19-5.50); Red Cell Distribution Width 14.9 % (11.5-14.5); Segmented Neutrophils % 62.3 %
[2016-09-23 05:59] LABS: BUN/Creatinine Ratio 21 (6-26); Blood Urea Nitrogen 15 mg/dL (8-26); Calcium 8.9 mg/dL (8.6-10.8); Carbon Dioxide 30 mEq/L (19-29); Chloride 98 mEq/L (98-109); Glucose 115 mg/dL (70-99); Osmolality,Calculated 278 (280-300); Potassium 4.3 mEq/L (3.5-4.5); Sodium 133 mEq/L (136-145); eGFR For African Americans > 60 (> 60); eGFR For Non-African Americans > 60 (> 60)
[2016-09-23] MEDS: *HR* Heparin 5,000 UNIT/ML VIAL SQ SCH ×3 (06:06→21:55)
[2016-09-23] MEDS: Levofloxacin 750 MG/150 ML 750 MG/150 ML BAG IVPB SCH (08:54)
[2016-09-23] MEDS: Pantoprazole 40 MG VIAL IVP SCH (08:54)
--- NOTE | 2016-09-23 15:44 | Palliative Progress Note ---
Date of Encounter: 09/23/16 Time of Encounter: 15:38 - Assessment and plan (1) Abdominal pain Current Visit: Yes Status: Acute Assessment and plan: S/P surgical intervention. Incisions open to air. He has not used any pain medication for >24 hours. Continue to monitor. Qualifiers: Abdominal location: epigastric Qualified Code(s): R10.13 - Epigastric pain (2) Goals of care, counseling/discussion Current Visit: Yes Status: Acute Assessment and plan: Mr. Jewell is aware that he has cancer and it is stage IV. 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 He is willing to seek rehab at [facility], and participated in therapy with encouragement. He remains uncertain about his future plans for cancer care, but wishes to get advice from his brother. Nutrition: Mr. Jewell is not willing to eat the foods he was served today. He asks for Pizza and hamburgers. Discussed case with surgical services and dietitian. Will advance diet and order pizza for evening meal. Dietitian to add supplements. TPN continues. (3) Metastatic colon cancer to liver Current Visit: Yes Status: Acute Assessment and plan: Oncology following. - Time Spent With Patient Total time spent is greater than 50% in coordination of care (as documented) at patient's floor/unit and/or counseling patient: - Subjective Interval history: Mr. Jewell is sitting up in bed, agreeable to work with physical therapy with encouragement. Assisted to wheelchair. Assisted with self care (brushing hair , oral care). Mr. Jewell sipped on a milkshake. - Constitutional Vitals: Abnormal lab results RBC 4.17 M/mcL (4.19-5.50) L 09/23/16 04:42 Hgb 12.0 g/dL (12.9-16.9) L 09/23/16 04:42 Hct 36.8 % (37.5-50.1) L 09/23/16 04:42 RDW 14.9 % (11.5-14.5) H 09/23/16 04:42 Monocytes # 1.7 K/mcL (0.0-1.3) H 09/23/16 04:42 Eosinophils # 0.7 K/mcL (0.0-0.6) H 09/23/16 04:42 ABG pCO2 47 mmHg (35-45) H 09/16/16 00:01 ABG Total CO2 28.0 mEq/L (20-26) H 09/16/16 00:01 Sodium 133 mEq/L (136-145) L 09/23/16 04:42 Carbon Dioxide 30 mEq/L (19-29) H 09/23/16 04:42 Creatinine 0.71 mg/dL (0.72-1.25) L 09/23/16 04:42 Glucose 115 mg/dL (70-99) H 09/23/16 04:42 POC Glucose 110 (58-89) H 09/23/16 12:20 Calculated Osmolality 278 (280-300) L 09/23/16 04:42 Albumin 3.0 g/dL (3.5-5.0) L 09/14/16 05:27 Albumin/Globulin Ratio 1.0 (1.1-2.2) L 09/14/16 05:27 Prealbumin 5.0 mg/dL (18.0-45.0) L 09/20/16 03:20 Urine Blood Small (Negative) H 09/18/16 16:00 Ur Squamous Epith Cells Many per lpf (None-Few) H 09/13/16 20:27 Hyaline Casts Moderate per lpf (None-Few) H 09/13/16 20:27 Urine Mucus Many (Few) H 09/13/16 20:27 General appearance: Present: cooperative, no acute distress Exam: impaired communication due to previous CVA. - ENT ENT exam: Present: mucous membranes moist - Respiratory Respiratory exam: Present: decreased breath sounds. 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 - Extremities Exam Extremities exam: Absent: pedal edema - Expanded Upper Extremity Exam General: Absent: normal inspection (right arm atrophy) - Expanded Lower Extremity Exam Lower leg exam: Absent: normal inspection (poor muscle tone) - Neurological Exam Neurological exam: Present: alert - Psychiatric Psychiatric exam: Present: flat affect. Absent: agitated, anxious - Skin Skin exam: Present: dry, warm Additional comments: mid abdominal incision intact Palliative Quality Palliative Quality: Screen for Code Status: Yes, Screen for Goals of Care: Yes, Screen for Pain: Yes, If Pain Regimen Started, Initiate Bowel Regimen: NA, Screen for Nausea/Vomitting: Yes Code Status: 09/14/16 02:40 Resuscitation Status: Active [RES] Routine Comment: Resuscitation Status: DNR-Comfort Care-Arrest - Labs CBC & Chem 7: 09/23/16 04:42 09/23/16 04:42 Labs: Laboratory Results - last 24 hr 09/22/16 09/22/16 09/22/16 16:33 20:35 23:26 WBC RBC Hgb Hct MCV MCH MCHC RDW Plt Count MPV Immature Gran % Seg Neutrophils % Lymphocytes % Monocytes % Eosinophils % Basophils % Neutrophils # Lymphocytes # Monocytes # Eosinophils # Basophils # Sodium Potassium Chloride Carbon Dioxide BUN Creatinine Est GFR ( Amer) Est GFR (Non-Af Amer) BUN/Creatinine Ratio Glucose POC Glucose 121 H 114 H 110 H Calculated Osmolality Calcium 09/23/16 09/23/16 09/23/16 03:55 04:42 04:42 WBC 10.8 RBC 4.17 L Hgb 12.0 L Hct 36.8 L MCV 88.2 MCH 28.8 MCHC 32.6 RDW 14.9 H Plt Count 175 MPV 9.9 Immature Gran % 0.9 Seg Neutrophils % 62.3 Lymphocytes % 13.6 Monocytes % 15.7 Eosinophils % 6.6 Basophils % 0.9 Neutrophils # 6.7 Lymphocytes # 1.5 Monocytes # 1.7 H Eosinophils # 0.7 H Basophils # 0.1 Sodium 133 L Potassium 4.3 Chloride 98 Carbon Dioxide 30 H BUN 15 Creatinine 0.71 L Est GFR ( Amer) > 60 Est GFR (Non-Af Amer) > 60 BUN/Creatinine Ratio 21 Glucose 115 H POC Glucose 119 H Calculated Osmolality 278 L Calcium 8.9 09/23/16 09/23/16 08:09 12:20 WBC RBC Hgb Hct MCV MCH MCHC RDW Plt Count MPV Immature Gran % Seg Neutrophils % Lymphocytes % Monocytes % Eosinophils % Basophils % Neutrophils # Lymphocytes # Monocytes # Eosinophils # Basophils # Sodium Potassium Chloride Carbon Dioxide BUN Creatinine Est GFR ( Amer) Est GFR (Non-Af Amer) BUN/Creatinine Ratio Glucose POC Glucose 116 H 110 H Calculated Osmolality Calcium - ABG Interpretation ABG results: ABG ABG pH 7.36 pH Units (7.32-7.45) 09/16/16 00:01 ABG pCO2 47 mmHg (35-45) H 09/16/16 00:01 ABG pO2 89 mmHg (85-104) 09/16/16 00:01 ABG O2 Saturation 96 % (95-98) 09/16/16 00:01 PT/INR, D-dimer PT 11.5 Seconds (9.4-12.1) 09/15/16 04:35 Consult Discharge Plan - Plan Referrals: Jeannie Ragsdale MD [Partnered Physician] - 10/01/16 8:10 am [facility]Primary Care Provider[facility] -
--- NOTE | 2016-09-23 16:26 | Internal Med Progress Note ---
Date of Encounter: 09/23/16 Time of Encounter: 09:45 - Assessment and plan (1) Hospital acquired PNA Current Visit: Yes Status: Acute Assessment and plan: Continue Levaquin. Will complete 14 day antibiotic course. (2) Metastatic colon cancer to liver Current Visit: Yes Status: Acute Assessment and plan: Oncology and palliative care following. Patient continues to have poor appetite. Surgery recommends PEG tube placement if patient continues to have poor appetite. (3) Metastatic carcinoma involving liver with unknown primary site Current Visit: Yes Status: Acute Assessment and plan: From colon cancer. (4) DVT prophylaxis Current Visit: No Status: Acute (5) Bowel obstruction Current Visit: Yes Status: Resolved Qualifiers: Intestinal obstruction type: other intestinal obstruction Qualified Code(s) : K56.69 - Other intestinal obstruction (6) History of CVA with residual deficit Current Visit: No Status: Chronic - Subjective Interval history: Complaints of generalized pain. He has not requested any IV pain medications in the past 24 hours. Appetite remains poor. Continues to receive TPN. - Constitutional Vitals: Temp Pulse Resp BP Pulse Ox 97.4 F L 69 15 105/67 94 L 09/23/16 12:24 09/23/16 12:24 09/23/16 12:24 09/23/16 12:24 09/23/16 12:24 General appearance: Present: cooperative, A&O X 3, no acute distress, underweight - Neck Neck exam general surgery: Present: supple, trachea midline. Absent: lymphadenopathy - Respiratory Respiratory exam: Present: CTAB. Absent: accessory muscle use, rales, rhonchi, wheezes - Cardiovascular Cardiovascular exam: Present: RRR, +S1, +S2. Absent: diastolic murmur, gallop, rubs, systolic murmur - GI/Abdominal GI/Abdominal exam: Present: normal bowel sounds, soft, tenderness (Generalized) , no peritoneal signs. Absent: distended - Extremities Exam Extremities exam: Present: warm, radial pulses palpable and symetrical. Absent : calf tenderness, cyanotic, pedal edema - Neurological Exam Neurological exam: Present: CN II-XII intact, oriented X3, no focal deficits. Absent: facial droop, speech deficit Internal Medicine: Result - Labs CBC & Chem 7: 09/23/16 04:42 09/23/16 04:42 Labs: Short CBC 09/23/16 Range/Units 04:42 WBC 10.8 (4.3-11.1) K/mcL Hgb 12.0 L (12.9-16.9) g/dL Hct 36.8 L (37.5-50.1) % Plt Count 175 (140-400) K/mcL Neutrophils # 6.7 (1.6-8.9) K/mcL BMP 09/23/16 04:42 Sodium 133 L Potassium 4.3 Chloride 98 Carbon Dioxide 30 H BUN 15 Creatinine 0.71 L Glucose 115 H Calcium 8.9 - ABG Interpretation ABG results: ABG ABG pH 7.36 pH Units (7.32-7.45) 09/16/16 00:01 ABG pCO2 47 mmHg (35-45) H 09/16/16 00:01 ABG pO2 89 mmHg (85-104) 09/16/16 00:01 ABG O2 Saturation 96 % (95-98) 09/16/16 00:01 PT/INR, D-dimer PT 11.5 Seconds (9.4-12.1) 09/15/16 04:35 - VTE Documentation of Mechanical Device: Intermittent pneumatic compression device Consult Discharge Plan - Plan Referrals: Jeannie Ragsdale MD [Partnered Physician] - 10/01/16 8:10 am [facility] Care Provider[facility] - - Attending Attestation This document has been at least partially created by V Wave recognition technology by Dr. Mak. Errors in grammar, wording or other phrases may exist. If errors are found after the documentation is signed, they will be addressed individually in the addendum section of this document when appropriate. Medical Decision Making - MDM Narrative Medical decision making narrative: Moderate risk for complications - Lab Data Lab results reviewed: Yes I reviewed the patient's lab results. Result diagrams: 09/23/16 04:42 09/23/16 04:42 Lab Results 09/14/16 09/14/16 09/15/16 Range/Units 11:50 23:12 04:35 WBC (4.3-11.1) K/mcL RBC (4.19-5.50) M/mcL Hgb (12.9-16.9) g/dL Hct (37.5-50.1) % MCV (83.0-100.0) fL MCH (28.0-33.3) pg MCHC (31.6-35.5) g/dL RDW (11.5-14.5) % Plt Count (140-400) K/mcL MPV (9.4-12.4) fL Immature Gran % (0-4) % Seg Neutrophils % % Lymphocytes % % Monocytes % % Eosinophils % % Basophils % % Neutrophils # (1.6-8.9) K/mcL Lymphocytes # (0.6-4.6) K/mcL Monocytes # (0.0-1.3) K/mcL Eosinophils # (0.0-0.6) K/mcL Basophils # (0.0-0.2) K/mcL Immature Plt Fraction (1.1-6.1) % PT 11.5 (9.4-12.1) Seconds INR 1.1 ABG pH (7.32-7.45) pH Units ABG pCO2 (35-45) mmHg ABG pO2 (85-104) mmHg ABG HCO3 (21-27) mEQ/L ABG Total CO2 (20-26) mEq/L ABG O2 Saturation (95-98) % ABG Base Excess (-2.0 to 3.0) mEq/L Blood Gas Modality Inspired O2 % Sodium (136-145) mEq/L Potassium (3.5-4.5) mEq/L Chloride (98-109) mEq/L Carbon Dioxide (19-29) mEq/L BUN (8-26) mg/dL Creatinine (0.72-1.25) mg/dL Est GFR ( Amer) (> 60) Est GFR (Non-Af Amer) (> 60) BUN/Creatinine Ratio (6-26) Glucose (70-99) mg/dL POC Glucose 92 H 96 H (58-89) Calculated Osmolality (280-300) Calcium (8.6-10.8) mg/dL Phosphorus (2.3-4.7) mg/dL Magnesium (1.6-2.6) mg/dL Prealbumin (18.0-45.0) mg/dL Triglycerides (< 150) mg/dL Urine Color (Yellow) Urine Clarity (Clear) Urine pH (5.0-8.0) pH Units Ur Specific Sumpter (1.010-1.025) Urine Protein (Neg-Trace) mg/dL Urine Glucose (UA) (Normal) mg/dL Urine Ketones (Negative) mg/dL Urine Blood (Negative) Urine Nitrite (Negative) Urine Bilirubin (Negative) Urine Urobilinogen (Normal) mg/dL Ur Leukocyte Esterase (Negative) Urine Microscopic RBC (0-3) per hpf Urine Microscopic WBC (0-3) per hpf Urine Bacteria (None-Few) per hpf Ur Culture Indicated? (NO) Vancomycin Trough (10-20) mcg/mL 09/15/16 09/15/16 09/15/16 Range/Units 04:35 04:35 05:37 WBC 10.9 (4.3-11.1) K/mcL RBC 4.99 (4.19-5.50) M/mcL Hgb 15.0 (12.9-16.9) g/dL Hct 44.5 (37.5-50.1) % MCV 89.2 (83.0-100.0) fL MCH 30.1 (28.0-33.3) pg MCHC 33.7 (31.6-35.5) g/dL RDW 14.5 (11.5-14.5) % Plt Count 238 (140-400) K/mcL MPV 9.3 L (9.4-12.4) fL Immature Gran % 0.6 (0-4) % Seg Neutrophils % 64.8 % Lymphocytes % 21.4 % Monocytes % 10.6 % Eosinophils % 2.0 % Basophils % 0.6 % Neutrophils # 7.0 (1.6-8.9) K/mcL Lymphocytes # 2.3 (0.6-4.6) K/mcL Monocytes # 1.2 (0.0-1.3) K/mcL Eosinophils # 0.2 (0.0-0.6) K/mcL Basophils # 0.1 (0.0-0.2) K/mcL Immature Plt Fraction (1.1-6.1) % PT (9.4-12.1) Seconds INR ABG pH (7.32-7.45) pH Units ABG pCO2 (35-45) mmHg ABG pO2 (85-104) mmHg ABG HCO3 (21-27) mEQ/L ABG Total CO2 (20-26) mEq/L ABG O2 Saturation (95-98) % ABG Base Excess (-2.0 to 3.0) mEq/L Blood Gas Modality Inspired O2 % Sodium 136 (136-145) mEq/L Potassium 3.8 (3.5-4.5) mEq/L Chloride 106 (98-109) mEq/L Carbon Dioxide 22 (19-29) mEq/L BUN 9 (8-26) mg/dL Creatinine 0.79 (0.72-1.25) mg/dL Est GFR ( Amer) > 60 (> 60) Est GFR (Non-Af Amer) > 60 (> 60) BUN/Creatinine Ratio 11 (6-26) Glucose 86 (70-99) mg/dL POC Glucose 88 (58-89) Calculated Osmolality 280 (280-300) Calcium 8.5 L (8.6-10.8) mg/dL Phosphorus (2.3-4.7) mg/dL Magnesium (1.6-2.6) mg/dL Prealbumin (18.0-45.0) mg/dL Triglycerides (< 150) mg/dL Urine Color (Yellow) Urine Clarity (Clear) Urine pH (5.0-8.0) pH Units Ur Specific Sumpter (1.010-1.025) Urine Protein (Neg-Trace) mg/dL Urine Glucose (UA) (Normal) mg/dL Urine Ketones (Negative) mg/dL Urine Blood (Negative) Urine Nitrite (Negative) Urine Bilirubin (Negative) Urine Urobilinogen (Normal) mg/dL Ur Leukocyte Esterase (Negative) Urine Microscopic RBC (0-3) per hpf Urine Microscopic WBC (0-3) per hpf Urine Bacteria (None-Few) per hpf Ur Culture Indicated? (NO) Vancomycin Trough (10-20) mcg/mL 09/15/16 09/15/16 09/15/16 Range/Units 10:51 11:27 11:27 WBC (4.3-11.1) K/mcL RBC (4.19-5.50) M/mcL Hgb (12.9-16.9) g/dL Hct (37.5-50.1) % MCV (83.0-100.0) fL MCH (28.0-33.3) pg MCHC (31.6-35.5) g/dL RDW (11.5-14.5) % Plt Count (140-400) K/mcL MPV (9.4-12.4) fL Immature Gran % (0-4) % Seg Neutrophils % % Lymphocytes % % Monocytes % % Eosinophils % % Basophils % % Neutrophils # (1.6-8.9) K/mcL Lymphocytes # (0.6-4.6) K/mcL Monocytes # (0.0-1.3) K/mcL Eosinophils # (0.0-0.6) K/mcL Basophils # (0.0-0.2) K/mcL Immature Plt Fraction (1.1-6.1) % PT (9.4-12.1) Seconds INR ABG pH (7.32-7.45) pH Units ABG pCO2 (35-45) mmHg ABG pO2 (85-104) mmHg ABG HCO3 (21-27) mEQ/L ABG Total CO2 (20-26) mEq/L ABG O2 Saturation (95-98) % ABG Base Excess (-2.0 to 3.0) mEq/L Blood Gas Modality Inspired O2 % Sodium (136-145) mEq/L Potassium (3.5-4.5) mEq/L Chloride (98-109) mEq/L Carbon Dioxide (19-29) mEq/L BUN (8-26) mg/dL Creatinine (0.72-1.25) mg/dL Est GFR ( Amer) (> 60) Est GFR (Non-Af Amer) (> 60) BUN/Creatinine Ratio (6-26) Glucose (70-99) mg/dL POC Glucose 77 (58-89) Calculated Osmolality (280-300) Calcium (8.6-10.8) mg/dL Phosphorus 2.7 (2.3-4.7) mg/dL Magnesium 2.0 (1.6-2.6) mg/dL Prealbumin (18.0-45.0) mg/dL Triglycerides (< 150) mg/dL Urine Color (Yellow) Urine Clarity (Clear) Urine pH (5.0-8.0) pH Units Ur Specific Sumpter (1.010-1.025) Urine Protein (Neg-Trace) mg/dL Urine Glucose (UA) (Normal) mg/dL Urine Ketones (Negative) mg/dL Urine Blood (Negative) Urine Nitrite (Negative) Urine Bilirubin (Negative) Urine Urobilinogen (Normal) mg/dL Ur Leukocyte Esterase (Negative) Urine Microscopic RBC (0-3) per hpf Urine Microscopic WBC (0-3) per hpf Urine Bacteria (None-Few) per hpf Ur Culture Indicated? (NO) Vancomycin Trough (10-20) mcg/mL 09/15/16 09/15/16 09/16/16 Range/Units 11:27 11:27 00:01 WBC (4.3-11.1) K/mcL RBC (4.19-5.50) M/mcL Hgb (12.9-16.9) g/dL Hct (37.5-50.1) % MCV (83.0-100.0) fL MCH (28.0-33.3) pg MCHC (31.6-35.5) g/dL RDW (11.5-14.5) % Plt Count (140-400) K/mcL MPV (9.4-12.4) fL Immature Gran % (0-4) % Seg Neutrophils % % Lymphocytes % % Monocytes % % Eosinophils % % Basophils % % Neutrophils # (1.6-8.9) K/mcL Lymphocytes # (0.6-4.6) K/mcL Monocytes # (0.0-1.3) K/mcL Eosinophils # (0.0-0.6) K/mcL Basophils # (0.0-0.2) K/mcL Immature Plt Fraction (1.1-6.1) % PT (9.4-12.1) Seconds INR ABG pH 7.36 (7.32-7.45) pH Units ABG pCO2 47 H (35-45) mmHg ABG pO2 89 (85-104) mmHg ABG HCO3 26.6 (21-27) mEQ/L ABG Total CO2 28.0 H (20-26) mEq/L ABG O2 Saturation 96 (95-98) % ABG Base Excess 0.6 (-2.0 to 3.0) mEq/L Blood Gas Modality nc Inspired O2 28 % Sodium (136-145) mEq/L Potassium (3.5-4.5) mEq/L Chloride (98-109) mEq/L Carbon Dioxide (19-29) mEq/L BUN (8-26) mg/dL Creatinine (0.72-1.25) mg/dL Est GFR ( Amer) (> 60) Est GFR (Non-Af Amer) (> 60) BUN/Creatinine Ratio (6-26) Glucose (70-99) mg/dL POC Glucose (58-89) Calculated Osmolality (280-300) Calcium (8.6-10.8) mg/dL Phosphorus (2.3-4.7) mg/dL Magnesium (1.6-2.6) mg/dL Prealbumin 11.0 L (18.0-45.0) mg/dL Triglycerides 106 (< 150) mg/dL Urine Color (Yellow) Urine Clarity (Clear) Urine pH (5.0-8.0) pH Units Ur Specific Sumpter (1.010-1.025) Urine Protein (Neg-Trace) mg/dL Urine Glucose (UA) (Normal) mg/dL Urine Ketones (Negative) mg/dL Urine Blood (Negative) Urine Nitrite (Negative) Urine Bilirubin (Negative) Urine Urobilinogen (Normal) mg/dL Ur Leukocyte Esterase (Negative) Urine Microscopic RBC (0-3) per hpf Urine Microscopic WBC (0-3) per hpf Urine Bacteria (None-Few) per hpf Ur Culture Indicated? (NO) Vancomycin Trough (10-20) mcg/mL 09/16/16 09/16/16 09/16/16 Range/Units 00:06 03:20 03:20 WBC 18.5 H D (4.3-11.1) K/mcL RBC 4.47 (4.19-5.50) M/mcL Hgb 13.5 D (12.9-16.9) g/dL Hct 40.2 (37.5-50.1) % MCV 89.9 (83.0-100.0) fL MCH 30.2 (28.0-33.3) pg MCHC 33.6 (31.6-35.5) g/dL RDW 14.6 H (11.5-14.5) % Plt Count 188 (140-400) K/mcL MPV 9.2 L (9.4-12.4) fL Immature Gran % 0.6 (0-4) % Seg Neutrophils % 90.0 % Lymphocytes % 3.4 % Monocytes % 5.8 % Eosinophils % 0.0 % Basophils % 0.2 % Neutrophils # 16.7 H (1.6-8.9) K/mcL Lymphocytes # 0.6 (0.6-4.6) K/mcL Monocytes # 1.1 (0.0-1.3) K/mcL Eosinophils # 0.0 (0.0-0.6) K/mcL Basophils # 0.0 (0.0-0.2) K/mcL Immature Plt Fraction (1.1-6.1) % PT (9.4-12.1) Seconds INR ABG pH (7.32-7.45) pH Units ABG pCO2 (35-45) mmHg ABG pO2 (85-104) mmHg ABG HCO3 (21-27) mEQ/L ABG Total CO2 (20-26) mEq/L ABG O2 Saturation (95-98) % ABG Base Excess (-2.0 to 3.0) mEq/L Blood Gas Modality Inspired O2 % Sodium 135 L (136-145) mEq/L Potassium 4.3 (3.5-4.5) mEq/L Chloride 104 (98-109) mEq/L Carbon Dioxide 29 (19-29) mEq/L BUN 11 (8-26) mg/dL Creatinine 0.80 (0.72-1.25) mg/dL Est GFR ( Amer) > 60 (> 60) Est GFR (Non-Af Amer) > 60 (> 60) BUN/Creatinine Ratio 14 (6-26) Glucose 188 H (70-99) mg/dL POC Glucose 132 H (58-89) Calculated Osmolality 284 (280-300) Calcium 8.2 L (8.6-10.8) mg/dL Phosphorus 3.1 (2.3-4.7) mg/dL Magnesium 1.8 (1.6-2.6) mg/dL Prealbumin (18.0-45.0) mg/dL Triglycerides (< 150) mg/dL Urine Color (Yellow) Urine Clarity (Clear) Urine pH (5.0-8.0) pH Units Ur Specific Sumpter (1.010-1.025) Urine Protein (Neg-Trace) mg/dL Urine Glucose (UA) (Normal) mg/dL Urine Ketones (Negative) mg/dL Urine Blood (Negative) Urine Nitrite (Negative) Urine Bilirubin (Negative) Urine Urobilinogen (Normal) mg/dL Ur Leukocyte Esterase (Negative) Urine Microscopic RBC (0-3) per hpf Urine Microscopic WBC (0-3) per hpf Urine Bacteria (None-Few) per hpf Ur Culture Indicated? (NO) Vancomycin Trough (10-20) mcg/mL 09/16/16 09/16/16 09/16/16 Range/Units 07:39 11:53 16:53 WBC (4.3-11.1) K/mcL RBC (4.19-5.50) M/mcL Hgb (12.9-16.9) g/dL Hct (37.5-50.1) % MCV (83.0-100.0) fL MCH (28.0-33.3) pg MCHC (31.6-35.5) g/dL RDW (11.5-14.5) % Plt Count (140-400) K/mcL MPV (9.4-12.4) fL Immature Gran % (0-4) % Seg Neutrophils % % Lymphocytes % % Monocytes % % Eosinophils % % Basophils % % Neutrophils # (1.6-8.9) K/mcL Lymphocytes # (0.6-4.6) K/mcL Monocytes # (0.0-1.3) K/mcL Eosinophils # (0.0-0.6) K/mcL Basophils # (0.0-0.2) K/mcL Immature Plt Fraction (1.1-6.1) % PT (9.4-12.1) Seconds INR ABG pH (7.32-7.45) pH Units ABG pCO2 (35-45) mmHg ABG pO2 (85-104) mmHg ABG HCO3 (21-27) mEQ/L ABG Total CO2 (20-26) mEq/L ABG O2 Saturation (95-98) % ABG Base Excess (-2.0 to 3.0) mEq/L Blood Gas Modality Inspired O2 % Sodium (136-145) mEq/L Potassium (3.5-4.5) mEq/L Chloride (98-109) mEq/L Carbon Dioxide (19-29) mEq/L BUN (8-26) mg/dL Creatinine (0.72-1.25) mg/dL Est GFR ( Amer) (> 60) Est GFR (Non-Af Amer) (> 60) BUN/Creatinine Ratio (6-26) Glucose (70-99) mg/dL POC Glucose 193 H 159 H 116 H (58-89) Calculated Osmolality (280-300) Calcium (8.6-10.8) mg/dL Phosphorus (2.3-4.7) mg/dL Magnesium (1.6-2.6) mg/dL Prealbumin (18.0-45.0) mg/dL Triglycerides (< 150) mg/dL Urine Color (Yellow) Urine Clarity (Clear) Urine pH (5.0-8.0) pH Units Ur Specific Sumpter (1.010-1.025) Urine Protein (Neg-Trace) mg/dL Urine Glucose (UA) (Normal) mg/dL Urine Ketones (Negative) mg/dL Urine Blood (Negative) Urine Nitrite (Negative) Urine Bilirubin (Negative) Urine Urobilinogen (Normal) mg/dL Ur Leukocyte Esterase (Negative) Urine Microscopic RBC (0-3) per hpf Urine Microscopic WBC (0-3) per hpf Urine Bacteria (None-Few) per hpf Ur Culture Indicated? (NO) Vancomycin Trough (10-20) mcg/mL 09/16/16 09/17/16 09/17/16 Range/Units 20:57 00:02 03:02 WBC (4.3-11.1) K/mcL RBC (4.19-5.50) M/mcL Hgb (12.9-16.9) g/dL Hct (37.5-50.1) % MCV (83.0-100.0) fL MCH (28.0-33.3) pg MCHC (31.6-35.5) g/dL RDW (11.5-14.5) % Plt Count (140-400) K/mcL MPV (9.4-12.4) fL Immature Gran % (0-4) % Seg Neutrophils % % Lymphocytes % % Monocytes % % Eosinophils % % Basophils % % Neutrophils # (1.6-8.9) K/mcL Lymphocytes # (0.6-4.6) K/mcL Monocytes # (0.0-1.3) K/mcL Eosinophils # (0.0-0.6) K/mcL Basophils # (0.0-0.2) K/mcL Immature Plt Fraction (1.1-6.1) % PT (9.4-12.1) Seconds INR ABG pH (7.32-7.45) pH Units ABG pCO2 (35-45) mmHg ABG pO2 (85-104) mmHg ABG HCO3 (21-27) mEQ/L ABG Total CO2 (20-26) mEq/L ABG O2 Saturation (95-98) % ABG Base Excess (-2.0 to 3.0) mEq/L Blood Gas Modality Inspired O2 % Sodium 137 (136-145) mEq/L Potassium 3.7 (3.5-4.5) mEq/L Chloride 104 (98-109) mEq/L Carbon Dioxide 29 (19-29) mEq/L BUN 13 (8-26) mg/dL Creatinine 0.65 L (0.72-1.25) mg/dL Est GFR ( Amer) > 60 (> 60) Est GFR (Non-Af Amer) > 60 (> 60) BUN/Creatinine Ratio 20 (6-26) Glucose 111 H (70-99) mg/dL POC Glucose 114 H 108 H (58-89) Calculated Osmolality 285 (280-300) Calcium 7.9 L (8.6-10.8) mg/dL Phosphorus 2.8 (2.3-4.7) mg/dL Magnesium 1.8 (1.6-2.6) mg/dL Prealbumin (18.0-45.0) mg/dL Triglycerides (< 150) mg/dL Urine Color (Yellow) Urine Clarity (Clear) Urine pH (5.0-8.0) pH Units Ur Specific Sumpter (1.010-1.025) Urine Protein (Neg-Trace) mg/dL Urine Glucose (UA) (Normal) mg/dL Urine Ketones (Negative) mg/dL Urine Blood (Negative) Urine Nitrite (Negative) Urine Bilirubin (Negative) Urine Urobilinogen (Normal) mg/dL Ur Leukocyte Esterase (Negative) Urine Microscopic RBC (0-3) per hpf Urine Microscopic WBC (0-3) per hpf Urine Bacteria (None-Few) per hpf Ur Culture Indicated? (NO) Vancomycin Trough (10-20) mcg/mL 09/17/16 09/17/16 09/17/16 Range/Units 03:02 05:44 11:43 WBC 11.5 H (4.3-11.1) K/mcL RBC 4.12 L (4.19-5.50) M/mcL Hgb 12.4 L (12.9-16.9) g/dL Hct 37.1 L (37.5-50.1) % MCV 90.0 (83.0-100.0) fL MCH 30.1 (28.0-33.3) pg MCHC 33.4 (31.6-35.5) g/dL RDW 14.8 H (11.5-14.5) % Plt Count 184 (140-400) K/mcL MPV 9.4 (9.4-12.4) fL Immature Gran % 0.8 (0-4) % Seg Neutrophils % 69.2 % Lymphocytes % 16.3 % Monocytes % 11.8 % Eosinophils % 1.6 % Basophils % 0.3 % Neutrophils # 7.9 (1.6-8.9) K/mcL Lymphocytes # 1.9 (0.6-4.6) K/mcL Monocytes # 1.4 H (0.0-1.3) K/mcL Eosinophils # 0.2 (0.0-0.6) K/mcL Basophils # 0.0 (0.0-0.2) K/mcL Immature Plt Fraction (1.1-6.1) % PT (9.4-12.1) Seconds INR ABG pH (7.32-7.45) pH Units ABG pCO2 (35-45) mmHg ABG pO2 (85-104) mmHg ABG HCO3 (21-27) mEQ/L ABG Total CO2 (20-26) mEq/L ABG O2 Saturation (95-98) % ABG Base Excess (-2.0 to 3.0) mEq/L Blood Gas Modality Inspired O2 % Sodium (136-145) mEq/L Potassium (3.5-4.5) mEq/L Chloride (98-109) mEq/L Carbon Dioxide (19-29) mEq/L BUN (8-26) mg/dL Creatinine (0.72-1.25) mg/dL Est GFR ( Amer) (> 60) Est GFR (Non-Af Amer) (> 60) BUN/Creatinine Ratio (6-26) Glucose (70-99) mg/dL POC Glucose 97 H 116 H (58-89) Calculated Osmolality (280-300) Calcium (8.6-10.8) mg/dL Phosphorus (2.3-4.7) mg/dL Magnesium (1.6-2.6) mg/dL Prealbumin (18.0-45.0) mg/dL Triglycerides (< 150) mg/dL Urine Color (Yellow) Urine Clarity (Clear) Urine pH (5.0-8.0) pH Units Ur Specific Sumpter (1.010-1.025) Urine Protein (Neg-Trace) mg/dL Urine Glucose (UA) (Normal) mg/dL Urine Ketones (Negative) mg/dL Urine Blood (Negative) Urine Nitrite (Negative) Urine Bilirubin (Negative) Urine Urobilinogen (Normal) mg/dL Ur Leukocyte Esterase (Negative) Urine Microscopic RBC (0-3) per hpf Urine Microscopic WBC (0-3) per hpf Urine Bacteria (None-Few) per hpf Ur Culture Indicated? (NO) Vancomycin Trough (10-20) mcg/mL 09/17/16 09/17/16 09/18/16 Range/Units 16:26 20:28 00:01 WBC (4.3-11.1) K/mcL RBC (4.19-5.50) M/mcL Hgb (12.9-16.9) g/dL Hct (37.5-50.1) % MCV (83.0-100.0) fL MCH (28.0-33.3) pg MCHC (31.6-35.5) g/dL RDW (11.5-14.5) % Plt Count (140-400) K/mcL MPV (9.4-12.4) fL Immature Gran % (0-4) % Seg Neutrophils % % Lymphocytes % % Monocytes % % Eosinophils % % Basophils % % Neutrophils # (1.6-8.9) K/mcL Lymphocytes # (0.6-4.6) K/mcL Monocytes # (0.0-1.3) K/mcL Eosinophils # (0.0-0.6) K/mcL Basophils # (0.0-0.2) K/mcL Immature Plt Fraction (1.1-6.1) % PT (9.4-12.1) Seconds INR ABG pH (7.32-7.45) pH Units ABG pCO2 (35-45) mmHg ABG pO2 (85-104) mmHg ABG HCO3 (21-27) mEQ/L ABG Total CO2 (20-26) mEq/L ABG O2 Saturation (95-98) % ABG Base Excess (-2.0 to 3.0) mEq/L Blood Gas Modality Inspired O2 % Sodium (136-145) mEq/L Potassium (3.5-4.5) mEq/L Chloride (98-109) mEq/L Carbon Dioxide (19-29) mEq/L BUN (8-26) mg/dL Creatinine (0.72-1.25) mg/dL Est GFR ( Amer) (> 60) Est GFR (Non-Af Amer) (> 60) BUN/Creatinine Ratio (6-26) Glucose (70-99) mg/dL POC Glucose 108 H 104 H 110 H (58-89) Calculated Osmolality (280-300) Calcium (8.6-10.8) mg/dL Phosphorus (2.3-4.7) mg/dL Magnesium (1.6-2.6) mg/dL Prealbumin (18.0-45.0) mg/dL Triglycerides (< 150) mg/dL Urine Color (Yellow) Urine Clarity (Clear) Urine pH (5.0-8.0) pH Units Ur Specific Sumpter (1.010-1.025) Urine Protein (Neg-Trace) mg/dL Urine Glucose (UA) (Normal) mg/dL Urine Ketones (Negative) mg/dL Urine Blood (Negative) Urine Nitrite (Negative) Urine Bilirubin (Negative) Urine Urobilinogen (Normal) mg/dL Ur Leukocyte Esterase (Negative) Urine Microscopic RBC (0-3) per hpf Urine Microscopic WBC (0-3) per hpf Urine Bacteria (None-Few) per hpf Ur Culture Indicated? (NO) Vancomycin Trough (10-20) mcg/mL 09/18/16 09/18/16 09/18/16 Range/Units 03:05 03:05 04:13 WBC 16.8 H (4.3-11.1) K/mcL RBC 3.91 L (4.19-5.50) M/mcL Hgb 11.9 L (12.9-16.9) g/dL Hct 35.1 L (37.5-50.1) % MCV 89.8 (83.0-100.0) fL MCH 30.4 (28.0-33.3) pg MCHC 33.9 (31.6-35.5) g/dL RDW 14.8 H (11.5-14.5) % Plt Count 158 (140-400) K/mcL MPV 9.6 (9.4-12.4) fL Immature Gran % 0.7 (0-4) % Seg Neutrophils % 78.9 % Lymphocytes % 10.3 % Monocytes % 6.5 % Eosinophils % 3.3 % Basophils % 0.3 % Neutrophils # 13.3 H (1.6-8.9) K/mcL Lymphocytes # 1.7 (0.6-4.6) K/mcL Monocytes # 1.1 (0.0-1.3) K/mcL Eosinophils # 0.6 (0.0-0.6) K/mcL Basophils # 0.1 (0.0-0.2) K/mcL Immature Plt Fraction (1.1-6.1) % PT (9.4-12.1) Seconds INR ABG pH (7.32-7.45) pH Units ABG pCO2 (35-45) mmHg ABG pO2 (85-104) mmHg ABG HCO3 (21-27) mEQ/L ABG Total CO2 (20-26) mEq/L ABG O2 Saturation (95-98) % ABG Base Excess (-2.0 to 3.0) mEq/L Blood Gas Modality Inspired O2 % Sodium 133 L (136-145) mEq/L Potassium 3.8 (3.5-4.5) mEq/L Chloride 102 (98-109) mEq/L Carbon Dioxide 26 (19-29) mEq/L BUN 13 (8-26) mg/dL Creatinine 0.62 L (0.72-1.25) mg/dL Est GFR ( Amer) > 60 (> 60) Est GFR (Non-Af Amer) > 60 (> 60) BUN/Creatinine Ratio 21 (6-26) Glucose 100 H (70-99) mg/dL POC Glucose 124 H (58-89) Calculated Osmolality 276 L (280-300) Calcium 8.0 L (8.6-10.8) mg/dL Phosphorus 3.5 (2.3-4.7) mg/dL Magnesium 1.7 (1.6-2.6) mg/dL Prealbumin (18.0-45.0) mg/dL Triglycerides (< 150) mg/dL Urine Color (Yellow) Urine Clarity (Clear) Urine pH (5.0-8.0) pH Units Ur Specific Sumpter (1.010-1.025) Urine Protein (Neg-Trace) mg/dL Urine Glucose (UA) (Normal) mg/dL Urine Ketones (Negative) mg/dL Urine Blood (Negative) Urine Nitrite (Negative) Urine Bilirubin (Negative) Urine Urobilinogen (Normal) mg/dL Ur Leukocyte Esterase (Negative) Urine Microscopic RBC (0-3) per hpf Urine Microscopic WBC (0-3) per hpf Urine Bacteria (None-Few) per hpf Ur Culture Indicated? (NO) Vancomycin Trough (10-20) mcg/mL 09/18/16 09/18/16 09/18/16 Range/Units 07:05 11:20 15:57 WBC (4.3-11.1) K/mcL RBC (4.19-5.50) M/mcL Hgb (12.9-16.9) g/dL Hct (37.5-50.1) % MCV (83.0-100.0) fL MCH (28.0-33.3) pg MCHC (31.6-35.5) g/dL RDW (11.5-14.5) % Plt Count (140-400) K/mcL MPV (9.4-12.4) fL Immature Gran % (0-4) % Seg Neutrophils % % Lymphocytes % % Monocytes % % Eosinophils % % Basophils % % Neutrophils # (1.6-8.9) K/mcL Lymphocytes # (0.6-4.6) K/mcL Monocytes # (0.0-1.3) K/mcL Eosinophils # (0.0-0.6) K/mcL Basophils # (0.0-0.2) K/mcL Immature Plt Fraction (1.1-6.1) % PT (9.4-12.1) Seconds INR ABG pH (7.32-7.45) pH Units ABG pCO2 (35-45) mmHg ABG pO2 (85-104) mmHg ABG HCO3 (21-27) mEQ/L ABG Total CO2 (20-26) mEq/L ABG O2 Saturation (95-98) % ABG Base Excess (-2.0 to 3.0) mEq/L Blood Gas Modality Inspired O2 % Sodium (136-145) mEq/L Potassium (3.5-4.5) mEq/L Chloride (98-109) mEq/L Carbon Dioxide (19-29) mEq/L BUN (8-26) mg/dL Creatinine (0.72-1.25) mg/dL Est GFR ( Amer) (> 60) Est GFR (Non-Af Amer) (> 60) BUN/Creatinine Ratio (6-26) Glucose (70-99) mg/dL POC Glucose 125 H 118 H 106 H (58-89) Calculated Osmolality (280-300) Calcium (8.6-10.8) mg/dL Phosphorus (2.3-4.7) mg/dL Magnesium (1.6-2.6) mg/dL Prealbumin (18.0-45.0) mg/dL Triglycerides (< 150) mg/dL Urine Color (Yellow) Urine Clarity (Clear) Urine pH (5.0-8.0) pH Units Ur Specific Sumpter (1.010-1.025) Urine Protein (Neg-Trace) mg/dL Urine Glucose (UA) (Normal) mg/dL Urine Ketones (Negative) mg/dL Urine Blood (Negative) Urine Nitrite (Negative) Urine Bilirubin (Negative) Urine Urobilinogen (Normal) mg/dL Ur Leukocyte Esterase (Negative) Urine Microscopic RBC (0-3) per hpf Urine Microscopic WBC (0-3) per hpf Urine Bacteria (None-Few) per hpf Ur Culture Indicated? (NO) Vancomycin Trough (10-20) mcg/mL 09/18/16 09/18/16 09/19/16 Range/Units 16:00 20:32 00:21 WBC (4.3-11.1) K/mcL RBC (4.19-5.50) M/mcL Hgb (12.9-16.9) g/dL Hct (37.5-50.1) % MCV (83.0-100.0) fL MCH (28.0-33.3) pg MCHC (31.6-35.5) g/dL RDW (11.5-14.5) % Plt Count (140-400) K/mcL MPV (9.4-12.4) fL Immature Gran % (0-4) % Seg Neutrophils % % Lymphocytes % % Monocytes % % Eosinophils % % Basophils % % Neutrophils # (1.6-8.9) K/mcL Lymphocytes # (0.6-4.6) K/mcL Monocytes # (0.0-1.3) K/mcL Eosinophils # (0.0-0.6) K/mcL Basophils # (0.0-0.2) K/mcL Immature Plt Fraction (1.1-6.1) % PT (9.4-12.1) Seconds INR ABG pH (7.32-7.45) pH Units ABG pCO2 (35-45) mmHg ABG pO2 (85-104) mmHg ABG HCO3 (21-27) mEQ/L ABG Total CO2 (20-26) mEq/L ABG O2 Saturation (95-98) % ABG Base Excess (-2.0 to 3.0) mEq/L Blood Gas Modality Inspired O2 % Sodium (136-145) mEq/L Potassium (3.5-4.5) mEq/L Chloride (98-109) mEq/L Carbon Dioxide (19-29) mEq/L BUN (8-26) mg/dL Creatinine (0.72-1.25) mg/dL Est GFR ( Amer) (> 60) Est GFR (Non-Af Amer) (> 60) BUN/Creatinine Ratio (6-26) Glucose (70-99) mg/dL POC Glucose 121 H 127 H (58-89) Calculated Osmolality (280-300) Calcium (8.6-10.8) mg/dL Phosphorus (2.3-4.7) mg/dL Magnesium (1.6-2.6) mg/dL Prealbumin (18.0-45.0) mg/dL Triglycerides (< 150) mg/dL Urine Color Yellow (Yellow) Urine Clarity Clear (Clear) Urine pH 7.0 (5.0-8.0) pH Units Ur Specific Sumpter 1.010 (1.010-1.025) Urine Protein Negative (Neg-Trace) mg/dL Urine Glucose (UA) Normal (Normal) mg/dL Urine Ketones Negative (Negative) mg/dL Urine Blood Small H (Negative) Urine Nitrite Negative (Negative) Urine Bilirubin Negative (Negative) Urine Urobilinogen Normal (Normal) mg/dL Ur Leukocyte Esterase Negative (Negative) Urine Microscopic RBC 0-3 (0-3) per hpf Urine Microscopic WBC 0-3 (0-3) per hpf Urine Bacteria Few (None-Few) per hpf Ur Culture Indicated? NO (NO) Vancomycin Trough (10-20) mcg/mL 09/19/16 09/19/16 09/19/16 Range/Units 03:20 03:20 03:51 WBC 20.3 H (4.3-11.1) K/mcL RBC 4.06 L (4.19-5.50) M/mcL Hgb 12.2 L (12.9-16.9) g/dL Hct 35.8 L (37.5-50.1) % MCV 88.2 (83.0-100.0) fL MCH 30.0 (28.0-33.3) pg MCHC 34.1 (31.6-35.5) g/dL RDW 14.7 H (11.5-14.5) % Plt Count 180 (140-400) K/mcL MPV 9.8 (9.4-12.4) fL Immature Gran % 0.6 (0-4) % Seg Neutrophils % 82.4 % Lymphocytes % 6.7 % Monocytes % 7.4 % Eosinophils % 2.6 % Basophils % 0.3 % Neutrophils # 16.7 H (1.6-8.9) K/mcL Lymphocytes # 1.4 (0.6-4.6) K/mcL Monocytes # 1.5 H (0.0-1.3) K/mcL Eosinophils # 0.5 (0.0-0.6) K/mcL Basophils # 0.1 (0.0-0.2) K/mcL Immature Plt Fraction 3.5 (1.1-6.1) % PT (9.4-12.1) Seconds INR ABG pH (7.32-7.45) pH Units ABG pCO2 (35-45) mmHg ABG pO2 (85-104) mmHg ABG HCO3 (21-27) mEQ/L ABG Total CO2 (20-26) mEq/L ABG O2 Saturation (95-98) % ABG Base Excess (-2.0 to 3.0) mEq/L Blood Gas Modality Inspired O2 % Sodium 133 L (136-145) mEq/L Potassium 4.0 (3.5-4.5) mEq/L Chloride 101 (98-109) mEq/L Carbon Dioxide 27 (19-29) mEq/L BUN 14 (8-26) mg/dL Creatinine 0.66 L (0.72-1.25) mg/dL Est GFR ( Amer) > 60 (> 60) Est GFR (Non-Af Amer) > 60 (> 60) BUN/Creatinine Ratio 21 (6-26) Glucose 102 H (70-99) mg/dL POC Glucose 121 H (58-89) Calculated Osmolality 277 L (280-300) Calcium 8.4 L (8.6-10.8) mg/dL Phosphorus 4.0 (2.3-4.7) mg/dL Magnesium 2.1 (1.6-2.6) mg/dL Prealbumin (18.0-45.0) mg/dL Triglycerides (< 150) mg/dL Urine Color (Yellow) Urine Clarity (Clear) Urine pH (5.0-8.0) pH Units Ur Specific Sumpter (1.010-1.025) Urine Protein (Neg-Trace) mg/dL Urine Glucose (UA) (Normal) mg/dL Urine Ketones (Negative) mg/dL Urine Blood (Negative) Urine Nitrite (Negative) Urine Bilirubin (Negative) Urine Urobilinogen (Normal) mg/dL Ur Leukocyte Esterase (Negative) Urine Microscopic RBC (0-3) per hpf Urine Microscopic WBC (0-3) per hpf Urine Bacteria (None-Few) per hpf Ur Culture Indicated? (NO) Vancomycin Trough (10-20) mcg/mL 09/19/16 09/19/16 09/19/16 Range/Units 07:25 11:08 16:20 WBC (4.3-11.1) K/mcL RBC (4.19-5.50) M/mcL Hgb (12.9-16.9) g/dL Hct (37.5-50.1) % MCV (83.0-100.0) fL MCH (28.0-33.3) pg MCHC (31.6-35.5) g/dL RDW (11.5-14.5) % Plt Count (140-400) K/mcL MPV (9.4-12.4) fL Immature Gran % (0-4) % Seg Neutrophils % % Lymphocytes % % Monocytes % % Eosinophils % % Basophils % % Neutrophils # (1.6-8.9) K/mcL Lymphocytes # (0.6-4.6) K/mcL Monocytes # (0.0-1.3) K/mcL Eosinophils # (0.0-0.6) K/mcL Basophils # (0.0-0.2) K/mcL Immature Plt Fraction (1.1-6.1) % PT (9.4-12.1) Seconds INR ABG pH (7.32-7.45) pH Units ABG pCO2 (35-45) mmHg ABG pO2 (85-104) mmHg ABG HCO3 (21-27) mEQ/L ABG Total CO2 (20-26) mEq/L ABG O2 Saturation (95-98) % ABG Base Excess (-2.0 to 3.0) mEq/L Blood Gas Modality Inspired O2 % Sodium (136-145) mEq/L Potassium (3.5-4.5) mEq/L Chloride (98-109) mEq/L Carbon Dioxide (19-29) mEq/L BUN (8-26) mg/dL Creatinine (0.72-1.25) mg/dL Est GFR ( Amer) (> 60) Est GFR (Non-Af Amer) (> 60) BUN/Creatinine Ratio (6-26) Glucose (70-99) mg/dL POC Glucose 137 H 129 H 112 H (58-89) Calculated Osmolality (280-300) Calcium (8.6-10.8) mg/dL Phosphorus (2.3-4.7) mg/dL Magnesium (1.6-2.6) mg/dL Prealbumin (18.0-45.0) mg/dL Triglycerides (< 150) mg/dL Urine Color (Yellow) Urine Clarity (Clear) Urine pH (5.0-8.0) pH Units Ur Specific Sumpter (1.010-1.025) Urine Protein (Neg-Trace) mg/dL Urine Glucose (UA) (Normal) mg/dL Urine Ketones (Negative) mg/dL Urine Blood (Negative) Urine Nitrite (Negative) Urine Bilirubin (Negative) Urine Urobilinogen (Normal) mg/dL Ur Leukocyte Esterase (Negative) Urine Microscopic RBC (0-3) per hpf Urine Microscopic WBC (0-3) per hpf Urine Bacteria (None-Few) per hpf Ur Culture Indicated? (NO) Vancomycin Trough (10-20) mcg/mL 09/19/16 09/19/16 09/20/16 Range/Units 19:52 23:38 03:20 WBC (4.3-11.1) K/mcL RBC (4.19-5.50) M/mcL Hgb (12.9-16.9) g/dL Hct (37.5-50.1) % MCV (83.0-100.0) fL MCH (28.0-33.3) pg MCHC (31.6-35.5) g/dL RDW (11.5-14.5) % Plt Count (140-400) K/mcL MPV (9.4-12.4) fL Immature Gran % (0-4) % Seg Neutrophils % % Lymphocytes % % Monocytes % % Eosinophils % % Basophils % % Neutrophils # (1.6-8.9) K/mcL Lymphocytes # (0.6-4.6) K/mcL Monocytes # (0.0-1.3) K/mcL Eosinophils # (0.0-0.6) K/mcL Basophils # (0.0-0.2) K/mcL Immature Plt Fraction (1.1-6.1) % PT (9.4-12.1) Seconds INR ABG pH (7.32-7.45) pH Units ABG pCO2 (35-45) mmHg ABG pO2 (85-104) mmHg ABG HCO3 (21-27) mEQ/L ABG Total CO2 (20-26) mEq/L ABG O2 Saturation (95-98) % ABG Base Excess (-2.0 to 3.0) mEq/L Blood Gas Modality Inspired O2 % Sodium 135 L (136-145) mEq/L Potassium 3.7 (3.5-4.5) mEq/L Chloride 107 (98-109) mEq/L Carbon Dioxide 22 (19-29) mEq/L BUN 14 (8-26) mg/dL Creatinine 0.58 L (0.72-1.25) mg/dL Est GFR ( Amer) > 60 (> 60) Est GFR (Non-Af Amer) > 60 (> 60) BUN/Creatinine Ratio 24 (6-26) Glucose 93 (70-99) mg/dL POC Glucose 99 H 99 H (58-89) Calculated Osmolality 280 (280-300) Calcium 7.5 L (8.6-10.8) mg/dL Phosphorus 3.6 (2.3-4.7) mg/dL Magnesium 1.7 (1.6-2.6) mg/dL Prealbumin (18.0-45.0) mg/dL Triglycerides (< 150) mg/dL Urine Color (Yellow) Urine Clarity (Clear) Urine pH (5.0-8.0) pH Units Ur Specific Sumpter (1.010-1.025) Urine Protein (Neg-Trace) mg/dL Urine Glucose (UA) (Normal) mg/dL Urine Ketones (Negative) mg/dL Urine Blood (Negative) Urine Nitrite (Negative) Urine Bilirubin (Negative) Urine Urobilinogen (Normal) mg/dL Ur Leukocyte Esterase (Negative) Urine Microscopic RBC (0-3) per hpf Urine Microscopic WBC (0-3) per hpf Urine Bacteria (None-Few) per hpf Ur Culture Indicated? (NO) Vancomycin Trough (10-20) mcg/mL 09/20/16 09/20/16 09/20/16 Range/Units 03:20 03:20 03:20 WBC 16.2 H (4.3-11.1) K/mcL RBC 4.03 L (4.19-5.50) M/mcL Hgb 11.9 L (12.9-16.9) g/dL Hct 35.6 L (37.5-50.1) % MCV 88.3 (83.0-100.0) fL MCH 29.5 (28.0-33.3) pg MCHC 33.4 (31.6-35.5) g/dL RDW 14.8 H (11.5-14.5) % Plt Count 182 (140-400) K/mcL MPV 10.1 (9.4-12.4) fL Immature Gran % 0.6 (0-4) % Seg Neutrophils % 77.9 % Lymphocytes % 7.6 % Monocytes % 8.5 % Eosinophils % 4.9 % Basophils % 0.5 % Neutrophils # 12.6 H (1.6-8.9) K/mcL Lymphocytes # 1.2 (0.6-4.6) K/mcL Monocytes # 1.4 H (0.0-1.3) K/mcL Eosinophils # 0.8 H (0.0-0.6) K/mcL Basophils # 0.1 (0.0-0.2) K/mcL Immature Plt Fraction (1.1-6.1) % PT (9.4-12.1) Seconds INR ABG pH (7.32-7.45) pH Units ABG pCO2 (35-45) mmHg ABG pO2 (85-104) mmHg ABG HCO3 (21-27) mEQ/L ABG Total CO2 (20-26) mEq/L ABG O2 Saturation (95-98) % ABG Base Excess (-2.0 to 3.0) mEq/L Blood Gas Modality Inspired O2 % Sodium (136-145) mEq/L Potassium (3.5-4.5) mEq/L Chloride (98-109) mEq/L Carbon Dioxide (19-29) mEq/L BUN (8-26) mg/dL Creatinine (0.72-1.25) mg/dL Est GFR ( Amer) (> 60) Est GFR (Non-Af Amer) (> 60) BUN/Creatinine Ratio (6-26) Glucose (70-99) mg/dL POC Glucose (58-89) Calculated Osmolality (280-300) Calcium (8.6-10.8) mg/dL Phosphorus (2.3-4.7) mg/dL Magnesium (1.6-2.6) mg/dL Prealbumin 5.0 L (18.0-45.0) mg/dL Triglycerides (< 150) mg/dL Urine Color (Yellow) Urine Clarity (Clear) Urine pH (5.0-8.0) pH Units Ur Specific Sumpter (1.010-1.025) Urine Protein (Neg-Trace) mg/dL Urine Glucose (UA) (Normal) mg/dL Urine Ketones (Negative) mg/dL Urine Blood (Negative) Urine Nitrite (Negative) Urine Bilirubin (Negative) Urine Urobilinogen (Normal) mg/dL Ur Leukocyte Esterase (Negative) Urine Microscopic RBC (0-3) per hpf Urine Microscopic WBC (0-3) per hpf Urine Bacteria (None-Few) per hpf Ur Culture Indicated? (NO) Vancomycin Trough 7.2 L (10-20) mcg/mL 09/20/16 09/20/16 09/20/16 Range/Units 03:46 07:32 11:09 WBC (4.3-11.1) K/mcL RBC (4.19-5.50) M/mcL Hgb (12.9-16.9) g/dL Hct (37.5-50.1) % MCV (83.0-100.0) fL MCH (28.0-33.3) pg MCHC (31.6-35.5) g/dL RDW (11.5-14.5) % Plt Count (140-400) K/mcL MPV (9.4-12.4) fL Immature Gran % (0-4) % Seg Neutrophils % % Lymphocytes % % Monocytes % % Eosinophils % % Basophils % % Neutrophils # (1.6-8.9) K/mcL Lymphocytes # (0.6-4.6) K/mcL Monocytes # (0.0-1.3) K/mcL Eosinophils # (0.0-0.6) K/mcL Basophils # (0.0-0.2) K/mcL Immature Plt Fraction (1.1-6.1) % PT (9.4-12.1) Seconds INR ABG pH (7.32-7.45) pH Units ABG pCO2 (35-45) mmHg ABG pO2 (85-104) mmHg ABG HCO3 (21-27) mEQ/L ABG Total CO2 (20-26) mEq/L ABG O2 Saturation (95-98) % ABG Base Excess (-2.0 to 3.0) mEq/L Blood Gas Modality Inspired O2 % Sodium (136-145) mEq/L Potassium (3.5-4.5) mEq/L Chloride (98-109) mEq/L Carbon Dioxide (19-29) mEq/L BUN (8-26) mg/dL Creatinine (0.72-1.25) mg/dL Est GFR ( Amer) (> 60) Est GFR (Non-Af Amer) (> 60) BUN/Creatinine Ratio (6-26) Glucose (70-99) mg/dL POC Glucose 96 H 122 H 121 H (58-89) Calculated Osmolality (280-300) Calcium (8.6-10.8) mg/dL Phosphorus (2.3-4.7) mg/dL Magnesium (1.6-2.6) mg/dL Prealbumin (18.0-45.0) mg/dL Triglycerides (< 150) mg/dL Urine Color (Yellow) Urine Clarity (Clear) Urine pH (5.0-8.0) pH Units Ur Specific Sumpter (1.010-1.025) Urine Protein (Neg-Trace) mg/dL Urine Glucose (UA) (Normal) mg/dL Urine Ketones (Negative) mg/dL Urine Blood (Negative) Urine Nitrite (Negative) Urine Bilirubin (Negative) Urine Urobilinogen (Normal) mg/dL Ur Leukocyte Esterase (Negative) Urine Microscopic RBC (0-3) per hpf Urine Microscopic WBC (0-3) per hpf Urine Bacteria (None-Few) per hpf Ur Culture Indicated? (NO) Vancomycin Trough (10-20) mcg/mL 09/20/16 09/20/16 09/20/16 Range/Units 15:43 19:18 23:58 WBC (4.3-11.1) K/mcL RBC (4.19-5.50) M/mcL Hgb (12.9-16.9) g/dL Hct (37.5-50.1) % MCV (83.0-100.0) fL MCH (28.0-33.3) pg MCHC (31.6-35.5) g/dL RDW (11.5-14.5) % Plt Count (140-400) K/mcL MPV (9.4-12.4) fL Immature Gran % (0-4) % Seg Neutrophils % % Lymphocytes % % Monocytes % % Eosinophils % % Basophils % % Neutrophils # (1.6-8.9) K/mcL Lymphocytes # (0.6-4.6) K/mcL Monocytes # (0.0-1.3) K/mcL Eosinophils # (0.0-0.6) K/mcL Basophils # (0.0-0.2) K/mcL Immature Plt Fraction (1.1-6.1) % PT (9.4-12.1) Seconds INR ABG pH (7.32-7.45) pH Units ABG pCO2 (35-45) mmHg ABG pO2 (85-104) mmHg ABG HCO3 (21-27) mEQ/L ABG Total CO2 (20-26) mEq/L ABG O2 Saturation (95-98) % ABG Base Excess (-2.0 to 3.0) mEq/L Blood Gas Modality Inspired O2 % Sodium (136-145) mEq/L Potassium (3.5-4.5) mEq/L Chloride (98-109) mEq/L Carbon Dioxide (19-29) mEq/L BUN (8-26) mg/dL Creatinine (0.72-1.25) mg/dL Est GFR ( Amer) (> 60) Est GFR (Non-Af Amer) (> 60) BUN/Creatinine Ratio (6-26) Glucose (70-99) mg/dL POC Glucose 115 H 104 H 116 H (58-89) Calculated Osmolality (280-300) Calcium (8.6-10.8) mg/dL Phosphorus (2.3-4.7) mg/dL Magnesium (1.6-2.6) mg/dL Prealbumin (18.0-45.0) mg/dL Triglycerides (< 150) mg/dL Urine Color (Yellow) Urine Clarity (Clear) Urine pH (5.0-8.0) pH Units Ur Specific Sumpter (1.010-1.025) Urine Protein (Neg-Trace) mg/dL Urine Glucose (UA) (Normal) mg/dL Urine Ketones (Negative) mg/dL Urine Blood (Negative) Urine Nitrite (Negative) Urine Bilirubin (Negative) Urine Urobilinogen (Normal) mg/dL Ur Leukocyte Esterase (Negative) Urine Microscopic RBC (0-3) per hpf Urine Microscopic WBC (0-3) per hpf Urine Bacteria (None-Few) per hpf Ur Culture Indicated? (NO) Vancomycin Trough (10-20) mcg/mL 09/21/16 09/21/16 09/21/16 Range/Units 03:45 04:00 04:00 WBC 15.4 H (4.3-11.1) K/mcL RBC 4.14 L (4.19-5.50) M/mcL Hgb 12.3 L (12.9-16.9) g/dL Hct 36.4 L (37.5-50.1) % MCV 87.9 (83.0-100.0) fL MCH 29.7 (28.0-33.3) pg MCHC 33.8 (31.6-35.5) g/dL RDW 14.6 H (11.5-14.5) % Plt Count 163 (140-400) K/mcL MPV 9.6 (9.4-12.4) fL Immature Gran % 0.6 (0-4) % Seg Neutrophils % 76.3 % Lymphocytes % 5.6 % Monocytes % 11.3 % Eosinophils % 5.6 % Basophils % 0.6 % Neutrophils # 11.8 H (1.6-8.9) K/mcL Lymphocytes # 0.9 (0.6-4.6) K/mcL Monocytes # 1.7 H (0.0-1.3) K/mcL Eosinophils # 0.9 H (0.0-0.6) K/mcL Basophils # 0.1 (0.0-0.2) K/mcL Immature Plt Fraction (1.1-6.1) % PT (9.4-12.1) Seconds INR ABG pH (7.32-7.45) pH Units ABG pCO2 (35-45) mmHg ABG pO2 (85-104) mmHg ABG HCO3 (21-27) mEQ/L ABG Total CO2 (20-26) mEq/L ABG O2 Saturation (95-98) % ABG Base Excess (-2.0 to 3.0) mEq/L Blood Gas Modality Inspired O2 % Sodium 131 L (136-145) mEq/L Potassium 4.2 (3.5-4.5) mEq/L Chloride 99 (98-109) mEq/L Carbon Dioxide 25 (19-29) mEq/L BUN 15 (8-26) mg/dL Creatinine 0.68 L (0.72-1.25) mg/dL Est GFR ( Amer) > 60 (> 60) Est GFR (Non-Af Amer) > 60 (> 60) BUN/Creatinine Ratio 22 (6-26) Glucose 100 H (70-99) mg/dL POC Glucose 116 H (58-89) Calculated Osmolality 273 L (280-300) Calcium 8.5 L (8.6-10.8) mg/dL Phosphorus (2.3-4.7) mg/dL Magnesium (1.6-2.6) mg/dL Prealbumin (18.0-45.0) mg/dL Triglycerides (< 150) mg/dL Urine Color (Yellow) Urine Clarity (Clear) Urine pH (5.0-8.0) pH Units Ur Specific Sumpter (1.010-1.025) Urine Protein (Neg-Trace) mg/dL Urine Glucose (UA) (Normal) mg/dL Urine Ketones (Negative) mg/dL Urine Blood (Negative) Urine Nitrite (Negative) Urine Bilirubin (Negative) Urine Urobilinogen (Normal) mg/dL Ur Leukocyte Esterase (Negative) Urine Microscopic RBC (0-3) per hpf Urine Microscopic WBC (0-3) per hpf Urine Bacteria (None-Few) per hpf Ur Culture Indicated? (NO) Vancomycin Trough (10-20) mcg/mL 09/21/16 09/21/16 09/21/16 Range/Units 08:27 12:25 15:42 WBC (4.3-11.1) K/mcL RBC (4.19-5.50) M/mcL Hgb (12.9-16.9) g/dL Hct (37.5-50.1) % MCV (83.0-100.0) fL MCH (28.0-33.3) pg MCHC (31.6-35.5) g/dL RDW (11.5-14.5) % Plt Count (140-400) K/mcL MPV (9.4-12.4) fL Immature Gran % (0-4) % Seg Neutrophils % % Lymphocytes % % Monocytes % % Eosinophils % % Basophils % % Neutrophils # (1.6-8.9) K/mcL Lymphocytes # (0.6-4.6) K/mcL Monocytes # (0.0-1.3) K/mcL Eosinophils # (0.0-0.6) K/mcL Basophils # (0.0-0.2) K/mcL Immature Plt Fraction (1.1-6.1) % PT (9.4-12.1) Seconds INR ABG pH (7.32-7.45) pH Units ABG pCO2 (35-45) mmHg ABG pO2 (85-104) mmHg ABG HCO3 (21-27) mEQ/L ABG Total CO2 (20-26) mEq/L ABG O2 Saturation (95-98) % ABG Base Excess (-2.0 to 3.0) mEq/L Blood Gas Modality Inspired O2 % Sodium (136-145) mEq/L Potassium (3.5-4.5) mEq/L Chloride (98-109) mEq/L Carbon Dioxide (19-29) mEq/L BUN (8-26) mg/dL Creatinine (0.72-1.25) mg/dL Est GFR ( Amer) (> 60) Est GFR (Non-Af Amer) (> 60) BUN/Creatinine Ratio (6-26) Glucose (70-99) mg/dL POC Glucose 120 H 149 H 114 H (58-89) Calculated Osmolality (280-300) Calcium (8.6-10.8) mg/dL Phosphorus (2.3-4.7) mg/dL Magnesium (1.6-2.6) mg/dL Prealbumin (18.0-45.0) mg/dL Triglycerides (< 150) mg/dL Urine Color (Yellow) Urine Clarity (Clear) Urine pH (5.0-8.0) pH Units Ur Specific Sumpter (1.010-1.025) Urine Protein (Neg-Trace) mg/dL Urine Glucose (UA) (Normal) mg/dL Urine Ketones (Negative) mg/dL Urine Blood (Negative) Urine Nitrite (Negative) Urine Bilirubin (Negative) Urine Urobilinogen (Normal) mg/dL Ur Leukocyte Esterase (Negative) Urine Microscopic RBC (0-3) per hpf Urine Microscopic WBC (0-3) per hpf Urine Bacteria (None-Few) per hpf Ur Culture Indicated? (NO) Vancomycin Trough (10-20) mcg/mL 09/21/16 09/21/16 09/22/16 Range/Units 19:33 23:17 03:20 WBC (4.3-11.1) K/mcL RBC (4.19-5.50) M/mcL Hgb (12.9-16.9) g/dL Hct (37.5-50.1) % MCV (83.0-100.0) fL MCH (28.0-33.3) pg MCHC (31.6-35.5) g/dL RDW (11.5-14.5) % Plt Count (140-400) K/mcL MPV (9.4-12.4) fL Immature Gran % (0-4) % Seg Neutrophils % % Lymphocytes % % Monocytes % % Eosinophils % % Basophils % % Neutrophils # (1.6-8.9) K/mcL Lymphocytes # (0.6-4.6) K/mcL Monocytes # (0.0-1.3) K/mcL Eosinophils # (0.0-0.6) K/mcL Basophils # (0.0-0.2) K/mcL Immature Plt Fraction (1.1-6.1) % PT (9.4-12.1) Seconds INR ABG pH (7.32-7.45) pH Units ABG pCO2 (35-45) mmHg ABG pO2 (85-104) mmHg ABG HCO3 (21-27) mEQ/L ABG Total CO2 (20-26) mEq/L ABG O2 Saturation (95-98) % ABG Base Excess (-2.0 to 3.0) mEq/L Blood Gas Modality Inspired O2 % Sodium (136-145) mEq/L Potassium (3.5-4.5) mEq/L Chloride (98-109) mEq/L Carbon Dioxide (19-29) mEq/L BUN (8-26) mg/dL Creatinine (0.72-1.25) mg/dL Est GFR ( Amer) (> 60) Est GFR (Non-Af Amer) (> 60) BUN/Creatinine Ratio (6-26) Glucose (70-99) mg/dL POC Glucose 137 H 120 H (58-89) Calculated Osmolality (280-300) Calcium (8.6-10.8) mg/dL Phosphorus (2.3-4.7) mg/dL Magnesium (1.6-2.6) mg/dL Prealbumin (18.0-45.0) mg/dL Triglycerides (< 150) mg/dL Urine Color (Yellow) Urine Clarity (Clear) Urine pH (5.0-8.0) pH Units Ur Specific Sumpter (1.010-1.025) Urine Protein (Neg-Trace) mg/dL Urine Glucose (UA) (Normal) mg/dL Urine Ketones (Negative) mg/dL Urine Blood (Negative) Urine Nitrite (Negative) Urine Bilirubin (Negative) Urine Urobilinogen (Normal) mg/dL Ur Leukocyte Esterase (Negative) Urine Microscopic RBC (0-3) per hpf Urine Microscopic WBC (0-3) per hpf Urine Bacteria (None-Few) per hpf Ur Culture Indicated? (NO) Vancomycin Trough 11.7 (10-20) mcg/mL 09/22/16 09/22/16 09/22/16 Range/Units 03:20 03:20 03:40 WBC 12.3 H (4.3-11.1) K/mcL RBC 3.90 L (4.19-5.50) M/mcL Hgb 11.6 L (12.9-16.9) g/dL Hct 34.2 L (37.5-50.1) % MCV 87.7 (83.0-100.0) fL MCH 29.7 (28.0-33.3) pg MCHC 33.9 (31.6-35.5) g/dL RDW 14.7 H (11.5-14.5) % Plt Count 175 (140-400) K/mcL MPV 9.5 (9.4-12.4) fL Immature Gran % 0.8 (0-4) % Seg Neutrophils % 68.8 % Lymphocytes % 9.7 % Monocytes % 12.8 % Eosinophils % 7.3 % Basophils % 0.6 % Neutrophils # 8.5 (1.6-8.9) K/mcL Lymphocytes # 1.2 (0.6-4.6) K/mcL Monocytes # 1.6 H (0.0-1.3) K/mcL Eosinophils # 0.9 H (0.0-0.6) K/mcL Basophils # 0.1 (0.0-0.2) K/mcL Immature Plt Fraction (1.1-6.1) % PT (9.4-12.1) Seconds INR ABG pH (7.32-7.45) pH Units ABG pCO2 (35-45) mmHg ABG pO2 (85-104) mmHg ABG HCO3 (21-27) mEQ/L ABG Total CO2 (20-26) mEq/L ABG O2 Saturation (95-98) % ABG Base Excess (-2.0 to 3.0) mEq/L Blood Gas Modality Inspired O2 % Sodium 132 L (136-145) mEq/L Potassium 4.0 (3.5-4.5) mEq/L Chloride 100 (98-109) mEq/L Carbon Dioxide 26 (19-29) mEq/L BUN 14 (8-26) mg/dL Creatinine 0.66 L (0.72-1.25) mg/dL Est GFR ( Amer) > 60 (> 60) Est GFR (Non-Af Amer) > 60 (> 60) BUN/Creatinine Ratio 21 (6-26) Glucose 103 H (70-99) mg/dL POC Glucose 110 H (58-89) Calculated Osmolality 275 L (280-300) Calcium 8.2 L (8.6-10.8) mg/dL Phosphorus (2.3-4.7) mg/dL Magnesium (1.6-2.6) mg/dL Prealbumin (18.0-45.0) mg/dL Triglycerides (< 150) mg/dL Urine Color (Yellow) Urine Clarity (Clear) Urine pH (5.0-8.0) pH Units Ur Specific Sumpter (1.010-1.025) Urine Protein (Neg-Trace) mg/dL Urine Glucose (UA) (Normal) mg/dL Urine Ketones (Negative) mg/dL Urine Blood (Negative) Urine Nitrite (Negative) Urine Bilirubin (Negative) Urine Urobilinogen (Normal) mg/dL Ur Leukocyte Esterase (Negative) Urine Microscopic RBC (0-3) per hpf Urine Microscopic WBC (0-3) per hpf Urine Bacteria (None-Few) per hpf Ur Culture Indicated? (NO) Vancomycin Trough (10-20) mcg/mL 09/22/16 09/22/16 09/22/16 Range/Units 07:47 12:02 16:33 WBC (4.3-11.1) K/mcL RBC (4.19-5.50) M/mcL Hgb (12.9-16.9) g/dL Hct (37.5-50.1) % MCV (83.0-100.0) fL MCH (28.0-33.3) pg MCHC (31.6-35.5) g/dL RDW (11.5-14.5) % Plt Count (140-400) K/mcL MPV (9.4-12.4) fL Immature Gran % (0-4) % Seg Neutrophils % % Lymphocytes % % Monocytes % % Eosinophils % % Basophils % % Neutrophils # (1.6-8.9) K/mcL Lymphocytes # (0.6-4.6) K/mcL Monocytes # (0.0-1.3) K/mcL Eosinophils # (0.0-0.6) K/mcL Basophils # (0.0-0.2) K/mcL Immature Plt Fraction (1.1-6.1) % PT (9.4-12.1) Seconds INR ABG pH (7.32-7.45) pH Units ABG pCO2 (35-45) mmHg ABG pO2 (85-104) mmHg ABG HCO3 (21-27) mEQ/L ABG Total CO2 (20-26) mEq/L ABG O2 Saturation (95-98) % ABG Base Excess (-2.0 to 3.0) mEq/L Blood Gas Modality Inspired O2 % Sodium (136-145) mEq/L Potassium (3.5-4.5) mEq/L Chloride (98-109) mEq/L Carbon Dioxide (19-29) mEq/L BUN (8-26) mg/dL Creatinine (0.72-1.25) mg/dL Est GFR ( Amer) (> 60) Est GFR (Non-Af Amer) (> 60) BUN/Creatinine Ratio (6-26) Glucose (70-99) mg/dL POC Glucose 125 H 105 H 121 H (58-89) Calculated Osmolality (280-300) Calcium (8.6-10.8) mg/dL Phosphorus (2.3-4.7) mg/dL Magnesium (1.6-2.6) mg/dL Prealbumin (18.0-45.0) mg/dL Triglycerides (< 150) mg/dL Urine Color (Yellow) Urine Clarity (Clear) Urine pH (5.0-8.0) pH Units Ur Specific Sumpter (1.010-1.025) Urine Protein (Neg-Trace) mg/dL Urine Glucose (UA) (Normal) mg/dL Urine Ketones (Negative) mg/dL Urine Blood (Negative) Urine Nitrite (Negative) Urine Bilirubin (Negative) Urine Urobilinogen (Normal) mg/dL Ur Leukocyte Esterase (Negative) Urine Microscopic RBC (0-3) per hpf Urine Microscopic WBC (0-3) per hpf Urine Bacteria (None-Few) per hpf Ur Culture Indicated? (NO) Vancomycin Trough (10-20) mcg/mL 09/22/16 09/22/16 09/23/16 Range/Units 20:35 23:26 03:55 WBC (4.3-11.1) K/mcL RBC (4.19-5.50) M/mcL Hgb (12.9-16.9) g/dL Hct (37.5-50.1) % MCV (83.0-100.0) fL MCH (28.0-33.3) pg MCHC (31.6-35.5) g/dL RDW (11.5-14.5) % Plt Count (140-400) K/mcL MPV (9.4-12.4) fL Immature Gran % (0-4) % Seg Neutrophils % % Lymphocytes % % Monocytes % % Eosinophils % % Basophils % % Neutrophils # (1.6-8.9) K/mcL Lymphocytes # (0.6-4.6) K/mcL Monocytes # (0.0-1.3) K/mcL Eosinophils # (0.0-0.6) K/mcL Basophils # (0.0-0.2) K/mcL Immature Plt Fraction (1.1-6.1) % PT (9.4-12.1) Seconds INR ABG pH (7.32-7.45) pH Units ABG pCO2 (35-45) mmHg ABG pO2 (85-104) mmHg ABG HCO3 (21-27) mEQ/L ABG Total CO2 (20-26) mEq/L ABG O2 Saturation (95-98) % ABG Base Excess (-2.0 to 3.0) mEq/L Blood Gas Modality Inspired O2 % Sodium (136-145) mEq/L Potassium (3.5-4.5) mEq/L Chloride (98-109) mEq/L Carbon Dioxide (19-29) mEq/L BUN (8-26) mg/dL Creatinine (0.72-1.25) mg/dL Est GFR ( Amer) (> 60) Est GFR (Non-Af Amer) (> 60) BUN/Creatinine Ratio (6-26) Glucose (70-99) mg/dL POC Glucose 114 H 110 H 119 H (58-89) Calculated Osmolality (280-300) Calcium (8.6-10.8) mg/dL Phosphorus (2.3-4.7) mg/dL Magnesium (1.6-2.6) mg/dL Prealbumin (18.0-45.0) mg/dL Triglycerides (< 150) mg/dL Urine Color (Yellow) Urine Clarity (Clear) Urine pH (5.0-8.0) pH Units Ur Specific Sumpter (1.010-1.025) Urine Protein (Neg-Trace) mg/dL Urine Glucose (UA) (Normal) mg/dL Urine Ketones (Negative) mg/dL Urine Blood (Negative) Urine Nitrite (Negative) Urine Bilirubin (Negative) Urine Urobilinogen (Normal) mg/dL Ur Leukocyte Esterase (Negative) Urine Microscopic RBC (0-3) per hpf Urine Microscopic WBC (0-3) per hpf Urine Bacteria (None-Few) per hpf Ur Culture Indicated? (NO) Vancomycin Trough (10-20) mcg/mL 09/23/16 09/23/16 09/23/16 Range/Units 04:42 04:42 08:09 WBC 10.8 (4.3-11.1) K/mcL RBC 4.17 L (4.19-5.50) M/mcL Hgb 12.0 L (12.9-16.9) g/dL Hct 36.8 L (37.5-50.1) % MCV 88.2 (83.0-100.0) fL MCH 28.8 (28.0-33.3) pg MCHC 32.6 (31.6-35.5) g/dL RDW 14.9 H (11.5-14.5) % Plt Count 175 (140-400) K/mcL MPV 9.9 (9.4-12.4) fL Immature Gran % 0.9 (0-4) % Seg Neutrophils % 62.3 % Lymphocytes % 13.6 % Monocytes % 15.7 % Eosinophils % 6.6 % Basophils % 0.9 % Neutrophils # 6.7 (1.6-8.9) K/mcL Lymphocytes # 1.5 (0.6-4.6) K/mcL Monocytes # 1.7 H (0.0-1.3) K/mcL Eosinophils # 0.7 H (0.0-0.6) K/mcL Basophils # 0.1 (0.0-0.2) K/mcL Immature Plt Fraction (1.1-6.1) % PT (9.4-12.1) Seconds INR ABG pH (7.32-7.45) pH Units ABG pCO2 (35-45) mmHg ABG pO2 (85-104) mmHg ABG HCO3 (21-27) mEQ/L ABG Total CO2 (20-26) mEq/L ABG O2 Saturation (95-98) % ABG Base Excess (-2.0 to 3.0) mEq/L Blood Gas Modality Inspired O2 % Sodium 133 L (136-145) mEq/L Potassium 4.3 (3.5-4.5) mEq/L Chloride 98 (98-109) mEq/L Carbon Dioxide 30 H (19-29) mEq/L BUN 15 (8-26) mg/dL Creatinine 0.71 L (0.72-1.25) mg/dL Est GFR ( Amer) > 60 (> 60) Est GFR (Non-Af Amer) > 60 (> 60) BUN/Creatinine Ratio 21 (6-26) Glucose 115 H (70-99) mg/dL POC Glucose 116 H (58-89) Calculated Osmolality 278 L (280-300) Calcium 8.9 (8.6-10.8) mg/dL Phosphorus (2.3-4.7) mg/dL Magnesium (1.6-2.6) mg/dL Prealbumin (18.0-45.0) mg/dL Triglycerides (< 150) mg/dL Urine Color (Yellow) Urine Clarity (Clear) Urine pH (5.0-8.0) pH Units Ur Specific [place] (1.010-1.025) Urine Protein (Neg-Trace) mg/dL Urine Glucose (UA) (Normal) mg/dL Urine Ketones (Negative) mg/dL Urine Blood (Negative) Urine Nitrite (Negative) Urine Bilirubin (Negative) Urine Urobilinogen (Normal) mg/dL Ur Leukocyte Esterase (Negative) Urine Microscopic RBC (0-3) per hpf Urine Microscopic WBC (0-3) per hpf Urine Bacteria (None-Few) per hpf Ur Culture Indicated? (NO) Vancomycin Trough (10-20) mcg/mL 09/23/16 09/23/16 Range/Units 12:20 16:23 WBC (4.3-11.1) K/mcL RBC (4.19-5.50) M/mcL Hgb (12.9-16.9) g/dL Hct (37.5-50.1) % MCV (83.0-100.0) fL MCH (28.0-33.3) pg MCHC (31.6-35.5) g/dL RDW (11.5-14.5) % Plt Count (140-400) K/mcL MPV (9.4-12.4) fL Immature Gran % (0-4) % Seg Neutrophils % % Lymphocytes % % Monocytes % % Eosinophils % % Basophils % % Neutrophils # (1.6-8.9) K/mcL Lymphocytes # (0.6-4.6) K/mcL Monocytes # (0.0-1.3) K/mcL Eosinophils # (0.0-0.6) K/mcL Basophils # (0.0-0.2) K/mcL Immature Plt Fraction (1.1-6.1) % PT (9.4-12.1) Seconds INR ABG pH (7.32-7.45) pH Units ABG pCO2 (35-45) mmHg ABG pO2 (85-104) mmHg ABG HCO3 (21-27) mEQ/L ABG Total CO2 (20-26) mEq/L ABG O2 Saturation (95-98) % ABG Base Excess (-2.0 to 3.0) mEq/L Blood Gas Modality Inspired O2 % Sodium (136-145) mEq/L Potassium (3.5-4.5) mEq/L Chloride (98-109) mEq/L Carbon Dioxide (19-29) mEq/L BUN (8-26) mg/dL Creatinine (0.72-1.25) mg/dL Est GFR ( Amer) (> 60) Est GFR (Non-Af Amer) (> 60) BUN/Creatinine Ratio (6-26) Glucose (70-99) mg/dL POC Glucose 110 H 111 H (58-89) Calculated Osmolality (280-300) Calcium (8.6-10.8) mg/dL Phosphorus (2.3-4.7) mg/dL Magnesium (1.6-2.6) mg/dL Prealbumin (18.0-45.0) mg/dL Triglycerides (< 150) mg/dL Urine Color (Yellow) Urine Clarity (Clear) Urine pH (5.0-8.0) pH Units Ur Specific [place] (1.010-1.025) Urine Protein (Neg-Trace) mg/dL Urine Glucose (UA) (Normal) mg/dL Urine Ketones (Negative) mg/dL Urine Blood (Negative) Urine Nitrite (Negative) Urine Bilirubin (Negative) Urine Urobilinogen (Normal) mg/dL Ur Leukocyte Esterase (Negative) Urine Microscopic RBC (0-3) per hpf Urine Microscopic WBC (0-3) per hpf Urine Bacteria (None-Few) per hpf Ur Culture Indicated? (NO) Vancomycin Trough (10-20) mcg/mL
--- NOTE | 2016-09-23 16:52 | General Surgery Progress Note ---
Date of Encounter: 09/23/16 Time of Encounter: 16:50 - Assessment and Plan (1) Metastatic carcinoma involving liver with unknown primary site Current Visit: Yes Status: Acute POD #8 from exploratory laparotomy with end colostomy and creation of mucous fistula, liver biopsy with Dr. De La Cruz Pathology reviewed regular diet May consider peg tube if patient refuses to eat Continue TPN therapy Colostomy and mucous fistula care daily Consult ostomy nurse Supportive care and pain control Repeat labs in the am (2) Urinary retention Current Visit: Yes Status: Acute Junior catheter to SD inserted 09/16/16 Flomax started 09/21/16 Junior removed 09/22/16 (3) History of CVA with residual deficit Current Visit: No Status: Chronic (4) Hospital acquired PNA Current Visit: Yes Status: Acute Levaquin (5) DVT prophylaxis Current Visit: No Status: Acute Continue heparin 5,000 units SQ twice daily for DVT prophylaxis Subjective Patient reports: no new complaints, still having pain (surgical), pain is less, bowel movement, afebrile, other (no appetite and patient is refusing liquids) Objective Vital Signs - Last 8 Hours Temp Pulse Resp BP Pulse Ox 09/23/16 12:24 97.4 F L 69 15 105/67 94 L Intake and Output 09/23/16 09/23/16 09/23/16 07:59 15:59 23:59 Intake Total 0 / 0 150 / 150 Output Total 200 / 200 0 / 0 Balance -200 / -200 150 / 150 Intake: IV Fluids 150 / 150 Levaquin 750mg/150 mL 750 150 / 150 mg In 150 ml @ 100 mls/ hr IVPB DAILY [facility] Rx#: [id number] Oral 0 / 0 0 / 0 Output: Urine 200 / 200 0 / 0 Stool 0 / 0 Other 0 / 0 Other: Meal Refused # Voids 1 Blood Glucose* 119 110 111 - General physical appearance well developed, well nourished, no distress - Eyes normal ocular movement - ENT normal mucosa, atraumatic, normocephalic - Neck Neck exam: trachea midline - Respiratory normal respiratory effort, clear to auscultation, other (diminished bibasilar bases) - Cardiovascular Cardiovascular exam: Present: RRR - Abdomen Abdomen: Present: bowel sounds present, soft, tender (expected post-op), wound ( Colostomy pink/moist; Mucous fistula pink and moist with liquid/brown stool noted) - Incision Incision: Present: clean and dry, intact - Genitourinary other (junior catheter to SD with clear/yellow urine) - Integumentary no rash, no growths - Neurologic CN 2-12 grossly intact - Musculoskeletal other (moderate deconditioning; hx of CVA) - Psychiatric oriented to time, oriented to person, oriented to place, memory intact - Labs 09/23/16 04:42 09/23/16 04:42 Diabetes panel 09/23/16 Range/Units 04:42 Sodium 133 L (136-145) mEq/L Potassium 4.3 (3.5-4.5) mEq/L Chloride 98 (98-109) mEq/L Carbon Dioxide 30 H (19-29) mEq/L BUN 15 (8-26) mg/dL Creatinine 0.71 L (0.72-1.25) mg/dL Glucose 115 H (70-99) mg/dL Calcium 8.9 (8.6-10.8) mg/dL Calcium panel 09/23/16 Range/Units 04:42 Calcium 8.9 (8.6-10.8) mg/dL Pituitary panel 09/23/16 Range/Units 04:42 Sodium 133 L (136-145) mEq/L Potassium 4.3 (3.5-4.5) mEq/L Chloride 98 (98-109) mEq/L Carbon Dioxide 30 H (19-29) mEq/L BUN 15 (8-26) mg/dL Creatinine 0.71 L (0.72-1.25) mg/dL Glucose 115 H (70-99) mg/dL Calcium 8.9 (8.6-10.8) mg/dL Adrenal panel 09/23/16 Range/Units 04:42 Sodium 133 L (136-145) mEq/L Potassium 4.3 (3.5-4.5) mEq/L Chloride 98 (98-109) mEq/L Carbon Dioxide 30 H (19-29) mEq/L BUN 15 (8-26) mg/dL Creatinine 0.71 L (0.72-1.25) mg/dL Glucose 115 H (70-99) mg/dL Calcium 8.9 (8.6-10.8) mg/dL - VTE Documentation of Mechanical Device: Intermittent pneumatic compression device Consult Discharge Plan - Plan Referrals: Jeannie Ragsdale MD [Partnered Physician] - 10/01/16 8:10 am [facility] Care Provider[facility] -
[2016-09-23] MEDS ORDERED: Clinimix E 5%-15% SOLUTION 2,000 ML, Amino Acids 10% 200 ML with MVI, adult with vita... IV SCH (17:00)
[2016-09-23] MEDS: *HR* HYDROcodone/Acet 10/325 mg TABLET PO PRN (21:56)
[2016-09-24] MEDS: Insulin LISPRO 300 UNITS/3 ML VIAL SQ SCH ×7 (03:19→23:56)
[2016-09-24] MEDS: Ipratropium/Albuterol Neb 3 ML IH SCH ×4 (03:50→21:38)
[2016-09-24 04:22] LABS: Basophils # 0.1 K/mcL (0.0-0.2); Basophils % 0.9 %; Eosinophils # 0.6 K/mcL (0.0-0.6); Eosinophils % 5.2 %; Hemoglobin 11.3 g/dL (12.9-16.9); Immature Granulocytes % 1.3 % (0-4); Lymphocytes # 1.9 K/mcL (0.6-4.6); Lymphocytes % 16.1 %; Mean Corpuscular HGB Conc 33.2 g/dL (31.6-35.5); Mean Corpuscular Hemoglobin 29.4 pg (28.0-33.3); Mean Corpuscular Volume 88.5 fL (83.0-100.0); Mean Platelet Volume 9.9 fL (9.4-12.4); Monocytes # 1.8 K/mcL (0.0-1.3); Monocytes % 15.4 %; Neutrophils # 7.1 K/mcL (1.6-8.9); Platelet Count 165 K/mcL (140-400); Red Blood Count 3.84 M/mcL (4.19-5.50); Segmented Neutrophils % 61.1 %
[2016-09-24 04:25] LABS: BUN/Creatinine Ratio 27 (6-26); Blood Urea Nitrogen 17 mg/dL (8-26); Calcium 8.6 mg/dL (8.6-10.8); Carbon Dioxide 26 mEq/L (19-29); Chloride 101 mEq/L (98-109); Glucose 116 mg/dL (70-99); Magnesium 2.1 mg/dL (1.6-2.6); Osmolality,Calculated 281 (280-300); Phosphorous 3.7 mg/dL (2.3-4.7); Potassium 3.8 mEq/L (3.5-4.5); Sodium 134 mEq/L (136-145); Triglycerides 148 mg/dL (< 150); eGFR For African Americans > 60 (> 60); eGFR For Non-African Americans > 60 (> 60)
[2016-09-24] MEDS: *HR* Heparin 5,000 UNIT/ML VIAL SQ SCH ×3 (09:06→22:26)
[2016-09-24] MEDS: Pantoprazole 40 MG VIAL IVP SCH (09:07)
[2016-09-24] MEDS: Levofloxacin 750 MG/150 ML 750 MG/150 ML BAG IVPB SCH (09:07)
--- NOTE | 2016-09-24 09:46 | Palliative Progress Note ---
Date of Encounter: 09/24/16 Time of Encounter: 08:50 - Assessment and plan (1) Nausea and vomiting Current Visit: Yes Status: Acute Assessment and plan: None at this time I believe this problem has resolved now that surgery has been accomplished. Qualifiers: Vomiting type: unspecified Vomiting Intractability: non-intractable Qualified Code(s): R11.2 - Nausea with vomiting, unspecified (2) Abdominal pain Current Visit: Yes Status: Acute Assessment and plan: Well-controlled on current pain regimen one dose of oral [place] used yesterday, no morphine. Qualifiers: Abdominal location: epigastric Qualified Code(s): R10.13 - Epigastric pain (3) Goals of care, counseling/discussion Current Visit: Yes Status: Acute Assessment and plan: DNRCCA, patient and oncology are awaiting results of pathology to decide on what the further treatment plan is going to be. At this time patient is again waiting for the pathology to come back so that oncology can recommend treatment plan. He is DNRCCA and is recovering well from surgery. Palliative care will follow at a distance Patient's brother will be here today at 1400 to meet with the patient and presented to the [facility]. Believe the overall plan is for the patient to [facility] and this may very well occur today. With regards to cancer therapy follow-up at the cancer center. (4) Bowel obstruction Current Visit: Yes Status: Resolved Assessment and plan: Issues now resolved secondary to surgery Qualifiers: Intestinal obstruction type: other intestinal obstruction Qualified Code(s) : K56.69 - Other intestinal obstruction (5) Metastatic carcinoma involving liver with unknown primary site Current Visit: Yes Status: Acute Assessment and plan: Metastatic colon cancer,With regards to cancer therapy follow-up at the cancer center. - Time Spent With Patient Total time spent is greater than 50% in coordination of care (as documented) at patient's floor/unit and/or counseling patient: - Subjective Interval history: pod 9 he reports very little pain and pain medications are effective. Patient is participating in PT OT, however he is reluctant. Peptide is still very poor. Patient has been advanced to essentially a full diet, I was told that they were given or repeats her pizza for him yesterday he reports that he did not get any. He has been willing to drink milkshakes. We are working with nutrition on this. I talked discussed with his brother this morning suggested leaving the tray for longer periods as she sometimes does not want to eat when they are bringing the trace bi-this has been ordered. he may very well be going out to [employer] today. - Constitutional Vitals: Abnormal lab results WBC 11.7 K/mcL (4.3-11.1) H 09/24/16 03:35 RBC 3.84 M/mcL (4.19-5.50) L 09/24/16 03:35 Hgb 11.3 g/dL (12.9-16.9) L 09/24/16 03:35 Hct 34.0 % (37.5-50.1) L 09/24/16 03:35 RDW 15.0 % (11.5-14.5) H 09/24/16 03:35 Monocytes # 1.8 K/mcL (0.0-1.3) H 09/24/16 03:35 ABG pCO2 47 mmHg (35-45) H 09/16/16 00:01 ABG Total CO2 28.0 mEq/L (20-26) H 09/16/16 00:01 Sodium 134 mEq/L (136-145) L 09/24/16 03:35 Creatinine 0.64 mg/dL (0.72-1.25) L 09/24/16 03:35 BUN/Creatinine Ratio 27 (6-26) H 09/24/16 03:35 Glucose 116 mg/dL (70-99) H 09/24/16 03:35 POC Glucose 119 (58-89) H 09/24/16 04:12 Albumin 3.0 g/dL (3.5-5.0) L 09/14/16 05:27 Albumin/Globulin Ratio 1.0 (1.1-2.2) L 09/14/16 05:27 Prealbumin 13.0 mg/dL (18.0-45.0) L 09/24/16 03:35 Urine Blood Small (Negative) H 09/18/16 16:00 Ur Squamous Epith Cells Many per lpf (None-Few) H 09/13/16 20:27 Hyaline Casts Moderate per lpf (None-Few) H 09/13/16 20:27 Urine Mucus Many (Few) H 09/13/16 20:27 General appearance: Present: no acute distress - Head Head exam: Present: atraumatic, normal inspection - Eye Eye exam: Present: normal appearance - ENT ENT exam: Present: mucous membranes moist - Respiratory Respiratory exam: Present: decreased breath sounds - Cardiovascular Cardiovascular exam: Present: RRR - GI/Abdominal GI/Abdominal exam: Present: normal bowel sounds, soft, tenderness - Extremities Exam Extremities exam: Present: normal inspection. Absent: pedal edema, tenderness - Neurological Exam Neurological exam: Present: alert - Psychiatric Psychiatric exam: Absent: agitated, anxious - Skin Skin exam: Present: dry, warm Palliative Quality Palliative Quality: Screen for Code Status: Yes, Screen for Goals of Care: Yes, Screen for Pain: Yes, If Pain Regimen Started, Initiate Bowel Regimen: NA, Screen for Nausea/Vomitting: Yes Code Status: 09/14/16 02:40 Resuscitation Status: Active [RES] Routine Comment: Resuscitation Status: DNR-Comfort Care-Arrest - Labs CBC & Chem 7: 09/24/16 03:35 09/24/16 03:35 Labs: Laboratory Results - last 24 hr 09/23/16 09/23/16 09/23/16 12:20 16:23 20:38 WBC RBC Hgb Hct MCV MCH MCHC RDW Plt Count MPV Immature Gran % Seg Neutrophils % Lymphocytes % Monocytes % Eosinophils % Basophils % Neutrophils # Lymphocytes # Monocytes # Eosinophils # Basophils # Sodium Potassium Chloride Carbon Dioxide BUN Creatinine Est GFR ( Amer) Est GFR (Non-Af Amer) BUN/Creatinine Ratio Glucose POC Glucose 110 H 111 H 133 H Calculated Osmolality Calcium Phosphorus Magnesium Prealbumin Triglycerides 09/24/16 09/24/16 09/24/16 00:35 03:35 03:35 WBC 11.7 H RBC 3.84 L Hgb 11.3 L Hct 34.0 L MCV 88.5 MCH 29.4 MCHC 33.2 RDW 15.0 H Plt Count 165 MPV 9.9 Immature Gran % 1.3 Seg Neutrophils % 61.1 Lymphocytes % 16.1 Monocytes % 15.4 Eosinophils % 5.2 Basophils % 0.9 Neutrophils # 7.1 Lymphocytes # 1.9 Monocytes # 1.8 H Eosinophils # 0.6 Basophils # 0.1 Sodium Potassium Chloride Carbon Dioxide BUN Creatinine Est GFR ( Amer) Est GFR (Non-Af Amer) BUN/Creatinine Ratio Glucose POC Glucose 152 H Calculated Osmolality Calcium Phosphorus Magnesium Prealbumin 13.0 L Triglycerides 09/24/16 09/24/16 03:35 04:12 WBC RBC Hgb Hct MCV MCH MCHC RDW Plt Count MPV Immature Gran % Seg Neutrophils % Lymphocytes % Monocytes % Eosinophils % Basophils % Neutrophils # Lymphocytes # Monocytes # Eosinophils # Basophils # Sodium 134 L Potassium 3.8 Chloride 101 Carbon Dioxide 26 BUN 17 Creatinine 0.64 L Est GFR ( Amer) > 60 Est GFR (Non-Af Amer) > 60 BUN/Creatinine Ratio 27 H Glucose 116 H POC Glucose 119 H Calculated Osmolality 281 Calcium 8.6 Phosphorus 3.7 Magnesium 2.1 Prealbumin Triglycerides 148 - ABG Interpretation ABG results: ABG ABG pH 7.36 pH Units (7.32-7.45) 09/16/16 00:01 ABG pCO2 47 mmHg (35-45) H 09/16/16 00:01 ABG pO2 89 mmHg (85-104) 09/16/16 00:01 ABG O2 Saturation 96 % (95-98) 09/16/16 00:01 PT/INR, D-dimer PT 11.5 Seconds (9.4-12.1) 09/15/16 04:35 Consult Discharge Plan - Plan Referrals: Jeannie Ragsdale MD [Partnered Physician] - 10/01/16 8:10 am
--- NOTE | 2016-09-24 13:40 | Oncology Inp Progress Note ---
Date of Encounter: 09/24/16 Time of Encounter: 17:00 (1) Metastatic colon cancer to liver Current Visit: Yes Status: Acute Assessment and plan: Patient was again discussed liver bx findings of metastatic adenoca, and that treatment is not curative. He was very receptive and was able to follow through my conversation from which it looks like he would be interested in pursuing treatment. 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 Will be planned for gentle outpatient treatment with xeloda/targeted therapy depending on his mutational status down the line. Currently on IV abx and TPN, orally as he tolerates.lab and path data reviewed this day. Oncology: Subj Interval history: Patient was seen yesterday, bedside, awake and more responsive and able to communicate - Constitutional Vitals: Vital Signs Temp Pulse Resp BP Pulse Ox 09/24/16 10:59 98.4 F 82 15 109/58 98 09/24/16 07:06 98.6 F 80 16 121/69 95 09/24/16 03:22 98.3 F 70 15 131/62 96 09/24/16 00:37 98.2 F 71 14 113/72 94 L 09/23/16 18:05 97.9 F 77 16 134/73 97 Intake and Output 09/23/16 09/24/16 09/24/16 23:59 07:59 15:59 Intake Total 0 / 0 0 / 0 Output Total 0 / 0 125 / 125 Balance 0 / 0 -125 / -125 Intake: Oral 0 / 0 0 / 0 Output: Urine 0 / 0 Stool 125 / 125 Other 0 / 0 Other: # Urine Diapers 0 Blood Glucose* 133 119 General appearance: average body habitus - Head Head exam: Present: atraumatic, normal inspection - Eye Eye exam: Present: sclera anicteric - ENT ENT exam: Present: mucous membranes dry - Respiratory Respiratory exam: Present: CTAB - Cardiovascular Cardiovascular exam: Present: +S1, +S2 - GI/Abdominal GI/Abdominal exam: Present: normal bowel sounds, soft Oncology: Obj Data - Labs CBC & Chem 7: 09/24/16 03:35 09/24/16 03:35 Labs: Laboratory Results - last 24 hr 09/23/16 09/23/16 09/24/16 16:23 20:38 00:35 WBC RBC Hgb Hct MCV MCH MCHC RDW Plt Count MPV Immature Gran % Seg Neutrophils % Lymphocytes % Monocytes % Eosinophils % Basophils % Neutrophils # Lymphocytes # Monocytes # Eosinophils # Basophils # Sodium Potassium Chloride Carbon Dioxide BUN Creatinine Est GFR ( Amer) Est GFR (Non-Af Amer) BUN/Creatinine Ratio Glucose POC Glucose 111 H 133 H 152 H Calculated Osmolality Calcium Phosphorus Magnesium Prealbumin Triglycerides 09/24/16 09/24/16 09/24/16 03:35 03:35 03:35 WBC 11.7 H RBC 3.84 L Hgb 11.3 L Hct 34.0 L MCV 88.5 MCH 29.4 MCHC 33.2 RDW 15.0 H Plt Count 165 MPV 9.9 Immature Gran % 1.3 Seg Neutrophils % 61.1 Lymphocytes % 16.1 Monocytes % 15.4 Eosinophils % 5.2 Basophils % 0.9 Neutrophils # 7.1 Lymphocytes # 1.9 Monocytes # 1.8 H Eosinophils # 0.6 Basophils # 0.1 Sodium 134 L Potassium 3.8 Chloride 101 Carbon Dioxide 26 BUN 17 Creatinine 0.64 L Est GFR ( Amer) > 60 Est GFR (Non-Af Amer) > 60 BUN/Creatinine Ratio 27 H Glucose 116 H POC Glucose Calculated Osmolality 281 Calcium 8.6 Phosphorus 3.7 Magnesium 2.1 Prealbumin 13.0 L Triglycerides 148 09/24/16 04:12 WBC RBC Hgb Hct MCV MCH MCHC RDW Plt Count MPV Immature Gran % Seg Neutrophils % Lymphocytes % Monocytes % Eosinophils % Basophils % Neutrophils # Lymphocytes # Monocytes # Eosinophils # Basophils # Sodium Potassium Chloride Carbon Dioxide BUN Creatinine Est GFR ( Amer) Est GFR (Non-Af Amer) BUN/Creatinine Ratio Glucose POC Glucose 119 H Calculated Osmolality Calcium Phosphorus Magnesium Prealbumin Triglycerides - ABG Interpretation ABG results: ABG ABG pH 7.36 pH Units (7.32-7.45) 09/16/16 00:01 ABG pCO2 47 mmHg (35-45) H 09/16/16 00:01 ABG pO2 89 mmHg (85-104) 09/16/16 00:01 ABG O2 Saturation 96 % (95-98) 09/16/16 00:01 PT/INR, D-dimer PT 11.5 Seconds (9.4-12.1) 09/15/16 04:35 Consult Discharge Plan - Plan Referrals: Jeannie Ragsdale MD [Partnered Physician] - 10/01/16 8:10 am
--- NOTE | 2016-09-24 16:12 | General Surgery Progress Note ---
Date of Encounter: 09/24/16 Time of Encounter: 16:10 - Assessment and Plan (1) Metastatic carcinoma involving liver with unknown primary site Current Visit: Yes Status: Acute POD #9 from Exploratory laparotomy with end colostomy and creation of mucous fistula Liver biopsy with Dr. De La Cruz Pathology reviewed Regular diet- intake slowly improving TPN therapy decreased to 50ml/hour today; lipids off; plan to wean off tomorrow Transfer to rehab likely in the next 24 hours Colostomy and mucous fistula care daily Consult ostomy nurse Supportive care and pain control Repeat labs in the am (2) History of CVA with residual deficit Current Visit: No Status: Chronic (3) DVT prophylaxis Current Visit: No Status: Acute Continue heparin 5,000 units SQ twice daily for DVT prophylaxis Subjective Patient reports: no new complaints, feels better, still having pain, pain is less, tolerating a regular diet, voiding w/o difficulty, flatus, bowel movement , afebrile Objective Vital Signs - Last 8 Hours Temp Pulse Resp BP Pulse Ox 09/24/16 15:07 98.1 F 91 18 117/79 96 09/24/16 10:59 98.4 F 82 15 109/58 98 Intake and Output 09/24/16 09/24/16 09/24/16 07:59 15:59 23:59 Intake Total 0 / 0 150 / 150 Output Total 125 / 125 Balance -125 / -125 150 / 150 Intake: IV Fluids 150 / 150 Levaquin 750mg/150 mL 750 150 / 150 mg In 150 ml @ 100 mls/ hr IVPB DAILY [facility] Rx#: [id number] Oral 0 / 0 Output: Stool 125 / 125 Other 0 / 0 Other: # Urine Diapers 0 Blood Glucose* 119 - General physical appearance well developed, no distress, chronically ill, other (patient up in wheelchair ) - Eyes normal ocular movement - ENT normal mucosa, atraumatic, normocephalic - Neck Neck exam: trachea midline - Respiratory normal respiratory effort, clear to auscultation - Cardiovascular Cardiovascular exam: Present: RRR - Abdomen Abdomen: Present: bowel sounds present, soft, tender (expected post-operative tenderness), wound (Colostomy and Mucous fistula pink and moist; colostomy with flatus and stool output noted) - Incision Incision: Present: clean and dry, intact - Integumentary no rash - Neurologic CN 2-12 grossly intact - Psychiatric oriented to time, oriented to person, oriented to place, memory intact - Labs 09/24/16 03:35 09/24/16 03:35 Diabetes panel 09/24/16 Range/Units 03:35 Sodium 134 L (136-145) mEq/L Potassium 3.8 (3.5-4.5) mEq/L Chloride 101 (98-109) mEq/L Carbon Dioxide 26 (19-29) mEq/L BUN 17 (8-26) mg/dL Creatinine 0.64 L (0.72-1.25) mg/dL Glucose 116 H (70-99) mg/dL Calcium 8.6 (8.6-10.8) mg/dL Triglycerides 148 (< 150) mg/dL Calcium panel 09/24/16 Range/Units 03:35 Calcium 8.6 (8.6-10.8) mg/dL Phosphorus 3.7 (2.3-4.7) mg/dL Pituitary panel 09/24/16 Range/Units 03:35 Sodium 134 L (136-145) mEq/L Potassium 3.8 (3.5-4.5) mEq/L Chloride 101 (98-109) mEq/L Carbon Dioxide 26 (19-29) mEq/L BUN 17 (8-26) mg/dL Creatinine 0.64 L (0.72-1.25) mg/dL Glucose 116 H (70-99) mg/dL Calcium 8.6 (8.6-10.8) mg/dL Adrenal panel 09/24/16 Range/Units 03:35 Sodium 134 L (136-145) mEq/L Potassium 3.8 (3.5-4.5) mEq/L Chloride 101 (98-109) mEq/L Carbon Dioxide 26 (19-29) mEq/L BUN 17 (8-26) mg/dL Creatinine 0.64 L (0.72-1.25) mg/dL Glucose 116 H (70-99) mg/dL Calcium 8.6 (8.6-10.8) mg/dL - VTE Documentation of Mechanical Device: Intermittent pneumatic compression device Consult Discharge Plan - Plan Referrals: Jeannie Ragsdale MD [Partnered Physician] - 10/01/16 8:10 am - Attending Attestation I examined this patient and my medical decision-making was reviewed with the [facility] [employer]/PA/Advanced Practice Nurse/Resident Physician. I agree with the documented findings, disposition and treatment plan as described except to the extent set forth below.
--- NOTE | 2016-09-24 16:40 | Internal Med Progress Note ---
Date of Encounter: 09/24/16 Time of Encounter: 10:15 - Assessment and plan (1) Hospital acquired PNA Current Visit: Yes Status: Acute Assessment and plan: On Levaquin. Continue. Clinically better. (2) Metastatic colon cancer to liver Current Visit: Yes Status: Acute Assessment and plan: Follow up outpatient with oncology. (3) DVT prophylaxis Current Visit: No Status: Acute (4) Bowel obstruction Current Visit: Yes Status: Resolved Assessment and plan: Treated with surgery. On TPN. On SOFT DIET. HOWEVER HAS POOR ORAL APPETITE. Recommend weaning TPN as tolerated. Qualifiers: Intestinal obstruction type: other intestinal obstruction Qualified Code(s) : K56.69 - Other intestinal obstruction (5) History of CVA with residual deficit Current Visit: No Status: Chronic Assessment and plan: With right-sided weakness - Subjective Interval history: Patient lying in bed and asleep but awakes easily. Denies any new complaints at this time. Has not eaten breakfast. Says he is not hungry. - Constitutional Vitals: Temp Pulse Resp BP Pulse Ox 98.1 F 91 18 117/79 96 09/24/16 15:07 09/24/16 15:07 09/24/16 15:07 09/24/16 15:07 09/24/16 15:07 General appearance: Present: cooperative, no acute distress, underweight Exam: Somnolent but awakes easily and answers some questions. - Neck Neck exam general surgery: Present: supple, trachea midline. Absent: lymphadenopathy - Respiratory Respiratory exam: Present: CTAB. Absent: accessory muscle use, rales, rhonchi, wheezes - Cardiovascular Cardiovascular exam: Present: RRR, +S1, +S2. Absent: diastolic murmur, gallop, rubs, systolic murmur - GI/Abdominal GI/Abdominal exam: Present: normal bowel sounds, soft, no peritoneal signs. Absent: distended, tenderness - Extremities Exam Extremities exam: Present: warm, radial pulses palpable and symetrical. Absent : calf tenderness, cyanotic, pedal edema - Neurological Exam Neurological exam: Present: CN II-XII intact, oriented X3, no focal deficits. Absent: facial droop, speech deficit - Skin Skin exam: Present: dry, intact Internal Medicine: Result - Labs CBC & Chem 7: 09/24/16 03:35 09/24/16 03:35 Labs: Short CBC 09/24/16 Range/Units 03:35 WBC 11.7 H (4.3-11.1) K/mcL Hgb 11.3 L (12.9-16.9) g/dL Hct 34.0 L (37.5-50.1) % Plt Count 165 (140-400) K/mcL Neutrophils # 7.1 (1.6-8.9) K/mcL BMP 09/24/16 03:35 Sodium 134 L Potassium 3.8 Chloride 101 Carbon Dioxide 26 BUN 17 Creatinine 0.64 L Glucose 116 H Calcium 8.6 - ABG Interpretation ABG results: ABG ABG pH 7.36 pH Units (7.32-7.45) 09/16/16 00:01 ABG pCO2 47 mmHg (35-45) H 09/16/16 00:01 ABG pO2 89 mmHg (85-104) 09/16/16 00:01 ABG O2 Saturation 96 % (95-98) 09/16/16 00:01 PT/INR, D-dimer PT 11.5 Seconds (9.4-12.1) 09/15/16 04:35 - VTE Documentation of Mechanical Device: Intermittent pneumatic compression device Consult Discharge Plan - Plan Referrals: Jeannie Ragsdale MD [Partnered Physician] - 10/01/16 8:10 am - Attending Attestation This document has been at least partially created by [employer] recognition technology by Dr. Mak. Errors in grammar, wording or other phrases may exist. If errors are found after the documentation is signed, they will be addressed individually in the addendum section of this document when appropriate. Medical Decision Making - MDM Narrative Medical decision making narrative: Moderate risk for complications - Lab Data Lab results reviewed: Yes I reviewed the patient's lab results. Result diagrams: 09/24/16 03:35 09/24/16 03:35 Lab Results 09/14/16 09/14/16 09/15/16 Range/Units 11:50 23:12 04:35 WBC (4.3-11.1) K/mcL RBC (4.19-5.50) M/mcL Hgb (12.9-16.9) g/dL Hct (37.5-50.1) % MCV (83.0-100.0) fL MCH (28.0-33.3) pg MCHC (31.6-35.5) g/dL RDW (11.5-14.5) % Plt Count (140-400) K/mcL MPV (9.4-12.4) fL Immature Gran % (0-4) % Seg Neutrophils % % Lymphocytes % % Monocytes % % Eosinophils % % Basophils % % Neutrophils # (1.6-8.9) K/mcL Lymphocytes # (0.6-4.6) K/mcL Monocytes # (0.0-1.3) K/mcL Eosinophils # (0.0-0.6) K/mcL Basophils # (0.0-0.2) K/mcL Immature Plt Fraction (1.1-6.1) % PT 11.5 (9.4-12.1) Seconds INR 1.1 ABG pH (7.32-7.45) pH Units ABG pCO2 (35-45) mmHg ABG pO2 (85-104) mmHg ABG HCO3 (21-27) mEQ/L ABG Total CO2 (20-26) mEq/L ABG O2 Saturation (95-98) % ABG Base Excess (-2.0 to 3.0) mEq/L Blood Gas Modality Inspired O2 % Sodium (136-145) mEq/L Potassium (3.5-4.5) mEq/L Chloride (98-109) mEq/L Carbon Dioxide (19-29) mEq/L BUN (8-26) mg/dL Creatinine (0.72-1.25) mg/dL Est GFR ( Amer) (> 60) Est GFR (Non-Af Amer) (> 60) BUN/Creatinine Ratio (6-26) Glucose (70-99) mg/dL POC Glucose 92 H 96 H (58-89) Calculated Osmolality (280-300) Calcium (8.6-10.8) mg/dL Phosphorus (2.3-4.7) mg/dL Magnesium (1.6-2.6) mg/dL Prealbumin (18.0-45.0) mg/dL Triglycerides (< 150) mg/dL Urine Color (Yellow) Urine Clarity (Clear) Urine pH (5.0-8.0) pH Units Ur Specific [place] (1.010-1.025) Urine Protein (Neg-Trace) mg/dL Urine Glucose (UA) (Normal) mg/dL Urine Ketones (Negative) mg/dL Urine Blood (Negative) Urine Nitrite (Negative) Urine Bilirubin (Negative) Urine Urobilinogen (Normal) mg/dL Ur Leukocyte Esterase (Negative) Urine Microscopic RBC (0-3) per hpf Urine Microscopic WBC (0-3) per hpf Urine Bacteria (None-Few) per hpf Ur Culture Indicated? (NO) Vancomycin Trough (10-20) mcg/mL 09/15/16 09/15/16 09/15/16 Range/Units 04:35 04:35 05:37 WBC 10.9 (4.3-11.1) K/mcL RBC 4.99 (4.19-5.50) M/mcL Hgb 15.0 (12.9-16.9) g/dL Hct 44.5 (37.5-50.1) % MCV 89.2 (83.0-100.0) fL MCH 30.1 (28.0-33.3) pg MCHC 33.7 (31.6-35.5) g/dL RDW 14.5 (11.5-14.5) % Plt Count 238 (140-400) K/mcL MPV 9.3 L (9.4-12.4) fL Immature Gran % 0.6 (0-4) % Seg Neutrophils % 64.8 % Lymphocytes % 21.4 % Monocytes % 10.6 % Eosinophils % 2.0 % Basophils % 0.6 % Neutrophils # 7.0 (1.6-8.9) K/mcL Lymphocytes # 2.3 (0.6-4.6) K/mcL Monocytes # 1.2 (0.0-1.3) K/mcL Eosinophils # 0.2 (0.0-0.6) K/mcL Basophils # 0.1 (0.0-0.2) K/mcL Immature Plt Fraction (1.1-6.1) % PT (9.4-12.1) Seconds INR ABG pH (7.32-7.45) pH Units ABG pCO2 (35-45) mmHg ABG pO2 (85-104) mmHg ABG HCO3 (21-27) mEQ/L ABG Total CO2 (20-26) mEq/L ABG O2 Saturation (95-98) % ABG Base Excess (-2.0 to 3.0) mEq/L Blood Gas Modality Inspired O2 % Sodium 136 (136-145) mEq/L Potassium 3.8 (3.5-4.5) mEq/L Chloride 106 (98-109) mEq/L Carbon Dioxide 22 (19-29) mEq/L BUN 9 (8-26) mg/dL Creatinine 0.79 (0.72-1.25) mg/dL Est GFR ( Amer) > 60 (> 60) Est GFR (Non-Af Amer) > 60 (> 60) BUN/Creatinine Ratio 11 (6-26) Glucose 86 (70-99) mg/dL POC Glucose 88 (58-89) Calculated Osmolality 280 (280-300) Calcium 8.5 L (8.6-10.8) mg/dL Phosphorus (2.3-4.7) mg/dL Magnesium (1.6-2.6) mg/dL Prealbumin (18.0-45.0) mg/dL Triglycerides (< 150) mg/dL Urine Color (Yellow) Urine Clarity (Clear) Urine pH (5.0-8.0) pH Units Ur Specific [place] (1.010-1.025) Urine Protein (Neg-Trace) mg/dL Urine Glucose (UA) (Normal) mg/dL Urine Ketones (Negative) mg/dL Urine Blood (Negative) Urine Nitrite (Negative) Urine Bilirubin (Negative) Urine Urobilinogen (Normal) mg/dL Ur Leukocyte Esterase (Negative) Urine Microscopic RBC (0-3) per hpf Urine Microscopic WBC (0-3) per hpf Urine Bacteria (None-Few) per hpf Ur Culture Indicated? (NO) Vancomycin Trough (10-20) mcg/mL 09/15/16 09/15/16 09/15/16 Range/Units 10:51 11:27 11:27 WBC (4.3-11.1) K/mcL RBC (4.19-5.50) M/mcL Hgb (12.9-16.9) g/dL Hct (37.5-50.1) % MCV (83.0-100.0) fL MCH (28.0-33.3) pg MCHC (31.6-35.5) g/dL RDW (11.5-14.5) % Plt Count (140-400) K/mcL MPV (9.4-12.4) fL Immature Gran % (0-4) % Seg Neutrophils % % Lymphocytes % % Monocytes % % Eosinophils % % Basophils % % Neutrophils # (1.6-8.9) K/mcL Lymphocytes # (0.6-4.6) K/mcL Monocytes # (0.0-1.3) K/mcL Eosinophils # (0.0-0.6) K/mcL Basophils # (0.0-0.2) K/mcL Immature Plt Fraction (1.1-6.1) % PT (9.4-12.1) Seconds INR ABG pH (7.32-7.45) pH Units ABG pCO2 (35-45) mmHg ABG pO2 (85-104) mmHg ABG HCO3 (21-27) mEQ/L ABG Total CO2 (20-26) mEq/L ABG O2 Saturation (95-98) % ABG Base Excess (-2.0 to 3.0) mEq/L Blood Gas Modality Inspired O2 % Sodium (136-145) mEq/L Potassium (3.5-4.5) mEq/L Chloride (98-109) mEq/L Carbon Dioxide (19-29) mEq/L BUN (8-26) mg/dL Creatinine (0.72-1.25) mg/dL Est GFR ( Amer) (> 60) Est GFR (Non-Af Amer) (> 60) BUN/Creatinine Ratio (6-26) Glucose (70-99) mg/dL POC Glucose 77 (58-89) Calculated Osmolality (280-300) Calcium (8.6-10.8) mg/dL Phosphorus 2.7 (2.3-4.7) mg/dL Magnesium 2.0 (1.6-2.6) mg/dL Prealbumin (18.0-45.0) mg/dL Triglycerides (< 150) mg/dL Urine Color (Yellow) Urine Clarity (Clear) Urine pH (5.0-8.0) pH Units Ur Specific [place] (1.010-1.025) Urine Protein (Neg-Trace) mg/dL Urine Glucose (UA) (Normal) mg/dL Urine Ketones (Negative) mg/dL Urine Blood (Negative) Urine Nitrite (Negative) Urine Bilirubin (Negative) Urine Urobilinogen (Normal) mg/dL Ur Leukocyte Esterase (Negative) Urine Microscopic RBC (0-3) per hpf Urine Microscopic WBC (0-3) per hpf Urine Bacteria (None-Few) per hpf Ur Culture Indicated? (NO) Vancomycin Trough (10-20) mcg/mL 09/15/16 09/15/16 09/16/16 Range/Units 11:27 11:27 00:01 WBC (4.3-11.1) K/mcL RBC (4.19-5.50) M/mcL Hgb (12.9-16.9) g/dL Hct (37.5-50.1) % MCV (83.0-100.0) fL MCH (28.0-33.3) pg MCHC (31.6-35.5) g/dL RDW (11.5-14.5) % Plt Count (140-400) K/mcL MPV (9.4-12.4) fL Immature Gran % (0-4) % Seg Neutrophils % % Lymphocytes % % Monocytes % % Eosinophils % % Basophils % % Neutrophils # (1.6-8.9) K/mcL Lymphocytes # (0.6-4.6) K/mcL Monocytes # (0.0-1.3) K/mcL Eosinophils # (0.0-0.6) K/mcL Basophils # (0.0-0.2) K/mcL Immature Plt Fraction (1.1-6.1) % PT (9.4-12.1) Seconds INR ABG pH 7.36 (7.32-7.45) pH Units ABG pCO2 47 H (35-45) mmHg ABG pO2 89 (85-104) mmHg ABG HCO3 26.6 (21-27) mEQ/L ABG Total CO2 28.0 H (20-26) mEq/L ABG O2 Saturation 96 (95-98) % ABG Base Excess 0.6 (-2.0 to 3.0) mEq/L Blood Gas Modality nc Inspired O2 28 % Sodium (136-145) mEq/L Potassium (3.5-4.5) mEq/L Chloride (98-109) mEq/L Carbon Dioxide (19-29) mEq/L BUN (8-26) mg/dL Creatinine (0.72-1.25) mg/dL Est GFR ( Amer) (> 60) Est GFR (Non-Af Amer) (> 60) BUN/Creatinine Ratio (6-26) Glucose (70-99) mg/dL POC Glucose (58-89) Calculated Osmolality (280-300) Calcium (8.6-10.8) mg/dL Phosphorus (2.3-4.7) mg/dL Magnesium (1.6-2.6) mg/dL Prealbumin 11.0 L (18.0-45.0) mg/dL Triglycerides 106 (< 150) mg/dL Urine Color (Yellow) Urine Clarity (Clear) Urine pH (5.0-8.0) pH Units Ur Specific [place] (1.010-1.025) Urine Protein (Neg-Trace) mg/dL Urine Glucose (UA) (Normal) mg/dL Urine Ketones (Negative) mg/dL Urine Blood (Negative) Urine Nitrite (Negative) Urine Bilirubin (Negative) Urine Urobilinogen (Normal) mg/dL Ur Leukocyte Esterase (Negative) Urine Microscopic RBC (0-3) per hpf Urine Microscopic WBC (0-3) per hpf Urine Bacteria (None-Few) per hpf Ur Culture Indicated? (NO) Vancomycin Trough (10-20) mcg/mL 09/16/16 09/16/16 09/16/16 Range/Units 00:06 03:20 03:20 WBC 18.5 H D (4.3-11.1) K/mcL RBC 4.47 (4.19-5.50) M/mcL Hgb 13.5 D (12.9-16.9) g/dL Hct 40.2 (37.5-50.1) % MCV 89.9 (83.0-100.0) fL MCH 30.2 (28.0-33.3) pg MCHC 33.6 (31.6-35.5) g/dL RDW 14.6 H (11.5-14.5) % Plt Count 188 (140-400) K/mcL MPV 9.2 L (9.4-12.4) fL Immature Gran % 0.6 (0-4) % Seg Neutrophils % 90.0 % Lymphocytes % 3.4 % Monocytes % 5.8 % Eosinophils % 0.0 % Basophils % 0.2 % Neutrophils # 16.7 H (1.6-8.9) K/mcL Lymphocytes # 0.6 (0.6-4.6) K/mcL Monocytes # 1.1 (0.0-1.3) K/mcL Eosinophils # 0.0 (0.0-0.6) K/mcL Basophils # 0.0 (0.0-0.2) K/mcL Immature Plt Fraction (1.1-6.1) % PT (9.4-12.1) Seconds INR ABG pH (7.32-7.45) pH Units ABG pCO2 (35-45) mmHg ABG pO2 (85-104) mmHg ABG HCO3 (21-27) mEQ/L ABG Total CO2 (20-26) mEq/L ABG O2 Saturation (95-98) % ABG Base Excess (-2.0 to 3.0) mEq/L Blood Gas Modality Inspired O2 % Sodium 135 L (136-145) mEq/L Potassium 4.3 (3.5-4.5) mEq/L Chloride 104 (98-109) mEq/L Carbon Dioxide 29 (19-29) mEq/L BUN 11 (8-26) mg/dL Creatinine 0.80 (0.72-1.25) mg/dL Est GFR ( Amer) > 60 (> 60) Est GFR (Non-Af Amer) > 60 (> 60) BUN/Creatinine Ratio 14 (6-26) Glucose 188 H (70-99) mg/dL POC Glucose 132 H (58-89) Calculated Osmolality 284 (280-300) Calcium 8.2 L (8.6-10.8) mg/dL Phosphorus 3.1 (2.3-4.7) mg/dL Magnesium 1.8 (1.6-2.6) mg/dL Prealbumin (18.0-45.0) mg/dL Triglycerides (< 150) mg/dL Urine Color (Yellow) Urine Clarity (Clear) Urine pH (5.0-8.0) pH Units Ur Specific [place] (1.010-1.025) Urine Protein (Neg-Trace) mg/dL Urine Glucose (UA) (Normal) mg/dL Urine Ketones (Negative) mg/dL Urine Blood (Negative) Urine Nitrite (Negative) Urine Bilirubin (Negative) Urine Urobilinogen (Normal) mg/dL Ur Leukocyte Esterase (Negative) Urine Microscopic RBC (0-3) per hpf Urine Microscopic WBC (0-3) per hpf Urine Bacteria (None-Few) per hpf Ur Culture Indicated? (NO) Vancomycin Trough (10-20) mcg/mL 09/16/16 09/16/16 09/16/16 Range/Units 07:39 11:53 16:53 WBC (4.3-11.1) K/mcL RBC (4.19-5.50) M/mcL Hgb (12.9-16.9) g/dL Hct (37.5-50.1) % MCV (83.0-100.0) fL MCH (28.0-33.3) pg MCHC (31.6-35.5) g/dL RDW (11.5-14.5) % Plt Count (140-400) K/mcL MPV (9.4-12.4) fL Immature Gran % (0-4) % Seg Neutrophils % % Lymphocytes % % Monocytes % % Eosinophils % % Basophils % % Neutrophils # (1.6-8.9) K/mcL Lymphocytes # (0.6-4.6) K/mcL Monocytes # (0.0-1.3) K/mcL Eosinophils # (0.0-0.6) K/mcL Basophils # (0.0-0.2) K/mcL Immature Plt Fraction (1.1-6.1) % PT (9.4-12.1) Seconds INR ABG pH (7.32-7.45) pH Units ABG pCO2 (35-45) mmHg ABG pO2 (85-104) mmHg ABG HCO3 (21-27) mEQ/L ABG Total CO2 (20-26) mEq/L ABG O2 Saturation (95-98) % ABG Base Excess (-2.0 to 3.0) mEq/L Blood Gas Modality Inspired O2 % Sodium (136-145) mEq/L Potassium (3.5-4.5) mEq/L Chloride (98-109) mEq/L Carbon Dioxide (19-29) mEq/L BUN (8-26) mg/dL Creatinine (0.72-1.25) mg/dL Est GFR ( Amer) (> 60) Est GFR (Non-Af Amer) (> 60) BUN/Creatinine Ratio (6-26) Glucose (70-99) mg/dL POC Glucose 193 H 159 H 116 H (58-89) Calculated Osmolality (280-300) Calcium (8.6-10.8) mg/dL Phosphorus (2.3-4.7) mg/dL Magnesium (1.6-2.6) mg/dL Prealbumin (18.0-45.0) mg/dL Triglycerides (< 150) mg/dL Urine Color (Yellow) Urine Clarity (Clear) Urine pH (5.0-8.0) pH Units Ur Specific [place] (1.010-1.025) Urine Protein (Neg-Trace) mg/dL Urine Glucose (UA) (Normal) mg/dL Urine Ketones (Negative) mg/dL Urine Blood (Negative) Urine Nitrite (Negative) Urine Bilirubin (Negative) Urine Urobilinogen (Normal) mg/dL Ur Leukocyte Esterase (Negative) Urine Microscopic RBC (0-3) per hpf Urine Microscopic WBC (0-3) per hpf Urine Bacteria (None-Few) per hpf Ur Culture Indicated? (NO) Vancomycin Trough (10-20) mcg/mL 09/16/16 09/17/16 09/17/16 Range/Units 20:57 00:02 03:02 WBC (4.3-11.1) K/mcL RBC (4.19-5.50) M/mcL Hgb (12.9-16.9) g/dL Hct (37.5-50.1) % MCV (83.0-100.0) fL MCH (28.0-33.3) pg MCHC (31.6-35.5) g/dL RDW (11.5-14.5) % Plt Count (140-400) K/mcL MPV (9.4-12.4) fL Immature Gran % (0-4) % Seg Neutrophils % % Lymphocytes % % Monocytes % % Eosinophils % % Basophils % % Neutrophils # (1.6-8.9) K/mcL Lymphocytes # (0.6-4.6) K/mcL Monocytes # (0.0-1.3) K/mcL Eosinophils # (0.0-0.6) K/mcL Basophils # (0.0-0.2) K/mcL Immature Plt Fraction (1.1-6.1) % PT (9.4-12.1) Seconds INR ABG pH (7.32-7.45) pH Units ABG pCO2 (35-45) mmHg ABG pO2 (85-104) mmHg ABG HCO3 (21-27) mEQ/L ABG Total CO2 (20-26) mEq/L ABG O2 Saturation (95-98) % ABG Base Excess (-2.0 to 3.0) mEq/L Blood Gas Modality Inspired O2 % Sodium 137 (136-145) mEq/L Potassium 3.7 (3.5-4.5) mEq/L Chloride 104 (98-109) mEq/L Carbon Dioxide 29 (19-29) mEq/L BUN 13 (8-26) mg/dL Creatinine 0.65 L (0.72-1.25) mg/dL Est GFR ( Amer) > 60 (> 60) Est GFR (Non-Af Amer) > 60 (> 60) BUN/Creatinine Ratio 20 (6-26) Glucose 111 H (70-99) mg/dL POC Glucose 114 H 108 H (58-89) Calculated Osmolality 285 (280-300) Calcium 7.9 L (8.6-10.8) mg/dL Phosphorus 2.8 (2.3-4.7) mg/dL Magnesium 1.8 (1.6-2.6) mg/dL Prealbumin (18.0-45.0) mg/dL Triglycerides (< 150) mg/dL Urine Color (Yellow) Urine Clarity (Clear) Urine pH (5.0-8.0) pH Units Ur Specific [place] (1.010-1.025) Urine Protein (Neg-Trace) mg/dL Urine Glucose (UA) (Normal) mg/dL Urine Ketones (Negative) mg/dL Urine Blood (Negative) Urine Nitrite (Negative) Urine Bilirubin (Negative) Urine Urobilinogen (Normal) mg/dL Ur Leukocyte Esterase (Negative) Urine Microscopic RBC (0-3) per hpf Urine Microscopic WBC (0-3) per hpf Urine Bacteria (None-Few) per hpf Ur Culture Indicated? (NO) Vancomycin Trough (10-20) mcg/mL 09/17/16 09/17/16 09/17/16 Range/Units 03:02 05:44 11:43 WBC 11.5 H (4.3-11.1) K/mcL RBC 4.12 L (4.19-5.50) M/mcL Hgb 12.4 L (12.9-16.9) g/dL Hct 37.1 L (37.5-50.1) % MCV 90.0 (83.0-100.0) fL MCH 30.1 (28.0-33.3) pg MCHC 33.4 (31.6-35.5) g/dL RDW 14.8 H (11.5-14.5) % Plt Count 184 (140-400) K/mcL MPV 9.4 (9.4-12.4) fL Immature Gran % 0.8 (0-4) % Seg Neutrophils % 69.2 % Lymphocytes % 16.3 % Monocytes % 11.8 % Eosinophils % 1.6 % Basophils % 0.3 % Neutrophils # 7.9 (1.6-8.9) K/mcL Lymphocytes # 1.9 (0.6-4.6) K/mcL Monocytes # 1.4 H (0.0-1.3) K/mcL Eosinophils # 0.2 (0.0-0.6) K/mcL Basophils # 0.0 (0.0-0.2) K/mcL Immature Plt Fraction (1.1-6.1) % PT (9.4-12.1) Seconds INR ABG pH (7.32-7.45) pH Units ABG pCO2 (35-45) mmHg ABG pO2 (85-104) mmHg ABG HCO3 (21-27) mEQ/L ABG Total CO2 (20-26) mEq/L ABG O2 Saturation (95-98) % ABG Base Excess (-2.0 to 3.0) mEq/L Blood Gas Modality Inspired O2 % Sodium (136-145) mEq/L Potassium (3.5-4.5) mEq/L Chloride (98-109) mEq/L Carbon Dioxide (19-29) mEq/L BUN (8-26) mg/dL Creatinine (0.72-1.25) mg/dL Est GFR ( Amer) (> 60) Est GFR (Non-Af Amer) (> 60) BUN/Creatinine Ratio (6-26) Glucose (70-99) mg/dL POC Glucose 97 H 116 H (58-89) Calculated Osmolality (280-300) Calcium (8.6-10.8) mg/dL Phosphorus (2.3-4.7) mg/dL Magnesium (1.6-2.6) mg/dL Prealbumin (18.0-45.0) mg/dL Triglycerides (< 150) mg/dL Urine Color (Yellow) Urine Clarity (Clear) Urine pH (5.0-8.0) pH Units Ur Specific [place] (1.010-1.025) Urine Protein (Neg-Trace) mg/dL Urine Glucose (UA) (Normal) mg/dL Urine Ketones (Negative) mg/dL Urine Blood (Negative) Urine Nitrite (Negative) Urine Bilirubin (Negative) Urine Urobilinogen (Normal) mg/dL Ur Leukocyte Esterase (Negative) Urine Microscopic RBC (0-3) per hpf Urine Microscopic WBC (0-3) per hpf Urine Bacteria (None-Few) per hpf Ur Culture Indicated? (NO) Vancomycin Trough (10-20) mcg/mL 09/17/16 09/17/16 09/18/16 Range/Units 16:26 20:28 00:01 WBC (4.3-11.1) K/mcL RBC (4.19-5.50) M/mcL Hgb (12.9-16.9) g/dL Hct (37.5-50.1) % MCV (83.0-100.0) fL MCH (28.0-33.3) pg MCHC (31.6-35.5) g/dL RDW (11.5-14.5) % Plt Count (140-400) K/mcL MPV (9.4-12.4) fL Immature Gran % (0-4) % Seg Neutrophils % % Lymphocytes % % Monocytes % % Eosinophils % % Basophils % % Neutrophils # (1.6-8.9) K/mcL Lymphocytes # (0.6-4.6) K/mcL Monocytes # (0.0-1.3) K/mcL Eosinophils # (0.0-0.6) K/mcL Basophils # (0.0-0.2) K/mcL Immature Plt Fraction (1.1-6.1) % PT (9.4-12.1) Seconds INR ABG pH (7.32-7.45) pH Units ABG pCO2 (35-45) mmHg ABG pO2 (85-104) mmHg ABG HCO3 (21-27) mEQ/L ABG Total CO2 (20-26) mEq/L ABG O2 Saturation (95-98) % ABG Base Excess (-2.0 to 3.0) mEq/L Blood Gas Modality Inspired O2 % Sodium (136-145) mEq/L Potassium (3.5-4.5) mEq/L Chloride (98-109) mEq/L Carbon Dioxide (19-29) mEq/L BUN (8-26) mg/dL Creatinine (0.72-1.25) mg/dL Est GFR ( Amer) (> 60) Est GFR (Non-Af Amer) (> 60) BUN/Creatinine Ratio (6-26) Glucose (70-99) mg/dL POC Glucose 108 H 104 H 110 H (58-89) Calculated Osmolality (280-300) Calcium (8.6-10.8) mg/dL Phosphorus (2.3-4.7) mg/dL Magnesium (1.6-2.6) mg/dL Prealbumin (18.0-45.0) mg/dL Triglycerides (< 150) mg/dL Urine Color (Yellow) Urine Clarity (Clear) Urine pH (5.0-8.0) pH Units Ur Specific [place] (1.010-1.025) Urine Protein (Neg-Trace) mg/dL Urine Glucose (UA) (Normal) mg/dL Urine Ketones (Negative) mg/dL Urine Blood (Negative) Urine Nitrite (Negative) Urine Bilirubin (Negative) Urine Urobilinogen (Normal) mg/dL Ur Leukocyte Esterase (Negative) Urine Microscopic RBC (0-3) per hpf Urine Microscopic WBC (0-3) per hpf Urine Bacteria (None-Few) per hpf Ur Culture Indicated? (NO) Vancomycin Trough (10-20) mcg/mL 09/18/16 09/18/16 09/18/16 Range/Units 03:05 03:05 04:13 WBC 16.8 H (4.3-11.1) K/mcL RBC 3.91 L (4.19-5.50) M/mcL Hgb 11.9 L (12.9-16.9) g/dL Hct 35.1 L (37.5-50.1) % MCV 89.8 (83.0-100.0) fL MCH 30.4 (28.0-33.3) pg MCHC 33.9 (31.6-35.5) g/dL RDW 14.8 H (11.5-14.5) % Plt Count 158 (140-400) K/mcL MPV 9.6 (9.4-12.4) fL Immature Gran % 0.7 (0-4) % Seg Neutrophils % 78.9 % Lymphocytes % 10.3 % Monocytes % 6.5 % Eosinophils % 3.3 % Basophils % 0.3 % Neutrophils # 13.3 H (1.6-8.9) K/mcL Lymphocytes # 1.7 (0.6-4.6) K/mcL Monocytes # 1.1 (0.0-1.3) K/mcL Eosinophils # 0.6 (0.0-0.6) K/mcL Basophils # 0.1 (0.0-0.2) K/mcL Immature Plt Fraction (1.1-6.1) % PT (9.4-12.1) Seconds INR ABG pH (7.32-7.45) pH Units ABG pCO2 (35-45) mmHg ABG pO2 (85-104) mmHg ABG HCO3 (21-27) mEQ/L ABG Total CO2 (20-26) mEq/L ABG O2 Saturation (95-98) % ABG Base Excess (-2.0 to 3.0) mEq/L Blood Gas Modality Inspired O2 % Sodium 133 L (136-145) mEq/L Potassium 3.8 (3.5-4.5) mEq/L Chloride 102 (98-109) mEq/L Carbon Dioxide 26 (19-29) mEq/L BUN 13 (8-26) mg/dL Creatinine 0.62 L (0.72-1.25) mg/dL Est GFR ( Amer) > 60 (> 60) Est GFR (Non-Af Amer) > 60 (> 60) BUN/Creatinine Ratio 21 (6-26) Glucose 100 H (70-99) mg/dL POC Glucose 124 H (58-89) Calculated Osmolality 276 L (280-300) Calcium 8.0 L (8.6-10.8) mg/dL Phosphorus 3.5 (2.3-4.7) mg/dL Magnesium 1.7 (1.6-2.6) mg/dL Prealbumin (18.0-45.0) mg/dL Triglycerides (< 150) mg/dL Urine Color (Yellow) Urine Clarity (Clear) Urine pH (5.0-8.0) pH Units Ur Specific [place] (1.010-1.025) Urine Protein (Neg-Trace) mg/dL Urine Glucose (UA) (Normal) mg/dL Urine Ketones (Negative) mg/dL Urine Blood (Negative) Urine Nitrite (Negative) Urine Bilirubin (Negative) Urine Urobilinogen (Normal) mg/dL Ur Leukocyte Esterase (Negative) Urine Microscopic RBC (0-3) per hpf Urine Microscopic WBC (0-3) per hpf Urine Bacteria (None-Few) per hpf Ur Culture Indicated? (NO) Vancomycin Trough (10-20) mcg/mL 09/18/16 09/18/16 09/18/16 Range/Units 07:05 11:20 15:57 WBC (4.3-11.1) K/mcL RBC (4.19-5.50) M/mcL Hgb (12.9-16.9) g/dL Hct (37.5-50.1) % MCV (83.0-100.0) fL MCH (28.0-33.3) pg MCHC (31.6-35.5) g/dL RDW (11.5-14.5) % Plt Count (140-400) K/mcL MPV (9.4-12.4) fL Immature Gran % (0-4) % Seg Neutrophils % % Lymphocytes % % Monocytes % % Eosinophils % % Basophils % % Neutrophils # (1.6-8.9) K/mcL Lymphocytes # (0.6-4.6) K/mcL Monocytes # (0.0-1.3) K/mcL Eosinophils # (0.0-0.6) K/mcL Basophils # (0.0-0.2) K/mcL Immature Plt Fraction (1.1-6.1) % PT (9.4-12.1) Seconds INR ABG pH (7.32-7.45) pH Units ABG pCO2 (35-45) mmHg ABG pO2 (85-104) mmHg ABG HCO3 (21-27) mEQ/L ABG Total CO2 (20-26) mEq/L ABG O2 Saturation (95-98) % ABG Base Excess (-2.0 to 3.0) mEq/L Blood Gas Modality Inspired O2 % Sodium (136-145) mEq/L Potassium (3.5-4.5) mEq/L Chloride (98-109) mEq/L Carbon Dioxide (19-29) mEq/L BUN (8-26) mg/dL Creatinine (0.72-1.25) mg/dL Est GFR ( Amer) (> 60) Est GFR (Non-Af Amer) (> 60) BUN/Creatinine Ratio (6-26) Glucose (70-99) mg/dL POC Glucose 125 H 118 H 106 H (58-89) Calculated Osmolality (280-300) Calcium (8.6-10.8) mg/dL Phosphorus (2.3-4.7) mg/dL Magnesium (1.6-2.6) mg/dL Prealbumin (18.0-45.0) mg/dL Triglycerides (< 150) mg/dL Urine Color (Yellow) Urine Clarity (Clear) Urine pH (5.0-8.0) pH Units Ur Specific [place] (1.010-1.025) Urine Protein (Neg-Trace) mg/dL Urine Glucose (UA) (Normal) mg/dL Urine Ketones (Negative) mg/dL Urine Blood (Negative) Urine Nitrite (Negative) Urine Bilirubin (Negative) Urine Urobilinogen (Normal) mg/dL Ur Leukocyte Esterase (Negative) Urine Microscopic RBC (0-3) per hpf Urine Microscopic WBC (0-3) per hpf Urine Bacteria (None-Few) per hpf Ur Culture Indicated? (NO) Vancomycin Trough (10-20) mcg/mL 09/18/16 09/18/16 09/19/16 Range/Units 16:00 20:32 00:21 WBC (4.3-11.1) K/mcL RBC (4.19-5.50) M/mcL Hgb (12.9-16.9) g/dL Hct (37.5-50.1) % MCV (83.0-100.0) fL MCH (28.0-33.3) pg MCHC (31.6-35.5) g/dL RDW (11.5-14.5) % Plt Count (140-400) K/mcL MPV (9.4-12.4) fL Immature Gran % (0-4) % Seg Neutrophils % % Lymphocytes % % Monocytes % % Eosinophils % % Basophils % % Neutrophils # (1.6-8.9) K/mcL Lymphocytes # (0.6-4.6) K/mcL Monocytes # (0.0-1.3) K/mcL Eosinophils # (0.0-0.6) K/mcL Basophils # (0.0-0.2) K/mcL Immature Plt Fraction (1.1-6.1) % PT (9.4-12.1) Seconds INR ABG pH (7.32-7.45) pH Units ABG pCO2 (35-45) mmHg ABG pO2 (85-104) mmHg ABG HCO3 (21-27) mEQ/L ABG Total CO2 (20-26) mEq/L ABG O2 Saturation (95-98) % ABG Base Excess (-2.0 to 3.0) mEq/L Blood Gas Modality Inspired O2 % Sodium (136-145) mEq/L Potassium (3.5-4.5) mEq/L Chloride (98-109) mEq/L Carbon Dioxide (19-29) mEq/L BUN (8-26) mg/dL Creatinine (0.72-1.25) mg/dL Est GFR ( Amer) (> 60) Est GFR (Non-Af Amer) (> 60) BUN/Creatinine Ratio (6-26) Glucose (70-99) mg/dL POC Glucose 121 H 127 H (58-89) Calculated Osmolality (280-300) Calcium (8.6-10.8) mg/dL Phosphorus (2.3-4.7) mg/dL Magnesium (1.6-2.6) mg/dL Prealbumin (18.0-45.0) mg/dL Triglycerides (< 150) mg/dL Urine Color Yellow (Yellow) Urine Clarity Clear (Clear) Urine pH 7.0 (5.0-8.0) pH Units Ur Specific [place] 1.010 (1.010-1.025) Urine Protein Negative (Neg-Trace) mg/dL Urine Glucose (UA) Normal (Normal) mg/dL Urine Ketones Negative (Negative) mg/dL Urine Blood Small H (Negative) Urine Nitrite Negative (Negative) Urine Bilirubin Negative (Negative) Urine Urobilinogen Normal (Normal) mg/dL Ur Leukocyte Esterase Negative (Negative) Urine Microscopic RBC 0-3 (0-3) per hpf Urine Microscopic WBC 0-3 (0-3) per hpf Urine Bacteria Few (None-Few) per hpf Ur Culture Indicated? NO (NO) Vancomycin Trough (10-20) mcg/mL 09/19/16 09/19/16 09/19/16 Range/Units 03:20 03:20 03:51 WBC 20.3 H (4.3-11.1) K/mcL RBC 4.06 L (4.19-5.50) M/mcL Hgb 12.2 L (12.9-16.9) g/dL Hct 35.8 L (37.5-50.1) % MCV 88.2 (83.0-100.0) fL MCH 30.0 (28.0-33.3) pg MCHC 34.1 (31.6-35.5) g/dL RDW 14.7 H (11.5-14.5) % Plt Count 180 (140-400) K/mcL MPV 9.8 (9.4-12.4) fL Immature Gran % 0.6 (0-4) % Seg Neutrophils % 82.4 % Lymphocytes % 6.7 % Monocytes % 7.4 % Eosinophils % 2.6 % Basophils % 0.3 % Neutrophils # 16.7 H (1.6-8.9) K/mcL Lymphocytes # 1.4 (0.6-4.6) K/mcL Monocytes # 1.5 H (0.0-1.3) K/mcL Eosinophils # 0.5 (0.0-0.6) K/mcL Basophils # 0.1 (0.0-0.2) K/mcL Immature Plt Fraction 3.5 (1.1-6.1) % PT (9.4-12.1) Seconds INR ABG pH (7.32-7.45) pH Units ABG pCO2 (35-45) mmHg ABG pO2 (85-104) mmHg ABG HCO3 (21-27) mEQ/L ABG Total CO2 (20-26) mEq/L ABG O2 Saturation (95-98) % ABG Base Excess (-2.0 to 3.0) mEq/L Blood Gas Modality Inspired O2 % Sodium 133 L (136-145) mEq/L Potassium 4.0 (3.5-4.5) mEq/L Chloride 101 (98-109) mEq/L Carbon Dioxide 27 (19-29) mEq/L BUN 14 (8-26) mg/dL Creatinine 0.66 L (0.72-1.25) mg/dL Est GFR ( Amer) > 60 (> 60) Est GFR (Non-Af Amer) > 60 (> 60) BUN/Creatinine Ratio 21 (6-26) Glucose 102 H (70-99) mg/dL POC Glucose 121 H (58-89) Calculated Osmolality 277 L (280-300) Calcium 8.4 L (8.6-10.8) mg/dL Phosphorus 4.0 (2.3-4.7) mg/dL Magnesium 2.1 (1.6-2.6) mg/dL Prealbumin (18.0-45.0) mg/dL Triglycerides (< 150) mg/dL Urine Color (Yellow) Urine Clarity (Clear) Urine pH (5.0-8.0) pH Units Ur Specific [place] (1.010-1.025) Urine Protein (Neg-Trace) mg/dL Urine Glucose (UA) (Normal) mg/dL Urine Ketones (Negative) mg/dL Urine Blood (Negative) Urine Nitrite (Negative) Urine Bilirubin (Negative) Urine Urobilinogen (Normal) mg/dL Ur Leukocyte Esterase (Negative) Urine Microscopic RBC (0-3) per hpf Urine Microscopic WBC (0-3) per hpf Urine Bacteria (None-Few) per hpf Ur Culture Indicated? (NO) Vancomycin Trough (10-20) mcg/mL 09/19/16 09/19/16 09/19/16 Range/Units 07:25 11:08 16:20 WBC (4.3-11.1) K/mcL RBC (4.19-5.50) M/mcL Hgb (12.9-16.9) g/dL Hct (37.5-50.1) % MCV (83.0-100.0) fL MCH (28.0-33.3) pg MCHC (31.6-35.5) g/dL RDW (11.5-14.5) % Plt Count (140-400) K/mcL MPV (9.4-12.4) fL Immature Gran % (0-4) % Seg Neutrophils % % Lymphocytes % % Monocytes % % Eosinophils % % Basophils % % Neutrophils # (1.6-8.9) K/mcL Lymphocytes # (0.6-4.6) K/mcL Monocytes # (0.0-1.3) K/mcL Eosinophils # (0.0-0.6) K/mcL Basophils # (0.0-0.2) K/mcL Immature Plt Fraction (1.1-6.1) % PT (9.4-12.1) Seconds INR ABG pH (7.32-7.45) pH Units ABG pCO2 (35-45) mmHg ABG pO2 (85-104) mmHg ABG HCO3 (21-27) mEQ/L ABG Total CO2 (20-26) mEq/L ABG O2 Saturation (95-98) % ABG Base Excess (-2.0 to 3.0) mEq/L Blood Gas Modality Inspired O2 % Sodium (136-145) mEq/L Potassium (3.5-4.5) mEq/L Chloride (98-109) mEq/L Carbon Dioxide (19-29) mEq/L BUN (8-26) mg/dL Creatinine (0.72-1.25) mg/dL Est GFR ( Amer) (> 60) Est GFR (Non-Af Amer) (> 60) BUN/Creatinine Ratio (6-26) Glucose (70-99) mg/dL POC Glucose 137 H 129 H 112 H (58-89) Calculated Osmolality (280-300) Calcium (8.6-10.8) mg/dL Phosphorus (2.3-4.7) mg/dL Magnesium (1.6-2.6) mg/dL Prealbumin (18.0-45.0) mg/dL Triglycerides (< 150) mg/dL Urine Color (Yellow) Urine Clarity (Clear) Urine pH (5.0-8.0) pH Units Ur Specific [place] (1.010-1.025) Urine Protein (Neg-Trace) mg/dL Urine Glucose (UA) (Normal) mg/dL Urine Ketones (Negative) mg/dL Urine Blood (Negative) Urine Nitrite (Negative) Urine Bilirubin (Negative) Urine Urobilinogen (Normal) mg/dL Ur Leukocyte Esterase (Negative) Urine Microscopic RBC (0-3) per hpf Urine Microscopic WBC (0-3) per hpf Urine Bacteria (None-Few) per hpf Ur Culture Indicated? (NO) Vancomycin Trough (10-20) mcg/mL 09/19/16 09/19/16 09/20/16 Range/Units 19:52 23:38 03:20 WBC (4.3-11.1) K/mcL RBC (4.19-5.50) M/mcL Hgb (12.9-16.9) g/dL Hct (37.5-50.1) % MCV (83.0-100.0) fL MCH (28.0-33.3) pg MCHC (31.6-35.5) g/dL RDW (11.5-14.5) % Plt Count (140-400) K/mcL MPV (9.4-12.4) fL Immature Gran % (0-4) % Seg Neutrophils % % Lymphocytes % % Monocytes % % Eosinophils % % Basophils % % Neutrophils # (1.6-8.9) K/mcL Lymphocytes # (0.6-4.6) K/mcL Monocytes # (0.0-1.3) K/mcL Eosinophils # (0.0-0.6) K/mcL Basophils # (0.0-0.2) K/mcL Immature Plt Fraction (1.1-6.1) % PT (9.4-12.1) Seconds INR ABG pH (7.32-7.45) pH Units ABG pCO2 (35-45) mmHg ABG pO2 (85-104) mmHg ABG HCO3 (21-27) mEQ/L ABG Total CO2 (20-26) mEq/L ABG O2 Saturation (95-98) % ABG Base Excess (-2.0 to 3.0) mEq/L Blood Gas Modality Inspired O2 % Sodium 135 L (136-145) mEq/L Potassium 3.7 (3.5-4.5) mEq/L Chloride 107 (98-109) mEq/L Carbon Dioxide 22 (19-29) mEq/L BUN 14 (8-26) mg/dL Creatinine 0.58 L (0.72-1.25) mg/dL Est GFR ( Amer) > 60 (> 60) Est GFR (Non-Af Amer) > 60 (> 60) BUN/Creatinine Ratio 24 (6-26) Glucose 93 (70-99) mg/dL POC Glucose 99 H 99 H (58-89) Calculated Osmolality 280 (280-300) Calcium 7.5 L (8.6-10.8) mg/dL Phosphorus 3.6 (2.3-4.7) mg/dL Magnesium 1.7 (1.6-2.6) mg/dL Prealbumin (18.0-45.0) mg/dL Triglycerides (< 150) mg/dL Urine Color (Yellow) Urine Clarity (Clear) Urine pH (5.0-8.0) pH Units Ur Specific [place] (1.010-1.025) Urine Protein (Neg-Trace) mg/dL Urine Glucose (UA) (Normal) mg/dL Urine Ketones (Negative) mg/dL Urine Blood (Negative) Urine Nitrite (Negative) Urine Bilirubin (Negative) Urine Urobilinogen (Normal) mg/dL Ur Leukocyte Esterase (Negative) Urine Microscopic RBC (0-3) per hpf Urine Microscopic WBC (0-3) per hpf Urine Bacteria (None-Few) per hpf Ur Culture Indicated? (NO) Vancomycin Trough (10-20) mcg/mL 09/20/16 09/20/16 09/20/16 Range/Units 03:20 03:20 03:20 WBC 16.2 H (4.3-11.1) K/mcL RBC 4.03 L (4.19-5.50) M/mcL Hgb 11.9 L (12.9-16.9) g/dL Hct 35.6 L (37.5-50.1) % MCV 88.3 (83.0-100.0) fL MCH 29.5 (28.0-33.3) pg MCHC 33.4 (31.6-35.5) g/dL RDW 14.8 H (11.5-14.5) % Plt Count 182 (140-400) K/mcL MPV 10.1 (9.4-12.4) fL Immature Gran % 0.6 (0-4) % Seg Neutrophils % 77.9 % Lymphocytes % 7.6 % Monocytes % 8.5 % Eosinophils % 4.9 % Basophils % 0.5 % Neutrophils # 12.6 H (1.6-8.9) K/mcL Lymphocytes # 1.2 (0.6-4.6) K/mcL Monocytes # 1.4 H (0.0-1.3) K/mcL Eosinophils # 0.8 H (0.0-0.6) K/mcL Basophils # 0.1 (0.0-0.2) K/mcL Immature Plt Fraction (1.1-6.1) % PT (9.4-12.1) Seconds INR ABG pH (7.32-7.45) pH Units ABG pCO2 (35-45) mmHg ABG pO2 (85-104) mmHg ABG HCO3 (21-27) mEQ/L ABG Total CO2 (20-26) mEq/L ABG O2 Saturation (95-98) % ABG Base Excess (-2.0 to 3.0) mEq/L Blood Gas Modality Inspired O2 % Sodium (136-145) mEq/L Potassium (3.5-4.5) mEq/L Chloride (98-109) mEq/L Carbon Dioxide (19-29) mEq/L BUN (8-26) mg/dL Creatinine (0.72-1.25) mg/dL Est GFR ( Amer) (> 60) Est GFR (Non-Af Amer) (> 60) BUN/Creatinine Ratio (6-26) Glucose (70-99) mg/dL POC Glucose (58-89) Calculated Osmolality (280-300) Calcium (8.6-10.8) mg/dL Phosphorus (2.3-4.7) mg/dL Magnesium (1.6-2.6) mg/dL Prealbumin 5.0 L (18.0-45.0) mg/dL Triglycerides (< 150) mg/dL Urine Color (Yellow) Urine Clarity (Clear) Urine pH (5.0-8.0) pH Units Ur Specific [place] (1.010-1.025) Urine Protein (Neg-Trace) mg/dL Urine Glucose (UA) (Normal) mg/dL Urine Ketones (Negative) mg/dL Urine Blood (Negative) Urine Nitrite (Negative) Urine Bilirubin (Negative) Urine Urobilinogen (Normal) mg/dL Ur Leukocyte Esterase (Negative) Urine Microscopic RBC (0-3) per hpf Urine Microscopic WBC (0-3) per hpf Urine Bacteria (None-Few) per hpf Ur Culture Indicated? (NO) Vancomycin Trough 7.2 L (10-20) mcg/mL 09/20/16 09/20/16 09/20/16 Range/Units 03:46 07:32 11:09 WBC (4.3-11.1) K/mcL RBC (4.19-5.50) M/mcL Hgb (12.9-16.9) g/dL Hct (37.5-50.1) % MCV (83.0-100.0) fL MCH (28.0-33.3) pg MCHC (31.6-35.5) g/dL RDW (11.5-14.5) % Plt Count (140-400) K/mcL MPV (9.4-12.4) fL Immature Gran % (0-4) % Seg Neutrophils % % Lymphocytes % % Monocytes % % Eosinophils % % Basophils % % Neutrophils # (1.6-8.9) K/mcL Lymphocytes # (0.6-4.6) K/mcL Monocytes # (0.0-1.3) K/mcL Eosinophils # (0.0-0.6) K/mcL Basophils # (0.0-0.2) K/mcL Immature Plt Fraction (1.1-6.1) % PT (9.4-12.1) Seconds INR ABG pH (7.32-7.45) pH Units ABG pCO2 (35-45) mmHg ABG pO2 (85-104) mmHg ABG HCO3 (21-27) mEQ/L ABG Total CO2 (20-26) mEq/L ABG O2 Saturation (95-98) % ABG Base Excess (-2.0 to 3.0) mEq/L Blood Gas Modality Inspired O2 % Sodium (136-145) mEq/L Potassium (3.5-4.5) mEq/L Chloride (98-109) mEq/L Carbon Dioxide (19-29) mEq/L BUN (8-26) mg/dL Creatinine (0.72-1.25) mg/dL Est GFR ( Amer) (> 60) Est GFR (Non-Af Amer) (> 60) BUN/Creatinine Ratio (6-26) Glucose (70-99) mg/dL POC Glucose 96 H 122 H 121 H (58-89) Calculated Osmolality (280-300) Calcium (8.6-10.8) mg/dL Phosphorus (2.3-4.7) mg/dL Magnesium (1.6-2.6) mg/dL Prealbumin (18.0-45.0) mg/dL Triglycerides (< 150) mg/dL Urine Color (Yellow) Urine Clarity (Clear) Urine pH (5.0-8.0) pH Units Ur Specific [place] (1.010-1.025) Urine Protein (Neg-Trace) mg/dL Urine Glucose (UA) (Normal) mg/dL Urine Ketones (Negative) mg/dL Urine Blood (Negative) Urine Nitrite (Negative) Urine Bilirubin (Negative) Urine Urobilinogen (Normal) mg/dL Ur Leukocyte Esterase (Negative) Urine Microscopic RBC (0-3) per hpf Urine Microscopic WBC (0-3) per hpf Urine Bacteria (None-Few) per hpf Ur Culture Indicated? (NO) Vancomycin Trough (10-20) mcg/mL 09/20/16 09/20/16 09/20/16 Range/Units 15:43 19:18 23:58 WBC (4.3-11.1) K/mcL RBC (4.19-5.50) M/mcL Hgb (12.9-16.9) g/dL Hct (37.5-50.1) % MCV (83.0-100.0) fL MCH (28.0-33.3) pg MCHC (31.6-35.5) g/dL RDW (11.5-14.5) % Plt Count (140-400) K/mcL MPV (9.4-12.4) fL Immature Gran % (0-4) % Seg Neutrophils % % Lymphocytes % % Monocytes % % Eosinophils % % Basophils % % Neutrophils # (1.6-8.9) K/mcL Lymphocytes # (0.6-4.6) K/mcL Monocytes # (0.0-1.3) K/mcL Eosinophils # (0.0-0.6) K/mcL Basophils # (0.0-0.2) K/mcL Immature Plt Fraction (1.1-6.1) % PT (9.4-12.1) Seconds INR ABG pH (7.32-7.45) pH Units ABG pCO2 (35-45) mmHg ABG pO2 (85-104) mmHg ABG HCO3 (21-27) mEQ/L ABG Total CO2 (20-26) mEq/L ABG O2 Saturation (95-98) % ABG Base Excess (-2.0 to 3.0) mEq/L Blood Gas Modality Inspired O2 % Sodium (136-145) mEq/L Potassium (3.5-4.5) mEq/L Chloride (98-109) mEq/L Carbon Dioxide (19-29) mEq/L BUN (8-26) mg/dL Creatinine (0.72-1.25) mg/dL Est GFR ( Amer) (> 60) Est GFR (Non-Af Amer) (> 60) BUN/Creatinine Ratio (6-26) Glucose (70-99) mg/dL POC Glucose 115 H 104 H 116 H (58-89) Calculated Osmolality (280-300) Calcium (8.6-10.8) mg/dL Phosphorus (2.3-4.7) mg/dL Magnesium (1.6-2.6) mg/dL Prealbumin (18.0-45.0) mg/dL Triglycerides (< 150) mg/dL Urine Color (Yellow) Urine Clarity (Clear) Urine pH (5.0-8.0) pH Units Ur Specific [place] (1.010-1.025) Urine Protein (Neg-Trace) mg/dL Urine Glucose (UA) (Normal) mg/dL Urine Ketones (Negative) mg/dL Urine Blood (Negative) Urine Nitrite (Negative) Urine Bilirubin (Negative) Urine Urobilinogen (Normal) mg/dL Ur Leukocyte Esterase (Negative) Urine Microscopic RBC (0-3) per hpf Urine Microscopic WBC (0-3) per hpf Urine Bacteria (None-Few) per hpf Ur Culture Indicated? (NO) Vancomycin Trough (10-20) mcg/mL 09/21/16 09/21/16 09/21/16 Range/Units 03:45 04:00 04:00 WBC 15.4 H (4.3-11.1) K/mcL RBC 4.14 L (4.19-5.50) M/mcL Hgb 12.3 L (12.9-16.9) g/dL Hct 36.4 L (37.5-50.1) % MCV 87.9 (83.0-100.0) fL MCH 29.7 (28.0-33.3) pg MCHC 33.8 (31.6-35.5) g/dL RDW 14.6 H (11.5-14.5) % Plt Count 163 (140-400) K/mcL MPV 9.6 (9.4-12.4) fL Immature Gran % 0.6 (0-4) % Seg Neutrophils % 76.3 % Lymphocytes % 5.6 % Monocytes % 11.3 % Eosinophils % 5.6 % Basophils % 0.6 % Neutrophils # 11.8 H (1.6-8.9) K/mcL Lymphocytes # 0.9 (0.6-4.6) K/mcL Monocytes # 1.7 H (0.0-1.3) K/mcL Eosinophils # 0.9 H (0.0-0.6) K/mcL Basophils # 0.1 (0.0-0.2) K/mcL Immature Plt Fraction (1.1-6.1) % PT (9.4-12.1) Seconds INR ABG pH (7.32-7.45) pH Units ABG pCO2 (35-45) mmHg ABG pO2 (85-104) mmHg ABG HCO3 (21-27) mEQ/L ABG Total CO2 (20-26) mEq/L ABG O2 Saturation (95-98) % ABG Base Excess (-2.0 to 3.0) mEq/L Blood Gas Modality Inspired O2 % Sodium 131 L (136-145) mEq/L Potassium 4.2 (3.5-4.5) mEq/L Chloride 99 (98-109) mEq/L Carbon Dioxide 25 (19-29) mEq/L BUN 15 (8-26) mg/dL Creatinine 0.68 L (0.72-1.25) mg/dL Est GFR ( Amer) > 60 (> 60) Est GFR (Non-Af Amer) > 60 (> 60) BUN/Creatinine Ratio 22 (6-26) Glucose 100 H (70-99) mg/dL POC Glucose 116 H (58-89) Calculated Osmolality 273 L (280-300) Calcium 8.5 L (8.6-10.8) mg/dL Phosphorus (2.3-4.7) mg/dL Magnesium (1.6-2.6) mg/dL Prealbumin (18.0-45.0) mg/dL Triglycerides (< 150) mg/dL Urine Color (Yellow) Urine Clarity (Clear) Urine pH (5.0-8.0) pH Units Ur Specific [place] (1.010-1.025) Urine Protein (Neg-Trace) mg/dL Urine Glucose (UA) (Normal) mg/dL Urine Ketones (Negative) mg/dL Urine Blood (Negative) Urine Nitrite (Negative) Urine Bilirubin (Negative) Urine Urobilinogen (Normal) mg/dL Ur Leukocyte Esterase (Negative) Urine Microscopic RBC (0-3) per hpf Urine Microscopic WBC (0-3) per hpf Urine Bacteria (None-Few) per hpf Ur Culture Indicated? (NO) Vancomycin Trough (10-20) mcg/mL 09/21/16 09/21/16 09/21/16 Range/Units 08:27 12:25 15:42 WBC (4.3-11.1) K/mcL RBC (4.19-5.50) M/mcL Hgb (12.9-16.9) g/dL Hct (37.5-50.1) % MCV (83.0-100.0) fL MCH (28.0-33.3) pg MCHC (31.6-35.5) g/dL RDW (11.5-14.5) % Plt Count (140-400) K/mcL MPV (9.4-12.4) fL Immature Gran % (0-4) % Seg Neutrophils % % Lymphocytes % % Monocytes % % Eosinophils % % Basophils % % Neutrophils # (1.6-8.9) K/mcL Lymphocytes # (0.6-4.6) K/mcL Monocytes # (0.0-1.3) K/mcL Eosinophils # (0.0-0.6) K/mcL Basophils # (0.0-0.2) K/mcL Immature Plt Fraction (1.1-6.1) % PT (9.4-12.1) Seconds INR ABG pH (7.32-7.45) pH Units ABG pCO2 (35-45) mmHg ABG pO2 (85-104) mmHg ABG HCO3 (21-27) mEQ/L ABG Total CO2 (20-26) mEq/L ABG O2 Saturation (95-98) % ABG Base Excess (-2.0 to 3.0) mEq/L Blood Gas Modality Inspired O2 % Sodium (136-145) mEq/L Potassium (3.5-4.5) mEq/L Chloride (98-109) mEq/L Carbon Dioxide (19-29) mEq/L BUN (8-26) mg/dL Creatinine (0.72-1.25) mg/dL Est GFR ( Amer) (> 60) Est GFR (Non-Af Amer) (> 60) BUN/Creatinine Ratio (6-26) Glucose (70-99) mg/dL POC Glucose 120 H 149 H 114 H (58-89) Calculated Osmolality (280-300) Calcium (8.6-10.8) mg/dL Phosphorus (2.3-4.7) mg/dL Magnesium (1.6-2.6) mg/dL Prealbumin (18.0-45.0) mg/dL Triglycerides (< 150) mg/dL Urine Color (Yellow) Urine Clarity (Clear) Urine pH (5.0-8.0) pH Units Ur Specific [place] (1.010-1.025) Urine Protein (Neg-Trace) mg/dL Urine Glucose (UA) (Normal) mg/dL Urine Ketones (Negative) mg/dL Urine Blood (Negative) Urine Nitrite (Negative) Urine Bilirubin (Negative) Urine Urobilinogen (Normal) mg/dL Ur Leukocyte Esterase (Negative) Urine Microscopic RBC (0-3) per hpf Urine Microscopic WBC (0-3) per hpf Urine Bacteria (None-Few) per hpf Ur Culture Indicated? (NO) Vancomycin Trough (10-20) mcg/mL 09/21/16 09/21/16 09/22/16 Range/Units 19:33 23:17 03:20 WBC (4.3-11.1) K/mcL RBC (4.19-5.50) M/mcL Hgb (12.9-16.9) g/dL Hct (37.5-50.1) % MCV (83.0-100.0) fL MCH (28.0-33.3) pg MCHC (31.6-35.5) g/dL RDW (11.5-14.5) % Plt Count (140-400) K/mcL MPV (9.4-12.4) fL Immature Gran % (0-4) % Seg Neutrophils % % Lymphocytes % % Monocytes % % Eosinophils % % Basophils % % Neutrophils # (1.6-8.9) K/mcL Lymphocytes # (0.6-4.6) K/mcL Monocytes # (0.0-1.3) K/mcL Eosinophils # (0.0-0.6) K/mcL Basophils # (0.0-0.2) K/mcL Immature Plt Fraction (1.1-6.1) % PT (9.4-12.1) Seconds INR ABG pH (7.32-7.45) pH Units ABG pCO2 (35-45) mmHg ABG pO2 (85-104) mmHg ABG HCO3 (21-27) mEQ/L ABG Total CO2 (20-26) mEq/L ABG O2 Saturation (95-98) % ABG Base Excess (-2.0 to 3.0) mEq/L Blood Gas Modality Inspired O2 % Sodium (136-145) mEq/L Potassium (3.5-4.5) mEq/L Chloride (98-109) mEq/L Carbon Dioxide (19-29) mEq/L BUN (8-26) mg/dL Creatinine (0.72-1.25) mg/dL Est GFR ( Amer) (> 60) Est GFR (Non-Af Amer) (> 60) BUN/Creatinine Ratio (6-26) Glucose (70-99) mg/dL POC Glucose 137 H 120 H (58-89) Calculated Osmolality (280-300) Calcium (8.6-10.8) mg/dL Phosphorus (2.3-4.7) mg/dL Magnesium (1.6-2.6) mg/dL Prealbumin (18.0-45.0) mg/dL Triglycerides (< 150) mg/dL Urine Color (Yellow) Urine Clarity (Clear) Urine pH (5.0-8.0) pH Units Ur Specific [place] (1.010-1.025) Urine Protein (Neg-Trace) mg/dL Urine Glucose (UA) (Normal) mg/dL Urine Ketones (Negative) mg/dL Urine Blood (Negative) Urine Nitrite (Negative) Urine Bilirubin (Negative) Urine Urobilinogen (Normal) mg/dL Ur Leukocyte Esterase (Negative) Urine Microscopic RBC (0-3) per hpf Urine Microscopic WBC (0-3) per hpf Urine Bacteria (None-Few) per hpf Ur Culture Indicated? (NO) Vancomycin Trough 11.7 (10-20) mcg/mL 09/22/16 09/22/16 09/22/16 Range/Units 03:20 03:20 03:40 WBC 12.3 H (4.3-11.1) K/mcL RBC 3.90 L (4.19-5.50) M/mcL Hgb 11.6 L (12.9-16.9) g/dL Hct 34.2 L (37.5-50.1) % MCV 87.7 (83.0-100.0) fL MCH 29.7 (28.0-33.3) pg MCHC 33.9 (31.6-35.5) g/dL RDW 14.7 H (11.5-14.5) % Plt Count 175 (140-400) K/mcL MPV 9.5 (9.4-12.4) fL Immature Gran % 0.8 (0-4) % Seg Neutrophils % 68.8 % Lymphocytes % 9.7 % Monocytes % 12.8 % Eosinophils % 7.3 % Basophils % 0.6 % Neutrophils # 8.5 (1.6-8.9) K/mcL Lymphocytes # 1.2 (0.6-4.6) K/mcL Monocytes # 1.6 H (0.0-1.3) K/mcL Eosinophils # 0.9 H (0.0-0.6) K/mcL Basophils # 0.1 (0.0-0.2) K/mcL Immature Plt Fraction (1.1-6.1) % PT (9.4-12.1) Seconds INR ABG pH (7.32-7.45) pH Units ABG pCO2 (35-45) mmHg ABG pO2 (85-104) mmHg ABG HCO3 (21-27) mEQ/L ABG Total CO2 (20-26) mEq/L ABG O2 Saturation (95-98) % ABG Base Excess (-2.0 to 3.0) mEq/L Blood Gas Modality Inspired O2 % Sodium 132 L (136-145) mEq/L Potassium 4.0 (3.5-4.5) mEq/L Chloride 100 (98-109) mEq/L Carbon Dioxide 26 (19-29) mEq/L BUN 14 (8-26) mg/dL Creatinine 0.66 L (0.72-1.25) mg/dL Est GFR ( Amer) > 60 (> 60) Est GFR (Non-Af Amer) > 60 (> 60) BUN/Creatinine Ratio 21 (6-26) Glucose 103 H (70-99) mg/dL POC Glucose 110 H (58-89) Calculated Osmolality 275 L (280-300) Calcium 8.2 L (8.6-10.8) mg/dL Phosphorus (2.3-4.7) mg/dL Magnesium (1.6-2.6) mg/dL Prealbumin (18.0-45.0) mg/dL Triglycerides (< 150) mg/dL Urine Color (Yellow) Urine Clarity (Clear) Urine pH (5.0-8.0) pH Units Ur Specific [place] (1.010-1.025) Urine Protein (Neg-Trace) mg/dL Urine Glucose (UA) (Normal) mg/dL Urine Ketones (Negative) mg/dL Urine Blood (Negative) Urine Nitrite (Negative) Urine Bilirubin (Negative) Urine Urobilinogen (Normal) mg/dL Ur Leukocyte Esterase (Negative) Urine Microscopic RBC (0-3) per hpf Urine Microscopic WBC (0-3) per hpf Urine Bacteria (None-Few) per hpf Ur Culture Indicated? (NO) Vancomycin Trough (10-20) mcg/mL 09/22/16 09/22/16 09/22/16 Range/Units 07:47 12:02 16:33 WBC (4.3-11.1) K/mcL RBC (4.19-5.50) M/mcL Hgb (12.9-16.9) g/dL Hct (37.5-50.1) % MCV (83.0-100.0) fL MCH (28.0-33.3) pg MCHC (31.6-35.5) g/dL RDW (11.5-14.5) % Plt Count (140-400) K/mcL MPV (9.4-12.4) fL Immature Gran % (0-4) % Seg Neutrophils % % Lymphocytes % % Monocytes % % Eosinophils % % Basophils % % Neutrophils # (1.6-8.9) K/mcL Lymphocytes # (0.6-4.6) K/mcL Monocytes # (0.0-1.3) K/mcL Eosinophils # (0.0-0.6) K/mcL Basophils # (0.0-0.2) K/mcL Immature Plt Fraction (1.1-6.1) % PT (9.4-12.1) Seconds INR ABG pH (7.32-7.45) pH Units ABG pCO2 (35-45) mmHg ABG pO2 (85-104) mmHg ABG HCO3 (21-27) mEQ/L ABG Total CO2 (20-26) mEq/L ABG O2 Saturation (95-98) % ABG Base Excess (-2.0 to 3.0) mEq/L Blood Gas Modality Inspired O2 % Sodium (136-145) mEq/L Potassium (3.5-4.5) mEq/L Chloride (98-109) mEq/L Carbon Dioxide (19-29) mEq/L BUN (8-26) mg/dL Creatinine (0.72-1.25) mg/dL Est GFR ( Amer) (> 60) Est GFR (Non-Af Amer) (> 60) BUN/Creatinine Ratio (6-26) Glucose (70-99) mg/dL POC Glucose 125 H 105 H 121 H (58-89) Calculated Osmolality (280-300) Calcium (8.6-10.8) mg/dL Phosphorus (2.3-4.7) mg/dL Magnesium (1.6-2.6) mg/dL Prealbumin (18.0-45.0) mg/dL Triglycerides (< 150) mg/dL Urine Color (Yellow) Urine Clarity (Clear) Urine pH (5.0-8.0) pH Units Ur Specific [place] (1.010-1.025) Urine Protein (Neg-Trace) mg/dL Urine Glucose (UA) (Normal) mg/dL Urine Ketones (Negative) mg/dL Urine Blood (Negative) Urine Nitrite (Negative) Urine Bilirubin (Negative) Urine Urobilinogen (Normal) mg/dL Ur Leukocyte Esterase (Negative) Urine Microscopic RBC (0-3) per hpf Urine Microscopic WBC (0-3) per hpf Urine Bacteria (None-Few) per hpf Ur Culture Indicated? (NO) Vancomycin Trough (10-20) mcg/mL 09/22/16 09/22/16 09/23/16 Range/Units 20:35 23:26 03:55 WBC (4.3-11.1) K/mcL RBC (4.19-5.50) M/mcL Hgb (12.9-16.9) g/dL Hct (37.5-50.1) % MCV (83.0-100.0) fL MCH (28.0-33.3) pg MCHC (31.6-35.5) g/dL RDW (11.5-14.5) % Plt Count (140-400) K/mcL MPV (9.4-12.4) fL Immature Gran % (0-4) % Seg Neutrophils % % Lymphocytes % % Monocytes % % Eosinophils % % Basophils % % Neutrophils # (1.6-8.9) K/mcL Lymphocytes # (0.6-4.6) K/mcL Monocytes # (0.0-1.3) K/mcL Eosinophils # (0.0-0.6) K/mcL Basophils # (0.0-0.2) K/mcL Immature Plt Fraction (1.1-6.1) % PT (9.4-12.1) Seconds INR ABG pH (7.32-7.45) pH Units ABG pCO2 (35-45) mmHg ABG pO2 (85-104) mmHg ABG HCO3 (21-27) mEQ/L ABG Total CO2 (20-26) mEq/L ABG O2 Saturation (95-98) % ABG Base Excess (-2.0 to 3.0) mEq/L Blood Gas Modality Inspired O2 % Sodium (136-145) mEq/L Potassium (3.5-4.5) mEq/L Chloride (98-109) mEq/L Carbon Dioxide (19-29) mEq/L BUN (8-26) mg/dL Creatinine (0.72-1.25) mg/dL Est GFR ( Amer) (> 60) Est GFR (Non-Af Amer) (> 60) BUN/Creatinine Ratio (6-26) Glucose (70-99) mg/dL POC Glucose 114 H 110 H 119 H (58-89) Calculated Osmolality (280-300) Calcium (8.6-10.8) mg/dL Phosphorus (2.3-4.7) mg/dL Magnesium (1.6-2.6) mg/dL Prealbumin (18.0-45.0) mg/dL Triglycerides (< 150) mg/dL Urine Color (Yellow) Urine Clarity (Clear) Urine pH (5.0-8.0) pH Units Ur Specific [place] (1.010-1.025) Urine Protein (Neg-Trace) mg/dL Urine Glucose (UA) (Normal) mg/dL Urine Ketones (Negative) mg/dL Urine Blood (Negative) Urine Nitrite (Negative) Urine Bilirubin (Negative) Urine Urobilinogen (Normal) mg/dL Ur Leukocyte Esterase (Negative) Urine Microscopic RBC (0-3) per hpf Urine Microscopic WBC (0-3) per hpf Urine Bacteria (None-Few) per hpf Ur Culture Indicated? (NO) Vancomycin Trough (10-20) mcg/mL 09/23/16 09/23/16 09/23/16 Range/Units 04:42 04:42 08:09 WBC 10.8 (4.3-11.1) K/mcL RBC 4.17 L (4.19-5.50) M/mcL Hgb 12.0 L (12.9-16.9) g/dL Hct 36.8 L (37.5-50.1) % MCV 88.2 (83.0-100.0) fL MCH 28.8 (28.0-33.3) pg MCHC 32.6 (31.6-35.5) g/dL RDW 14.9 H (11.5-14.5) % Plt Count 175 (140-400) K/mcL MPV 9.9 (9.4-12.4) fL Immature Gran % 0.9 (0-4) % Seg Neutrophils % 62.3 % Lymphocytes % 13.6 % Monocytes % 15.7 % Eosinophils % 6.6 % Basophils % 0.9 % Neutrophils # 6.7 (1.6-8.9) K/mcL Lymphocytes # 1.5 (0.6-4.6) K/mcL Monocytes # 1.7 H (0.0-1.3) K/mcL Eosinophils # 0.7 H (0.0-0.6) K/mcL Basophils # 0.1 (0.0-0.2) K/mcL Immature Plt Fraction (1.1-6.1) % PT (9.4-12.1) Seconds INR ABG pH (7.32-7.45) pH Units ABG pCO2 (35-45) mmHg ABG pO2 (85-104) mmHg ABG HCO3 (21-27) mEQ/L ABG Total CO2 (20-26) mEq/L ABG O2 Saturation (95-98) % ABG Base Excess (-2.0 to 3.0) mEq/L Blood Gas Modality Inspired O2 % Sodium 133 L (136-145) mEq/L Potassium 4.3 (3.5-4.5) mEq/L Chloride 98 (98-109) mEq/L Carbon Dioxide 30 H (19-29) mEq/L BUN 15 (8-26) mg/dL Creatinine 0.71 L (0.72-1.25) mg/dL Est GFR ( Amer) > 60 (> 60) Est GFR (Non-Af Amer) > 60 (> 60) BUN/Creatinine Ratio 21 (6-26) Glucose 115 H (70-99) mg/dL POC Glucose 116 H (58-89) Calculated Osmolality 278 L (280-300) Calcium 8.9 (8.6-10.8) mg/dL Phosphorus (2.3-4.7) mg/dL Magnesium (1.6-2.6) mg/dL Prealbumin (18.0-45.0) mg/dL Triglycerides (< 150) mg/dL Urine Color (Yellow) Urine Clarity (Clear) Urine pH (5.0-8.0) pH Units Ur Specific [place] (1.010-1.025) Urine Protein (Neg-Trace) mg/dL Urine Glucose (UA) (Normal) mg/dL Urine Ketones (Negative) mg/dL Urine Blood (Negative) Urine Nitrite (Negative) Urine Bilirubin (Negative) Urine Urobilinogen (Normal) mg/dL Ur Leukocyte Esterase (Negative) Urine Microscopic RBC (0-3) per hpf Urine Microscopic WBC (0-3) per hpf Urine Bacteria (None-Few) per hpf Ur Culture Indicated? (NO) Vancomycin Trough (10-20) mcg/mL 09/23/16 09/23/16 09/23/16 Range/Units 12:20 16:23 20:38 WBC (4.3-11.1) K/mcL RBC (4.19-5.50) M/mcL Hgb (12.9-16.9) g/dL Hct (37.5-50.1) % MCV (83.0-100.0) fL MCH (28.0-33.3) pg MCHC (31.6-35.5) g/dL RDW (11.5-14.5) % Plt Count (140-400) K/mcL MPV (9.4-12.4) fL Immature Gran % (0-4) % Seg Neutrophils % % Lymphocytes % % Monocytes % % Eosinophils % % Basophils % % Neutrophils # (1.6-8.9) K/mcL Lymphocytes # (0.6-4.6) K/mcL Monocytes # (0.0-1.3) K/mcL Eosinophils # (0.0-0.6) K/mcL Basophils # (0.0-0.2) K/mcL Immature Plt Fraction (1.1-6.1) % PT (9.4-12.1) Seconds INR ABG pH (7.32-7.45) pH Units ABG pCO2 (35-45) mmHg ABG pO2 (85-104) mmHg ABG HCO3 (21-27) mEQ/L ABG Total CO2 (20-26) mEq/L ABG O2 Saturation (95-98) % ABG Base Excess (-2.0 to 3.0) mEq/L Blood Gas Modality Inspired O2 % Sodium (136-145) mEq/L Potassium (3.5-4.5) mEq/L Chloride (98-109) mEq/L Carbon Dioxide (19-29) mEq/L BUN (8-26) mg/dL Creatinine (0.72-1.25) mg/dL Est GFR ( Amer) (> 60) Est GFR (Non-Af Amer) (> 60) BUN/Creatinine Ratio (6-26) Glucose (70-99) mg/dL POC Glucose 110 H 111 H 133 H (58-89) Calculated Osmolality (280-300) Calcium (8.6-10.8) mg/dL Phosphorus (2.3-4.7) mg/dL Magnesium (1.6-2.6) mg/dL Prealbumin (18.0-45.0) mg/dL Triglycerides (< 150) mg/dL Urine Color (Yellow) Urine Clarity (Clear) Urine pH (5.0-8.0) pH Units Ur Specific [place] (1.010-1.025) Urine Protein (Neg-Trace) mg/dL Urine Glucose (UA) (Normal) mg/dL Urine Ketones (Negative) mg/dL Urine Blood (Negative) Urine Nitrite (Negative) Urine Bilirubin (Negative) Urine Urobilinogen (Normal) mg/dL Ur Leukocyte Esterase (Negative) Urine Microscopic RBC (0-3) per hpf Urine Microscopic WBC (0-3) per hpf Urine Bacteria (None-Few) per hpf Ur Culture Indicated? (NO) Vancomycin Trough (10-20) mcg/mL 09/24/16 09/24/16 09/24/16 Range/Units 00:35 03:35 03:35 WBC 11.7 H (4.3-11.1) K/mcL RBC 3.84 L (4.19-5.50) M/mcL Hgb 11.3 L (12.9-16.9) g/dL Hct 34.0 L (37.5-50.1) % MCV 88.5 (83.0-100.0) fL MCH 29.4 (28.0-33.3) pg MCHC 33.2 (31.6-35.5) g/dL RDW 15.0 H (11.5-14.5) % Plt Count 165 (140-400) K/mcL MPV 9.9 (9.4-12.4) fL Immature Gran % 1.3 (0-4) % Seg Neutrophils % 61.1 % Lymphocytes % 16.1 % Monocytes % 15.4 % Eosinophils % 5.2 % Basophils % 0.9 % Neutrophils # 7.1 (1.6-8.9) K/mcL Lymphocytes # 1.9 (0.6-4.6) K/mcL Monocytes # 1.8 H (0.0-1.3) K/mcL Eosinophils # 0.6 (0.0-0.6) K/mcL Basophils # 0.1 (0.0-0.2) K/mcL Immature Plt Fraction (1.1-6.1) % PT (9.4-12.1) Seconds INR ABG pH (7.32-7.45) pH Units ABG pCO2 (35-45) mmHg ABG pO2 (85-104) mmHg ABG HCO3 (21-27) mEQ/L ABG Total CO2 (20-26) mEq/L ABG O2 Saturation (95-98) % ABG Base Excess (-2.0 to 3.0) mEq/L Blood Gas Modality Inspired O2 % Sodium (136-145) mEq/L Potassium (3.5-4.5) mEq/L Chloride (98-109) mEq/L Carbon Dioxide (19-29) mEq/L BUN (8-26) mg/dL Creatinine (0.72-1.25) mg/dL Est GFR ( Amer) (> 60) Est GFR (Non-Af Amer) (> 60) BUN/Creatinine Ratio (6-26) Glucose (70-99) mg/dL POC Glucose 152 H (58-89) Calculated Osmolality (280-300) Calcium (8.6-10.8) mg/dL Phosphorus (2.3-4.7) mg/dL Magnesium (1.6-2.6) mg/dL Prealbumin 13.0 L (18.0-45.0) mg/dL Triglycerides (< 150) mg/dL Urine Color (Yellow) Urine Clarity (Clear) Urine pH (5.0-8.0) pH Units Ur Specific [place] (1.010-1.025) Urine Protein (Neg-Trace) mg/dL Urine Glucose (UA) (Normal) mg/dL Urine Ketones (Negative) mg/dL Urine Blood (Negative) Urine Nitrite (Negative) Urine Bilirubin (Negative) Urine Urobilinogen (Normal) mg/dL Ur Leukocyte Esterase (Negative) Urine Microscopic RBC (0-3) per hpf Urine Microscopic WBC (0-3) per hpf Urine Bacteria (None-Few) per hpf Ur Culture Indicated? (NO) Vancomycin Trough (10-20) mcg/mL 09/24/16 09/24/16 09/24/16 Range/Units 03:35 04:12 16:19 WBC (4.3-11.1) K/mcL RBC (4.19-5.50) M/mcL Hgb (12.9-16.9) g/dL Hct (37.5-50.1) % MCV (83.0-100.0) fL MCH (28.0-33.3) pg MCHC (31.6-35.5) g/dL RDW (11.5-14.5) % Plt Count (140-400) K/mcL MPV (9.4-12.4) fL Immature Gran % (0-4) % Seg Neutrophils % % Lymphocytes % % Monocytes % % Eosinophils % % Basophils % % Neutrophils # (1.6-8.9) K/mcL Lymphocytes # (0.6-4.6) K/mcL Monocytes # (0.0-1.3) K/mcL Eosinophils # (0.0-0.6) K/mcL Basophils # (0.0-0.2) K/mcL Immature Plt Fraction (1.1-6.1) % PT (9.4-12.1) Seconds INR ABG pH (7.32-7.45) pH Units ABG pCO2 (35-45) mmHg ABG pO2 (85-104) mmHg ABG HCO3 (21-27) mEQ/L ABG Total CO2 (20-26) mEq/L ABG O2 Saturation (95-98) % ABG Base Excess (-2.0 to 3.0) mEq/L Blood Gas Modality Inspired O2 % Sodium 134 L (136-145) mEq/L Potassium 3.8 (3.5-4.5) mEq/L Chloride 101 (98-109) mEq/L Carbon Dioxide 26 (19-29) mEq/L BUN 17 (8-26) mg/dL Creatinine 0.64 L (0.72-1.25) mg/dL Est GFR ( Amer) > 60 (> 60) Est GFR (Non-Af Amer) > 60 (> 60) BUN/Creatinine Ratio 27 H (6-26) Glucose 116 H (70-99) mg/dL POC Glucose 119 H 98 H (58-89) Calculated Osmolality 281 (280-300) Calcium 8.6 (8.6-10.8) mg/dL Phosphorus 3.7 (2.3-4.7) mg/dL Magnesium 2.1 (1.6-2.6) mg/dL Prealbumin (18.0-45.0) mg/dL Triglycerides 148 (< 150) mg/dL Urine Color (Yellow) Urine Clarity (Clear) Urine pH (5.0-8.0) pH Units Ur Specific [place] (1.010-1.025) Urine Protein (Neg-Trace) mg/dL Urine Glucose (UA) (Normal) mg/dL Urine Ketones (Negative) mg/dL Urine Blood (Negative) Urine Nitrite (Negative) Urine Bilirubin (Negative) Urine Urobilinogen (Normal) mg/dL Ur Leukocyte Esterase (Negative) Urine Microscopic RBC (0-3) per hpf Urine Microscopic WBC (0-3) per hpf Urine Bacteria (None-Few) per hpf Ur Culture Indicated? (NO) Vancomycin Trough (10-20) mcg/mL
[2016-09-24] MEDS ORDERED: Clinimix E 5%-15% SOLUTION 2,000 ML with MVI, adult with vitamin K 10 ML IV SCH (17:00)
[2016-09-24] MEDS: *HR* HYDROcodone/Acet 10/325 mg TABLET PO PRN (20:15)
[2016-09-25] MEDS: Ipratropium/Albuterol Neb 3 ML IH SCH ×3 (04:00→15:22)
[2016-09-25] MEDS: Insulin LISPRO 300 UNITS/3 ML VIAL SQ SCH ×3 (04:28→13:06)
[2016-09-25 05:22] LABS: Basophils # 0.1 K/mcL (0.0-0.2); Basophils % 0.9 %; Eosinophils # 0.6 K/mcL (0.0-0.6); Hematocrit 34.7 % (37.5-50.1); Hemoglobin 11.6 g/dL (12.9-16.9); Immature Granulocytes % 1.6 % (0-4); Lymphocytes # 1.9 K/mcL (0.6-4.6); Lymphocytes % 17.4 %; Mean Corpuscular HGB Conc 33.4 g/dL (31.6-35.5); Mean Corpuscular Hemoglobin 29.8 pg (28.0-33.3); Mean Corpuscular Volume 89.2 fL (83.0-100.0); Mean Platelet Volume 9.6 fL (9.4-12.4); Monocytes # 1.4 K/mcL (0.0-1.3); Monocytes % 12.6 %; Neutrophils # 6.8 K/mcL (1.6-8.9); Platelet Count 196 K/mcL (140-400); Red Blood Count 3.89 M/mcL (4.19-5.50); Red Cell Distribution Width 15.3 % (11.5-14.5); Segmented Neutrophils % 62.5 %
[2016-09-25 05:35] LABS: BUN/Creatinine Ratio 25 (6-26); Blood Urea Nitrogen 17 mg/dL (8-26); Calcium 8.6 mg/dL (8.6-10.8); Carbon Dioxide 29 mEq/L (19-29); Chloride 100 mEq/L (98-109); Glucose 113 mg/dL (70-99); Osmolality,Calculated 276 (280-300); Potassium 3.9 mEq/L (3.5-4.5); Sodium 132 mEq/L (136-145); eGFR For African Americans > 60 (> 60); eGFR For Non-African Americans > 60 (> 60)
[2016-09-25] MEDS: *HR* Heparin 5,000 UNIT/ML VIAL SQ SCH ×2 (07:34→15:08)
[2016-09-25] MEDS: Pantoprazole 40 MG VIAL IVP SCH (08:44)
[2016-09-25] MEDS: Levofloxacin 750 MG/150 ML 750 MG/150 ML BAG IVPB SCH (08:44)
--- NOTE | 2016-09-25 13:55 | Discharge Summary ---
Date of Encounter: 09/25/16 Time of Encounter: 13:49 - Discharge Diagnosis (1) Bowel obstruction Priority: Primary Status: Resolved Qualifiers: Intestinal obstruction type: other intestinal obstruction Qualified Code(s) : K56.69 - Other intestinal obstruction (2) Metastatic colon cancer to liver Priority: Secondary Status: Acute (3) Hospital acquired PNA Priority: Secondary Status: Acute (4) DVT prophylaxis Priority: Secondary Status: Acute (5) History of CVA with residual deficit Priority: Secondary Status: Chronic - Discharge Medications Prescriptions: HYDROcodone/Acet 10/325 mg [[place] 10-325 mg] 1 each PO Q6H PRN #20 tablet PRN Reason: Moderate Pain Levofloxacin 750 mg PO DAILY #7 tablet Home Medications: Alendronate Sodium [Fosamax] 70 mg PO QWEEK 09/14/16 [History] Amlodipine [Norvasc] 10 mg PO DAILY 09/14/16 [History] Calcium Carbonate [Tums] 650 mg PO DAILY 09/14/16 [History] Cholecalciferol (D-3) [Vitamin D] 2,000 unit PO DAILY 09/14/16 [History] Folic Acid 1 mg PO DAILY 09/14/16 [History] Lisinopril [Zestril] 10 mg PO DAILY 09/14/16 [History] Lovastatin [Altoprev] 60 mg PO DAILY 09/14/16 [History] Potassium Chloride [Klor-Con Sprinkle] 10 meq PO DAILY 09/14/16 [History] Terazosin [Hytrin] 5 mg PO DAILY 09/14/16 [History] HYDROcodone/Acet 10/325 mg [[place] 10-325 mg] 1 each PO Q6H PRN #20 tablet [Rx] Levofloxacin 750 mg PO DAILY #7 tablet 09/25/16 [Rx] Allergies/Adverse Reactions: Allergies simvastatin Adverse Reaction (Verified 09/14/16 09:58) See Comments UNABLE TO CONFIRM REACTION- LISTED ON [facility] MED LIST AN ADVERSE REACTION WITH NO REACTION INDICATED Date of admission: 09/14/16 09:37 Primary care physician: PCP [facility] Consults: 09/22/16 14:08 Consult to Wound Care [CONS] Routine Reason for Consult: new colostomy and mucous fistula Time Notified: 14:08 Call Completed: No 09/14/16 13:42 Consult to Interventional Radiology [CONS] Routine Consulting Provider: Radiology Interventional Cols Reason for Consult: Liver biopsy needed Call Completed: Yes 09/15/16 07:40 Consult to Oncology Hematology [CONS] Routine Consulting Provider: Jeannie Ragsdale Reason for Consult: Metastatic cancer to liver Call Completed: No 09/15/16 10:34 Consult to Invasive Line Access Team [CONS] Routine Reason for Consult: PICC placement Line Type: PICC PICC line indications: Parental nutrition Time Notified: 10:35 Call Completed: Yes 09/15/16 10:35 consult to investigative writer [Consult to Nutrition] [CONS] Routine Comment: Total fluid rate 100ml/hour (MIV + TPN) Consulting Provider: NUTRITION Reason for Dietary Consult: TPN Start and Manage 09/15/16 15:24 Consult to Invasive Line Access Team [CONS] Routine Reason for Consult: Picc Line Insertion Line Type: PICC 09/17/16 07:54 Consult to Electronic Bench Technician [CONS] Routine Reason for SW Consult: Discharge planning 09/17/16 07:55 Consult to Occupational Therapy [CONS] Routine Comment: Evaluate, develop and implement POC Consult to Physical Therapy [CONS] Routine Comment: Evaluate, develop and implement POC Discharging clinician: Summer Mak Anticipated date of discharge: 09/25/16 - Patient Status Disposition: Transfer Hospital Swing Bed Condition: Fair Functional capacity at discharge: uses cane/walker Overall status at discharge: patient is not back to baseline - Discharge Instructions Instructions: Pneumonia (DC) Follow Up With: Jeannie Ragsdale MD [Partnered Physician] - 10/01/16 8:10 am - Diet and Activity Activity: as per physical therapy, increase activity as tolerated Diet: other (soft diet and advance as tolerated to cardiac diet) Hospital course: Mr. Jewell is a 66 year old male with history of previous CVA with right-sided residual deficits, hypertension admitted here for bowel obstruction. Patient had previously been diagnosed with metastatic lesions to the liver. Patient was evaluated by surgery and underwent exploratory laparotomy with end colostomy and creation of mucus fistula and liver biopsy. He has since then been on TPN for nutrition. Pathology results suggested that the patient has metastatic colon cancer. Oncology was consulted. Recommend outpatient follow-up for further management. During his stay here, patient developed pneumonia with broad-spectrum antibiotics. With good improvement in his symptoms he has no been disconnected to Levaquin which he will continue to take to complete a 14 day course.\ He has had poor appetite but has been tolerating diet well and has been having stools in his colostomy bags. No more abdominal discomfort or pain reported. At this time, he has been cleared for discharge per surgery. If his appetite continues to be poor, she can be assessed for outpatient PEG tube placement. During his stay here, he was also seen by palliative care status is DNR comfort care arrest. The patient will be discharged to swing bed at [facility]. - Time Spent with Patient Total time spent providing and/or coordinating discharge services: - Constitutional Vitals: Temp Pulse Resp BP Pulse Ox 98.0 F 58 18 110/66 93 L 09/25/16 10:49 09/25/16 10:49 09/25/16 10:49 09/25/16 10:49 09/25/16 10:49 General appearance: Present: A&O X 3, no acute distress, underweight - Respiratory Respiratory exam: Present: CTAB. Absent: accessory muscle use, rales, rhonchi, wheezes - Cardiovascular Cardiovascular exam: Present: RRR, +S1, +S2. Absent: diastolic murmur, gallop, rubs, systolic murmur - GI/Abdominal GI/Abdominal exam: Present: normal bowel sounds, soft, tenderness, no peritoneal signs. Absent: distended - Extremities Exam Extremities exam: Present: warm, radial pulses palpable and symetrical. Absent : calf tenderness, cyanotic, pedal edema - Neurological Exam Neurological exam: Present: CN II-XII intact, oriented X3. Absent: facial droop , speech deficit Additional comments: decreased strength in right upper and lower extremities - Skin Skin exam: Present: dry, intact - VTE Documentation of Mechanical Device: Intermittent pneumatic compression device - Attending Attestation This document has been at least partially created by [employer] recognition technology by Dr. Mak. Errors in grammar, wording or other phrases may exist. If errors are found after the documentation is signed, they will be addressed individually in the addendum section of this document when appropriate.
--- NOTE | 2016-09-25 14:06 | Physician Discharge Referral ---
[facility] Referral Info Transfer To: Swing bed Provider in Charge after Transfer: PCP - Diagnosis (1) Bowel obstruction Priority: Primary Status: Resolved (2) Metastatic colon cancer to liver Priority: Secondary Status: Acute (3) Hospital acquired PNA Priority: Secondary Status: Acute (4) DVT prophylaxis Priority: Secondary Status: Acute (5) History of CVA with residual deficit Priority: Secondary Status: Chronic (6) Colostomy care Priority: Secondary Status: Acute Prognosis: Fair Aware of Diagnosis: Patient, Family Aware of Prognosis: Patient, Family - Transfer Medications Prescriptions: HYDROcodone/Acet 10/325 mg [[place] 10-325 mg] 1 each PO Q6H PRN #20 tablet PRN Reason: Moderate Pain Levofloxacin 750 mg PO DAILY #7 tablet Home Medications: Alendronate Sodium [Fosamax] 70 mg PO QWEEK 09/14/16 [History] Amlodipine [Norvasc] 10 mg PO DAILY 09/14/16 [History] Calcium Carbonate [Tums] 650 mg PO DAILY 09/14/16 [History] Cholecalciferol (D-3) [Vitamin D] 2,000 unit PO DAILY 09/14/16 [History] Folic Acid 1 mg PO DAILY 09/14/16 [History] Lisinopril [Zestril] 10 mg PO DAILY 09/14/16 [History] Lovastatin [Altoprev] 60 mg PO DAILY 09/14/16 [History] Potassium Chloride [Klor-Con Sprinkle] 10 meq PO DAILY 09/14/16 [History] Terazosin [Hytrin] 5 mg PO DAILY 09/14/16 [History] HYDROcodone/Acet 10/325 mg [[place] 10-325 mg] 1 each PO Q6H PRN #20 tablet [Rx] Levofloxacin 750 mg PO DAILY #7 tablet 09/25/16 [Rx] Allergies/Adverse Reactions: Allergies simvastatin Adverse Reaction (Verified 09/14/16 09:58) See Comments UNABLE TO CONFIRM REACTION- [facility]IST[facility]IST AN ADVERSE REACTION WITH NO REACTION INDICATED - Respiratory Orders Smoking Cessation: Smoking cessation has been advised. For more information, call the [place] Tobacco Quit Line at 7-870-EQUY-NOW. - Ancillary Orders May use pressure relief devices daily prn, May consult with Dentist, Watch Parts Grinder, Publicity Agent PRN - Advance Directives Code Status: DNR-Arrest (DNRCC Arrest) - Mobility Orders Ambulate (per PT) - Rehabiliation Orders Rehab Orders: Evaluation for Physical Therapy, Evaluation for Occupational Therapy - Treatments Skin tear care topically daily PRN per policy - Diet Orders Mechanical Soft (An advanced to cardiac diet as tolerated) CERTIFICATION: I certify that the transfer of the above named patient to an Extended Care Facility is necessary for the continuing treatment of the diagnosis listed. The above information is true and accurate reflection of patient's current condition. Confidential - Redisclosure prohibited without a patient's written consent.
[2016-09-25 15:05] VITALS: BP 112/71
[2016-09-25] MEDS: *HR* HYDROcodone/Acet 10/325 mg TABLET PO PRN (15:08)
== END 2016-09-25 16:49 | disposition other institution (70) | DRG 329 ==
LOC: 3ANU 14:26 → EMEROO 14:26 → SUATTDRO 21:38 → 3ANU 22:53 → SUATTDRO 09-14 09:37
PROVIDERS: ADMIT Internal Medicine; ATTEND Internal Medicine